=== PATIENT | female | born 1940 | race African-American/Black ===

== ENCOUNTER 2016-08-16 14:57 | Inpatient (IN) | payer MEDICAID, OTHER ==
[2016-08-16] MEDS ORDERED: TUSSIONEX PENNKINETIC SUSP PO PRN (16:54)
[2016-08-16] MEDS: DUONEB 0.5 MG/3 MG NEB SCH ×2 (17:00→20:26)
[2016-08-16] MEDS ORDERED: SALINE 3% 15 ML NEB TX ONE (17:13)
[2016-08-16 17:58] LABS: BASOPHILS # (AUTO) 0.1 X10^3/uL (0.0-0.1); BASOPHILS % (AUTO) 0.9 % (0.2-1.0); EOSINOPHILS # (AUTO) 0.2 x10^3/uL (0.0-0.2); EOSINOPHILS % (AUTO) 1.5 % (0.9-2.9); HEMATOCRIT 36.3 % (36.0-47.0); HEMOGLOBIN 12.1 g/dL (12.0-16.0); LYMPHOCYTES # (AUTO) 1.3 X10^3/uL (1.3-2.9); LYMPHOCYTES % (AUTO) 12.4 % (21.0-51.0); MEAN CORPUSCULAR HEMOGLOBIN 28.4 pg (27.0-34.0); MEAN CORPUSCULAR HGB CONC 33.4 g/dL (33.0-35.0); MEAN PLATELET VOLUME 9.2 fL (7.4-11.0); MONOCYTES # (AUTO) 0.7 x10^3/uL (0.3-0.8); MONOCYTES % (AUTO) 6.3 % (0.0-13.0); NEUTROPHILS # (AUTO) 8.3 x10^3/uL (2.2-4.8); NEUTROPHILS % (AUTO) 78.9 % (42.0-75.0); PLATELET COUNT 286 X10^3/uL (150.0-450.0); RED BLOOD COUNT 4.27 X10^6/uL (3.5-5.4); RED CELL DISTRIBUTION WIDTH 13.6 % (11.6-16.5); WHITE BLOOD COUNT 10.5 X10^3/uL (3.6-10.0)
[2016-08-16 18:20] LABS: ALANINE AMINOTRANSFERASE 16 Units/L (12-78); ALBUMIN 3.5 g/dL (3.4-5.0); ALKALINE PHOSPHATASE 63 Units/L (46-116); ASPARTATE AMINO TRANSFERASE 17 Units/L (15-37); BLOOD UREA NITROGEN 18 mg/dL (7-18); CHLORIDE 105 mmol/L (98-107); COR NA(FOR HYPERGLY) 146 mmol/L (136-145); CREATININE 1.26 mg/dL (0.55-1.02); GLUCOSE 132 mg/dL (65-99); SODIUM 145 mmol/L (136-145); eGFR BLACK RACES 53 (>60); eGFR NON BLACK RACES 44 (>60)
[2016-08-16] MEDS ORDERED: NS 1/2 1000 ML IV 1,000 ML IV ONE (18:56)
[2016-08-16] MEDS: LEVAQUIN PREMIX IV 750 MG 750 MG/150 ML BAG IV SCH (19:03)
[2016-08-16] MEDS: ROBITUSSIN DM PO SCH ×2 (19:03→20:19)
[2016-08-16] MEDS: NS 1/2 1000 ML IV 1,000 ML IV SCH (19:03)
--- NOTE | 2016-08-16 20:13 | RAD ---
HISTORY: Pneumonia Study: Two views of the chest Comparison: May 21, 2014 Findings: The patient is rotated. The cardiac silhouette is enlarged. The lungs are clear without focal infi ltrate or effusion. The aorta is partially calcified and tortuous. IMPRESSION: 1. Cardiomegaly. Reported By:
[2016-08-16 21:44] VITALS: BMI 30.2
[2016-08-17] MEDS: DUONEB 0.5 MG/3 MG NEB SCH ×6 (00:21→21:17)
[2016-08-17 06:03] LABS: BASOPHILS % (AUTO) 0.6 % (0.2-1.0); EOSINOPHILS # (AUTO) 0.1 x10^3/uL (0.0-0.2); HEMATOCRIT 32.5 % (36.0-47.0); HEMOGLOBIN 11.1 g/dL (12.0-16.0); LYMPHOCYTES # (AUTO) 1.1 X10^3/uL (1.3-2.9); LYMPHOCYTES % (AUTO) 12.8 % (21.0-51.0); MEAN CORPUSCULAR HEMOGLOBIN 28.6 pg (27.0-34.0); MEAN CORPUSCULAR HGB CONC 34.2 g/dL (33.0-35.0); MEAN CORPUSCULAR VOLUME 83.7 fL (80.0-100.0); MEAN PLATELET VOLUME 9.6 fL (7.4-11.0); MONOCYTES # (AUTO) 0.7 x10^3/uL (0.3-0.8); NEUTROPHILS # (AUTO) 6.4 x10^3/uL (2.2-4.8); NEUTROPHILS % (AUTO) 76.6 % (42.0-75.0); PLATELET COUNT 246 X10^3/uL (150.0-450.0); RED BLOOD COUNT 3.88 X10^6/uL (3.5-5.4); RED CELL DISTRIBUTION WIDTH 13.4 % (11.6-16.5); WHITE BLOOD COUNT 8.3 X10^3/uL (3.6-10.0)
[2016-08-17 06:05] LABS: ALBUMIN 2.9 g/dL (3.4-5.0); CALCIUM 8.2 mg/dL (8.5-10.1); CARBON DIOXIDE 27.7 mmol/L (21-32); COR CA(FOR HYPOALB) 9.1 mg/dL (8.5-10.1); CREATININE 1.23 mg/dL (0.55-1.02)
[2016-08-17] MEDS: LOVENOX INJ 30 MG SYR SC SCH ×2 (09:58→20:02)
[2016-08-17] MEDS: ROBITUSSIN DM PO SCH ×4 (09:58→20:02)
[2016-08-17] MEDS ORDERED: TOPROL XL PO SCH (10:00)
[2016-08-17] MEDS ORDERED: NS 1/2 1000 ML IV 1,000 ML IV ONE ×2 (14:06→19:59)
[2016-08-17] MEDS: NS 1/2 1000 ML IV 1,000 ML IV SCH ×2 (14:07→20:03)
[2016-08-17] MEDS ORDERED: NS 100 ML IV 100 ML IV ONE (14:28)
[2016-08-17] MEDS ORDERED: CARDIZEM INJ 125 MG VIAL ONE (14:28)
[2016-08-17] MEDS: CARDIZEM INJ 125 MG VIAL 125 MG in NS 100 ML IV 100 ML IV PRN ×2 (14:42→22:39)
[2016-08-17] MEDS: LEVAQUIN PREMIX IV 750 MG 750 MG/150 ML BAG IV SCH (17:12)
[2016-08-17] MEDS ORDERED: HumuLIN R SC PRN (18:58)
[2016-08-17] MEDS ORDERED: MILK OF MAGNESIA PO PRN (20:06)
[2016-08-17] MEDS ORDERED: COLACE CAP 100 MG PO PRN (20:06)
--- NOTE | 2016-08-17 20:14 | DR.UPDATE ---
H&P Update History and Physical Update: HISTORY AND PHYSICAL UPDATE FOR ADMISSION 08/16/16 MS. MOYA'S H&P WAS COMPLETED IN OUR OFFICE PRIOR TO ADMISSION. SHE HAS BEEN SEEN AND EXAMINED WITH NO CHANGES NOTED.
--- NOTE | 2016-08-17 20:21 | PCM.PROG ---
Progress Note - Progress Note for Day of Date: 08/17/16 - Subjective Subjective: PATIENT SITS UP IN BED THIS MORNING. SHE CONTINUES WITH SHORTNESS OF BREATH AT REST. SHE IS NOTED WITH AN INTERMITTENT, NON-PRODUCTIVE COUGH. ON AUSCULTATION, HEART RATE IS NOTED WITH IRREGULARITY WITH A-FIB, RATE UNCONTROLLED IN THE 120'S; LUNGS NOTED WITH WHEEZING. AN EKG WAS OBTAINED AND REPORTS A-FIB, RATE 112. WE STARTED TOPROL XL AT THAT TIME. SEVERAL HOURS LATER, PATIENT'S HEART RATE WAS NOTED TO BE 160'S TO 180'S ON TELEMETRY. ANOTHER EKG WAS OBTAINED AND REPORTED HEART RATE OF 131, ATRIAL FIBRILLATION. PATIENT REPORTS HER CHEST FEELS "FUNNY" AND STATES SHE FEELS LIKE THAT OCCASIONALLY AT HOME. PATIENT DENIES CHEST PAIN. WE WILL TRANSFER PATIENT TO ICU AND START PATIENT ON A CARDIZEM DRIP. WE WILL CONTINUE SERIAL EKG'S, SUPPLEMENTAL OXYGEN, AND MONITOR ON TELEMETRY. WE WILL ALSO CONTINUE TREATMENT FOR BRONCHOPNEUMONIA. - Past Medical Family Social History Past Med/Fam/Surg Hx: No changes since H&P Allergies: Allergies Morphine Allergy (Mild, Verified 07/21/14 10:35) pt states she broke out in [place] - Review of Systems ROS: No change since H&P - Vital Signs and I&O's Vital Signs: Temperature 97.6 F Pulse Rate [Apical] 88 Pulse Rate [Left Brachial] 134 Pulse Rate [Right Brachial] 129 Pulse Rate 111 Respiratory Rate 27 Blood Pressure [Right Arm] 143/82 Blood Pressure [Left Arm] 115/67 Blood Pressure 115/77 O2 Sat by Pulse Oximetry 95 Intake and Output: Intake & Output 08/15/16 08/16/16 08/17/16 08/18/16 11:59 11:59 11:59 11:59 Intake Total 430 0 Balance 430 0 - Physical Exam Oriented: Normal, Time, Person, Place Eyes: Normal. negative: Blurred Vision, Diplopia, Discharge, Pain, Redness, Photophobia Ear: Normal. negative: Swelling, Ecchymosis, Hemotypanum, Abrasion, Laceration Nose: Normal. negative: Injected, Discharge, Blood Throat: Normal. negative: Tonsillar Hypertrophy, Red, Exudate Respiratory: Generalized, Wheezes Cardiovascular: Irregular (Irreg, irreg). negative: Murmur, Edema : Normal. negative: Dysuria, Hematuria, Frequency, Discharge, Bleeding, Auscultation: Bowel Sounds: Normal. negative: Bruit Palpation: Normal. negative: Spleen Enlarged, Liver Enlarged, Mass Pulsatile Tenderness: Normal. negative: Rebound, Guarding, Rigidity Skin: Decreased Turgur. negative: Diaphoresis, Wound, Bruising, Ecchymosis Musculoskeletal: Normal Psychiatric: Normal Mood Description: Calm, Appropriate Affect: Normal Speech Pattern: Clear, Appropriate - Laboratory and Diagnostics Result Diagrams: 08/17/16 03:40 08/17/16 03:40 Labs: Laboratory WBC 8.3 X10^3/uL (3.6-10.0) 08/17/16 03:40 RBC 3.88 X10^6/uL (3.5-5.4) 08/17/16 03:40 Hgb 11.1 g/dL (12.0-16.0) L 08/17/16 03:40 Hct 32.5 % (36.0-47.0) L 08/17/16 03:40 MCV 83.7 fL (80.0-100.0) 08/17/16 03:40 MCH 28.6 pg (27.0-34.0) 08/17/16 03:40 MCHC 34.2 g/dL (33.0-35.0) 08/17/16 03:40 RDW 13.4 % (11.6-16.5) 08/17/16 03:40 Plt Count 246 X10^3/uL (150.0-450.0) 08/17/16 03:40 MPV 9.6 fL (7.4-11.0) 08/17/16 03:40 Neut % 76.6 % (42.0-75.0) H 08/17/16 03:40 Lymph % 12.8 % (21.0-51.0) L 08/17/16 03:40 [place] % 9.0 % (0.0-13.0) 08/17/16 03:40 Eos % 1.0 % (0.9-2.9) 08/17/16 03:40 Baso % 0.6 % (0.2-1.0) 08/17/16 03:40 Neut # 6.4 x10^3/uL (2.2-4.8) H 08/17/16 03:40 Lymph # 1.1 X10^3/uL (1.3-2.9) L 08/17/16 03:40 [place] # 0.7 x10^3/uL (0.3-0.8) 08/17/16 03:40 Eos # 0.1 x10^3/uL (0.0-0.2) 08/17/16 03:40 Baso # 0.0 X10^3/uL (0.0-0.1) 08/17/16 03:40 Absolute Nucleated RBC 0.1 /100WBC 08/17/16 03:40 Sodium 142 mmol/L (136-145) 08/17/16 03:40 Corrected Sodium 142 mmol/L (136-145) 08/17/16 03:40 Potassium 3.8 mmol/L (3.5-5.1) 08/17/16 03:40 Chloride 105 mmol/L (98-107) 08/17/16 03:40 Carbon Dioxide 27.7 mmol/L (21-32) 08/17/16 03:40 BUN 16 mg/dL (7-18) 08/17/16 03:40 Creatinine 1.23 mg/dL (0.55-1.02) H 08/17/16 03:40 Est GFR (MDRD) Af Amer 55 (>60) L 08/17/16 03:40 Est GFR (MDRD) Non-Af 45 (>60) L 08/17/16 03:40 Glucose 112 mg/dL (65-99) H 08/17/16 03:40 Calcium 8.2 mg/dL (8.5-10.1) L 08/17/16 03:40 Corrected Calcium 9.1 mg/dL (8.5-10.1) 08/17/16 03:40 Total Bilirubin 0.70 mg/dL (0.2-1.0) 08/17/16 03:40 AST 16 Units/L (15-37) 08/17/16 03:40 ALT 13 Units/L (12-78) 08/17/16 03:40 Alkaline Phosphatase 53 Units/L (46-116) 08/17/16 03:40 Total Protein 7.0 g/dL (6.4-8.2) 08/17/16 03:40 Albumin 2.9 g/dL (3.4-5.0) L 08/17/16 03:40 Globulin 4.1 g/dL (2.5-4.5) 08/17/16 03:40 Albumin/Globulin Ratio 0.7 Ratio (1.1-2.1) L 08/17/16 03:40 Influenza A (H1N1) PCR Not detected (NOT DETECT) 08/16/16 19:00 Influenza Type A (PCR) Negative (NEGATIVE) 08/16/16 19:00 Influenza Type B (PCR) Negative (NEGATIVE) 08/16/16 19:00 - Plan (1) Atrial fibrillation Status: Acute Qualifiers: Atrial fibrillation type: chronic Qualified Code(s): I48.2 - Chronic atrial fibrillation Plan: TRANSFER TO ICU, START CARDIZEM DRIP, MONITOR ON TELEMETRY, SUPPLEMENTAL OXYGEN, SERIAL EKG'S. (2) Bronchopneumonia Status: Acute Plan: CONTINUE IV LEVAQUIN, DUONEBS, ROBITUSSIN, TUSSIONEX, MONITOR LABS AND CHEST XRAY. (3) CAD (coronary artery disease) Status: Chronic Qualifiers: Coronary Disease-Associated Artery/Lesion type: [place] artery [place] vs. 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
[2016-08-18] MEDS: DUONEB 0.5 MG/3 MG NEB SCH ×5 (01:11→16:09)
[2016-08-18 04:46] LABS: ALBUMIN 2.8 g/dL (3.4-5.0); CALCIUM 7.7 mg/dL (8.5-10.1); CARBON DIOXIDE 29.5 mmol/L (21-32); COR CA(FOR HYPOALB) 8.7 mg/dL (8.5-10.1); CREATININE 1.35 mg/dL (0.55-1.02); TOTAL PROTEIN 6.7 g/dL (6.4-8.2)
[2016-08-18 05:33] LABS: BASOPHILS # (AUTO) 0.1 X10^3/uL (0.0-0.1); EOSINOPHILS # (AUTO) 0.1 x10^3/uL (0.0-0.2); EOSINOPHILS % (AUTO) 1.4 % (0.9-2.9); HEMATOCRIT 32.4 % (36.0-47.0); HEMOGLOBIN 10.8 g/dL (12.0-16.0); LYMPHOCYTES % (AUTO) 16.5 % (21.0-51.0); MEAN CORPUSCULAR HEMOGLOBIN 28.5 pg (27.0-34.0); MEAN CORPUSCULAR HGB CONC 33.3 g/dL (33.0-35.0); MEAN CORPUSCULAR VOLUME 85.6 fL (80.0-100.0); MEAN PLATELET VOLUME 8.9 fL (7.4-11.0); MONOCYTES # (AUTO) 0.8 x10^3/uL (0.3-0.8); MONOCYTES % (AUTO) 12.1 % (0.0-13.0); NEUTROPHILS # (AUTO) 4.3 x10^3/uL (2.2-4.8); PLATELET COUNT 245 X10^3/uL (150.0-450.0); RED BLOOD COUNT 3.78 X10^6/uL (3.5-5.4); RED CELL DISTRIBUTION WIDTH 13.9 % (11.6-16.5); WHITE BLOOD COUNT 6.3 X10^3/uL (3.6-10.0)
[2016-08-18] MEDS ORDERED: CARDIZEM INJ 125 MG VIAL 125 MG in NS 100 ML IV 100 ML IV PRN (07:00)
[2016-08-18] MEDS ORDERED: CARDIZEM INJ 50 MG VIAL IVP ONE (07:00)
[2016-08-18] MEDS ORDERED: HumuLIN R SC PRN (07:00)
--- NOTE | 2016-08-18 07:12 | RAD ---
HISTORY: Cough Study: Single-view chest Comparison: August 16, 2016 Findings: The trachea is midline. The cardiac silhouette is enlarged with a tortuous thoracic aorta. The nickolas gs are clear without focal infiltrate or effusion. The bony thorax is unremarkable. IMPRESSION: 1. No acute cardiopulmonary disease. Reported By:
[2016-08-18] MEDS: LOVENOX INJ 30 MG SYR SC SCH ×2 (09:25→21:08)
[2016-08-18] MEDS: ROBITUSSIN DM PO SCH ×4 (09:26→21:08)
[2016-08-18] MEDS ORDERED: LEVAQUIN PREMIX IV 750 MG 750 MG/150 ML BAG IV SCH (17:00)
[2016-08-18] MEDS: CARDIZEM TAB 30 MG PLAIN PO SCH ×2 (18:45→21:09)
[2016-08-18] MEDS ORDERED: NS 1/2 1000 ML IV 1,000 ML IV ONE (20:27)
[2016-08-18] MEDS: XOPENEX 1.25 MG/3 ML NEBULE NEB SCH (20:47)
[2016-08-18] MEDS: NS 1/2 1000 ML IV 1,000 ML IV SCH (21:08)
[2016-08-19] MEDS: NS 1/2 1000 ML IV 1,000 ML IV SCH ×3 (02:15→22:09)
[2016-08-19] MEDS: CARDIZEM TAB 30 MG PLAIN PO SCH ×4 (03:57→22:03)
[2016-08-19] MEDS: TUSSIONEX PENNKINETIC SUSP PO PRN ×3 (03:58→22:04)
--- NOTE | 2016-08-19 06:56 | RAD ---
Chest AP portable Indication: Coughing congestion. Comparison: Previous day's radiograph. Findings: Heart size is prominent. There is no pneumothorax, effusion or consolidation seen. Impression: Cardiomegaly without new acute abnormality or change from the prior. Reported By:
[2016-08-19 06:59] LABS: BASOPHILS # (AUTO) 0.1 X10^3/uL (0.0-0.1); BASOPHILS % (AUTO) 0.9 % (0.2-1.0); EOSINOPHILS # (AUTO) 0.2 x10^3/uL (0.0-0.2); EOSINOPHILS % (AUTO) 2.1 % (0.9-2.9); HEMATOCRIT 32.6 % (36.0-47.0); HEMOGLOBIN 10.9 g/dL (12.0-16.0); LYMPHOCYTES % (AUTO) 12.7 % (21.0-51.0); MEAN CORPUSCULAR HEMOGLOBIN 28.4 pg (27.0-34.0); MEAN CORPUSCULAR HGB CONC 33.6 g/dL (33.0-35.0); MEAN CORPUSCULAR VOLUME 84.6 fL (80.0-100.0); MEAN PLATELET VOLUME 8.7 fL (7.4-11.0); MONOCYTES # (AUTO) 0.8 x10^3/uL (0.3-0.8); MONOCYTES % (AUTO) 9.6 % (0.0-13.0); NEUTROPHILS % (AUTO) 74.7 % (42.0-75.0); PLATELET COUNT 251 X10^3/uL (150.0-450.0); RED BLOOD COUNT 3.85 X10^6/uL (3.5-5.4); RED CELL DISTRIBUTION WIDTH 13.9 % (11.6-16.5)
[2016-08-19 07:24] LABS: ALANINE AMINOTRANSFERASE 12 Units/L (12-78); ALBUMIN 2.9 g/dL (3.4-5.0); ALKALINE PHOSPHATASE 51 Units/L (46-116); ASPARTATE AMINO TRANSFERASE 19 Units/L (15-37); BLOOD UREA NITROGEN 12 mg/dL (7-18); CALCIUM 7.8 mg/dL (8.5-10.1); CARBON DIOXIDE 27.8 mmol/L (21-32); CHLORIDE 107 mmol/L (98-107); COR CA(FOR HYPOALB) 8.7 mg/dL (8.5-10.1); COR NA(FOR HYPERGLY) 144 mmol/L (136-145); CREATININE 1.12 mg/dL (0.55-1.02); GLUCOSE 156 mg/dL (65-99); SODIUM 143 mmol/L (136-145); TOTAL PROTEIN 6.9 g/dL (6.4-8.2); eGFR BLACK RACES > 60 (>60); eGFR NON BLACK RACES 51 (>60)
[2016-08-19] MEDS: XOPENEX 1.25 MG/3 ML NEBULE NEB SCH ×4 (09:00→20:45)
[2016-08-19] MEDS: ROBITUSSIN DM PO SCH ×4 (09:54→22:04)
[2016-08-19] MEDS: LEVAQUIN PREMIX IV 750 MG 750 MG/150 ML BAG IV SCH (09:54)
[2016-08-19] MEDS: LOVENOX INJ 30 MG SYR SC SCH ×2 (09:54→22:04)
[2016-08-19] MEDS ORDERED: NS 1/2 1000 ML IV 1,000 ML IV ONE (21:41)
[2016-08-20 05:48] LABS: BASOPHILS # (AUTO) 0.1 X10^3/uL (0.0-0.1); EOSINOPHILS # (AUTO) 0.1 x10^3/uL (0.0-0.2); EOSINOPHILS % (AUTO) 1.2 % (0.9-2.9); HEMATOCRIT 32.7 % (36.0-47.0); HEMOGLOBIN 10.9 g/dL (12.0-16.0); LYMPHOCYTES # (AUTO) 1.6 X10^3/uL (1.3-2.9); LYMPHOCYTES % (AUTO) 20.8 % (21.0-51.0); MEAN CORPUSCULAR HEMOGLOBIN 28.4 pg (27.0-34.0); MEAN CORPUSCULAR HGB CONC 33.4 g/dL (33.0-35.0); MEAN CORPUSCULAR VOLUME 84.9 fL (80.0-100.0); MEAN PLATELET VOLUME 9.1 fL (7.4-11.0); MONOCYTES # (AUTO) 0.8 x10^3/uL (0.3-0.8); MONOCYTES % (AUTO) 10.4 % (0.0-13.0); NEUTROPHILS # (AUTO) 5.1 x10^3/uL (2.2-4.8); NEUTROPHILS % (AUTO) 66.6 % (42.0-75.0); PLATELET COUNT 220 X10^3/uL (150.0-450.0); RED BLOOD COUNT 3.85 X10^6/uL (3.5-5.4); RED CELL DISTRIBUTION WIDTH 13.4 % (11.6-16.5); WHITE BLOOD COUNT 7.7 X10^3/uL (3.6-10.0)
[2016-08-20 05:58] LABS: ALBUMIN 2.8 g/dL (3.4-5.0); CARBON DIOXIDE 28.7 mmol/L (21-32); CREATININE 1.2 mg/dL (0.55-1.02); TOTAL PROTEIN 6.7 g/dL (6.4-8.2)
[2016-08-20] MEDS: CARDIZEM TAB 30 MG PLAIN PO SCH (06:09)
[2016-08-20] MEDS: NS 1/2 1000 ML IV 1,000 ML IV SCH ×2 (06:10→20:45)
--- NOTE | 2016-08-20 07:23 | RAD ---
HISTORY: Follow up shortness of breath Study: Chest one view Comparison: August 19, 2016 Findings: The heart is mildly enlarged. No congestive heart failure is noted. No acute alveolar infiltrates or pleural effusions are identified. The bony thorax is unremarkable. IMPRESSION: Cardiomegaly without congestive heart failure Lungs clear Reported By:
[2016-08-20] MEDS: XOPENEX 1.25 MG/3 ML NEBULE NEB SCH ×4 (08:04→21:23)
[2016-08-20] MEDS: LOVENOX INJ 30 MG SYR SC SCH ×2 (09:17→20:49)
[2016-08-20] MEDS: ROBITUSSIN DM PO SCH ×4 (09:18→20:45)
[2016-08-20] MEDS ORDERED: [UNRECOGNIZED DRUG - OTHER] PO SCH (10:30)
[2016-08-20] MEDS ORDERED: CARDIZEM CD 180 MG PO SCH (11:00)
[2016-08-20] MEDS: JANUVIA PO SCH (11:26)
[2016-08-20] MEDS: TUSSIONEX PENNKINETIC SUSP PO PRN (12:42)
[2016-08-20] MEDS: COMBIGAN EYE DROPS EACHEYE SCH ×2 (13:53→20:48)
--- NOTE | 2016-08-20 17:10 | PCM.PROG ---
Progress Note - Progress Note for Day of Date: 08/20/16 - Subjective Subjective: PATIENT IS SITTING UP IN BED UPON ROUNDS. SHE CONTINUES WITH SHORTNESS OF BREATH ON EXERTION. SHE CONTINUES WITH AN INTERMITTENT, NON- PRODUCTIVE COUGH. HEART RATE CONTINUES WITH IRREGULARITY, RATE IS CONTROLLED IN THE 70'S TO 80'S; HOWEVER, HEART RATE IS INCREASING TO 120'S WITH EXERTION. PATIENT HAD BEEN ON A CARDIZEM DRIP AND WAS THEN CONVERTED TO PO CARDIZEM OF 60MG Q8H. PATIENT DENIES CHEST PAIN. PATIENT CONTINUES WITH A MOIST, NON- PRODUCTIVE COUGH THAT IS PERSISTENT. ON AUSCULTATION, LUNGS ARE NOTED WITH SCATTERED WHEEZING THROUGHOUT. PATIENT AFEBRILE. CBC WNL EXCEPT: H/H 10.9/ 32.7. CMP WNL EXCEPT: CREAT 1.20, GFR 47, GLUCOSE 151, CALCIUM 8.0, ALBUMIN 2.8. CHEST XRAY REPORTS CARDIOMEGALY WITHOUT CHF; LUNGS CLEAR. WE WILL START PATIENT ON CARDIZEM 180MG DAILY, CONTINUE TO MONITOR ON TELEMETRY. WE WILL CONTINUE SUPPLEMENTAL OXYGEN, IV ANTIBIOTICS, ROBITUSSIN, DUONEBS, AND FOLLOW UP IN AM WITH LABS AND CHEST XRAY. - Past Medical Family Social History Past Med/Fam/Surg Hx: No changes since H&P Allergies: Allergies Morphine Allergy (Mild, Verified 07/21/14 10:35) pt states she broke out in [employer] - Review of Systems ROS: No change since H&P - Vital Signs and I&O's Vital Signs: Temperature 97.3 F Pulse Rate [Apical] 70 Pulse Rate [Left Brachial] 134 Pulse Rate [Right Brachial] 129 Pulse Rate 86 Respiratory Rate 26 Blood Pressure [Right Arm] 143/82 Blood Pressure [Left Arm] 87/61 Blood Pressure 115/77 O2 Sat by Pulse Oximetry 100 Intake and Output: Intake & Output 08/18/16 08/19/16 08/20/16 08/21/16 11:59 11:59 11:59 11:59 Intake Total 1970 3008 2428 Balance 1970 3008 2428 - Physical Exam Oriented: Normal, Time, Person, Place Eyes: Normal. negative: Blurred Vision, Diplopia, Discharge, Pain, Redness, Photophobia Ear: Normal. negative: Swelling, Ecchymosis, Hemotypanum, Abrasion, Laceration Nose: Normal. negative: Injected, Discharge, Blood Throat: Normal. negative: Tonsillar Hypertrophy, Red, Exudate Respiratory: Generalized, Wheezes Cardiovascular: Irregular (Irreg, irreg). negative: Murmur, Edema : Normal. negative: Dysuria, Hematuria, Frequency, Discharge, Bleeding, Auscultation: Bowel Sounds: Normal. negative: Bruit Palpation: Normal. negative: Spleen Enlarged, Liver Enlarged, Mass Pulsatile Tenderness: Normal. negative: Rebound, Guarding, Rigidity Skin: Decreased Turgur. negative: Diaphoresis, Wound, Bruising, Ecchymosis Musculoskeletal: Normal Psychiatric: Normal Mood Description: Calm, Appropriate Affect: Normal Speech Pattern: Clear, Appropriate - Laboratory and Diagnostics Result Diagrams: 08/20/16 05:24 08/20/16 05:24 Labs: 08/16/16 17:40 Blood Blood Culture - Preliminary 08/16/16 17:25 Blood Blood Culture - Preliminary Laboratory WBC 7.7 X10^3/uL (3.6-10.0) 08/20/16 05:24 RBC 3.85 X10^6/uL (3.5-5.4) 08/20/16 05:24 Hgb 10.9 g/dL (12.0-16.0) L 08/20/16 05:24 Hct 32.7 % (36.0-47.0) L 08/20/16 05:24 MCV 84.9 fL (80.0-100.0) 08/20/16 05:24 MCH 28.4 pg (27.0-34.0) 08/20/16 05:24 MCHC 33.4 g/dL (33.0-35.0) 08/20/16 05:24 RDW 13.4 % (11.6-16.5) 08/20/16 05:24 Plt Count 220 X10^3/uL (150.0-450.0) 08/20/16 05:24 MPV 9.1 fL (7.4-11.0) 08/20/16 05:24 Neut % 66.6 % (42.0-75.0) 08/20/16 05:24 Lymph % 20.8 % (21.0-51.0) L 08/20/16 05:24 [place] % 10.4 % (0.0-13.0) 08/20/16 05:24 Eos % 1.2 % (0.9-2.9) 08/20/16 05:24 Baso % 1.0 % (0.2-1.0) 08/20/16 05:24 Neut # 5.1 x10^3/uL (2.2-4.8) H 08/20/16 05:24 Lymph # 1.6 X10^3/uL (1.3-2.9) 08/20/16 05:24 [place] # 0.8 x10^3/uL (0.3-0.8) 08/20/16 05:24 Eos # 0.1 x10^3/uL (0.0-0.2) 08/20/16 05:24 Baso # 0.1 X10^3/uL (0.0-0.1) 08/20/16 05:24 Absolute Nucleated RBC 0.1 /100WBC 08/20/16 05:24 Sodium 141 mmol/L (136-145) 08/20/16 05:24 Corrected Sodium 142 mmol/L (136-145) 08/20/16 05:24 Potassium 3.7 mmol/L (3.5-5.1) 08/20/16 05:24 Chloride 105 mmol/L (98-107) 08/20/16 05:24 Carbon Dioxide 28.7 mmol/L (21-32) 08/20/16 05:24 BUN 13 mg/dL (7-18) 08/20/16 05:24 Creatinine 1.20 mg/dL (0.55-1.02) H 08/20/16 05:24 Est GFR (MDRD) Af Amer 56 (>60) L 08/20/16 05:24 Est GFR (MDRD) Non-Af 47 (>60) L 08/20/16 05:24 Glucose 151 mg/dL (65-99) H 08/20/16 05:24 Calcium 8.0 mg/dL (8.5-10.1) L 08/20/16 05:24 Corrected Calcium 9.0 mg/dL (8.5-10.1) 08/20/16 05:24 Total Bilirubin 0.80 mg/dL (0.2-1.0) 08/20/16 05:24 AST 21 Units/L (15-37) 08/20/16 05:24 ALT 14 Units/L (12-78) 08/20/16 05:24 Alkaline Phosphatase 49 Units/L (46-116) 08/20/16 05:24 Total Protein 6.7 g/dL (6.4-8.2) 08/20/16 05:24 Albumin 2.8 g/dL (3.4-5.0) L 08/20/16 05:24 Globulin 3.9 g/dL (2.5-4.5) 08/20/16 05:24 Albumin/Globulin Ratio 0.7 Ratio (1.1-2.1) L 08/20/16 05:24 Influenza A (H1N1) PCR Not detected (NOT DETECT) 08/16/16 19:00 Influenza Type A (PCR) Negative (NEGATIVE) 08/16/16 19:00 Influenza Type B (PCR) Negative (NEGATIVE) 08/16/16 19:00 - Plan (1) Atrial fibrillation Status: Acute Qualifiers: Atrial fibrillation type: chronic Qualified Code(s): I48.2 - Chronic atrial fibrillation Plan: START CARDIZEM 180MG DAILY, MONITOR ON TELEMETRY, SUPPLEMENTAL OXYGEN, DAILY EKG'S. (2) Bronchopneumonia Status: Acute Plan: CONTINUE IV LEVAQUIN, DUONEBS, ROBITUSSIN, TUSSIONEX, MONITOR LABS AND CHEST XRAY. (3) CAD (coronary artery disease) Status: Chronic Qualifiers: Coronary Disease-Associated Artery/Lesion type: [place] artery [place] vs. 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
[2016-08-20] MEDS: SNACK - Diabetic Appropriate PO SCH (20:45)
[2016-08-20] MEDS: LUMIGAN OPHTH EACHEYE SCH (20:49)
[2016-08-21 06:28] LABS: BASOPHILS % (AUTO) 0.5 % (0.2-1.0); EOSINOPHILS # (AUTO) 0.3 x10^3/uL (0.0-0.2); EOSINOPHILS % (AUTO) 3.6 % (0.9-2.9); HEMATOCRIT 32.7 % (36.0-47.0); LYMPHOCYTES # (AUTO) 1.8 X10^3/uL (1.3-2.9); LYMPHOCYTES % (AUTO) 26.4 % (21.0-51.0); MEAN CORPUSCULAR HEMOGLOBIN 28.1 pg (27.0-34.0); MEAN CORPUSCULAR HGB CONC 33.5 g/dL (33.0-35.0); MEAN PLATELET VOLUME 9.1 fL (7.4-11.0); MONOCYTES # (AUTO) 0.7 x10^3/uL (0.3-0.8); MONOCYTES % (AUTO) 10.1 % (0.0-13.0); NEUTROPHILS # (AUTO) 4.1 x10^3/uL (2.2-4.8); NEUTROPHILS % (AUTO) 59.4 % (42.0-75.0); PLATELET COUNT 219 X10^3/uL (150.0-450.0); RED CELL DISTRIBUTION WIDTH 13.4 % (11.6-16.5); WHITE BLOOD COUNT 6.9 X10^3/uL (3.6-10.0)
--- NOTE | 2016-08-21 06:28 | RAD ---
HISTORY: Shortness of breath Study: Chest one view Comparison: August 20, 2016 Findings: The heart is enlarged. No congestive heart failure is noted. No acute alveolar infiltrates are ident ified. No pleural effusions are present. The bony thorax is unremarkable. IMPRESSION: Cardiomegaly without congestive heart failure Lungs clear Reported By:
[2016-08-21 06:45] LABS: ALBUMIN 2.7 g/dL (3.4-5.0); CALCIUM 8.1 mg/dL (8.5-10.1); CARBON DIOXIDE 28.1 mmol/L (21-32); COR CA(FOR HYPOALB) 9.1 mg/dL (8.5-10.1); CREATININE 1.19 mg/dL (0.55-1.02); TOTAL PROTEIN 6.7 g/dL (6.4-8.2)
[2016-08-21] MEDS: XOPENEX 1.25 MG/3 ML NEBULE NEB SCH ×4 (08:23→21:00)
[2016-08-21] MEDS ORDERED: NS 1/2 1000 ML IV 1,000 ML IV ONE (09:45)
[2016-08-21] MEDS: LEVAQUIN PREMIX IV 750 MG 750 MG/150 ML BAG IV SCH (09:47)
[2016-08-21] MEDS: NS 1/2 1000 ML IV 1,000 ML IV SCH (09:47)
[2016-08-21] MEDS: LOVENOX INJ 30 MG SYR SC SCH ×2 (09:48→21:04)
[2016-08-21] MEDS: JANUVIA PO SCH (09:48)
[2016-08-21] MEDS: ROBITUSSIN DM PO SCH ×4 (09:49→21:04)
[2016-08-21] MEDS: CARDIZEM SR 120 MG PO SCH ×2 (09:49→21:04)
[2016-08-21] MEDS: COMBIGAN EYE DROPS EACHEYE SCH ×2 (09:50→21:05)
--- NOTE | 2016-08-21 11:28 | PCM.PROG ---
Progress Note - Progress Note for Day of Date: 08/21/16 - Subjective Subjective: PATIENT IS NOTED WITH BLOOD PRESSURE OF 120/71, PULSE 66. HEART RATE IS IRREGULAR, RATE CONTROLLED. BLOOD PRESSURE WAS NOTED TO DROP A BIT DURING THE NIGHT TO 85/45. PATIENT REPORTS SHE IS FEELING A LITTLE BETTER TODAY. SHE CONTINUES WITH AN INTERMITTENT, NON-PRODUCTIVE COUGH. PATIENT DENIES CHEST PAIN. PATIENT CONTINUES WITH A MOIST, NON-PRODUCTIVE COUGH THAT IS PERSISTENT. ON AUSCULTATION, LUNGS ARE NOTED WITH SCATTERED WHEEZING THROUGHOUT. PATIENT AFEBRILE. CBC WNL EXCEPT: H/H 11.0/32.7. CMP WNL EXCEPT: CREAT 1.19, GFR 47, GLUCOSE 138, CALCIUM 8.1, ALBUMIN 2.7. CHEST XRAY REPORTS CARDIOMEGALY WITHOUT CHF; LUNGS CLEAR. EKG: ATRIAL FIBRILLATION, RATE 55. WE WILL DECREASE CARDIZEM TO 120MG AND CONTINUE TO MONITOR ON TELEMETRY. WE WILL CONTINUE SUPPLEMENTAL OXYGEN, IV ANTIBIOTICS, ROBITUSSIN, DUONEBS, AND FOLLOW UP IN AM WITH LABS AND CHEST XRAY. - Past Medical Family Social History Past Med/Fam/Surg Hx: No changes since H&P Allergies: Allergies Morphine Allergy (Mild, Verified 07/21/14 10:35) pt states she broke out in [employer] - Review of Systems ROS: No change since H&P - Vital Signs and I&O's Vital Signs: Temperature 98.6 F Pulse Rate [Apical] 74 Pulse Rate [Left Brachial] 134 Pulse Rate [Right Brachial] 129 Pulse Rate 65 Respiratory Rate 23 Blood Pressure [Right Arm] 143/82 Blood Pressure [Left Arm] 120/72 Blood Pressure 115/77 O2 Sat by Pulse Oximetry 97 Intake and Output: Intake & Output 08/18/16 08/19/16 08/20/16 08/21/16 11:59 11:59 11:59 11:59 Intake Total 19708 2428 1966 Balance 1970 3007 2427 1966 - Physical Exam Oriented: Normal, Time, Person, Place Eyes: Normal. negative: Blurred Vision, Diplopia, Discharge, Pain, Redness, Photophobia Ear: Normal. negative: Swelling, Ecchymosis, Hemotypanum, Abrasion, Laceration Nose: Normal. negative: Injected, Discharge, Blood Throat: Normal. negative: Tonsillar Hypertrophy, Red, Exudate Respiratory: Generalized, Wheezes Cardiovascular: Irregular (Irreg, irreg). negative: Murmur, Edema : Normal. negative: Dysuria, Hematuria, Frequency, Discharge, Bleeding, Auscultation: Bowel Sounds: Normal. negative: Bruit Palpation: Normal. negative: Spleen Enlarged, Liver Enlarged, Mass Pulsatile Tenderness: Normal. negative: Rebound, Guarding, Rigidity Skin: Decreased Turgur. negative: Diaphoresis, Wound, Bruising, Ecchymosis Musculoskeletal: Normal Psychiatric: Normal Mood Description: Calm, Appropriate Affect: Normal Speech Pattern: Clear, Appropriate - Laboratory and Diagnostics Result Diagrams: 08/21/16 05:47 08/21/16 05:47 Labs: 08/16/16 17:25 Blood Blood Culture - Final 08/16/16 17:40 Blood Blood Culture - Final Laboratory WBC 6.9 X10^3/uL (3.6-10.0) 08/21/16 05:47 RBC 3.90 X10^6/uL (3.5-5.4) 08/21/16 05:47 Hgb 11.0 g/dL (12.0-16.0) L 08/21/16 05:47 Hct 32.7 % (36.0-47.0) L 08/21/16 05:47 MCV 84.0 fL (80.0-100.0) 08/21/16 05:47 MCH 28.1 pg (27.0-34.0) 08/21/16 05:47 MCHC 33.5 g/dL (33.0-35.0) 08/21/16 05:47 RDW 13.4 % (11.6-16.5) 08/21/16 05:47 Plt Count 219 X10^3/uL (150.0-450.0) 08/21/16 05:47 MPV 9.1 fL (7.4-11.0) 08/21/16 05:47 Neut % 59.4 % (42.0-75.0) 08/21/16 05:47 Lymph % 26.4 % (21.0-51.0) 08/21/16 05:47 [place] % 10.1 % (0.0-13.0) 08/21/16 05:47 Eos % 3.6 % (0.9-2.9) H 08/21/16 05:47 Baso % 0.5 % (0.2-1.0) 08/21/16 05:47 Neut # 4.1 x10^3/uL (2.2-4.8) 08/21/16 05:47 Lymph # 1.8 X10^3/uL (1.3-2.9) 08/21/16 05:47 [place] # 0.7 x10^3/uL (0.3-0.8) 08/21/16 05:47 Eos # 0.3 x10^3/uL (0.0-0.2) H 08/21/16 05:47 Baso # 0.0 X10^3/uL (0.0-0.1) 08/21/16 05:47 Absolute Nucleated RBC 0.0 /100WBC 08/21/16 05:47 Sodium 140 mmol/L (136-145) 08/21/16 05:47 Corrected Sodium 141 mmol/L (136-145) 08/21/16 05:47 Potassium 3.9 mmol/L (3.5-5.1) 08/21/16 05:47 Chloride 105 mmol/L (98-107) 08/21/16 05:47 Carbon Dioxide 28.1 mmol/L (21-32) 08/21/16 05:47 BUN 16 mg/dL (7-18) 08/21/16 05:47 Creatinine 1.19 mg/dL (0.55-1.02) H 08/21/16 05:47 Est GFR (MDRD) Af Amer 57 (>60) L 08/21/16 05:47 Est GFR (MDRD) Non-Af 47 (>60) L 08/21/16 05:47 Glucose 138 mg/dL (65-99) H 08/21/16 05:47 Calcium 8.1 mg/dL (8.5-10.1) L 08/21/16 05:47 Corrected Calcium 9.1 mg/dL (8.5-10.1) 08/21/16 05:47 Total Bilirubin 0.50 mg/dL (0.2-1.0) 08/21/16 05:47 AST 27 Units/L (15-37) 08/21/16 05:47 ALT 16 Units/L (12-78) 08/21/16 05:47 Alkaline Phosphatase 50 Units/L (46-116) 08/21/16 05:47 Total Protein 6.7 g/dL (6.4-8.2) 08/21/16 05:47 Albumin 2.7 g/dL (3.4-5.0) L 08/21/16 05:47 Globulin 4.0 g/dL (2.5-4.5) 08/21/16 05:47 Albumin/Globulin Ratio 0.7 Ratio (1.1-2.1) L 08/21/16 05:47 Influenza A (H1N1) PCR Not detected (NOT DETECT) 08/16/16 19:00 Influenza Type A (PCR) Negative (NEGATIVE) 08/16/16 19:00 Influenza Type B (PCR) Negative (NEGATIVE) 08/16/16 19:00 - Plan (1) Atrial fibrillation Status: Acute Qualifiers: Atrial fibrillation type: chronic Qualified Code(s): I48.2 - Chronic atrial fibrillation Plan: DECREASE CARDIZEM TO 120MG, MONITOR ON TELEMETRY, SUPPLEMENTAL OXYGEN, DAILY EKG'S. (2) Bronchopneumonia Status: Acute Plan: CONTINUE IV LEVAQUIN, DUONEBS, ROBITUSSIN, TUSSIONEX, MONITOR LABS AND CHEST XRAY. (3) CAD (coronary artery disease) Status: Chronic Qualifiers: Coronary Disease-Associated Artery/Lesion type: [place] artery [place] vs. 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
[2016-08-21] MEDS: LUMIGAN OPHTH EACHEYE SCH (21:05)
[2016-08-21] MEDS: SNACK - Diabetic Appropriate PO SCH (21:05)
[2016-08-22] MEDS: NS 1/2 1000 ML IV 1,000 ML IV SCH (01:54)
[2016-08-22 05:51] LABS: ALBUMIN 2.7 g/dL (3.4-5.0); CALCIUM 8.3 mg/dL (8.5-10.1); CARBON DIOXIDE 29.5 mmol/L (21-32); COR CA(FOR HYPOALB) 9.3 mg/dL (8.5-10.1); CREATININE 1.14 mg/dL (0.55-1.02); TOTAL PROTEIN 6.5 g/dL (6.4-8.2)
--- NOTE | 2016-08-22 06:36 | RAD ---
AP Chest Indication: Shortness of breath Comparison: 08/21/2016 Findings: The trachea is midline. The cardiac silhouette is borderline enlarged, unchanged. The lungs are cl ear without focal infiltrate or effusion. The bony thorax is unremarkable. IMPRESSION: 1. Borderline cardiomegaly without acute airspace disease or CHF. Stable exam. Reported By:
[2016-08-22 06:40] LABS: BASOPHILS % (AUTO) 0.2 % (0.2-1.0); EOSINOPHILS # (AUTO) 0.1 x10^3/uL (0.0-0.2); EOSINOPHILS % (AUTO) 2.5 % (0.9-2.9); HEMATOCRIT 49.5 % (36.0-47.0); HEMOGLOBIN 16.2 g/dL (12.0-16.0); LYMPHOCYTES # (AUTO) 1.6 X10^3/uL (1.3-2.9); LYMPHOCYTES % (AUTO) 31.5 % (21.0-51.0); MEAN CORPUSCULAR HEMOGLOBIN 27.8 pg (27.0-34.0); MEAN CORPUSCULAR HGB CONC 32.8 g/dL (33.0-35.0); MEAN CORPUSCULAR VOLUME 84.9 fL (80.0-100.0); MEAN PLATELET VOLUME 9.6 fL (7.4-11.0); MONOCYTES # (AUTO) 0.4 x10^3/uL (0.3-0.8); MONOCYTES % (AUTO) 7.7 % (0.0-13.0); NEUTROPHILS % (AUTO) 58.1 % (42.0-75.0); PLATELET COUNT 106 X10^3/uL (150.0-450.0); RED BLOOD COUNT 5.83 X10^6/uL (3.5-5.4); RED CELL DISTRIBUTION WIDTH 13.7 % (11.6-16.5); WHITE BLOOD COUNT 5.2 X10^3/uL (3.6-10.0)
[2016-08-22] MEDS: CARDIZEM SR 120 MG PO SCH (08:33)
[2016-08-22] MEDS: JANUVIA PO SCH (08:33)
[2016-08-22] MEDS: COMBIGAN EYE DROPS EACHEYE SCH (08:34)
[2016-08-22] MEDS: LOVENOX INJ 30 MG SYR SC SCH (08:34)
[2016-08-22] MEDS: ROBITUSSIN DM PO SCH (08:35)
[2016-08-22] MEDS: XOPENEX 1.25 MG/3 ML NEBULE NEB SCH ×2 (09:13→12:02)
[2016-08-22 10:42] VITALS: BP 124/66
== END 2016-08-22 12:35 | disposition home or self-care (01) | DRG 195 ==
LOC: MED/SURG 14:57 → OBSVTOIN 08-17 13:45 → ICU 08-17 14:30
PROVIDERS: ADMIT Internal Medicine; ATTEND Internal Medicine
DX: J18.0 Bronchopneumonia, unspecified organism (principal); I48.2 Chronic atrial fibrillation; R06.00 Dyspnea, unspecified; I51.7 Cardiomegaly; I10 Essential (primary) hypertension; K21.9 Gastro-esophageal reflux disease without esophagitis; R94.31 Abnormal electrocardiogram [ECG] [EKG]; I50.9 Heart failure, unspecified; R94.4 Abnormal results of kidney function studies; E11.65 Type 2 diabetes mellitus with hyperglycemia
CPT/HCPCS: 36415; 71010; 71020; 80053; 85025; 87040; 87502; 87503; 93005; 94640; 94760; A4222; G0378; J1650; J1956; J7620

== ENCOUNTER 2016-08-29 20:52 | Emergency (ER) | payer MEDICAID, OTHER ==
[2016-08-29 21:01] VITALS: BP 115/70; BMI 32.4
[2016-08-29] MEDS ORDERED: ZOFRAN INJ 4 MG VIAL IVP ONE (21:40)
[2016-08-29] MEDS ORDERED: NS 1000 ML 1,000 ML IV ONE (21:41)
[2016-08-29] MEDS ORDERED: ZOFRAN INJ 4 MG VIAL ONE ×2 (21:56→22:55)
[2016-08-29] MEDS ORDERED: TORADOL 30 MG VIAL ONE (21:56)
--- NOTE | 2016-08-29 21:57 | DR.GENAD ---
HPI - PCP Primary Care Physician: SHAREE LEYVA - HPI Comment HPI Comment: PATIENT IS HAVING SEVERE PAIN IN LEFT BACK GOING INTO LEFT GROIN AREA. SHE IS HAVING PROBLEM WALKING. HISTORY KIDNEY STONE PREVIOUSLY. HAVE ARTHRITIS IN HER HIP AND SPINE AND HAVE HAD LEFT HIP PROSTHESIS. NO FEVER. NO HISTORY OF TRAUMA. DISCHARGE FROM HOSPITAL RECENTLY FOR PNEUMONIA. - Complaint/Symptoms Chief Complaint Doctors Comments: LEFT BACK AND GROIN PAIN TIMES SEVERAL HOURS THAT IS GETTING WORSE. Chief Complaint:: HURTING IN LEFT SIDE RADIATING TO LEFT GROIN - Nurses notes reviewed Nurses Notes Review: Yes - Source History Provided: Patient, Family Member - Mode of Arrival Mode of Arrival: Wheelchair - Timing Onset of Chief Complaint: 08/29/16 Came on: Suddenly - Duration Duration: Constant Duration: Hours - Severity Severity: Moderate PMH - PMH Past Medical History: Yes Past Medical History: Arthritis, Diabetes, Hypertension, Kidney Stones Past Surgical History: Yes Surgical History: Hysterectomy, Joint Replacement, Ortho Surgery - Family History History of Family Medical Conditions: Yes Family Medical History: Diabetes Mellitus, Cancer, Hypertension - Social History Does patient currently use any type of tobacco product: No Have you used tobacco products in the last 12 months: No Type of Tobacco Use: None Does any household member use tobacco: No Alcohol Use: None Do you use any recreational Drugs:: No Lives With: Alone Lives Where: Home - infectious screening In the last 2 months have you had wt loss of >10#?: NO Have you had fever, night sweats or hemotysis?: No Have you traveled outside the country in the last 6 months?: No Isolation: Standard ROS - Review of Systems Constitutional: Weakness, Fatigue. negative: Chills, Fever, Loss of Appetite Eyes: No Symptoms Reported. negative: Eye Pain, Discharge ENTM: No Symptoms Reported. negative: Ear Pain, Nose Discharge, Nose Congestion , Throat Pain Respiratoy: Non-Productive Cough. negative: Productive Cough, Short of Breath, Wheezing, Hemoptysis Cardiovascular: negative: Chest Pain, Palpitations Gastrointestinal/Abdominal: Abdominal Pain, Nausea. negative: Constipation, Diarrhea, Vomiting, Food Intolerance Genitourinary: No Symptoms Reported. negative: Dysuria, Frequency, Hematuria Neurological: Weakness. negative: Headache, Dizziness Musculoskeletal: Joint Pain, Muscle Pain Integumentary: No Symptoms Reported Hematologic/Lymphatic: No Symptoms Reported Endocrine: No Symptoms Reported All Other Systems: Reviewed and Negative PE - Vital Signs Vitals: Temperature 98.3 F Pulse Rate 79 Respiratory Rate 28 Blood Pressure [Right Arm] 143/82 Blood Pressure [Left Arm] 124/66 Blood Pressure 115/70 O2 Sat by Pulse Oximetry 10 - General Limitations: No Limitations General Appearance: Alert - Head Head Exam: Normal Inspection - Eyes Eye exam: Normal Appearance - ENT ENT Exam: Normal External Ear Exam External Ear Exam: Normal External Inspection TM/Canal Exam: Bilateral Normal Nose Exam: Normal Nose Exam Mouth Exam: Normal Inspection Throat Exam: Normal Inspection - Neck Neck Exam: Normal Inspection - Chest Chest Inspection: Symmetric Chest Wall Rise - Respiratory Respiratory Exam: Respiratory Distress Respiratory Exam: Bilateral Rhonchi, Lower Rhonchi - Cardiovascular Cardiovascular Exam: Regular Rate, Normal Rhythm, Normal Heart Sounds - Abdominal Exam Abdominal Exam: Normal Bowel Sounds, Soft, Tenderness Abdominal Tenderness: LLQ (LT GROIN/LT BACK) - Extremities Extremities Exam: Tenderness (LT HIP) - Back Back Exam: Tenderness (LT BACK), (L) CVA Tenderness, Paraspinal Tenderness - Neurologic Neurological Exam: Alert, Oriented X3 - Psychiatric Psychiatric Exam: Anxious - Skin Skin Exam: Normal Color MDM - Additional Information Additional Information Obtained From: Family - Differential Diagnosis Differential Diagnosis: LT GROIN PAIN, LT BACK/FLANK PAIN. ABDOMINAL PAIN Course - Treatment Treatment: SEE ORDERS. PATIENT CONTINUE TO HAVE SEVERE PAIN. NO KIDNEY STONE. CHESK PELVIC AND HIPS WITHOUT ACUTE FINDINGS. MEDICATED FOR PAIN AND D/C HOME WITH DAUGHTER TO FOLLOW UP WITH PCP IN AM. - Reevaluation 1st: Improved - Education/Counseling Education/Counseling: Patient, Family, Education Educated On: Treatment, Diagnosis, Needs for Follow Up ROR - Labs Reviewed Laboratory Results Reviewed?: Yes Result Diagrams: 08/29/16 21:49 08/29/16 21:49 Laboratory: WBC 11.6 X10^3/uL (3.6-10.0) H 08/29/16 21:49 RBC 4.35 X10^6/uL (3.5-5.4) 08/29/16 21:49 Hgb 12.3 g/dL (12.0-16.0) 08/29/16 21:49 Hct 35.9 % (36.0-47.0) L 08/29/16 21:49 MCV 82.6 fL (80.0-100.0) 08/29/16 21:49 MCH 28.2 pg (27.0-34.0) 08/29/16 21:49 MCHC 34.1 g/dL (33.0-35.0) 08/29/16 21:49 RDW 14.0 % (11.6-16.5) 08/29/16 21:49 Plt Count 456 X10^3/uL (150.0-450.0) H 08/29/16 21:49 MPV 8.2 fL (7.4-11.0) 08/29/16 21:49 Neut % 69.2 % (42.0-75.0) 08/29/16 21:49 Lymph % 21.7 % (21.0-51.0) 08/29/16 21:49 [place] % 7.1 % (0.0-13.0) 08/29/16 21:49 Eos % 1.2 % (0.9-2.9) 08/29/16 21:49 Baso % 0.8 % (0.2-1.0) 08/29/16 21:49 Neut # 8.0 x10^3/uL (2.2-4.8) H 08/29/16 21:49 Lymph # 2.5 X10^3/uL (1.3-2.9) 08/29/16 21:49 [place] # 0.8 x10^3/uL (0.3-0.8) 08/29/16 21:49 Eos # 0.1 x10^3/uL (0.0-0.2) 08/29/16 21:49 Baso # 0.1 X10^3/uL (0.0-0.1) 08/29/16 21:49 Absolute Nucleated RBC 0.0 /100WBC 08/29/16 21:49 Sodium 145 mmol/L (136-145) 08/29/16 21:49 Corrected Sodium TNP 08/29/16 21:49 Potassium 3.4 mmol/L (3.5-5.1) L 08/29/16 21:49 Chloride 105 mmol/L (98-107) 08/29/16 21:49 Carbon Dioxide 30.9 mmol/L (21-32) 08/29/16 21:49 BUN 24 mg/dL (7-18) H 08/29/16 21:49 Creatinine 1.51 mg/dL (0.55-1.02) H 08/29/16 21:49 Est GFR (MDRD) Af Amer 43 (>60) L 08/29/16 21:49 Est GFR (MDRD) Non-Af 36 (>60) L 08/29/16 21:49 Glucose 108 mg/dL (65-99) H 08/29/16 21:49 Calcium 8.9 mg/dL (8.5-10.1) 08/29/16 21:49 Corrected Calcium TNP 08/29/16 21:49 Total Bilirubin 0.60 mg/dL (0.2-1.0) 08/29/16 21:49 AST 18 Units/L (15-37) 08/29/16 21:49 ALT 21 Units/L (12-78) 08/29/16 21:49 Alkaline Phosphatase 61 Units/L (46-116) 08/29/16 21:49 Total Protein 7.9 g/dL (6.4-8.2) 08/29/16 21:49 Albumin 3.4 g/dL (3.4-5.0) 08/29/16 21:49 Globulin 4.5 g/dL (2.5-4.5) 08/29/16 21:49 Albumin/Globulin Ratio 0.8 Ratio (1.1-2.1) L 08/29/16 21:49 - XRAY XRAY Interpreted by: Radiologist XRAY Findings: REPORT DISCUSS WITH PATIENT. - Diagnosis Discharge Problem: Arthritis Back pain Qualifiers: Back pain location: low back pain Chronicity: acute Back pain laterality: bilateral Sciatica presence: without sciatica Qualified Code(s): M54.5 - Low back pain Groin strain Qualifiers: Encounter type: initial encounter Laterality: left Qualified Code(s): S76.212A - Strain of adductor muscle, fascia and tendon of left thigh, initial encounter - Discharge Plan Disposition: 01 HOME, SELF-CARE Condition: Stable - Follow ups/Referrals Follow ups/Referrals: VIVI LEE [Primary Care Provider] - 08/31/16 - Instructions Instructions: Back Pain, Adult, [id number], Groin Strain, Arthritis, Easy-to- Read Additional Instructions: RETURN TO ED IF WORSE.
[2016-08-29 21:58] LABS: BASOPHILS # (AUTO) 0.1 X10^3/uL (0.0-0.1); BASOPHILS % (AUTO) 0.8 % (0.2-1.0); EOSINOPHILS # (AUTO) 0.1 x10^3/uL (0.0-0.2); EOSINOPHILS % (AUTO) 1.2 % (0.9-2.9); HEMATOCRIT 35.9 % (36.0-47.0); HEMOGLOBIN 12.3 g/dL (12.0-16.0); LYMPHOCYTES # (AUTO) 2.5 X10^3/uL (1.3-2.9); LYMPHOCYTES % (AUTO) 21.7 % (21.0-51.0); MEAN CORPUSCULAR HEMOGLOBIN 28.2 pg (27.0-34.0); MEAN CORPUSCULAR HGB CONC 34.1 g/dL (33.0-35.0); MEAN CORPUSCULAR VOLUME 82.6 fL (80.0-100.0); MEAN PLATELET VOLUME 8.2 fL (7.4-11.0); MONOCYTES # (AUTO) 0.8 x10^3/uL (0.3-0.8); MONOCYTES % (AUTO) 7.1 % (0.0-13.0); NEUTROPHILS % (AUTO) 69.2 % (42.0-75.0); PLATELET COUNT 456 X10^3/uL (150.0-450.0); RED BLOOD COUNT 4.35 X10^6/uL (3.5-5.4); WHITE BLOOD COUNT 11.6 X10^3/uL (3.6-10.0)
[2016-08-29] MEDS: TORADOL 30 MG VIAL IVP ONE ×2 (22:00→23:09)
[2016-08-29 22:10] LABS: ALANINE AMINOTRANSFERASE 21 Units/L (12-78); ALBUMIN 3.4 g/dL (3.4-5.0); ALKALINE PHOSPHATASE 61 Units/L (46-116); ASPARTATE AMINO TRANSFERASE 18 Units/L (15-37); BLOOD UREA NITROGEN 24 mg/dL (7-18); CALCIUM 8.9 mg/dL (8.5-10.1); CARBON DIOXIDE 30.9 mmol/L (21-32); CHLORIDE 105 mmol/L (98-107); CREATININE 1.51 mg/dL (0.55-1.02); GLUCOSE 108 mg/dL (65-99); SODIUM 145 mmol/L (136-145); TOTAL PROTEIN 7.9 g/dL (6.4-8.2); eGFR BLACK RACES 43 (>60); eGFR NON BLACK RACES 36 (>60)
--- NOTE | 2016-08-29 22:47 | CT ---
HISTORY: Abdominal pain, left lower quadrant, left groin Study: CT abdomen and without contrast Comparison: 10/25/2013 Technique: Multiple axial images of the abdomen and pelvis were obtained without IV contrast. Dose reduction techniques including Automated Exposure Control (AEC) and adjustment of mA and kV were utilized. Findings: Please note evaluation is limited without use of IV contrast. There is a 2 mm noncalcified pulmonary nodule seen at the right lung base. No effusion or pneumothor ax identified. Mild cardiomegaly. The liver, spleen, pancreas, kidneys, and adrenal glands are unre markable in their unenhanced CT appearance. The gallbladder is normal. No renal calculi or obstructi ve uropathy. No free intraperitoneal air. No evidence of intestinal obstruction or inflammation. Normal appendix. No free fluid. Sigmoid diverticulosis is noted. No acute inflammatory changes are seen. There is dextroscoliosis centered at the thoracolumbar junction. There are multilevel degenerative c hanges of the spine. There is a left hip prosthesis in place with streak artifact limiting evaluatio n of surrounding structures. The vascular structures are unremarkable. No pathologically enlarged ly mph nodes are identified. Normal urinary bladder. IMPRESSION: 1. No acute abnormality identified. No renal calculi. 2. Sigmoid diverticulosis. 3. 2 mm pulmonary nodule at the right lung base. Consider followup per Fleischner society guidelines depending on patient risk factors. Reported By:
[2016-08-29] MEDS ORDERED: ZOFRAN INJ 4 MG VIAL IM ONE (22:51)
[2016-08-29] MEDS ORDERED: DEMEROL INJ IM ONE (22:55)
[2016-08-29] MEDS ORDERED: DEMEROL INJ ONE (22:56)
--- NOTE | 2016-08-30 00:54 | RAD ---
EXAM: Bilateral Hip X-Ray INDICATION: Hip pain COMPARISION: No priors TECHNIQUE: Two views of the hips were obtained with hips in neutral and frog-leg position FINDINGS: There is a left hip arthroplasty. The hardware is intact. Heterotopic bone formation seen in the sof t tissues around the hip. Right hip appears unremarkable. No acute fracture or dislocation. IMPRESSION: No acute abnormality Reported By:
[2016-08-30] MEDS ORDERED: TORADOL 60 MG VIAL IM ONE (01:17)
[2016-08-30] MEDS ORDERED: DECADRON INJ IM ONE (01:17)
[2016-08-30] MEDS ORDERED: DECADRON INJ ONE (01:19)
[2016-08-30] MEDS ORDERED: TORADOL 60 MG VIAL ONE (01:20)
== END 2016-08-30 01:51 | disposition home or self-care (01) ==
LOC: ER 21:04
DX: S76.212A Strain of adductor muscle, fascia and tendon of left thigh, initial encounter (principal); M19.90 Unspecified osteoarthritis, unspecified site; M54.5 Low back pain; K57.30 Diverticulosis of large intestine without perforation or abscess without bleeding; Y33.XXXA Other specified events, undetermined intent, initial encounter; Y92.9 Unspecified place or not applicable
CPT/HCPCS: 36415; 73521; 74176; 80053; 85025; 96372; 99283; A4222; J1100; J1885; J2175; J2405

== ENCOUNTER 2018-02-06 11:41 | Inpatient (IN) ==
[2018-02-06] MEDS ORDERED: LEVAQUIN PREMIX IV 500 MG 500 MG/100 ML BAG IV SCH ×2 (13:44→22:20)
[2018-02-06 14:29] LABS: BASOPHILS # (AUTO) 0.2 X10^3/uL (0.0-0.1); BASOPHILS % (AUTO) 1.5 % (0.2-1.0); EOSINOPHILS # (AUTO) 0.1 x10^3/uL (0.0-0.2); EOSINOPHILS % (AUTO) 1.2 % (0.9-2.9); HEMOGLOBIN 13.7 g/dL (12.0-16.0); LYMPHOCYTES # (AUTO) 2.4 X10^3/uL (1.3-2.9); LYMPHOCYTES % (AUTO) 22.1 % (21.0-51.0); MEAN CORPUSCULAR HEMOGLOBIN 29.4 pg (27.0-34.0); MEAN CORPUSCULAR HGB CONC 34.1 g/dL (33.0-35.0); MEAN CORPUSCULAR VOLUME 86.1 fL (80.0-100.0); MEAN PLATELET VOLUME 9.4 fL (7.4-11.0); MONOCYTES # (AUTO) 0.7 x10^3/uL (0.3-0.8); MONOCYTES % (AUTO) 6.4 % (0.0-13.0); NEUTROPHILS # (AUTO) 7.4 x10^3/uL (2.2-4.8); NEUTROPHILS % (AUTO) 68.8 % (42.0-75.0); PLATELET COUNT 331 X10^3/uL (150.0-450.0); RED BLOOD COUNT 4.65 X10^6/uL (3.5-5.4); WHITE BLOOD COUNT 10.8 X10^3/uL (3.6-10.0)
[2018-02-06 14:40] LABS: ALANINE AMINOTRANSFERASE 17 Units/L (12-78); ALBUMIN 3.6 g/dL (3.4-5.0); ALKALINE PHOSPHATASE 78 Units/L (46-116); ASPARTATE AMINO TRANSFERASE 15 Units/L (15-37); BLOOD UREA NITROGEN 20 mg/dL (7-18); CALCIUM 8.7 mg/dL (8.5-10.1); CARBON DIOXIDE 25.2 mmol/L (21-32); CHLORIDE 102 mmol/L (98-107); CKMB % 1.2 % (<4); COR NA(FOR HYPERGLY) 144 mmol/L (136-145); CREATINE KINASE 100 Units/L (26-192); CREATINE KINASE MB 1.2 ng/mL (0-4.0); CREATININE 1.46 mg/dL (0.55-1.02); SODIUM 142 mmol/L (136-145); TOTAL PROTEIN 8.1 g/dL (6.4-8.2); TROPONIN I < 0.02 ng/mL (0-1.5); eGFR NON BLACK RACES 37 (>60)
--- NOTE | 2018-02-06 14:56 | RAD ---
HISTORY: Shortness of breath. Study: AP portable chest Comparison: 08/22/2016 Findings: The lungs are clear. Borderline cardiomegaly is present. No acute bony abnormalities are identified. Moderate tortuosity of the aorta is noted. IMPRESSION: 1. Borderline cardiomegaly without evidence of failure. 2. No radiographic evidence of acute cardiopulmonary disease or significant change is noted when com pared to the prior examination. Reported By:
[2018-02-06] MEDS: TOPROL XL PO SCH (14:57)
[2018-02-06 15:22] VITALS: BMI 30.5
[2018-02-06] MEDS ORDERED: FLUVIRIN IM ONE (15:22)
[2018-02-06] MEDS ORDERED: PREVNAR 13 IM ONE (15:22)
[2018-02-06] MEDS ORDERED: XYLOCAINE 1 % (PLAIN) ONE ×2 (16:52→17:00)
[2018-02-06 18:39] LABS: CKMB % 1.3 % (<4); CREATINE KINASE 79 Units/L (26-192); TROPONIN I < 0.02 ng/mL (0-1.5)
[2018-02-06] MEDS: NS 1000 ML 1,000 ML IV SCH ×2 (19:42→22:26)
[2018-02-06] MEDS ORDERED: LEVAQUIN TAB 500 MG PO SCH (21:00)
[2018-02-06 21:08] LABS: APPEARANCE,URINE CLEAR (CLEAR); BILIRUBIN,URINE NEGATIVE (NEGATIVE); BLOOD/HEMOGLOBIN,URINE NEGATIVE (NEGATIVE); COLOR,URINE YELLOW (YELLOW); GLUCOSE, URINE NEGATIVE (NEGATIVE); KETONES,URINE NEGATIVE (NEGATIVE); LEUKOCYTE ESTERASE ,URINE 1+ (NEGATIVE); NITRITES,URINE NEGATIVE (NEGATIVE); PROTEIN,URINE NEGATIVE (NEGATIVE); UROBILINOGEN,URINE NORMAL (NORMAL)
[2018-02-06 21:09] LABS: BACTERIA,URINE 1+ /HPF (NEGATIVE); RBC,URINE 0-2 /HPF (NONE SEEN); SQUAMOUS EPITHELIAL CELL,UR FEW /HPF (NEGATIVE)
[2018-02-06 22:07] LABS: CKMB % 1.2 % (<4); CREATINE KINASE 84 Units/L (26-192); CREATINE KINASE MB < 1.0 ng/mL (0-4.0); TROPONIN I < 0.02 ng/mL (0-1.5)
[2018-02-06] MEDS: KLONOPIN TAB 0.5 MG PO SCH (22:24)
[2018-02-06] MEDS: NORCO 5/325 MG TAB PO PRN (22:24)
[2018-02-06] MEDS: MILK OF MAGNESIA PO SCH (22:24)
[2018-02-06] MEDS: COLACE CAP 100 MG PO SCH (22:25)
[2018-02-06] MEDS ORDERED: LEVAQUIN PREMIX IV 500 MG 500 MG/100 ML BAG IV ONE (23:00)
[2018-02-07] MEDS: NS 1000 ML 1,000 ML IV SCH ×2 (02:58→16:50)
[2018-02-07 06:34] LABS: BASOPHILS # (AUTO) 0.1 X10^3/uL (0.0-0.1); BASOPHILS % (AUTO) 0.7 % (0.2-1.0); EOSINOPHILS # (AUTO) 0.1 x10^3/uL (0.0-0.2); EOSINOPHILS % (AUTO) 1.3 % (0.9-2.9); HEMATOCRIT 34.2 % (36.0-47.0); HEMOGLOBIN 11.6 g/dL (12.0-16.0); LYMPHOCYTES # (AUTO) 2.5 X10^3/uL (1.3-2.9); LYMPHOCYTES % (AUTO) 26.1 % (21.0-51.0); MEAN CORPUSCULAR HGB CONC 33.8 g/dL (33.0-35.0); MEAN CORPUSCULAR VOLUME 85.9 fL (80.0-100.0); MEAN PLATELET VOLUME 9.7 fL (7.4-11.0); MONOCYTES # (AUTO) 0.6 x10^3/uL (0.3-0.8); MONOCYTES % (AUTO) 6.7 % (0.0-13.0); NEUTROPHILS # (AUTO) 6.3 x10^3/uL (2.2-4.8); NEUTROPHILS % (AUTO) 65.2 % (42.0-75.0); PLATELET COUNT 309 X10^3/uL (150.0-450.0); RED BLOOD COUNT 3.98 X10^6/uL (3.5-5.4); RED CELL DISTRIBUTION WIDTH 13.9 % (11.6-16.5); WHITE BLOOD COUNT 9.7 X10^3/uL (3.6-10.0)
[2018-02-07 06:38] LABS: ALBUMIN 2.9 g/dL (3.4-5.0); CALCIUM 7.9 mg/dL (8.5-10.1); CARBON DIOXIDE 27.9 mmol/L (21-32); COR CA(FOR HYPOALB) 8.8 mg/dL (8.5-10.1); CREATININE 1.34 mg/dL (0.55-1.02); TOTAL PROTEIN 6.6 g/dL (6.4-8.2)
[2018-02-07] MEDS: MILK OF MAGNESIA PO SCH ×3 (09:08→20:26)
[2018-02-07] MEDS: HYZAAR 50/12.5 MG PO SCH (09:09)
[2018-02-07] MEDS: TOPROL XL PO SCH (09:09)
[2018-02-07] MEDS ORDERED: TYLENOL #3 TAB (W/CODEINE) PO PRN (10:12)
[2018-02-07] MEDS ORDERED: FLEXERIL TAB 10 MG PO PRN (10:12)
[2018-02-07] MEDS ORDERED: GLIMEPIRIDE PO SCH (10:30)
[2018-02-07] MEDS: ASPIRIN EC 81 MG PO SCH (11:35)
--- NOTE | 2018-02-07 17:09 | DR.CONSULT ---
Consult - Consultation for Day of: Date: 02/07/18 - Chief Complaint Chief Complaint: Patient referred for LLQ pain. Patient with no GI Complaints. - History of Present Illness History of Present Illness: Patient is a 77yo female who was referred with LLQ pain. Patient with no GI complaints, sheh states she was having some lower abdominal pain, but it is mainly in her lower back now. She denies dysphagia, dyspepsia, nausea, vomiting, abdominal pain, constipation, diarrhea, melena and hematochezia. Patient last had a clonoscopy 12/12/2015 which showed lefts sided diverticulosis and internal hemorrhoids. She has never had an EGD. Abdomen and pelvis CT without contrast 02/01/2018 which was negative. She is noted to have tenderness to LLQ on palpitation. Hgb 11.6, Hct 34.2, BUN 21, Creatinine 1.34. - Past Medical History Past Medical History: Arthritis, Diabetes, Hypertension, Kidney Stones - Past Surgical History Surgical History: Hysterectomy, Joint Replacement, Ortho Surgery - Family History Family Medical History: Diabetes Mellitus, Cancer - Social History Alcohol Use: None Drug Use: None - Medications Home Medications: morphine Allergy (Verified 02/01/18 22:43) CONTINUE taking the following medications losartan-hydrochlorothiazide 1 tab PO DAILY 02/06/18 [History] - Review of Systems Gastrointestinal: No Symptoms Reported. denies: Nausea, Vomiting, Abdominal Pain, Diarrhea, Constipation, Melena, Hematochezia Musculoskeletal: Back Pain - Physical Exam Vital Signs: Temperature 98.1 F Pulse Rate 67 Respiratory Rate 25 Blood Pressure [Right Arm] 143/82 Blood Pressure [Left Arm] 143/65 Blood Pressure 117/60 O2 Sat by Pulse Oximetry 98 Oriented: Normal Eyes: Normal Ear: Normal Nose: Normal Throat: Normal Respiratory: Clear Throughout Cardiovascular: Normal Auscultation: Bowel Sounds: Normal Palpation: Normal, Other (no distention). negative: Spleen Enlarged, Liver Enlarged, Mass Pulsatile Tenderness: LLQ Skin: Normal Musculoskeletal: Normal Psychiatric: Normal Mood Description: Calm Affect: Normal Speech Pattern: Clear, Appropriate - Plan Plan: Assessment. 1. LLQ pain, improving r/o diverticulitis. Plan. 1. Cont IV antibiotics, May need abdomen and pelvis CT with contrast if pain persist. Plan reviewed with Dr. Chew - Allergies Allergies/Adverse Reactions: Allergies Allergy/AdvReac Type Severity Reaction Status Date / Time morphine Allergy Verified 02/01/18 22:43
[2018-02-07] MEDS: KLONOPIN TAB 0.5 MG PO SCH (20:26)
[2018-02-07] MEDS: COLACE CAP 100 MG PO SCH (20:26)
[2018-02-07] MEDS: AMARYL TAB 4 MG PO SCH (20:26)
[2018-02-07] MEDS: LEVAQUIN PREMIX IV 250 MG 250 MG/50 ML BAG IV SCH (20:27)
[2018-02-08] MEDS: NS 1000 ML 1,000 ML IV SCH ×4 (01:25→20:15)
[2018-02-08 06:34] LABS: BASOPHILS # (AUTO) 0.1 X10^3/uL (0.0-0.1); BASOPHILS % (AUTO) 0.9 % (0.2-1.0); EOSINOPHILS # (AUTO) 0.2 x10^3/uL (0.0-0.2); EOSINOPHILS % (AUTO) 2.6 % (0.9-2.9); HEMATOCRIT 30.7 % (36.0-47.0); HEMOGLOBIN 10.6 g/dL (12.0-16.0); LYMPHOCYTES # (AUTO) 2.1 X10^3/uL (1.3-2.9); LYMPHOCYTES % (AUTO) 27.1 % (21.0-51.0); MEAN CORPUSCULAR HEMOGLOBIN 29.2 pg (27.0-34.0); MEAN CORPUSCULAR HGB CONC 34.4 g/dL (33.0-35.0); MEAN CORPUSCULAR VOLUME 85.1 fL (80.0-100.0); MEAN PLATELET VOLUME 9.5 fL (7.4-11.0); MONOCYTES # (AUTO) 0.5 x10^3/uL (0.3-0.8); MONOCYTES % (AUTO) 6.9 % (0.0-13.0); NEUTROPHILS # (AUTO) 4.9 x10^3/uL (2.2-4.8); NEUTROPHILS % (AUTO) 62.5 % (42.0-75.0); PLATELET COUNT 259 X10^3/uL (150.0-450.0); RED BLOOD COUNT 3.61 X10^6/uL (3.5-5.4); WHITE BLOOD COUNT 7.9 X10^3/uL (3.6-10.0)
[2018-02-08 07:07] LABS: ALANINE AMINOTRANSFERASE 14 Units/L (12-78); ALBUMIN 2.8 g/dL (3.4-5.0); ALKALINE PHOSPHATASE 61 Units/L (46-116); ASPARTATE AMINO TRANSFERASE 14 Units/L (15-37); BLOOD UREA NITROGEN 17 mg/dL (7-18); CALCIUM 7.5 mg/dL (8.5-10.1); CARBON DIOXIDE 25.6 mmol/L (21-32); CHLORIDE 106 mmol/L (98-107); COR CA(FOR HYPOALB) 8.5 mg/dL (8.5-10.1); COR NA(FOR HYPERGLY) 141 mmol/L (136-145); CREATININE 1.11 mg/dL (0.55-1.02); SODIUM 141 mmol/L (136-145); TOTAL PROTEIN 6.4 g/dL (6.4-8.2); eGFR NON BLACK RACES 51 (>60)
[2018-02-08] MEDS: AMARYL TAB 4 MG PO SCH ×2 (09:22→20:14)
[2018-02-08] MEDS: HYZAAR 50/12.5 MG PO SCH (09:23)
[2018-02-08] MEDS: TOPROL XL PO SCH (09:23)
[2018-02-08] MEDS: ASPIRIN EC 81 MG PO SCH (09:24)
[2018-02-08] MEDS: MILK OF MAGNESIA PO SCH ×2 (09:27→20:15)
[2018-02-08] MEDS ORDERED: MICRO K EXTEN CAP 10 MEQ PO PRN (11:05)
[2018-02-08] MEDS ORDERED: POTASSIUM CHL 60 MEQ/NS 0.45% 500 ML IV PRN (11:05)
[2018-02-08] MEDS ORDERED: K-RIDER 10 MEQ/NS 100 ML 10 MEQ/100 ML BAG IV PRN (11:05)
[2018-02-08] MEDS ORDERED: POTASSIUM CHLORIDE LIQ 20 MEQ UDC PO PRN (11:05)
[2018-02-08] MEDS ORDERED: POTASSIUM CHL 40 MEQ/NS 0.45% 500 ML IV PRN (11:05)
[2018-02-08] MEDS ORDERED: KLOR-CON PO PRN (11:05)
[2018-02-08] MEDS: K-DUR TAB 20 MEQ PO PRN ×3 (11:18→15:25)
[2018-02-08] MEDS: LEVAQUIN PREMIX IV 250 MG 250 MG/50 ML BAG IV SCH (20:14)
[2018-02-08] MEDS: ROBITUSSIN DM PO PRN (20:14)
[2018-02-08] MEDS: KLONOPIN TAB 0.5 MG PO SCH (20:15)
[2018-02-08] MEDS: COLACE CAP 100 MG PO SCH (20:20)
[2018-02-09] MEDS: NS 1000 ML 1,000 ML IV SCH ×3 (06:11→23:00)
[2018-02-09 06:27] LABS: BASOPHILS # (AUTO) 0.1 X10^3/uL (0.0-0.1); EOSINOPHILS # (AUTO) 0.2 x10^3/uL (0.0-0.2); EOSINOPHILS % (AUTO) 2.5 % (0.9-2.9); HEMATOCRIT 29.6 % (36.0-47.0); HEMOGLOBIN 10.3 g/dL (12.0-16.0); LYMPHOCYTES # (AUTO) 1.9 X10^3/uL (1.3-2.9); MEAN CORPUSCULAR HEMOGLOBIN 29.9 pg (27.0-34.0); MEAN CORPUSCULAR VOLUME 85.5 fL (80.0-100.0); MEAN PLATELET VOLUME 9.4 fL (7.4-11.0); MONOCYTES # (AUTO) 0.7 x10^3/uL (0.3-0.8); MONOCYTES % (AUTO) 9.2 % (0.0-13.0); NEUTROPHILS # (AUTO) 4.9 x10^3/uL (2.2-4.8); NEUTROPHILS % (AUTO) 63.3 % (42.0-75.0); PLATELET COUNT 245 X10^3/uL (150.0-450.0); RED BLOOD COUNT 3.46 X10^6/uL (3.5-5.4); RED CELL DISTRIBUTION WIDTH 13.9 % (11.6-16.5); WHITE BLOOD COUNT 7.7 X10^3/uL (3.6-10.0)
[2018-02-09 06:48] LABS: ALANINE AMINOTRANSFERASE 13 Units/L (12-78); ALBUMIN 2.7 g/dL (3.4-5.0); ALKALINE PHOSPHATASE 66 Units/L (46-116); ASPARTATE AMINO TRANSFERASE 15 Units/L (15-37); BLOOD UREA NITROGEN 14 mg/dL (7-18); CALCIUM 7.4 mg/dL (8.5-10.1); CARBON DIOXIDE 25.4 mmol/L (21-32); CHLORIDE 107 mmol/L (98-107); COR CA(FOR HYPOALB) 8.4 mg/dL (8.5-10.1); COR NA(FOR HYPERGLY) 144 mmol/L (136-145); CREATININE 1.09 mg/dL (0.55-1.02); MAGNESIUM 1.4 mg/dL (1.7-2.9); SODIUM 143 mmol/L (136-145); TOTAL PROTEIN 6.2 g/dL (6.4-8.2); eGFR NON BLACK RACES 52 (>60)
[2018-02-09] MEDS: AMARYL TAB 4 MG PO SCH ×2 (08:53→20:14)
[2018-02-09] MEDS: HYZAAR 50/12.5 MG PO SCH (08:53)
[2018-02-09] MEDS: TOPROL XL PO SCH (08:54)
[2018-02-09] MEDS: ASPIRIN EC 81 MG PO SCH (08:54)
[2018-02-09] MEDS: K-DUR TAB 20 MEQ PO PRN (08:54)
[2018-02-09] MEDS: MAGNESIUM SULFATE 1 GRAM/100 mL PREMIX 1 GM/100 ML BAG IV PRN ×5 (09:20→13:00)
[2018-02-09] MEDS: MILK OF MAGNESIA PO SCH ×2 (09:26→20:14)
--- NOTE | 2018-02-09 19:27 | DR.UPDATE ---
H&P Update History and Physical Update: WAS SEEN IN THE OFFICE ON 02/06/18. A H&P WAS COMPLETED PRIOR TO ADMISSION. PATIENT HAS BEEN SEEN AND EXAMINED WITH NO CHANGES NOTED TO H&P. Changes noted: NO Yes with the following:
--- NOTE | 2018-02-09 19:46 | PCM.PROG ---
Progress Note - Progress Note for Day of Date of Exam: 02/07/18 - Subjective Subjective: WAS ADMITTED FOR SHORTNESS OF BREATH, WEAKNESS, RECENT UTI, AND ATRIAL FLUTTER. TODAY, SHE IS ALERT AND ORIENTED, LYING IN BED ON MORNING ROUNDS. SHE CONTINUES WITH SHORTNESS OF BREATH AND GENERALIZED WEAKNESS. SHE ALSO REPORTS LOWER BACK PAIN. ON EXAMINATION, SHE IS NOTED TO BE IN ATRIAL FIBRILLATION WITH HR IN THE 70S. BILATERAL LUNGS ARE NOTED WITH DIMINISHED LUNG SOUNDS THROUGHOUT. ABDOMEN IS ROUND, SOFT, AND NOTED WITH MILD, DIFFUSE TENDERNESS. NORMAL BOWEL SOUNDS NOTED IN ALL QUADRANTS. BILATERAL LOWER EXTREMITIES ARE NOTED WITH TRACE EDEMA. HER BUN/CREATININE ARE ELEVATED AT 21/1.34 AND GLUCOSES SLIGHTLY ELEVATED AT 57. OTHERWISE, SHE IS HEMODYNAMICALLY STABLE. CHEST XRAY ON ADMISSION REVEALED: The lungs are clear. Borderline cardiomegaly is present. No acute bony abnormalities are identified. Moderate tortuosity of the aorta is noted. AN ECHOCARDIOGRAM WAS OBTAINED AND REVEALED AN EJECTION FRACTION OF 60%. WE WILL HAVE PHYSICAL THERAPY CONSULT WITH PATIENT. OT HERWISE, WE WILL CONTINUE CURRENT PLAN OF CARE AND RESUME HER HOME MEDICATIONS. WILL CONSULT WITH PATIENT FOR ABDOMINAL PAIN. OTHERWISE, WE WILL FOLLOW UP WITH AM LABS AND CONTINUE TO MONITOR PATIENT. - Past Medical Family Social History Past Med/Fam/Surg Hx: No changes since H&P Allergies: Allergies morphine Allergy (Verified 02/01/18 22:43) - Review of Systems ROS: No change since H&P - Vital Signs and I&O's Vital Signs: Temperature 97.3 F Pulse Rate 72 Respiratory Rate 22 Blood Pressure [Right Arm] 143/82 Blood Pressure [Left Arm] 143/65 Blood Pressure 128/61 O2 Sat by Pulse Oximetry 100 Intake and Output: Intake & Output 02/07/18 02/08/18 02/09/18 02/10/18 11:59 11:59 11:59 11:59 Intake Total 805 / 805 2587 / 2587 2901 / 2901 1467 / 1467 Output Total 525 / 525 700 / 700 1400 / 1400 Balance 280 / 280 1887 / 1887 2901 / 2901 67 / 67 - Physical Exam Oriented: Normal Eyes: Normal Ear: Normal Nose: Normal Throat: Normal Respiratory: Generalized, Diminished Cardiovascular: Normal Auscultation: Bowel Sounds: Normal Palpation: Normal Tenderness: Diffuse, Mild Skin: Normal Musculoskeletal: Normal Psychiatric: Normal Mood Description: Calm Affect: Normal Speech Pattern: Clear, Appropriate - Laboratory and Diagnostics Result Diagrams: 02/09/18 05:30 02/09/18 05:30 Labs: 02/06/18 20:45 Urine,Clean Catch Urine Culture - Final Laboratory WBC 7.7 X10^3/uL (3.6-10.0) 02/09/18 05:30 RBC 3.46 X10^6/uL (3.5-5.4) L 02/09/18 05:30 Hgb 10.3 g/dL (12.0-16.0) L 02/09/18 05:30 Hct 29.6 % (36.0-47.0) L 02/09/18 05:30 MCV 85.5 fL (80.0-100.0) 02/09/18 05:30 MCH 29.9 pg (27.0-34.0) 02/09/18 05:30 MCHC 35.0 g/dL (33.0-35.0) 02/09/18 05:30 RDW 13.9 % (11.6-16.5) 02/09/18 05:30 Plt Count 245 X10^3/uL (150.0-450.0) 02/09/18 05:30 MPV 9.4 fL (7.4-11.0) 02/09/18 05:30 Neut % (Auto) 63.3 % (42.0-75.0) 02/09/18 05:30 Lymph % (Auto) 24.0 % (21.0-51.0) 02/09/18 05:30 [place] % (Auto) 9.2 % (0.0-13.0) 02/09/18 05:30 Eos % (Auto) 2.5 % (0.9-2.9) 02/09/18 05:30 Baso % (Auto) 1.0 % (0.2-1.0) 02/09/18 05:30 Neut # (Auto) 4.9 x10^3/uL (2.2-4.8) H 02/09/18 05:30 Lymph # (Auto) 1.9 X10^3/uL (1.3-2.9) 02/09/18 05:30 [place] # (Auto) 0.7 x10^3/uL (0.3-0.8) 02/09/18 05:30 Eos # (Auto) 0.2 x10^3/uL (0.0-0.2) 02/09/18 05:30 Baso # (Auto) 0.1 X10^3/uL (0.0-0.1) 02/09/18 05:30 Absolute Nucleated RBC 0.0 /100WBC 02/09/18 05:30 Sodium 143 mmol/L (136-145) 02/09/18 05:30 Corrected Sodium 144 mmol/L (136-145) 02/09/18 05:30 Potassium 3.8 mmol/L (3.5-5.1) 02/09/18 05:30 Chloride 107 mmol/L (98-107) 02/09/18 05:30 Carbon Dioxide 25.4 mmol/L (21-32) 02/09/18 05:30 BUN 14 mg/dL (7-18) 02/09/18 05:30 Creatinine 1.09 mg/dL (0.55-1.02) H 02/09/18 05:30 Est GFR (MDRD) Af Amer > 60 (>60) 02/09/18 05:30 Est GFR (MDRD) Non-Af 52 (>60) L 02/09/18 05:30 Glucose 138 mg/dL (65-99) H 02/09/18 05:30 POC Glucose (mg/dL) 176 mg/dL (65-99) H 02/09/18 16:34 Calcium 7.4 mg/dL (8.5-10.1) L 02/09/18 05:30 Corrected Calcium 8.4 mg/dL (8.5-10.1) L 02/09/18 05:30 Magnesium 1.4 mg/dL (1.7-2.9) L 02/09/18 05:30 Total Bilirubin 0.50 mg/dL (0.2-1.0) 02/09/18 05:30 AST 15 Units/L (15-37) 02/09/18 05:30 ALT 13 Units/L (12-78) 02/09/18 05:30 Alkaline Phosphatase 66 Units/L (46-116) 02/09/18 05:30 Creatine Kinase 84 Units/L (26-192) 02/06/18 21:36 CK-MB (CK-2) < 1.0 ng/mL (0-4.0) 02/06/18 21:36 CK/CKMB % Calc 1.2 % (<4) 02/06/18 21:36 Troponin I < 0.02 ng/mL (0-1.5) 02/06/18 21:36 Total Protein 6.2 g/dL (6.4-8.2) L 02/09/18 05:30 Albumin 2.7 g/dL (3.4-5.0) L 02/09/18 05:30 Globulin 3.5 g/dL (2.5-4.5) 02/09/18 05:30 Albumin/Globulin Ratio 0.8 Ratio (1.1-2.1) L 02/09/18 05:30 Specimen Type Clean catch urine 02/06/18 20:45 Urine Color Yellow (YELLOW) 02/06/18 20:45 Urine Appearance Clear (CLEAR) 02/06/18 20:45 Urine pH 5.0 (5.0 - 8.0) 02/06/18 20:45 Ur Specific [place] 1.020 (1.000-1.030) 02/06/18 20:45 Urine Protein Negative (NEGATIVE) 02/06/18 20:45 Urine Glucose (UA) Negative (NEGATIVE) 02/06/18 20:45 Urine Ketones Negative (NEGATIVE) 02/06/18 20:45 Urine Occult Blood Negative (NEGATIVE) 02/06/18 20:45 Urine Nitrite Negative (NEGATIVE) 02/06/18 20:45 Urine Bilirubin Negative (NEGATIVE) 02/06/18 20:45 Urine Urobilinogen Normal (NORMAL) 02/06/18 20:45 Ur Leukocyte Esterase 1+ (NEGATIVE) 02/06/18 20:45 Urine RBC 0-2 /HPF (NONE SEEN) 02/06/18 20:45 Urine WBC 3-5 /HPF (NONE SEEN) 02/06/18 20:45 Ur Squamous Epith Cells Few /HPF (NEGATIVE) 02/06/18 20:45 Urine Bacteria 1+ /HPF (NEGATIVE) 02/06/18 20:45 Ur Culture Indicated? 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: SOCIAL PSYCHOLOGIST, CONTINUE HOME MEDS, CONTINUE TO MONITOR (2) Generalized weakness Status: Acute Plan: PHYSICAL THERAPY, CONTINUE TO MONITOR (3) Low back pain Status: Acute Qualifiers: Chronicity: acute Back pain laterality: bilateral Sciatica presence: unspecified whether sciatica present Qualified Code(s): M54.5 - Low back pain Plan: PHYSICAL THERAPY, PO PAIN CONTROL, CONTINUE TO MONITOR (4) Urinary tract infection Status: Acute Qualifiers: Urinary tract infection type: acute cystitis Hematuria presence: without hematuria Qualified Code(s): N30.00 - Acute cystitis without hematuria Plan: CONTINUE IV LEVAQUIN, CONTINUE TO MONITOR
[2018-02-09] MEDS: ROBITUSSIN DM PO PRN (20:13)
[2018-02-09] MEDS: KLONOPIN TAB 0.5 MG PO SCH (20:13)
[2018-02-09] MEDS: SNACK - Diabetic Appropriate PO SCH (20:14)
[2018-02-09] MEDS: COLACE CAP 100 MG PO SCH (20:14)
[2018-02-09] MEDS: LEVAQUIN PREMIX IV 250 MG 250 MG/50 ML BAG IV SCH (20:16)
--- NOTE | 2018-02-09 21:07 | PCM.PROG ---
Progress Note - Progress Note for Day of Date of Exam: 02/08/18 - Subjective Subjective: WAS ADMITTED FOR SHORTNESS OF BREATH, WEAKNESS, RECENT UTI, AND ATRIAL FLUTTER. TODAY, SHE IS ALERT AND ORIENTED, LYING IN BED ON MORNING ROUNDS. SHE CONTINUES WITH SHORTNESS OF BREATH AND GENERALIZED WEAKNESS, AND LOWER BACK PAIN. ON EXAMINATION, SHE IS NOTED TO BE IN ATRIAL FIBRILLATION WITH HR IN THE 70S. BILATERAL LUNGS ARE NOTED WITH DIMINISHED LUNG SOUNDS THROUGHOUT. ABDOMEN IS ROUND, SOFT, AND NOTED WITH MILD, DIFFUSE TENDERNESS. NORMAL BOWEL SOUNDS NOTED IN ALL QUADRANTS. BILATERAL LOWER EXTREMITIES ARE NOTED WITH TRACE EDEMA. HER POTASSIUM IS DECREASED AT 3.3, BUN 1.11, GLUCOSE 120. OTHERWISE, SHE IS HEMODYNAMICALLY STABLE. CONSULTED WITH PATIENT AND RECOMMENDED CONTINUED TREATMENT FOR UTI. WE WILL CONTINUE WITH IV ANTIBIOTICS, IV FLUIDS, AND CURRENT PLAN OF CARE TODAY. PHYSICAL THERAPY CONTINUES TO WORK WITH PATIENT. OTHERWISE, WE WILL FOLLOW UP WITH AM LABS AND CONTINUE TO MONITOR PATIENT. - Past Medical Family Social History Past Med/Fam/Surg Hx: No changes since H&P Allergies: Allergies morphine Allergy (Verified 02/01/18 22:43) - Review of Systems ROS: No change since H&P - Vital Signs and I&O's Vital Signs: Temperature 97.3 F Pulse Rate 72 Respiratory Rate 22 Blood Pressure [Right Arm] 143/82 Blood Pressure [Left Arm] 143/65 Blood Pressure 128/61 O2 Sat by Pulse Oximetry 100 Intake and Output: Intake & Output 02/07/18 02/08/18 02/09/18 02/10/18 11:59 11:59 11:59 11:59 Intake Total 805 / 805 2587 / 2587 2901 / 2901 1467 / 1467 Output Total 525 / 525 700 / 700 1400 / 1400 Balance 280 / 280 1887 / 1887 2901 / 2901 67 / 67 - Physical Exam Oriented: Normal Eyes: Normal Ear: Normal Nose: Normal Throat: Normal Respiratory: Generalized, Diminished Cardiovascular: Normal Auscultation: Bowel Sounds: Normal Palpation: Normal Tenderness: Diffuse, Mild Skin: Normal Musculoskeletal: Normal Psychiatric: Normal Mood Description: Calm Affect: Normal Speech Pattern: Clear, Appropriate - Laboratory and Diagnostics Result Diagrams: 02/09/18 05:30 02/09/18 05:30 Labs: 02/06/18 20:45 Urine,Clean Catch Urine Culture - Final Laboratory WBC 7.7 X10^3/uL (3.6-10.0) 02/09/18 05:30 RBC 3.46 X10^6/uL (3.5-5.4) L 02/09/18 05:30 Hgb 10.3 g/dL (12.0-16.0) L 02/09/18 05:30 Hct 29.6 % (36.0-47.0) L 02/09/18 05:30 MCV 85.5 fL (80.0-100.0) 02/09/18 05:30 MCH 29.9 pg (27.0-34.0) 02/09/18 05:30 MCHC 35.0 g/dL (33.0-35.0) 02/09/18 05:30 RDW 13.9 % (11.6-16.5) 02/09/18 05:30 Plt Count 245 X10^3/uL (150.0-450.0) 02/09/18 05:30 MPV 9.4 fL (7.4-11.0) 02/09/18 05:30 Neut % (Auto) 63.3 % (42.0-75.0) 02/09/18 05:30 Lymph % (Auto) 24.0 % (21.0-51.0) 02/09/18 05:30 [place] % (Auto) 9.2 % (0.0-13.0) 02/09/18 05:30 Eos % (Auto) 2.5 % (0.9-2.9) 02/09/18 05:30 Baso % (Auto) 1.0 % (0.2-1.0) 02/09/18 05:30 Neut # (Auto) 4.9 x10^3/uL (2.2-4.8) H 02/09/18 05:30 Lymph # (Auto) 1.9 X10^3/uL (1.3-2.9) 02/09/18 05:30 [place] # (Auto) 0.7 x10^3/uL (0.3-0.8) 02/09/18 05:30 Eos # (Auto) 0.2 x10^3/uL (0.0-0.2) 02/09/18 05:30 Baso # (Auto) 0.1 X10^3/uL (0.0-0.1) 02/09/18 05:30 Absolute Nucleated RBC 0.0 /100WBC 02/09/18 05:30 Sodium 143 mmol/L (136-145) 02/09/18 05:30 Corrected Sodium 144 mmol/L (136-145) 02/09/18 05:30 Potassium 3.8 mmol/L (3.5-5.1) 02/09/18 05:30 Chloride 107 mmol/L (98-107) 02/09/18 05:30 Carbon Dioxide 25.4 mmol/L (21-32) 02/09/18 05:30 BUN 14 mg/dL (7-18) 02/09/18 05:30 Creatinine 1.09 mg/dL (0.55-1.02) H 02/09/18 05:30 Est GFR (MDRD) Af Amer > 60 (>60) 02/09/18 05:30 Est GFR (MDRD) Non-Af 52 (>60) L 02/09/18 05:30 Glucose 138 mg/dL (65-99) H 02/09/18 05:30 POC Glucose (mg/dL) 181 mg/dL (65-99) H 02/09/18 20:12 Calcium 7.4 mg/dL (8.5-10.1) L 02/09/18 05:30 Corrected Calcium 8.4 mg/dL (8.5-10.1) L 02/09/18 05:30 Magnesium 1.4 mg/dL (1.7-2.9) L 02/09/18 05:30 Total Bilirubin 0.50 mg/dL (0.2-1.0) 02/09/18 05:30 AST 15 Units/L (15-37) 02/09/18 05:30 ALT 13 Units/L (12-78) 02/09/18 05:30 Alkaline Phosphatase 66 Units/L (46-116) 02/09/18 05:30 Creatine Kinase 84 Units/L (26-192) 02/06/18 21:36 CK-MB (CK-2) < 1.0 ng/mL (0-4.0) 02/06/18 21:36 CK/CKMB % Calc 1.2 % (<4) 02/06/18 21:36 Troponin I < 0.02 ng/mL (0-1.5) 02/06/18 21:36 Total Protein 6.2 g/dL (6.4-8.2) L 02/09/18 05:30 Albumin 2.7 g/dL (3.4-5.0) L 02/09/18 05:30 Globulin 3.5 g/dL (2.5-4.5) 02/09/18 05:30 Albumin/Globulin Ratio 0.8 Ratio (1.1-2.1) L 02/09/18 05:30 Specimen Type Clean catch urine 02/06/18 20:45 Urine Color Yellow (YELLOW) 02/06/18 20:45 Urine Appearance Clear (CLEAR) 02/06/18 20:45 Urine pH 5.0 (5.0 - 8.0) 02/06/18 20:45 Ur Specific [place] 1.020 (1.000-1.030) 02/06/18 20:45 Urine Protein Negative (NEGATIVE) 02/06/18 20:45 Urine Glucose (UA) Negative (NEGATIVE) 02/06/18 20:45 Urine Ketones Negative (NEGATIVE) 02/06/18 20:45 Urine Occult Blood Negative (NEGATIVE) 02/06/18 20:45 Urine Nitrite Negative (NEGATIVE) 02/06/18 20:45 Urine Bilirubin Negative (NEGATIVE) 02/06/18 20:45 Urine Urobilinogen Normal (NORMAL) 02/06/18 20:45 Ur Leukocyte Esterase 1+ (NEGATIVE) 02/06/18 20:45 Urine RBC 0-2 /HPF (NONE SEEN) 02/06/18 20:45 Urine WBC 3-5 /HPF (NONE SEEN) 02/06/18 20:45 Ur Squamous Epith Cells Few /HPF (NEGATIVE) 02/06/18 20:45 Urine Bacteria 1+ /HPF (NEGATIVE) 02/06/18 20:45 Ur Culture Indicated? 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, CONTINUE HOME MEDS, CONTINUE TO MONITOR (2) Generalized weakness Status: Acute Plan: PHYSICAL THERAPY, CONTINUE TO MONITOR (3) Low back pain Status: Acute Qualifiers: Chronicity: acute Back pain laterality: bilateral Sciatica presence: unspecified whether sciatica present Qualified Code(s): M54.5 - Low back pain Plan: PHYSICAL THERAPY, PO PAIN CONTROL, CONTINUE TO MONITOR (4) Urinary tract infection Status: Acute Qualifiers: Urinary tract infection type: acute cystitis Hematuria presence: without hematuria Qualified Code(s): N30.00 - Acute cystitis without hematuria Plan: CONTINUE IV LEVAQUIN, CONTINUE TO MONITOR
[2018-02-10 06:14] LABS: BASOPHILS # (AUTO) 0.1 X10^3/uL (0.0-0.1); EOSINOPHILS # (AUTO) 0.2 x10^3/uL (0.0-0.2); HEMATOCRIT 30.6 % (36.0-47.0); HEMOGLOBIN 10.6 g/dL (12.0-16.0); LYMPHOCYTES # (AUTO) 1.4 X10^3/uL (1.3-2.9); LYMPHOCYTES % (AUTO) 16.9 % (21.0-51.0); MEAN CORPUSCULAR HEMOGLOBIN 29.5 pg (27.0-34.0); MEAN CORPUSCULAR HGB CONC 34.7 g/dL (33.0-35.0); MONOCYTES # (AUTO) 0.8 x10^3/uL (0.3-0.8); MONOCYTES % (AUTO) 9.1 % (0.0-13.0); NEUTROPHILS # (AUTO) 5.9 x10^3/uL (2.2-4.8); PLATELET COUNT 251 X10^3/uL (150.0-450.0); RED CELL DISTRIBUTION WIDTH 14.1 % (11.6-16.5); WHITE BLOOD COUNT 8.3 X10^3/uL (3.6-10.0)
[2018-02-10 06:27] LABS: ALBUMIN 2.8 g/dL (3.4-5.0); CALCIUM 7.8 mg/dL (8.5-10.1); CARBON DIOXIDE 25.1 mmol/L (21-32); COR CA(FOR HYPOALB) 8.8 mg/dL (8.5-10.1); CREATININE 1.15 mg/dL (0.55-1.02); MAGNESIUM 2.2 mg/dL (1.7-2.9); TOTAL PROTEIN 6.5 g/dL (6.4-8.2)
[2018-02-10] MEDS: TOPROL XL PO SCH (09:00)
[2018-02-10] MEDS: ASPIRIN EC 81 MG PO SCH (09:00)
[2018-02-10] MEDS: MILK OF MAGNESIA PO SCH ×2 (09:00→20:49)
[2018-02-10] MEDS: AMARYL TAB 4 MG PO SCH ×2 (09:00→20:48)
[2018-02-10] MEDS: HYZAAR 50/12.5 MG PO SCH (09:00)
[2018-02-10] MEDS: NORCO 5/325 MG TAB PO PRN (11:33)
[2018-02-10] MEDS: NS 1000 ML 1,000 ML IV SCH ×2 (12:17→20:49)
[2018-02-10] MEDS: COLACE CAP 100 MG PO SCH (20:48)
[2018-02-10] MEDS: KLONOPIN TAB 0.5 MG PO SCH (20:48)
[2018-02-10] MEDS: TUSSIONEX PENNKINETIC SUSP PO PRN (20:48)
[2018-02-10] MEDS: LEVAQUIN PREMIX IV 250 MG 250 MG/50 ML BAG IV SCH (20:48)
[2018-02-10] MEDS: ROBITUSSIN DM PO PRN (20:48)
[2018-02-10] MEDS: SNACK - Diabetic Appropriate PO SCH (20:49)
--- NOTE | 2018-02-10 21:42 | PCM.PROG ---
Progress Note - Progress Note for Day of Date of Exam: 02/10/18 - Subjective Subjective: WAS ADMITTED FOR SHORTNESS OF BREATH, WEAKNESS, RECENT UTI, AND ATRIAL FLUTTER. TODAY, SHE IS ALERT AND ORIENTED, LYING IN BED ON MORNING ROUNDS. SHE CONTINUES WITH GENERALIZED WEAKNESS AND LOWER BACK PAIN. ON EXAMINATION, SHE IS NOTED TO BE IN ATRIAL FIBRILLATION WITH HR IN THE 70S. BILATERAL LUNGS ARE NOTED WITH DIMINISHED LUNG SOUNDS THROUGHOUT. ABDOMEN IS ROUND, SOFT, AND NON TENDER. NORMAL BOWEL SOUNDS NOTED IN ALL QUADRANTS. BILATERAL LOWER EXTREMITIES ARE NOTED WITH TRACE EDEMA. ABNORMAL LABS INCLUDE THE FOLLOWING: RBC 3.46, HGB 10.3, HCT 29.6, CREATININE 1.09, GLUCOSE 138, CALCIUM 7.4, MAGNESIUM 1.4, TOTAL PROTEIN 6.2, ALBUMIN 2.7. TODAY, WE WILL CONTINUE WITH IV ANTIBIOTICS, IV FLUIDS, AND CURRENT PLAN OF CARE TODAY. WE WILL REPLACE HER MAGNESIUM WITH THE PROTOCOL. PHYSICAL THERAPY CONTINUES TO WORK WITH PATIENT. OTHERWISE, WE WILL FOLLOW UP WITH AM LABS AND CONTINUE TO MONITOR PATIENT. - Past Medical Family Social History Past Med/Fam/Surg Hx: No changes since H&P Allergies: Allergies morphine Allergy (Verified 02/01/18 22:43) - Review of Systems ROS: No change since H&P - Vital Signs and I&O's Vital Signs: Temperature 97.1 F Pulse Rate 79 Respiratory Rate 24 Blood Pressure [Right Arm] 143/82 Blood Pressure [Left Arm] 143/65 Blood Pressure 132/74 O2 Sat by Pulse Oximetry 98 Intake and Output: Intake & Output 02/08/18 02/09/18 02/10/18 02/11/18 11:59 11:59 11:59 11:59 Intake Total 2587 / 2587 2901 / 2901 2499 / 2499 1551 / 1551 Output Total 700 / 700 1800 / 1800 1999 / 1999 Balance 1887 / 1887 2901 / 2901 699 / 699 -449 / -449 - Physical Exam Oriented: Normal Eyes: Normal Ear: Normal Nose: Normal Throat: Normal Respiratory: Generalized, Diminished Cardiovascular: Normal Auscultation: Bowel Sounds: Normal Palpation: Normal Tenderness: Diffuse, Mild Skin: Normal Musculoskeletal: Normal Psychiatric: Normal Mood Description: Calm Affect: Normal Speech Pattern: Clear, Appropriate - Laboratory and Diagnostics Result Diagrams: 02/10/18 05:39 02/10/18 05:39 Labs: 02/06/18 20:45 Urine,Clean Catch Urine Culture - Final Laboratory WBC 8.3 X10^3/uL (3.6-10.0) 02/10/18 05:39 RBC 3.60 X10^6/uL (3.5-5.4) 02/10/18 05:39 Hgb 10.6 g/dL (12.0-16.0) L 02/10/18 05:39 Hct 30.6 % (36.0-47.0) L 02/10/18 05:39 MCV 85.0 fL (80.0-100.0) 02/10/18 05:39 MCH 29.5 pg (27.0-34.0) 02/10/18 05:39 MCHC 34.7 g/dL (33.0-35.0) 02/10/18 05:39 RDW 14.1 % (11.6-16.5) 02/10/18 05:39 Plt Count 251 X10^3/uL (150.0-450.0) 02/10/18 05:39 MPV 9.0 fL (7.4-11.0) 02/10/18 05:39 Neut % (Auto) 71.0 % (42.0-75.0) 02/10/18 05:39 Lymph % (Auto) 16.9 % (21.0-51.0) L 02/10/18 05:39 [place] % (Auto) 9.1 % (0.0-13.0) 02/10/18 05:39 Eos % (Auto) 2.0 % (0.9-2.9) 02/10/18 05:39 Baso % (Auto) 1.0 % (0.2-1.0) 02/10/18 05:39 Neut # (Auto) 5.9 x10^3/uL (2.2-4.8) H 02/10/18 05:39 Lymph # (Auto) 1.4 X10^3/uL (1.3-2.9) 02/10/18 05:39 [place] # (Auto) 0.8 x10^3/uL (0.3-0.8) 02/10/18 05:39 Eos # (Auto) 0.2 x10^3/uL (0.0-0.2) 02/10/18 05:39 Baso # (Auto) 0.1 X10^3/uL (0.0-0.1) 02/10/18 05:39 Absolute Nucleated RBC 0.0 /100WBC 02/10/18 05:39 Sodium 141 mmol/L (136-145) 02/10/18 05:39 Corrected Sodium 142 mmol/L (136-145) 02/10/18 05:39 Potassium 4.0 mmol/L (3.5-5.1) 02/10/18 05:39 Chloride 106 mmol/L (98-107) 02/10/18 05:39 Carbon Dioxide 25.1 mmol/L (21-32) 02/10/18 05:39 BUN 12 mg/dL (7-18) 02/10/18 05:39 Creatinine 1.15 mg/dL (0.55-1.02) H 02/10/18 05:39 Est GFR (MDRD) Af Amer 59 (>60) 02/10/18 05:39 Est GFR (MDRD) Non-Af 49 (>60) L 02/10/18 05:39 Glucose 142 mg/dL (65-99) H 02/10/18 05:39 POC Glucose (mg/dL) 123 mg/dL (65-99) H 02/10/18 19:53 Calcium 7.8 mg/dL (8.5-10.1) L 02/10/18 05:39 Corrected Calcium 8.8 mg/dL (8.5-10.1) 02/10/18 05:39 Magnesium 2.2 mg/dL (1.7-2.9) 02/10/18 05:39 Total Bilirubin 0.60 mg/dL (0.2-1.0) 02/10/18 05:39 AST 13 Units/L (15-37) L 02/10/18 05:39 ALT 14 Units/L (12-78) 02/10/18 05:39 Alkaline Phosphatase 70 Units/L (46-116) 02/10/18 05:39 Creatine Kinase 84 Units/L (26-192) 02/06/18 21:36 CK-MB (CK-2) < 1.0 ng/mL (0-4.0) 02/06/18 21:36 CK/CKMB % Calc 1.2 % (<4) 02/06/18 21:36 Troponin I < 0.02 ng/mL (0-1.5) 02/06/18 21:36 Total Protein 6.5 g/dL (6.4-8.2) 02/10/18 05:39 Albumin 2.8 g/dL (3.4-5.0) L 02/10/18 05:39 Globulin 3.7 g/dL (2.5-4.5) 02/10/18 05:39 Albumin/Globulin Ratio 0.8 Ratio (1.1-2.1) L 02/10/18 05:39 Specimen Type Clean catch urine 02/06/18 20:45 Urine Color Yellow (YELLOW) 02/06/18 20:45 Urine Appearance Clear (CLEAR) 02/06/18 20:45 Urine pH 5.0 (5.0 - 8.0) 02/06/18 20:45 Ur Specific [place] 1.020 (1.000-1.030) 02/06/18 20:45 Urine Protein Negative (NEGATIVE) 02/06/18 20:45 Urine Glucose (UA) Negative (NEGATIVE) 02/06/18 20:45 Urine Ketones Negative (NEGATIVE) 02/06/18 20:45 Urine Occult Blood Negative (NEGATIVE) 02/06/18 20:45 Urine Nitrite Negative (NEGATIVE) 02/06/18 20:45 Urine Bilirubin Negative (NEGATIVE) 02/06/18 20:45 Urine Urobilinogen Normal (NORMAL) 02/06/18 20:45 Ur Leukocyte Esterase 1+ (NEGATIVE) 02/06/18 20:45 Urine RBC 0-2 /HPF (NONE SEEN) 02/06/18 20:45 Urine WBC 3-5 /HPF (NONE SEEN) 02/06/18 20:45 Ur Squamous Epith Cells Few /HPF (NEGATIVE) 02/06/18 20:45 Urine Bacteria 1+ /HPF (NEGATIVE) 02/06/18 20:45 Ur Culture Indicated? 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, CONTINUE TO MONITOR (2) Generalized weakness Status: Acute Plan: PHYSICAL THERAPY, CONTINUE TO MONITOR (3) Low back pain Status: Acute Qualifiers: Chronicity: acute Back pain laterality: bilateral Sciatica presence: uns pecified whether sciatica present Qualified Code(s): M54.5 - Low back pain Plan: PHYSICAL THERAPY, PO PAIN CONTROL, CONTINUE TO MONITOR (4) Urinary tract infection Status: Acute Qualifiers: Urinary tract infection type: acute cystitis Hematuria presence: without hematuria Qualified Code(s): N30.00 - Acute cystitis without hematuria Plan: CONTINUE IV LEVAQUIN, CONTINUE TO MONITOR (5) Hypomagnesemia Status: Acute Plan: REPLACEMENT WITH PROTOCOL, CONTINUE TO MONITOR
[2018-02-11] MEDS: ROBITUSSIN DM PO PRN ×2 (00:29→20:54)
[2018-02-11 06:40] LABS: BASOPHILS # (AUTO) 0.1 X10^3/uL (0.0-0.1); BASOPHILS % (AUTO) 1.1 % (0.2-1.0); EOSINOPHILS # (AUTO) 0.2 x10^3/uL (0.0-0.2); EOSINOPHILS % (AUTO) 2.9 % (0.9-2.9); HEMATOCRIT 31.5 % (36.0-47.0); HEMOGLOBIN 10.9 g/dL (12.0-16.0); LYMPHOCYTES # (AUTO) 1.3 X10^3/uL (1.3-2.9); LYMPHOCYTES % (AUTO) 21.4 % (21.0-51.0); MEAN CORPUSCULAR HEMOGLOBIN 29.5 pg (27.0-34.0); MEAN CORPUSCULAR HGB CONC 34.4 g/dL (33.0-35.0); MEAN CORPUSCULAR VOLUME 85.8 fL (80.0-100.0); MEAN PLATELET VOLUME 9.1 fL (7.4-11.0); MONOCYTES # (AUTO) 0.6 x10^3/uL (0.3-0.8); MONOCYTES % (AUTO) 10.4 % (0.0-13.0); NEUTROPHILS # (AUTO) 3.8 x10^3/uL (2.2-4.8); NEUTROPHILS % (AUTO) 64.2 % (42.0-75.0); PLATELET COUNT 261 X10^3/uL (150.0-450.0); RED BLOOD COUNT 3.67 X10^6/uL (3.5-5.4)
[2018-02-11 06:54] LABS: ALANINE AMINOTRANSFERASE 14 Units/L (12-78); ALBUMIN 2.6 g/dL (3.4-5.0); ALKALINE PHOSPHATASE 69 Units/L (46-116); ASPARTATE AMINO TRANSFERASE 14 Units/L (15-37); BLOOD UREA NITROGEN 11 mg/dL (7-18); CALCIUM 7.5 mg/dL (8.5-10.1); CARBON DIOXIDE 27.8 mmol/L (21-32); CHLORIDE 106 mmol/L (98-107); COR CA(FOR HYPOALB) 8.6 mg/dL (8.5-10.1); COR NA(FOR HYPERGLY) 143 mmol/L (136-145); CREATININE 1.07 mg/dL (0.55-1.02); SODIUM 142 mmol/L (136-145); TOTAL PROTEIN 6.4 g/dL (6.4-8.2); eGFR NON BLACK RACES 53 (>60)
[2018-02-11] MEDS: TOPROL XL PO SCH (08:28)
[2018-02-11] MEDS: ASPIRIN EC 81 MG PO SCH (08:28)
[2018-02-11] MEDS: AMARYL TAB 4 MG PO SCH ×2 (08:28→20:54)
[2018-02-11] MEDS: HYZAAR 50/12.5 MG PO SCH (08:28)
[2018-02-11] MEDS: MILK OF MAGNESIA PO SCH ×2 (08:30→20:54)
[2018-02-11] MEDS: TUSSIONEX PENNKINETIC SUSP PO PRN ×2 (08:33→20:57)
[2018-02-11] MEDS: NS 1000 ML 1,000 ML IV SCH ×2 (10:53→23:28)
[2018-02-11] MEDS ORDERED: LANOXIN INJ IVP NR (13:00)
[2018-02-11] MEDS: HumuLIN R SUBCUT PRN (16:13)
[2018-02-11] MEDS: COLACE CAP 100 MG PO SCH (20:44)
[2018-02-11] MEDS: SNACK - Diabetic Appropriate PO SCH (20:54)
[2018-02-11] MEDS: LEVAQUIN PREMIX IV 250 MG 250 MG/50 ML BAG IV SCH (20:54)
[2018-02-11] MEDS: KLONOPIN TAB 0.5 MG PO SCH (20:54)
--- NOTE | 2018-02-11 21:42 | PCM.PROG ---
Progress Note - Progress Note for Day of Date of Exam: 02/10/18 - Subjective Subjective: WAS ADMITTED FOR SHORTNESS OF BREATH, WEAKNESS, RECENT UTI, AND ATRIAL FLUTTER. TODAY, SHE IS ALERT AND ORIENTED, LYING IN BED ON MORNING ROUNDS. SHE CONTINUES WITH GENERALIZED WEAKNESS, SHORTNESS OF BREATH, AND LOWER BACK PAIN. ON EXAMINATION, SHE IS NOTED TO BE IN ATRIAL FIBRILLATION WITH HR IN THE 70S. STAFF REPORTS THAT HEART RATE HAS INCREASED TO THE 120S-130S AT TIMES. BILATERAL LUNGS ARE NOTED WITH DIMINISHED LUNG SOUNDS THROUGHOUT. ABDOMEN IS ROUND, SOFT, AND NON-TENDER. NORMAL BOWEL SOUNDS NOTED IN ALL QUADRANTS. BILATERAL LOWER EXTREMITIES ARE NOTED WITH TRACE EDEMA. HER VITALS THIS MORNING ARE 97.4-81-27-97%-158/71. ABNORMAL LABS INCLUDE THE FOLLOWING: RBC HGB 10.6, HCT 30.6, CREATININE 1.15, GLUCOSE 142, CALCIUM 7.8, AST 13, ALBUMIN 2.8. TODAY, WE WILL CONTINUE WITH IV ANTIBIOTICS, IV FLUIDS, AND CURRENT PLAN OF CARE TODAY. PHYSICAL THERAPY CONTINUES TO WORK WITH PATIENT. OTHERWISE, WE WILL FOLLOW UP WITH AM LABS AND CONTINUE TO MONITOR PATIENT. - Past Medical Family Social History Past Med/Fam/Surg Hx: No changes since H&P Allergies: Allergies morphine Allergy (Verified 02/01/18 22:43) - Review of Systems ROS: No change since H&P - Vital Signs and I&O's Vital Signs: Temperature 98.0 F Pulse Rate 97 Respiratory Rate 23 Blood Pressure [Right Arm] 143/82 Blood Pressure [Left Arm] 143/65 Blood Pressure 156/97 O2 Sat by Pulse Oximetry 96 Intake and Output: Intake & Output 02/09/18 02/10/18 02/11/18 02/12/18 11:59 11:59 11:59 11:59 Intake Total 2901 / 2901 2499 / 2499 3208 / 3208 525 / 525 Output Total 1800 / 1800 2900 / 2900 1200 / 1200 Balance 2901 / 2901 699 / 699 308 / 308 -675 / -675 - Physical Exam Oriented: Normal Eyes: Normal Ear: Normal Nose: Normal Throat: Normal Respiratory: Generalized, Diminished Cardiovascular: Normal Auscultation: Bowel Sounds: Normal Palpation: Normal Tenderness: Diffuse, Mild Skin: Normal Musculoskeletal: Normal Psychiatric: Normal Mood Description: Calm Affect: Normal Speech Pattern: Clear, Appropriate - Laboratory and Diagnostics Result Diagrams: 02/11/18 05:40 02/11/18 05:40 Labs: 02/06/18 20:45 Urine,Clean Catch Urine Culture - Final Laboratory WBC 6.0 X10^3/uL (3.6-10.0) 02/11/18 05:40 RBC 3.67 X10^6/uL (3.5-5.4) 02/11/18 05:40 Hgb 10.9 g/dL (12.0-16.0) L 02/11/18 05:40 Hct 31.5 % (36.0-47.0) L 02/11/18 05:40 MCV 85.8 fL (80.0-100.0) 02/11/18 05:40 MCH 29.5 pg (27.0-34.0) 02/11/18 05:40 MCHC 34.4 g/dL (33.0-35.0) 02/11/18 05:40 RDW 14.0 % (11.6-16.5) 02/11/18 05:40 Plt Count 261 X10^3/uL (150.0-450.0) 02/11/18 05:40 MPV 9.1 fL (7.4-11.0) 02/11/18 05:40 Neut % (Auto) 64.2 % (42.0-75.0) 02/11/18 05:40 Lymph % (Auto) 21.4 % (21.0-51.0) 02/11/18 05:40 [place] % (Auto) 10.4 % (0.0-13.0) 02/11/18 05:40 Eos % (Auto) 2.9 % (0.9-2.9) 02/11/18 05:40 Baso % (Auto) 1.1 % (0.2-1.0) H 02/11/18 05:40 Neut # (Auto) 3.8 x10^3/uL (2.2-4.8) 02/11/18 05:40 Lymph # (Auto) 1.3 X10^3/uL (1.3-2.9) 02/11/18 05:40 [place] # (Auto) 0.6 x10^3/uL (0.3-0.8) 02/11/18 05:40 Eos # (Auto) 0.2 x10^3/uL (0.0-0.2) 02/11/18 05:40 Baso # (Auto) 0.1 X10^3/uL (0.0-0.1) 02/11/18 05:40 Absolute Nucleated RBC 0.0 /100WBC 02/11/18 05:40 Sodium 142 mmol/L (136-145) 02/11/18 05:40 Corrected Sodium 143 mmol/L (136-145) 02/11/18 05:40 Potassium 3.8 mmol/L (3.5-5.1) 02/11/18 05:40 Chloride 106 mmol/L (98-107) 02/11/18 05:40 Carbon Dioxide 27.8 mmol/L (21-32) 02/11/18 05:40 BUN 11 mg/dL (7-18) 02/11/18 05:40 Creatinine 1.07 mg/dL (0.55-1.02) H 02/11/18 05:40 Est GFR (MDRD) Af Amer > 60 (>60) 02/11/18 05:40 Est GFR (MDRD) Non-Af 53 (>60) L 02/11/18 05:40 Glucose 146 mg/dL (65-99) H 02/11/18 05:40 POC Glucose (mg/dL) 158 mg/dL (65-99) H 02/11/18 20:01 Calcium 7.5 mg/dL (8.5-10.1) L 02/11/18 05:40 Corrected Calcium 8.6 mg/dL (8.5-10.1) 02/11/18 05:40 Magnesium 2.2 mg/dL (1.7-2.9) 02/10/18 05:39 Total Bilirubin 0.50 mg/dL (0.2-1.0) 02/11/18 05:40 AST 14 Units/L (15-37) L 02/11/18 05:40 ALT 14 Units/L (12-78) 02/11/18 05:40 Alkaline Phosphatase 69 Units/L (46-116) 02/11/18 05:40 Creatine Kinase 84 Units/L (26-192) 02/06/18 21:36 CK-MB (CK-2) < 1.0 ng/mL (0-4.0) 02/06/18 21:36 CK/CKMB % Calc 1.2 % (<4) 02/06/18 21:36 Troponin I < 0.02 ng/mL (0-1.5) 02/06/18 21:36 Total Protein 6.4 g/dL (6.4-8.2) 02/11/18 05:40 Albumin 2.6 g/dL (3.4-5.0) L 02/11/18 05:40 Globulin 3.8 g/dL (2.5-4.5) 02/11/18 05:40 Albumin/Globulin Ratio 0.7 Ratio (1.1-2.1) L 02/11/18 05:40 Specimen Type Clean catch urine 02/06/18 20:45 Urine Color Yellow (YELLOW) 02/06/18 20:45 Urine Appearance Clear (CLEAR) 02/06/18 20:45 Urine pH 5.0 (5.0 - 8.0) 02/06/18 20:45 Ur Specific [place] 1.020 (1.000-1.030) 02/06/18 20:45 Urine Protein Negative (NEGATIVE) 02/06/18 20:45 Urine Glucose (UA) Negative (NEGATIVE) 02/06/18 20:45 Urine Ketones Negative (NEGATIVE) 02/06/18 20:45 Urine Occult Blood Negative (NEGATIVE) 02/06/18 20:45 Urine Nitrite Negative (NEGATIVE) 02/06/18 20:45 Urine Bilirubin Negative (NEGATIVE) 02/06/18 20:45 Urine Urobilinogen Normal (NORMAL) 02/06/18 20:45 Ur Leukocyte Esterase 1+ (NEGATIVE) 02/06/18 20:45 Urine RBC 0-2 /HPF (NONE SEEN) 02/06/18 20:45 Urine WBC 3-5 /HPF (NONE SEEN) 02/06/18 20:45 Ur Squamous Epith Cells Few /HPF (NEGATIVE) 02/06/18 20:45 Urine Bacteria 1+ /HPF (NEGATIVE) 02/06/18 20:45 Ur Culture Indicated? 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, CONTINUE TO MONITOR (2) Generalized weakness Status: Acute Plan: PHYSICAL THERAPY, CONTINUE TO MONITOR (3) Low back pain Status: Acute Qualifiers: Chronicity: acute Back pain laterality: bilateral Sciatica presence: unspecified whether sciatica present Qualified Code(s): M54.5 - Low back pain Plan: PHYSICAL THERAPY, PO PAIN CONTROL, CONTINUE TO MONITOR (4) Urinary tract infection Status: Acute Qualifiers: Urinary tract infection type: acute cystitis Hematuria presence: without hematuria Qualified Code(s): N30.00 - Acute cystitis without hematuria Plan: CONTINUE IV LEVAQUIN, CONTINUE TO MONITOR (5) Hypomagnesemia Status: Resolved Plan: CONTINUE TO MONITOR
[2018-02-12 06:15] LABS: BASOPHILS # (AUTO) 0.1 X10^3/uL (0.0-0.1); BASOPHILS % (AUTO) 1.2 % (0.2-1.0); EOSINOPHILS # (AUTO) 0.2 x10^3/uL (0.0-0.2); EOSINOPHILS % (AUTO) 2.3 % (0.9-2.9); HEMATOCRIT 31.2 % (36.0-47.0); HEMOGLOBIN 10.7 g/dL (12.0-16.0); LYMPHOCYTES # (AUTO) 1.7 X10^3/uL (1.3-2.9); LYMPHOCYTES % (AUTO) 23.8 % (21.0-51.0); MEAN CORPUSCULAR HEMOGLOBIN 29.3 pg (27.0-34.0); MEAN CORPUSCULAR HGB CONC 34.4 g/dL (33.0-35.0); MEAN CORPUSCULAR VOLUME 85.3 fL (80.0-100.0); MEAN PLATELET VOLUME 8.7 fL (7.4-11.0); MONOCYTES # (AUTO) 0.9 x10^3/uL (0.3-0.8); MONOCYTES % (AUTO) 11.6 % (0.0-13.0); NEUTROPHILS # (AUTO) 4.5 x10^3/uL (2.2-4.8); NEUTROPHILS % (AUTO) 61.1 % (42.0-75.0); PLATELET COUNT 243 X10^3/uL (150.0-450.0); RED BLOOD COUNT 3.66 X10^6/uL (3.5-5.4); RED CELL DISTRIBUTION WIDTH 13.8 % (11.6-16.5); WHITE BLOOD COUNT 7.3 X10^3/uL (3.6-10.0)
[2018-02-12 06:27] LABS: ALANINE AMINOTRANSFERASE 13 Units/L (12-78); ALBUMIN 2.6 g/dL (3.4-5.0); ALKALINE PHOSPHATASE 60 Units/L (46-116); ASPARTATE AMINO TRANSFERASE 15 Units/L (15-37); BLOOD UREA NITROGEN 14 mg/dL (7-18); CALCIUM 7.6 mg/dL (8.5-10.1); CARBON DIOXIDE 30.2 mmol/L (21-32); CHLORIDE 104 mmol/L (98-107); COR CA(FOR HYPOALB) 8.7 mg/dL (8.5-10.1); CREATININE 1.12 mg/dL (0.55-1.02); SODIUM 142 mmol/L (136-145); TOTAL PROTEIN 6.3 g/dL (6.4-8.2); eGFR NON BLACK RACES 50 (>60)
[2018-02-12] MEDS: TOPROL XL PO SCH (09:36)
[2018-02-12] MEDS: K-DUR TAB 20 MEQ PO PRN (09:37)
[2018-02-12] MEDS: HYZAAR 50/12.5 MG PO SCH (09:37)
[2018-02-12] MEDS: AMARYL TAB 4 MG PO SCH ×2 (09:37→21:18)
[2018-02-12] MEDS: ASPIRIN EC 81 MG PO SCH (09:37)
[2018-02-12] MEDS: MILK OF MAGNESIA PO SCH ×2 (09:37→21:18)
[2018-02-12] MEDS: NS 1000 ML 1,000 ML IV SCH ×2 (09:41→12:46)
[2018-02-12] MEDS: HumuLIN R SUBCUT PRN ×2 (11:16→16:12)
[2018-02-12] MEDS ORDERED: NEXTERONE IV 150 MG PREMIX* 150 MG/100 ML BAG IV ONE ×2 (12:27→12:44)
[2018-02-12] MEDS ORDERED: LANOXIN INJ IVP ONE (12:41)
[2018-02-12] MEDS ORDERED: NEXTERONE IV 360 MG PREMIX* 360 MG/200 ML BAG IV PRN (12:46)
[2018-02-12] MEDS: NEXTERONE IV 360 MG PREMIX* 360 MG/200 ML BAG IV PRN (19:13)
[2018-02-12] MEDS: SNACK - Diabetic Appropriate PO SCH ×2 (19:30→21:19)
[2018-02-12] MEDS: KLONOPIN TAB 0.5 MG PO SCH (21:18)
[2018-02-12] MEDS: ELIQUIS PO SCH (21:18)
[2018-02-12] MEDS: COLACE CAP 100 MG PO SCH (21:18)
[2018-02-12] MEDS: TUSSIONEX PENNKINETIC SUSP PO PRN (21:18)
[2018-02-12] MEDS: ROBITUSSIN DM PO PRN (21:18)
[2018-02-12] MEDS: LEVAQUIN PREMIX IV 250 MG 250 MG/50 ML BAG IV SCH (21:19)
[2018-02-13 06:35] LABS: BASOPHILS # (AUTO) 0.1 X10^3/uL (0.0-0.1); EOSINOPHILS # (AUTO) 0.2 x10^3/uL (0.0-0.2); EOSINOPHILS % (AUTO) 2.4 % (0.9-2.9); HEMATOCRIT 32.5 % (36.0-47.0); HEMOGLOBIN 11.2 g/dL (12.0-16.0); LYMPHOCYTES % (AUTO) 25.4 % (21.0-51.0); MEAN CORPUSCULAR HEMOGLOBIN 29.3 pg (27.0-34.0); MEAN CORPUSCULAR HGB CONC 34.6 g/dL (33.0-35.0); MEAN CORPUSCULAR VOLUME 84.8 fL (80.0-100.0); MEAN PLATELET VOLUME 8.9 fL (7.4-11.0); MONOCYTES # (AUTO) 0.8 x10^3/uL (0.3-0.8); MONOCYTES % (AUTO) 9.9 % (0.0-13.0); NEUTROPHILS # (AUTO) 4.8 x10^3/uL (2.2-4.8); NEUTROPHILS % (AUTO) 61.3 % (42.0-75.0); PLATELET COUNT 239 X10^3/uL (150.0-450.0); RED BLOOD COUNT 3.83 X10^6/uL (3.5-5.4); RED CELL DISTRIBUTION WIDTH 13.6 % (11.6-16.5); WHITE BLOOD COUNT 7.9 X10^3/uL (3.6-10.0)
[2018-02-13] MEDS: NS 1000 ML 1,000 ML IV SCH ×2 (06:37→18:53)
[2018-02-13] MEDS: NEXTERONE IV 360 MG PREMIX* 360 MG/200 ML BAG IV PRN (06:45)
[2018-02-13 07:05] LABS: ALANINE AMINOTRANSFERASE 7 Units/L (12-78); ALBUMIN 2.7 g/dL (3.4-5.0); ALKALINE PHOSPHATASE 59 Units/L (46-116); ASPARTATE AMINO TRANSFERASE 14 Units/L (15-37); BLOOD UREA NITROGEN 13 mg/dL (7-18); CARBON DIOXIDE 28.8 mmol/L (21-32); CHLORIDE 102 mmol/L (98-107); CREATININE 1.07 mg/dL (0.55-1.02); SODIUM 139 mmol/L (136-145); TOTAL PROTEIN 6.6 g/dL (6.4-8.2); eGFR NON BLACK RACES 53 (>60)
--- NOTE | 2018-02-13 10:17 | PCM.PROG ---
Progress Note - Progress Note for Day of Date of Exam: 02/12/18 - Subjective Subjective: WAS ADMITTED FOR SHORTNESS OF BREATH, WEAKNESS, RECENT UTI, AND ATRIAL FLUTTER. RATE HAS BEEN CONTROLLED, HOWEVER, AN INCREASE IN HEART RATE TO THE 140S-150S WAS NOTED YESTERDAY. SHE WAS GIVEN DIGOXIN 0.5MG IV X 1 DOSE. THROUGHOUT THE NIGHT, HR WAS CONTROLLED IN THE 60S AND 70S, HOWEVER, ON MORNING ROUNDS, IT IS BACK UP INTO THE 140s. SHE IS ALERT AND ORIENTED, LYING IN BED UPON ROUNDS. SHE CONTINUES WITH GENERALIZED WEAKNESS, SHORTNESS OF BREATH, AND LOWER BACK PAIN. ON EXAMINATION, BILATERAL LUNGS ARE NOTED WITH DIMINISHED LUNG SOUNDS THROUGHOUT. ABDOMEN IS ROUND, SOFT, AND NON-TENDER. NORMAL BOWEL SOUNDS NOTED IN ALL QUADRANTS. BILATERAL LOWER EXTREMITIES ARE NOTED WITH TRACE EDEMA. HER VITALS THIS MORNING ARE 98.2-132-20-94%-122/58. ABNORMAL LABS INCLUDE THE FOLLOWING: HGB 10.7, HCT 31.2, CREATININE 1.12, GLUCOSE 108, CALCIUM 7.6, TOTAL PROTEIN 6.3, ALBUMIN 2.6. TODAY, WE WILL CONTINUE WITH IV ANTIBIOTICS, IV FLUIDS, AND CURRENT PLAN OF CARE. 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 PHYSICAL THERAPY CONTINUES TO WORK WITH PATIENT. OTHERWISE, WE WILL FOLLOW UP W ITH AM LABS AND CONTINUE TO MONITOR PATIENT. - Past Medical Family Social History Past Med/Fam/Surg Hx: No changes since H&P Allergies: Allergies morphine Allergy (Verified 02/01/18 22:43) - Review of Systems ROS: No change since H&P - Vital Signs and I&O's Vital Signs: Temperature 97.5 F Pulse Rate 95 Respiratory Rate 17 Blood Pressure [Right Arm] 143/82 Blood Pressure [Left Arm] 143/65 Blood Pressure 94/55 O2 Sat by Pulse Oximetry 100 Intake and Output: Intake & Output 02/10/18 02/11/18 02/12/18 02/13/18 11:59 11:59 11:59 11:59 Intake Total 2499 / 2499 3208 / 3208 1573 / 1573 1361 / 1361 Output Total 1800 / 1800 2900 / 2900 2450 / 2450 1450 / 1450 Balance 699 / 699 308 / 308 -877 / -877 -89 / -89 - Physical Exam Oriented: Normal Eyes: Normal Ear: Normal Nose: Normal Throat: Normal Respiratory: Generalized, Diminished Cardiovascular: Tachycardia, Irregular : Normal Auscultation: Bowel Sounds: Normal Palpation: Normal Tenderness: Normal Skin: Normal Musculoskeletal: Normal Psychiatric: Normal Mood Description: Calm Affect: Normal Speech Pattern: Clear, Appropriate - Laboratory and Diagnostics Result Diagrams: 02/13/18 05:57 02/13/18 05:57 Labs: 02/06/18 20:45 Urine,Clean Catch Urine Culture - Final Laboratory WBC 7.9 X10^3/uL (3.6-10.0) 02/13/18 05:57 RBC 3.83 X10^6/uL (3.5-5.4) 02/13/18 05:57 Hgb 11.2 g/dL (12.0-16.0) L 02/13/18 05:57 Hct 32.5 % (36.0-47.0) L 02/13/18 05:57 MCV 84.8 fL (80.0-100.0) 02/13/18 05:57 MCH 29.3 pg (27.0-34.0) 02/13/18 05:57 MCHC 34.6 g/dL (33.0-35.0) 02/13/18 05:57 RDW 13.6 % (11.6-16.5) 02/13/18 05:57 Plt Count 239 X10^3/uL (150.0-450.0) 02/13/18 05:57 MPV 8.9 fL (7.4-11.0) 02/13/18 05:57 Neut % (Auto) 61.3 % (42.0-75.0) 02/13/18 05:57 Lymph % (Auto) 25.4 % (21.0-51.0) 02/13/18 05:57 [place] % (Auto) 9.9 % (0.0-13.0) 02/13/18 05:57 Eos % (Auto) 2.4 % (0.9-2.9) 02/13/18 05:57 Baso % (Auto) 1.0 % (0.2-1.0) 02/13/18 05:57 Neut # (Auto) 4.8 x10^3/uL (2.2-4.8) 02/13/18 05:57 Lymph # (Auto) 2.0 X10^3/uL (1.3-2.9) 02/13/18 05:57 [place] # (Auto) 0.8 x10^3/uL (0.3-0.8) 02/13/18 05:57 Eos # (Auto) 0.2 x10^3/uL (0.0-0.2) 02/13/18 05:57 Baso # (Auto) 0.1 X10^3/uL (0.0-0.1) 02/13/18 05:57 Absolute Nucleated RBC 0.0 /100WBC 02/13/18 05:57 Sodium 139 mmol/L (136-145) 02/13/18 05:57 Corrected Sodium TNP 02/13/18 05:57 Potassium 3.7 mmol/L (3.5-5.1) 02/13/18 05:57 Chloride 102 mmol/L (98-107) 02/13/18 05:57 Carbon Dioxide 28.8 mmol/L (21-32) 02/13/18 05:57 BUN 13 mg/dL (7-18) 02/13/18 05:57 Creatinine 1.07 mg/dL (0.55-1.02) H 02/13/18 05:57 Est GFR (MDRD) Af Amer > 60 (>60) 02/13/18 05:57 Est GFR (MDRD) Non-Af 53 (>60) L 02/13/18 05:57 Glucose 103 mg/dL (65-99) H 02/13/18 05:57 POC Glucose (mg/dL) 112 mg/dL (65-99) H 02/13/18 05:43 Calcium 8.0 mg/dL (8.5-10.1) L 02/13/18 05:57 Corrected Calcium 9.0 mg/dL (8.5-10.1) 02/13/18 05:57 Magnesium 2.2 mg/dL (1.7-2.9) 02/10/18 05:39 Total Bilirubin 0.50 mg/dL (0.2-1.0) 02/13/18 05:57 AST 14 Units/L (15-37) L 02/13/18 05:57 ALT 7 Units/L (12-78) L 02/13/18 05:57 Alkaline Phosphatase 59 Units/L (46-116) 02/13/18 05:57 Creatine Kinase 84 Units/L (26-192) 02/06/18 21:36 CK-MB (CK-2) < 1.0 ng/mL (0-4.0) 02/06/18 21:36 CK/CKMB % Calc 1.2 % (<4) 02/06/18 21:36 Troponin I < 0.02 ng/mL (0-1.5) 02/06/18 21:36 Total Protein 6.6 g/dL (6.4-8.2) 02/13/18 05:57 Albumin 2.7 g/dL (3.4-5.0) L 02/13/18 05:57 Globulin 3.9 g/dL (2.5-4.5) 02/13/18 05:57 Albumin/Globulin Ratio 0.7 Ratio (1.1-2.1) L 02/13/18 05:57 Specimen Type Clean catch urine 02/06/18 20:45 Urine Color Yellow (YELLOW) 02/06/18 20:45 Urine Appearance Clear (CLEAR) 02/06/18 20:45 Urine pH 5.0 (5.0 - 8.0) 02/06/18 20:45 Ur Specific [place] 1.020 (1.000-1.030) 02/06/18 20:45 Urine Protein Negative (NEGATIVE) 02/06/18 20:45 Urine Glucose (UA) Negative (NEGATIVE) 02/06/18 20:45 Urine Ketones Negative (NEGATIVE) 02/06/18 20:45 Urine Occult Blood Negative (NEGATIVE) 02/06/18 20:45 Urine Nitrite Negative (NEGATIVE) 02/06/18 20:45 Urine Bilirubin Negative (NEGATIVE) 02/06/18 20:45 Urine Urobilinogen Normal (NORMAL) 02/06/18 20:45 Ur Leukocyte Esterase 1+ (NEGATIVE) 02/06/18 20:45 Urine RBC 0-2 /HPF (NONE SEEN) 02/06/18 20:45 Urine WBC 3-5 /HPF (NONE SEEN) 02/06/18 20:45 Ur Squamous Epith Cells Few /HPF (NEGATIVE) 02/06/18 20:45 Urine Bacteria 1+ /HPF (NEGATIVE) 02/06/18 20:45 Ur Culture Indicated? 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, CONTINUE HOME MEDS, CONTINUE TO MONITOR (2) Generalized weakness Status: Acute Plan: PHYSICAL THERAPY, CONTINUE TO MONITOR (3) Low back pain Status: Acute Qualifiers: Chronicity: acute Back pain laterality: bilateral Sciatica presence: unspecified whether sciatica present Qualified Code(s): M54.5 - Low back pain Plan: PHYSICAL THERAPY, PO PAIN CONTROL, CONTINUE TO MONITOR (4) Urinary tract infection Status: Acute Qualifiers: Urinary tract infection type: acute cystitis Hematuria presence: without hematuria Qualified Code(s): N30.00 - Acute cystitis without hematuria Plan: CONTINUE IV LEVAQUIN, CONTINUE TO MONITOR (5) Hypomagnesemia Status: Resolved Plan: CONTINUE TO MONITOR
[2018-02-13] MEDS: ELIQUIS PO SCH ×2 (10:24→21:54)
[2018-02-13] MEDS: CORDARONE TAB 200 MG PO SCH ×2 (10:25→18:53)
[2018-02-13] MEDS: TOPROL XL PO SCH (10:25)
[2018-02-13] MEDS: HYZAAR 50/12.5 MG PO SCH (10:26)
[2018-02-13] MEDS: AMARYL TAB 4 MG PO SCH ×2 (10:26→21:55)
[2018-02-13] MEDS: MILK OF MAGNESIA PO SCH ×2 (10:26→21:55)
[2018-02-13] MEDS: ASPIRIN EC 81 MG PO SCH (10:26)
[2018-02-13] MEDS: SNACK - Diabetic Appropriate PO SCH (20:30)
[2018-02-13] MEDS: COLACE CAP 100 MG PO SCH (21:54)
[2018-02-13] MEDS: KLONOPIN TAB 0.5 MG PO SCH (21:54)
[2018-02-13] MEDS: LEVAQUIN PREMIX IV 250 MG 250 MG/50 ML BAG IV SCH (21:54)
[2018-02-14] MEDS: NS 1000 ML 1,000 ML IV SCH (05:18)
[2018-02-14 06:15] LABS: BASOPHILS # (AUTO) 0.1 X10^3/uL (0.0-0.1); BASOPHILS % (AUTO) 0.9 % (0.2-1.0); EOSINOPHILS # (AUTO) 0.2 x10^3/uL (0.0-0.2); EOSINOPHILS % (AUTO) 3.2 % (0.9-2.9); HEMATOCRIT 30.8 % (36.0-47.0); HEMOGLOBIN 10.8 g/dL (12.0-16.0); LYMPHOCYTES # (AUTO) 1.9 X10^3/uL (1.3-2.9); LYMPHOCYTES % (AUTO) 26.7 % (21.0-51.0); MEAN CORPUSCULAR HEMOGLOBIN 29.6 pg (27.0-34.0); MEAN CORPUSCULAR HGB CONC 35.1 g/dL (33.0-35.0); MEAN CORPUSCULAR VOLUME 84.3 fL (80.0-100.0); MEAN PLATELET VOLUME 8.7 fL (7.4-11.0); MONOCYTES # (AUTO) 0.7 x10^3/uL (0.3-0.8); MONOCYTES % (AUTO) 10.5 % (0.0-13.0); NEUTROPHILS # (AUTO) 4.1 x10^3/uL (2.2-4.8); NEUTROPHILS % (AUTO) 58.7 % (42.0-75.0); PLATELET COUNT 233 X10^3/uL (150.0-450.0); RED BLOOD COUNT 3.66 X10^6/uL (3.5-5.4); RED CELL DISTRIBUTION WIDTH 13.9 % (11.6-16.5); WHITE BLOOD COUNT 6.9 X10^3/uL (3.6-10.0)
[2018-02-14 06:45] LABS: ALANINE AMINOTRANSFERASE 11 Units/L (12-78); ALBUMIN 2.6 g/dL (3.4-5.0); ALKALINE PHOSPHATASE 61 Units/L (46-116); ASPARTATE AMINO TRANSFERASE 18 Units/L (15-37); BLOOD UREA NITROGEN 12 mg/dL (7-18); CALCIUM 7.9 mg/dL (8.5-10.1); CARBON DIOXIDE 31.2 mmol/L (21-32); CHLORIDE 103 mmol/L (98-107); COR NA(FOR HYPERGLY) 141 mmol/L (136-145); CREATININE 1.08 mg/dL (0.55-1.02); SODIUM 141 mmol/L (136-145); TOTAL PROTEIN 6.5 g/dL (6.4-8.2); eGFR NON BLACK RACES 53 (>60)
[2018-02-14] MEDS: CORDARONE TAB 200 MG PO SCH (06:56)
[2018-02-14] MEDS: TOPROL XL PO SCH (07:59)
[2018-02-14] MEDS: ASPIRIN EC 81 MG PO SCH (07:59)
[2018-02-14] MEDS: AMARYL TAB 4 MG PO SCH (07:59)
[2018-02-14] MEDS: ELIQUIS PO SCH (07:59)
[2018-02-14] MEDS: HYZAAR 50/12.5 MG PO SCH (07:59)
[2018-02-14] MEDS: MILK OF MAGNESIA PO SCH (08:00)
[2018-02-14 12:23] VITALS: BP 152/77
--- NOTE | 2018-03-23 22:19 | PCM.PROG ---
Progress Note - Progress Note for Day of Date of Exam: 02/11/18 - Subjective Subjective: WAS ADMITTED FOR SHORTNESS OF BREATH, WEAKNESS, RECENT UTI, AND ATRIAL FLUTTER. TODAY, SHE IS ALERT AND ORIENTED, LYING IN BED ON MORNING ROUNDS. SHE CONTINUES WITH GENERALIZED WEAKNESS, SHORTNESS OF BREATH, AND LOWER BACK PAIN. ON EXAMINATION, SHE IS NOTED TO BE IN ATRIAL FIBRILLATION WITH HR IN THE 80S. BILATERAL LUNGS ARE NOTED WITH DIMINISHED LUNG SOUNDS THROUGHOUT. ABDOMEN IS ROUND, SOFT, AND NON-TENDER. NORMAL BOWEL SOUNDS NOTED IN ALL QUADRANTS. BILATERAL LOWER EXTREMITIES ARE NOTED WITH TRACE EDEMA. HER VITALS THIS MORNING ARE 97.8-83-20-96%-138/68. ABNORMAL LABS INCLUDE THE FOLLOWING: HGB 10.9, HCT 31.5, CREATININE 1.07, GLUCOSE 146, CALCIUM 7.5, AST 14, ALBUMIN 2.6. TODAY, WE WILL CONTINUE WITH IV ANTIBIOTICS, IV FLUIDS, AND CURRENT PLAN OF CARE TODAY. WE WILL START TESSALON PERLES TID AND START TOPROL 12.5MG PO DAILY. PHYSICAL THERAPY CONTINUES TO WORK WITH PATIENT. OTHERWISE, WE WILL FOLLOW UP WITH AM LABS AND CONTINUE TO MONITOR PATIENT. - Past Medical Family Social History Past Med/Fam/Surg Hx: No changes since H&P Allergies: Allergies morphine Allergy (Verified 02/01/18 22:43) - Review of Systems ROS: No change since H&P - Vital Signs and I&O's Vital Signs: Temperature 97.4 F Pulse Rate 67 Respiratory Rate 24 Blood Pressure [Right Arm] 143/82 Blood Pressure [Left Arm] 143/65 Blood Pressure 152/77 O2 Sat by Pulse Oximetry 98 - Physical Exam Oriented: Normal Eyes: Normal Ear: Normal Nose: Normal Throat: Normal Respiratory: Generalized, Diminished Cardiovascular: Tachycardia, Irregular : Normal Auscultation: Bowel Sounds: Normal Palpation: Normal Tenderness: Normal Skin: Normal Musculoskeletal: Normal Psychiatric: Normal Mood Description: Calm Affect: Normal Speech Pattern: Clear, Appropriate - Laboratory and Diagnostics Result Diagrams: 02/14/18 05:29 02/14/18 05:29 Labs: 02/06/18 20:45 Urine,Clean Catch Urine Culture - Final Laboratory WBC 6.9 X10^3/uL (3.6-10.0) 02/14/18 05:29 RBC 3.66 X10^6/uL (3.5-5.4) 02/14/18 05:29 Hgb 10.8 g/dL (12.0-16.0) L 02/14/18 05:29 Hct 30.8 % (36.0-47.0) L 02/14/18 05:29 MCV 84.3 fL (80.0-100.0) 02/14/18 05:29 MCH 29.6 pg (27.0-34.0) 02/14/18 05:29 MCHC 35.1 g/dL (33.0-35.0) H 02/14/18 05:29 RDW 13.9 % (11.6-16.5) 02/14/18 05:29 Plt Count 233 X10^3/uL (150.0-450.0) 02/14/18 05:29 MPV 8.7 fL (7.4-11.0) 02/14/18 05:29 Neut % (Auto) 58.7 % (42.0-75.0) 02/14/18 05:29 Lymph % (Auto) 26.7 % (21.0-51.0) 02/14/18 05:29 [place] % (Auto) 10.5 % (0.0-13.0) 02/14/18 05:29 Eos % (Auto) 3.2 % (0.9-2.9) H 02/14/18 05:29 Baso % (Auto) 0.9 % (0.2-1.0) 02/14/18 05:29 Neut # (Auto) 4.1 x10^3/uL (2.2-4.8) 02/14/18 05:29 Lymph # (Auto) 1.9 X10^3/uL (1.3-2.9) 02/14/18 05:29 [place] # (Auto) 0.7 x10^3/uL (0.3-0.8) 02/14/18 05:29 Eos # (Auto) 0.2 x10^3/uL (0.0-0.2) 02/14/18 05:29 Baso # (Auto) 0.1 X10^3/uL (0.0-0.1) 02/14/18 05:29 Absolute Nucleated RBC 0.1 /100WBC 02/14/18 05:29 Sodium 141 mmol/L (136-145) 02/14/18 05:29 Corrected Sodium 141 mmol/L (136-145) 02/14/18 05:29 Potassium 3.5 mmol/L (3.5-5.1) 02/14/18 05:29 Chloride 103 mmol/L (98-107) 02/14/18 05:29 Carbon Dioxide 31.2 mmol/L (21-32) 02/14/18 05:29 BUN 12 mg/dL (7-18) 02/14/18 05:29 Creatinine 1.08 mg/dL (0.55-1.02) H 02/14/18 05:29 Est GFR (MDRD) Af Amer > 60 (>60) 02/14/18 05:29 Est GFR (MDRD) Non-Af 53 (>60) L 02/14/18 05:29 Glucose 118 mg/dL (65-99) H 02/14/18 05:29 POC Glucose (mg/dL) 180 mg/dL (65-99) H 02/14/18 10:37 Calcium 7.9 mg/dL (8.5-10.1) L 02/14/18 05:29 Corrected Calcium 9.0 mg/dL (8.5-10.1) 02/14/18 05:29 Magnesium 2.2 mg/dL (1.7-2.9) 02/10/18 05:39 Total Bilirubin 0.60 mg/dL (0.2-1.0) 02/14/18 05:29 AST 18 Units/L (15-37) 02/14/18 05:29 ALT 11 Units/L (12-78) L 02/14/18 05:29 Alkaline Phosphatase 61 Units/L (46-116) 02/14/18 05:29 Creatine Kinase 84 Units/L (26-192) 02/06/18 21:36 CK-MB (CK-2) < 1.0 ng/mL (0-4.0) 02/06/18 21:36 CK/CKMB % Calc 1.2 % (<4) 02/06/18 21:36 Troponin I < 0.02 ng/mL (0-1.5) 02/06/18 21:36 Total Protein 6.5 g/dL (6.4-8.2) 02/14/18 05:29 Albumin 2.6 g/dL (3.4-5.0) L 02/14/18 05:29 Globulin 3.9 g/dL (2.5-4.5) 02/14/18 05:29 Albumin/Globulin Ratio 0.7 Ratio (1.1-2.1) L 02/14/18 05:29 Specimen Type Clean catch urine 02/06/18 20:45 Urine Color Yellow (YELLOW) 02/06/18 20:45 Urine Appearance Clear (CLEAR) 02/06/18 20:45 Urine pH 5.0 (5.0 - 8.0) 02/06/18 20:45 Ur Specific [place] 1.020 (1.000-1.030) 02/06/18 20:45 Urine Protein Negative (NEGATIVE) 02/06/18 20:45 Urine Glucose (UA) Negative (NEGATIVE) 02/06/18 20:45 Urine Ketones Negative (NEGATIVE) 02/06/18 20:45 Urine Occult Blood Negative (NEGATIVE) 02/06/18 20:45 Urine Nitrite Negative (NEGATIVE) 02/06/18 20:45 Urine Bilirubin Negative (NEGATIVE) 02/06/18 20:45 Urine Urobilinogen Normal (NORMAL) 02/06/18 20:45 Ur Leukocyte Esterase 1+ (NEGATIVE) 02/06/18 20:45 Urine RBC 0-2 /HPF (NONE SEEN) 02/06/18 20:45 Urine WBC 3-5 /HPF (NONE SEEN) 02/06/18 20:45 Ur Squamous Epith Cells Few /HPF (NEGATIVE) 02/06/18 20:45 Urine Bacteria 1+ /HPF (NEGATIVE) 02/06/18 20:45 Ur Culture Indicated? 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, CONTINUE TO MONITOR (2) Generalized weakness Status: Acute Plan: PHYSICAL THERAPY, CONTINUE TO MONITOR (3) Low back pain Status: Acute Qualifiers: Chronicity: acute Back pain laterality: bilateral Sciatica presence: unspecified whether sciatica present Qualified Code(s): M54.5 - Low back pain Plan: PHYSICAL THERAPY, PO PAIN CONTROL, CONTINUE TO MONITOR (4) Urinary tract infection Status: Acute Qualifiers: Urinary tract infection type: acute cystitis Hematuria presence: without hematuria Qualified Code(s): N30.00 - Acute cystitis without hematuria Plan: CONTINUE IV LEVAQUIN, CONTINUE TO MONITOR (5) Hypomagnesemia Status: Resolved Plan: CONTINUE TO MONITOR
--- NOTE | 2018-03-23 22:23 | PCM.PROG ---
Progress Note - Progress Note for Day of Date of Exam: 02/13/18 - Subjective Subjective: WAS ADMITTED FOR SHORTNESS OF BREATH, WEAKNESS, RECENT UTI, AND ATRIAL FLUTTER. HEART RATE CONTINUES TO BE ELEVATED. SHE IS ALERT AND ORIENTED, LYING IN BED UPON ROUNDS. SHE CONTINUES WITH GENERALIZED WEAKNESS, SHORTNESS OF BREATH, AND LOWER BACK PAIN. ON EXAMINATION, BILATERAL LUNGS ARE NOTED WITH DIMINISHED LUNG SOUNDS THROUGHOUT. ABDOMEN IS ROUND, SOFT, AND NON- TENDER. NORMAL BOWEL SOUNDS NOTED IN ALL QUADRANTS. BILATERAL LOWER EXTREMITIES ARE NOTED WITH TRACE EDEMA. HER VITALS THIS MORNING ARE 97.1-94-44-93-158/104. ABNORMAL LABS INCLUDE THE FOLLOWING: HGB 10.7, HCT 31.2, CREATININE 1.12, GLUCOSE 108, CALCIUM 7.6, TOTAL PROTEIN 6.3, ALBUMIN 2.6. TODAY, WE WILL CONTINUE WITH IV ANTIBIOTICS, IV FLUIDS, AND CURRENT PLAN OF CARE. PHYSICAL THERAPY CONTINUES TO WORK WITH PATIENT. OTHERWISE, WE WILL FOLLOW UP WITH AM LABS AND CONTINUE TO MONITOR PATIENT. - Past Medical Family Social History Past Med/Fam/Surg Hx: No changes since H&P Allergies: Allergies morphine Allergy (Verified 02/01/18 22:43) - Review of Systems ROS: No change since H&P - Vital Signs and I&O's Vital Signs: Temperature 97.4 F Pulse Rate 67 Respiratory Rate 24 Blood Pressure [Right Arm] 143/82 Blood Pressure [Left Arm] 143/65 Blood Pressure 152/77 O2 Sat by Pulse Oximetry 98 - Physical Exam Oriented: Normal Eyes: Normal Ear: Normal Nose: Normal Throat: Normal Respiratory: Generalized, Diminished Cardiovascular: Tachycardia, Irregular : Normal Auscultation: Bowel Sounds: Normal Tenderness: Normal Skin: Normal Musculoskeletal: Normal Psychiatric: Normal Mood Description: Calm Affect: Normal Speech Pattern: Clear, Appropriate - Laboratory and Diagnostics Result Diagrams: 02/14/18 05:29 02/14/18 05:29 Labs: 02/06/18 20:45 Urine,Clean Catch Urine Culture - Final Laboratory WBC 6.9 X10^3/uL (3.6-10.0) 02/14/18 05:29 RBC 3.66 X10^6/uL (3.5-5.4) 02/14/18 05:29 Hgb 10.8 g/dL (12.0-16.0) L 02/14/18 05:29 Hct 30.8 % (36.0-47.0) L 02/14/18 05:29 MCV 84.3 fL (80.0-100.0) 02/14/18 05:29 MCH 29.6 pg (27.0-34.0) 02/14/18 05:29 MCHC 35.1 g/dL (33.0-35.0) H 02/14/18 05:29 RDW 13.9 % (11.6-16.5) 02/14/18 05:29 Plt Count 233 X10^3/uL (150.0-450.0) 02/14/18 05:29 MPV 8.7 fL (7.4-11.0) 02/14/18 05:29 Neut % (Auto) 58.7 % (42.0-75.0) 02/14/18 05:29 Lymph % (Auto) 26.7 % (21.0-51.0) 02/14/18 05:29 [place] % (Auto) 10.5 % (0.0-13.0) 02/14/18 05:29 Eos % (Auto) 3.2 % (0.9-2.9) H 02/14/18 05:29 Baso % (Auto) 0.9 % (0.2-1.0) 02/14/18 05:29 Neut # (Auto) 4.1 x10^3/uL (2.2-4.8) 02/14/18 05:29 Lymph # (Auto) 1.9 X10^3/uL (1.3-2.9) 02/14/18 05:29 [place] # (Auto) 0.7 x10^3/uL (0.3-0.8) 02/14/18 05:29 Eos # (Auto) 0.2 x10^3/uL (0.0-0.2) 02/14/18 05:29 Baso # (Auto) 0.1 X10^3/uL (0.0-0.1) 02/14/18 05:29 Absolute Nucleated RBC 0.1 /100WBC 02/14/18 05:29 Sodium 141 mmol/L (136-145) 02/14/18 05:29 Corrected Sodium 141 mmol/L (136-145) 02/14/18 05:29 Potassium 3.5 mmol/L (3.5-5.1) 02/14/18 05:29 Chloride 103 mmol/L (98-107) 02/14/18 05:29 Carbon Dioxide 31.2 mmol/L (21-32) 02/14/18 05:29 BUN 12 mg/dL (7-18) 02/14/18 05:29 Creatinine 1.08 mg/dL (0.55-1.02) H 02/14/18 05:29 Est GFR (MDRD) Af Amer > 60 (>60) 02/14/18 05:29 Est GFR (MDRD) Non-Af 53 (>60) L 02/14/18 05:29 Glucose 118 mg/dL (65-99) H 02/14/18 05:29 POC Glucose (mg/dL) 180 mg/dL (65-99) H 02/14/18 10:37 Calcium 7.9 mg/dL (8.5-10.1) L 02/14/18 05:29 Corrected Calcium 9.0 mg/dL (8.5-10.1) 02/14/18 05:29 Magnesium 2.2 mg/dL (1.7-2.9) 02/10/18 05:39 Total Bilirubin 0.60 mg/dL (0.2-1.0) 02/14/18 05:29 AST 18 Units/L (15-37) 02/14/18 05:29 ALT 11 Units/L (12-78) L 02/14/18 05:29 Alkaline Phosphatase 61 Units/L (46-116) 02/14/18 05:29 Creatine Kinase 84 Units/L (26-192) 02/06/18 21:36 CK-MB (CK-2) < 1.0 ng/mL (0-4.0) 02/06/18 21:36 CK/CKMB % Calc 1.2 % (<4) 02/06/18 21:36 Troponin I < 0.02 ng/mL (0-1.5) 02/06/18 21:36 Total Protein 6.5 g/dL (6.4-8.2) 02/14/18 05:29 Albumin 2.6 g/dL (3.4-5.0) L 02/14/18 05:29 Globulin 3.9 g/dL (2.5-4.5) 02/14/18 05:29 Albumin/Globulin Ratio 0.7 Ratio (1.1-2.1) L 02/14/18 05:29 Specimen Type Clean catch urine 02/06/18 20:45 Urine Color Yellow (YELLOW) 02/06/18 20:45 Urine Appearance Clear (CLEAR) 02/06/18 20:45 Urine pH 5.0 (5.0 - 8.0) 02/06/18 20:45 Ur Specific [place] 1.020 (1.000-1.030) 02/06/18 20:45 Urine Protein Negative (NEGATIVE) 02/06/18 20:45 Urine Glucose (UA) Negative (NEGATIVE) 02/06/18 20:45 Urine Ketones Negative (NEGATIVE) 02/06/18 20:45 Urine Occult Blood Negative (NEGATIVE) 02/06/18 20:45 Urine Nitrite Negative (NEGATIVE) 02/06/18 20:45 Urine Bilirubin Negative (NEGATIVE) 02/06/18 20:45 Urine Urobilinogen Normal (NORMAL) 02/06/18 20:45 Ur Leukocyte Esterase 1+ (NEGATIVE) 02/06/18 20:45 Urine RBC 0-2 /HPF (NONE SEEN) 02/06/18 20:45 Urine WBC 3-5 /HPF (NONE SEEN) 02/06/18 20:45 Ur Squamous Epith Cells Few /HPF (NEGATIVE) 02/06/18 20:45 Urine Bacteria 1+ /HPF (NEGATIVE) 02/06/18 20:45 Ur Culture Indicated? 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, CONTINUE TO MONITOR (2) Generalized weakness Status: Acute Plan: PHYSICAL THERAPY, CONTINUE TO MONITOR (3) Low back pain Status: Acute Qualifiers: Chronicity: acute Back pain laterality: bilateral Sciatica presence: unspecified whether sciatica present Qualified Code(s): M54.5 - Low back pain Plan: PHYSICAL THERAPY, PO PAIN CONTROL, CONTINUE TO MONITOR (4) Urinary tract infection Status: Acute Qualifiers: Urinary tract infection type: acute cystitis Hematuria presence: without hematuria Qualified Code(s): N30.00 - Acute cystitis without hematuria Plan: CONTINUE IV LEVAQUIN, CONTINUE TO MONITOR
--- NOTE | 2018-03-27 23:56 | DR.CARTERD ---
- Discharge Summary for: Discharge Summary for Date of:: 02/14/18 - Admission Date Date of Admission: 02/06/18 - Admission Diagnoses Admission Diagnosis: (1) Atrial fibrillation (2) Urinary tract infection (3) Generalized weakness (4) Low back pain - Discharge Date Discharge Date: 02/14/18 - Discharge Diagnoses Discharge Diagnosis: (1) Atrial fibrillation (2) Urinary tract infection (3) Generalized weakness (4) Low back pain - Hospital Course Hospital Course: DAY ONE, WAS ADMITTED FOR SHORTNESS OF BREATH, WEAKNESS, RECENT UTI, AND ATRIAL FLUTTER. WE CONTINUED TO EVALUATE AND TREAT PATIENT. WE CONTINUED TO MONITOR. DAY TWO, SHE WAS ALERT AND ORIENTED, LYING IN BED ON MORNING ROUNDS. SHE CONTINUED WITH SHORTNESS OF BREATH AND GENERALIZED WEAKNESS. SHE ALSO REPORTED LOWER BACK PAIN. ON EXAMINATION, SHE WAS NOTED TO BE IN ATRIAL FIBRILLATION WITH HR IN THE 70S. BILATERAL LUNGS WERE NOTED WITH DIMINISHED LUNG SOUNDS THROUGHOUT. ABDOMEN WAS ROUND, SOFT, AND NOTED WITH MILD, DIFFUSE TENDERNESS. NORMAL BOWEL SOUNDS NOTED IN ALL QUADRANTS. BILATERAL LOWER EXTREMITIES WERE NOTED WITH TRACE EDEMA. HER BUN/CREATININE WERE ELEVATED AT 21/1.34 AND GLUCOSES SLIGHTLY ELEVATED AT 57. OTHERWISE, SHE WAS HEMODYNAMICALLY STABLE. CHEST XRAY ON ADMISSION REVEALED: The lungs are clear. Borderline cardiomegaly is present. No acute bony abnormalities are identified. Moderate tortuosity of the aorta is noted. AN ECHOCARDIOGRAM WAS OBTAINED AND REVEALED AN EJECTION FRACTION OF 60%. PHYSICAL THERAPY CONSULTED WITH PATIENT. WILL CONTINUED CURRENT PLAN OF CARE AND RESUMED HER HOME MEDICATIONS. WAS NOTIFIED FOR CONSULT WITH PATIENT FOR ABDOMINAL PAIN. WE FOLLOWED UP WITH AM LABS AND CONTINUED TO MONITOR PATIENT. DAY FOUR, SHE WAS ALERT AND ORIENTED, LYING IN BED ON MORNING ROUNDS. SHE CONTINUED WITH GENERALIZED WEAKNESS AND LOWER BACK PAIN. ON EXAMINATION, SHE WAS NOTED TO BE IN ATRIAL FIBRILLATION WITH HR IN THE 70S. BILATERAL LUNGS WERE NOTED WITH DIMINISHED LUNG SOUNDS THROUGHOUT. ABDOMEN IS ROUND, SOFT, AND NON TENDER. NORMAL BOWEL SOUNDS NOTED IN ALL QUADRANTS. BILATERAL LOWER EXTREMITIES WERE NOTED WITH TRACE EDEMA. ABNORMAL LABS INCLUDED THE FOLLOWING: RBC 3.46, HGB 10.3, HCT 29.6, CREATININE 1.09, GLUCOSE 138, CALCIUM 7.4, MAGNESIUM 1.4, TOTAL PROTEIN 6.2, ALBUMIN 2.7. WE CONTINUED WITH IV ANTIBIOTICS, IV FLUIDS, AND CURRENT PLAN OF CARE TODAY. WE REPLACED HER MAGNESIUM WITH THE PROTOCOL. PHYSICAL THERAPY CONTINUED TO WORK WITH PATIENT. WE FOLLOWED UP WITH AM LABS AND CONTINUED TO MONITOR PATIENT. DAY SIX, RATE HAD BEEN CONTROLLED, HOWEVER, AN INCREASE IN HEART RATE TO THE 140S- 150S WAS NOTED YESTERDAY. SHE WAS GIVEN DIGOXIN 0.5MG IV X 1 DOSE. THROUGHOUT THE NIGHT, HR WAS CONTROLLED IN THE 60S AND 70S, HOWEVER, ON MORNING ROUNDS, IT WAS BACK UP INTO THE 140s. SHE WAS ALERT AND ORIENTED, LYING IN BED UPON ROUNDS. SHE CONTINUED WITH GENERALIZED WEAKNESS, SHORTNESS OF BREATH, AND LOWER BACK PAIN. ON EXAMINATION, BILATERAL LUNGS WERE NOTED WITH DIMINISHED LUNG SOUNDS THROUGHOUT. ABDOMEN WAS ROUND, SOFT, AND NON-TENDER. NORMAL BOWEL SOUNDS NOTED IN ALL QUADRANTS. BILATERAL LOWER EXTREMITIES WERE NOTED WITH TRACE EDEMA. HER VITALS THIS MORNING WERE 98.2-132-20-94%-122/58. ABNORMAL LABS INCLUDED THE FOLLOWING: HGB 10.7, HCT 31.2, CREATININE 1.12, GLUCOSE 108, CALCIUM 7.6, TOTAL PROTEIN 6.3, ALBUMIN 2.6. WE CONTINUED WITH IV ANTIBIOTICS, IV FLUIDS, AND CURRENT PLAN OF CARE. 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 PHYSICAL THERAPY CONTINUED TO WORK WITH PATIENT. WE FOLLOWED UP WITH AM LABS AND CONTINUED TO MONITOR PATIENT. DAY EIGHT, HEART RATE CONTINUES TO BE ELEVATED. SHE IS ALERT AND ORIENTED, LYING IN BED UPON ROUNDS. SHE CONTINUES WITH GENERALIZED WEAKNESS, SHORTNESS OF BREATH, AND LOWER BACK PAIN. ON EXAMINATION, BILATERAL LUNGS ARE NOTED WITH DIMINISHED LUNG SOUNDS THROUGHOUT. ABDOMEN IS ROUND, SOFT, AND NON- TENDER. NORMAL BOWEL SOUNDS NOTED IN ALL QUADRANTS. BILATERAL LOWER EXTREMITIES ARE NOTED WITH TRACE EDEMA. HER VITALS THIS MORNING ARE 97.2-42-73-93-158/104. ABNORMAL LABS INCLUDE THE FOLLOWING: HGB 10.7, HCT 31.2, CREATININE 1.12, GLUCOSE 108, CALCIUM 7.6, TOTAL PROTEIN 6.3, ALBUMIN 2.6. TODAY, WE WILL CONTINUE WITH IV ANTIBIOTICS, IV FLUIDS, AND CURRENT PLAN OF CARE. PHYSICAL THERAPY CONTINUES TO WORK WITH PATIENT. OTHERWISE, WE WILL FOLLOW UP WITH AM LABS AND CONTINUE TO MONITOR PATIENT. DAY NINE, SHE WAS ALERT AND ORIENTED, LYING IN BED UPON ROUNDS. PATIENT REPORTS SYMPTOMS ARE MUCH BETTER. VITALS ARE STABLE. HEART RATE IS NOTED AT 67. LABS ARE WITHIN NORMAL LIMITS. ZERO COMPLAINTS OF SHORTNESS OF BREATH OR LOWER BACK PAIN NOTED. WEAKNESS IMPROVED. WE DISCUSSED PLAN FOR HOME HEALTH AND PATIENT WAS IN AGREEMENT. WE PLANNED FOR DISCHARGE WITH HOME HEALTH FOR CONTINUATION OF THERAPY. INSTRUCTIONS FOR MEDICATIONS AND FOLLOW UP DISCUSSED WITH PATIENT AND FAMILY, BOTH VOICED UNDERSTANDING. PATIENT DISCHARGED HOME IN STABLE CONDITION WITH FAMILY. - Discharge Medications Discharge Medications: Home Medication List losartan-hydrochlorothiazide 1 tab PO DAILY 02/06/18 [History] benzonatate [Tessalon Perles] 200 mg PO TID PRN #30 cap 02/11/18 [Rx] metoprolol succinate [Toprol XL] 12.5 mg PO QDAY #30 tab 02/11/18 [Rx] amiodarone 200 mg PO BIDWM #60 tab 02/14/18 [Rx] apixaban [Eliquis] 5 mg PO BID #60 tab 02/14/18 [Rx] Prescriptions: amiodarone Shiva Jarrell apixaban [Eliquis] Shiva Jarrell benzonatate [Tessalon Perles] Shiva Jarrell metoprolol succinate [Toprol XL] Shiva Jarrell Ambulatory Orders Glimepiride 1 tab PO BID 08/16/16 aspirin [Aspir-Low] 81 mg PO DAILY #90 tab 08/22/16 acetaminophen-codeine [Tylenol-Codeine #3] 1 tab PO Q6H PRN #14 tab 02/02/18 cyclobenzaprine 10 mg PO TID PRN #18 tab 02/02/18 l - Discharge Disposition Discharge Disposition: PATIENT TO FOLLOW UP IN OUR OFFICE IN ONE WEEK. HOME HEALTH TO FOLLOW UP WITH PATIENT AT NEXT AVAILABLE APPOINTMENT TIME.
--- NOTE | 2018-04-09 13:30 | DR.TELECAR ---
TELECARDIOLOGY Consultation for Day of: Date: 02/12/18 Chief Complaint Chief Complaint: new atrial flutter Allergies Allergies Allergy/AdvReac Type Severity Reaction Status Date / Time morphine Allergy Verified 02/01/18 22:43 History of Present Illness History of Present Illness: patient has new onset atrial flutter/fib. She denies any history of either or any cardiac issues from the past at all. She states she has not has any cardiac workup in the past. She has had fluttering in her chest before and she does feel her heart go fast when she goes into aflutter/fib. Past Medical History Past Medical History: Arthritis, Diabetes, Hypertension and Kidney Stones Past Surgical History Surgical History: Hysterectomy, Joint Replacement and Ortho Surgery Family History Family Medical History: Diabetes Mellitus and Cancer Social History Does patient currently use any type of tobacco product: No Alcohol Use: None Drug Use: None Medications Home Medications: morphine Allergy (Verified 02/01/18 22:43) CONTINUE taking the following medications losartan-hydrochlorothiazide 1 tab PO DAILY 02/06/18 [History] New Prescriptions benzonatate [Tessalon Perles] 200 mg PO TID PRN #30 cap 02/11/18 [Rx] metoprolol succinate [Toprol XL] 12.5 mg PO QDAY #30 tab 02/11/18 [Rx] Review of Systems Constitutional: No Symptoms Reported Eyes: No Symptoms Reported ENT: No Symptoms Reported Respiratory: No Symptoms Reported Cardiovascular: Palpitations Gastrointestinal: No Symptoms Reported Genitourinary: No Symptoms Reported Musculoskeletal: No Symptoms Reported Skin: No Symptoms Reported Neurological: No Symptoms Reported Physical Exam Vital Signs: Temperature 99.7 F Pulse Rate 74 Respiratory Rate 19 Blood Pressure [Right Arm] 143/82 Blood Pressure [Left Arm] 143/65 Blood Pressure 146/73 O2 Sat by Pulse Oximetry 95 Oriented: Normal Eyes: Normal Ear: Normal Nose: Normal Throat: Normal Respiratory: Clear Throughout Cardiovascular: Normal and Irregular : Normal Auscultation: Bowel Sounds: Normal Palpation: Normal Tenderness: Normal Skin: Normal Musculoskeletal: Normal Psychiatric: Normal Mood Description: Calm Affect: Normal Speech Pattern: Clear Medical Decision Making Reason for Consult: Cardiac Dysrhythmia (aflutter/fib) Results Reviewed: H&Scott EKG Results: Atrial Fibrillation (HR 140's) Plan Plan: 1. New onset afib/flutter a. give amiodarone bolus 150mg IV over 20 minutes and start drip per protocol b. start Eliquis 5mg BID c. If patient converts to SR will rec rate control antiocoagulation, if stays in Afib/flutter will rec transfer to facility for RENE/CVR 2. HTN 3. IDDM
== END 2018-02-14 12:45 | disposition home health service (06) | DRG 309 ==
LOC: ICU
PROVIDERS: ADMIT Internal Medicine; ATTEND Internal Medicine
DX: R60.0 Localized edema; I48.91 Unspecified atrial fibrillation; N39.0 Urinary tract infection, site not specified; Z87.440 Personal history of urinary (tract) infections; R07.89 Other chest pain; E83.42 Hypomagnesemia; E11.65 Type 2 diabetes mellitus with hyperglycemia; R26.89 Other abnormalities of gait and mobility; M54.5 Low back pain; R06.09 Other forms of dyspnea; R53.1 Weakness; R06.02 Shortness of breath
CPT/HCPCS: 36415; 36556; 71010; 71045; 80053; 81001; 82550; 82553; 83735; 84132; 84484; 85025; 87086; 93005; 93306; 97110; 97116; 97163; 97530; A4216; A4222; G0378; J0282; J1160; J1815; J1956; J3475; J7030

== ENCOUNTER 2018-06-18 09:46 | Observation (INO) ==
[2018-06-18] MEDS ORDERED: NS 500 ML IV 250 ML IV ONE (10:59)
[2018-06-18] MEDS ORDERED: NS 1000 ML 1,000 ML IV SCH (11:00)
--- NOTE | 2018-06-18 11:22 | RAD ---
HISTORY: Renal failure and atrial fib Study: Two-view chest Comparison: AP chest 02/06/2018. Technique: PA and lateral chest Findings: Soft tissues and bony thorax are normal. The heart size configuration airway vascularity are normal. The lungs are clear there is no hilar or mediastinal adenopathy. IMPRESSION: 1. No acute cardiopulmonary abnormalities and no significant interval change from the prior film 02/06/2018. Reported By:
[2018-06-18 12:13] LABS: BASOPHILS % (AUTO) 0.6 % (0.2-1.0); EOSINOPHILS % (AUTO) 0.3 % (0.9-2.9); HEMATOCRIT 38.2 % (36.0-47.0); HEMOGLOBIN 12.7 g/dL (12.0-16.0); LYMPHOCYTES # (AUTO) 1.8 X10^3/uL (1.3-2.9); LYMPHOCYTES % (AUTO) 29.3 % (21.0-51.0); MEAN CORPUSCULAR HEMOGLOBIN 28.2 pg (27.0-34.0); MEAN CORPUSCULAR HGB CONC 33.1 g/dL (33.0-35.0); MEAN PLATELET VOLUME 9.9 fL (7.4-11.0); MONOCYTES # (AUTO) 0.5 x10^3/uL (0.3-0.8); NEUTROPHILS # (AUTO) 3.7 x10^3/uL (2.2-4.8); NEUTROPHILS % (AUTO) 61.8 % (42.0-75.0); PLATELET COUNT 232 X10^3/uL (150.0-450.0); RED BLOOD COUNT 4.49 X10^6/uL (3.5-5.4); RED CELL DISTRIBUTION WIDTH 14.1 % (11.6-16.5); WHITE BLOOD COUNT 6.1 X10^3/uL (3.6-10.0)
[2018-06-18] MEDS ORDERED: NS 250 ML IV 250 ML IV ONE (12:17)
[2018-06-18 12:33] LABS: ALANINE AMINOTRANSFERASE 22 Units/L (12-78); ALBUMIN 3.1 g/dL (3.4-5.0); ALKALINE PHOSPHATASE 60 Units/L (46-116); ASPARTATE AMINO TRANSFERASE 26 Units/L (15-37); BLOOD UREA NITROGEN 19 mg/dL (7-18); CALCIUM 8.1 mg/dL (8.5-10.1); CARBON DIOXIDE 30.7 mmol/L (21-32); CHLORIDE 101 mmol/L (98-107); CKMB % 0.5 % (<4); COR CA(FOR HYPOALB) 8.8 mg/dL (8.5-10.1); COR NA(FOR HYPERGLY) 145 mmol/L (136-145); CREATINE KINASE 281 Units/L (26-192); CREATINE KINASE MB 1.5 ng/mL (0-4.0); CREATININE 1.57 mg/dL (0.55-1.02); SODIUM 142 mmol/L (136-145); TOTAL PROTEIN 7.2 g/dL (6.4-8.2); TROPONIN I < 0.02 ng/mL (0-1.5); eGFR NON BLACK RACES 34 (>60)
[2018-06-18] MEDS: NS + KCL 20 MEQ/L 1,000 ML IV SCH (14:15)
[2018-06-18] MEDS ORDERED: DUONEB 0.5 MG/3 MG NEB SCH (14:20)
[2018-06-18] MEDS ORDERED: SALINE 3% 15 ML NEB TX NEB ONE (14:20)
[2018-06-18] MEDS ORDERED: PHARMACY CONSULT - DOSE _____ XX SCH (15:00)
[2018-06-18 15:35] LABS: CKMB % 0.6 % (<4); CREATINE KINASE 269 Units/L (26-192); CREATINE KINASE MB 1.5 ng/mL (0-4.0); TROPONIN I < 0.02 ng/mL (0-1.5)
[2018-06-18] MEDS: XOPENEX 1.25 MG/3 ML NEBULE NEB SCH (16:05)
[2018-06-18] MEDS: FORTAZ or TAZICEF VIAL INJ 1 G in NS 100 ML IV + SPIKE MINIBAG* 100 ML IV SCH (16:07)
[2018-06-18] MEDS: ROBITUSSIN DM PO SCH ×2 (16:07→20:36)
[2018-06-18] MEDS: TUSSIONEX PENNKINETIC SUSP PO SCH (16:07)
[2018-06-18 17:42] LABS: BILIRUBIN,URINE NEGATIVE (NEGATIVE); BLOOD/HEMOGLOBIN,URINE 1+ (NEGATIVE); GLUCOSE, URINE NEGATIVE (NEGATIVE); KETONES,URINE NEGATIVE (NEGATIVE); LEUKOCYTE ESTERASE ,URINE NEGATIVE (NEGATIVE); NITRITES,URINE NEGATIVE (NEGATIVE); PROTEIN,URINE 2+ (NEGATIVE); UROBILINOGEN,URINE NORMAL (NORMAL)
[2018-06-18 17:49] LABS: APPEARANCE,URINE CLEAR (CLEAR); BACTERIA,URINE NEGATIVE /HPF (NEGATIVE); COLOR,URINE YELLOW (YELLOW); RBC,URINE 0-2 /HPF (NONE SEEN); SQUAMOUS EPITHELIAL CELL,UR FEW /HPF (NEGATIVE)
[2018-06-18] MEDS: ASPIRIN EC 81 MG PO SCH (18:30)
[2018-06-18] MEDS: CORDARONE TAB 200 MG PO SCH (18:30)
[2018-06-18] MEDS: AMARYL TAB 4 MG PO SCH (18:30)
[2018-06-18 19:19] LABS: CKMB % 0.6 % (<4); CREATINE KINASE 246 Units/L (26-192); CREATINE KINASE MB 1.4 ng/mL (0-4.0); TROPONIN I < 0.02 ng/mL (0-1.5)
[2018-06-18] MEDS ORDERED: MAGNESIUM SULFATE 1 GRAM/100 mL PREMIX 1 G/100 ML BAG IV ONE (19:53)
[2018-06-18] MEDS: COLACE CAP 100 MG PO SCH ×2 (20:31→20:32)
[2018-06-18] MEDS: SNACK - Diabetic Appropriate PO SCH (20:31)
[2018-06-18] MEDS: MILK OF MAGNESIA PO SCH (20:32)
[2018-06-18] MEDS: ELIQUIS PO SCH (20:32)
[2018-06-18] MEDS: COMBIGAN EYE DROPS EACHEYE SCH (21:44)
[2018-06-18] MEDS: LUMIGAN OPHTH EACHEYE SCH (21:44)
[2018-06-18 23:35] LABS: CKMB % 0.6 % (<4); CREATINE KINASE 208 Units/L (26-192); CREATINE KINASE MB 1.2 ng/mL (0-4.0); TROPONIN I < 0.02 ng/mL (0-1.5)
[2018-06-19] MEDS: XOPENEX 1.25 MG/3 ML NEBULE NEB SCH ×4 (00:44→17:03)
[2018-06-19] MEDS: TUSSIONEX PENNKINETIC SUSP PO SCH ×2 (02:21→15:52)
[2018-06-19] MEDS: NS + KCL 20 MEQ/L 1,000 ML IV SCH ×2 (02:21→16:49)
[2018-06-19] MEDS: AMARYL TAB 4 MG PO SCH ×2 (06:09→16:49)
[2018-06-19 06:10] LABS: BASOPHILS % (AUTO) 0.4 % (0.2-1.0); EOSINOPHILS % (AUTO) 0.7 % (0.9-2.9); HEMATOCRIT 32.6 % (36.0-47.0); HEMOGLOBIN 10.9 g/dL (12.0-16.0); LYMPHOCYTES # (AUTO) 2.7 X10^3/uL (1.3-2.9); LYMPHOCYTES % (AUTO) 38.7 % (21.0-51.0); MEAN CORPUSCULAR HEMOGLOBIN 28.1 pg (27.0-34.0); MEAN CORPUSCULAR HGB CONC 33.3 g/dL (33.0-35.0); MEAN CORPUSCULAR VOLUME 84.5 fL (80.0-100.0); MEAN PLATELET VOLUME 9.5 fL (7.4-11.0); MONOCYTES # (AUTO) 0.5 x10^3/uL (0.3-0.8); MONOCYTES % (AUTO) 7.8 % (0.0-13.0); NEUTROPHILS # (AUTO) 3.6 x10^3/uL (2.2-4.8); NEUTROPHILS % (AUTO) 52.4 % (42.0-75.0); PLATELET COUNT 224 X10^3/uL (150.0-450.0); RED BLOOD COUNT 3.86 X10^6/uL (3.5-5.4); RED CELL DISTRIBUTION WIDTH 14.3 % (11.6-16.5); WHITE BLOOD COUNT 6.9 X10^3/uL (3.6-10.0)
--- NOTE | 2018-06-19 06:46 | RAD ---
HISTORY: Renal failure, atrial fibrillation Study: Chest AP portable Comparison: 06/18/2018 Findings: The heart is mildly enlarged. No congestive heart failure is noted. No acute alveolar infiltrates or pleural effusions are identified. The bony thorax is unremarkable. IMPRESSION: Mild cardiomegaly without congestive heart failure No infiltrates Reported By:
[2018-06-19 06:47] LABS: ALBUMIN 2.6 g/dL (3.4-5.0); CALCIUM 7.5 mg/dL (8.5-10.1); CARBON DIOXIDE 30.2 mmol/L (21-32); COR CA(FOR HYPOALB) 8.6 mg/dL (8.5-10.1); CREATININE 1.27 mg/dL (0.55-1.02); MAGNESIUM 2.1 mg/dL (1.7-2.9); TOTAL PROTEIN 6.1 g/dL (6.4-8.2)
[2018-06-19] MEDS: FORTAZ or TAZICEF VIAL INJ 1 G in NS 100 ML IV + SPIKE MINIBAG* 100 ML IV SCH ×2 (09:15→20:44)
[2018-06-19] MEDS: ELIQUIS PO SCH ×2 (09:15→20:45)
[2018-06-19] MEDS: HYDROCHLOROTHIAZIDE 25 MG TAB PO SCH (09:15)
[2018-06-19] MEDS: ROBITUSSIN DM PO SCH ×4 (09:15→20:45)
[2018-06-19] MEDS: ASPIRIN EC 81 MG PO SCH (09:15)
[2018-06-19] MEDS: MILK OF MAGNESIA PO SCH ×2 (09:16→20:58)
[2018-06-19] MEDS: TOPROL XL PO SCH (09:16)
[2018-06-19] MEDS: COZAAR PO SCH (09:17)
[2018-06-19 09:50] VITALS: BMI 28.6
[2018-06-19] MEDS: CORDARONE TAB 200 MG PO SCH (10:06)
[2018-06-19] MEDS: PROTONIX TAB 40 MG PO SCH (12:23)
[2018-06-19] MEDS: TESSALON PERLES PO SCH ×3 (12:23→21:00)
[2018-06-19] MEDS: SOLU-Medrol 40 MG VIAL IVP SCH ×3 (12:23→21:00)
[2018-06-19] MEDS: COMBIGAN EYE DROPS EACHEYE SCH ×2 (12:23→20:58)
[2018-06-19] MEDS: VSL#3 PO SCH (14:32)
[2018-06-19] MEDS: HumuLIN R SC PRN ×2 (16:50→20:59)
[2018-06-19] MEDS: LUMIGAN OPHTH EACHEYE SCH (20:44)
[2018-06-19] MEDS: COLACE CAP 100 MG PO SCH (20:45)
[2018-06-19] MEDS: SNACK - Diabetic Appropriate PO SCH (20:58)
[2018-06-20] MEDS: XOPENEX 1.25 MG/3 ML NEBULE NEB SCH ×3 (00:36→12:01)
[2018-06-20] MEDS: TUSSIONEX PENNKINETIC SUSP PO SCH (03:11)
[2018-06-20] MEDS: NS + KCL 20 MEQ/L 1,000 ML IV SCH (05:12)
[2018-06-20 05:25] LABS: BASOPHILS % (AUTO) 0.2 % (0.2-1.0); HEMATOCRIT 32.5 % (36.0-47.0); HEMOGLOBIN 10.7 g/dL (12.0-16.0); LYMPHOCYTES # (AUTO) 0.6 X10^3/uL (1.3-2.9); LYMPHOCYTES % (AUTO) 6.9 % (21.0-51.0); MEAN CORPUSCULAR HEMOGLOBIN 28.1 pg (27.0-34.0); MEAN CORPUSCULAR VOLUME 85.1 fL (80.0-100.0); MONOCYTES # (AUTO) 0.1 x10^3/uL (0.3-0.8); MONOCYTES % (AUTO) 1.7 % (0.0-13.0); NEUTROPHILS # (AUTO) 7.6 x10^3/uL (2.2-4.8); NEUTROPHILS % (AUTO) 91.2 % (42.0-75.0); PLATELET COUNT 214 X10^3/uL (150.0-450.0); RED BLOOD COUNT 3.82 X10^6/uL (3.5-5.4); RED CELL DISTRIBUTION WIDTH 14.4 % (11.6-16.5); WHITE BLOOD COUNT 8.3 X10^3/uL (3.6-10.0)
[2018-06-20 05:41] LABS: ALBUMIN 2.8 g/dL (3.4-5.0); CALCIUM 7.6 mg/dL (8.5-10.1); CARBON DIOXIDE 26.6 mmol/L (21-32); COR CA(FOR HYPOALB) 8.6 mg/dL (8.5-10.1); CREATININE 1.3 mg/dL (0.55-1.02); TOTAL PROTEIN 6.6 g/dL (6.4-8.2)
[2018-06-20] MEDS: TESSALON PERLES PO SCH (05:43)
[2018-06-20] MEDS: SOLU-Medrol 40 MG VIAL IVP SCH (05:43)
[2018-06-20] MEDS: HumuLIN R SC PRN ×2 (05:44→11:37)
[2018-06-20 05:45] LABS: PLATELET MORPHOLOGY COMMENT NORMAL (NORMAL)
[2018-06-20] MEDS: AMARYL TAB 4 MG PO SCH (06:08)
--- NOTE | 2018-06-20 07:06 | RAD ---
HISTORY: Renal failure, atrial fibrillation Study: Chest AP portable Comparison: 06/19/2018 Findings: The heart remains enlarged. No congestive heart failure is noted. No acute alveolar infiltrates or pleural effusions are identified. The bony thorax is unremarkable. IMPRESSION: Mild cardiomegaly without congestive heart failure No infiltrates Reported By:
[2018-06-20] MEDS ORDERED: NS 1000 ML 1,000 ML ONE (07:28)
[2018-06-20] MEDS: NS 1000 ML 1,000 ML IV SCH ×2 (07:48→08:05)
[2018-06-20] MEDS: VSL#3 PO SCH (09:37)
[2018-06-20] MEDS: PROTONIX TAB 40 MG PO SCH (09:37)
[2018-06-20] MEDS: COZAAR PO SCH (09:37)
[2018-06-20] MEDS: FORTAZ or TAZICEF VIAL INJ 1 G in NS 100 ML IV + SPIKE MINIBAG* 100 ML IV SCH (09:37)
[2018-06-20] MEDS: HYDROCHLOROTHIAZIDE 25 MG TAB PO SCH (09:37)
[2018-06-20] MEDS: CORDARONE TAB 200 MG PO SCH (09:38)
[2018-06-20] MEDS: ROBITUSSIN DM PO SCH (09:38)
[2018-06-20] MEDS: MILK OF MAGNESIA PO SCH (09:38)
[2018-06-20] MEDS: ELIQUIS PO SCH (09:38)
[2018-06-20] MEDS: TOPROL XL PO SCH (09:38)
[2018-06-20] MEDS: ASPIRIN EC 81 MG PO SCH (09:39)
[2018-06-20] MEDS: COMBIGAN EYE DROPS EACHEYE SCH (09:39)
[2018-06-20 12:38] VITALS: BP 151/71
--- NOTE | 2018-06-21 15:49 | DR.UPDATE ---
H&P Update History and Physical Update: History and Physical reviewed and patient examined. Changes noted: Yes with the following: WAS SEEN IN THE OFFICE TODAY. SHE REPORTED FATIGUE, GENERALIZED WEAKNESS, ACHING ALL OVER, DIZZINESS, AND HEADACHE. SHE ALSO REPORTED A NON-PRODUCTIVE COUGH AND SHORTNESS OF BREATH. SHE WAS ADMITTED FOR FURTHER EVALUATION AND TREATMENT. SHE WAS STARTED ON IV FLUIDS, IV ANTIBIOTICS, RESPIRATORY TREATMENTS, AND SUPPLEMENTAL OXYGEN. ON ADMISSION, WE PLAN TO OBTAIN CBC, CMP, CARDIAC ENZYMES, EKG, UA, AND CHEST XRAY. OTHERWISE, WE WILL FOLLOW UP WITH AM LABS AND CONTINUE TO MONITOR.
--- NOTE | 2018-07-02 20:58 | PCM.PROG ---
Progress Note - Progress Note for Day of Date of Exam: 06/19/18 - Subjective Subjective: WAS ADMITTED FOR ACUT BRONCHITIS, FATIGUE, GENERALIZED WEAKNESS, ACHING ALL OVER, DIZZINESS, AND HEADACHE. TODAY, SHE IS ALERT AND ORIENTED, LYING IN BED ON MORNING ROUNDS. SHE CONTINUES WITH WEAKNESS, SHORTNESS OF BREATH, AND A NON-PRODUCTIVE COUGH. ON EXAMINATION, SHE IS NOTED WITH DIMINISHED LUNG SOUNDS THROUGHOUT. HER VITALS THIS MORNING ARE 98.1-57-18-97%-114/63. LABS WERE OBTAINED. ABNORMAL LAB VALUES INCLUDE THE FOLLOWING: HGB 10.9, HCT 32.6, POTASSIUM 3.3, CREATININE 1.27, GLUCOSE 133, CALCIUM 7.5, TOTAL PROTEIN 6.1, ALBUMIN 2.6. A CHEST XRAY WAS OBTAINED TODAY AND REVEALED: Mild cardiomegaly without congestive heart failure. No infiltrates. TODAY, WE WILL START TESSALON PERLES, TUSSIONEX, AND SOLU-MEDROL 20MG IV Q8H. WE WILL ALSO START PROBIOTICS. OTHERWISE, WE WILL FOLLOW UP WITH AM LABS AND CHEST XRAY AND CONTINUE TO MONITOR. - Past Medical Family Social History Past Med/Fam/Surg Hx: No changes since H&P Allergies: Allergies morphine Allergy (Verified 06/13/18 16:14) - Review of Systems ROS: No change since H&P - Vital Signs and I&O's Vital Signs: Temperature 98.2 F Pulse Rate [Right Brachial] 62 Pulse Rate 56 Respiratory Rate 20 Blood Pressure [Right Arm] 116/59 Blood Pressure [Left Arm] 151/71 Blood Pressure 127/64 O2 Sat by Pulse Oximetry 98 - Physical Exam Oriented: Normal Eyes: Normal Ear: Normal Nose: Normal Throat: Normal Respiratory: Generalized, Diminished Cardiovascular: Normal. negative: S3, S4, Murmur : Normal Auscultation: Bowel Sounds: Normal Palpation: Normal Tenderness: Normal Skin: Normal Musculoskeletal: Normal Psychiatric: Normal Mood Description: Calm Speech Pattern: Clear, Appropriate - Laboratory and Diagnostics Result Diagrams: 06/20/18 04:22 06/20/18 04:22 Labs: 06/18/18 18:43 Blood Blood Culture - Final 06/18/18 18:35 Blood Blood Culture - Final 06/18/18 17:35 Urine,Clean Catch Urine Culture - Final Laboratory WBC 8.3 X10^3/uL (3.6-10.0) 06/20/18 04:22 RBC 3.82 X10^6/uL (3.5-5.4) 06/20/18 04:22 Hgb 10.7 g/dL (12.0-16.0) L 06/20/18 04:22 Hct 32.5 % (36.0-47.0) L 06/20/18 04:22 MCV 85.1 fL (80.0-100.0) 06/20/18 04:22 MCH 28.1 pg (27.0-34.0) 06/20/18 04:22 MCHC 33.0 g/dL (33.0-35.0) 06/20/18 04:22 RDW 14.4 % (11.6-16.5) 06/20/18 04:22 Plt Count 214 X10^3/uL (150.0-450.0) 06/20/18 04:22 Plt Count Comment Adequate (ADEQUATE) 06/20/18 04:22 MPV 10.0 fL (7.4-11.0) 06/20/18 04:22 Neut % (Auto) 91.2 % (42.0-75.0) H 06/20/18 04:22 Lymph % (Auto) 6.9 % (21.0-51.0) L 06/20/18 04:22 [place] % (Auto) 1.7 % (0.0-13.0) 06/20/18 04:22 Eos % (Auto) 0.0 % (0.9-2.9) L 06/20/18 04:22 Baso % (Auto) 0.2 % (0.2-1.0) 06/20/18 04:22 Neut # (Auto) 7.6 x10^3/uL (2.2-4.8) H 06/20/18 04:22 Lymph # (Auto) 0.6 X10^3/uL (1.3-2.9) L 06/20/18 04:22 [place] # (Auto) 0.1 x10^3/uL (0.3-0.8) L 06/20/18 04:22 Eos # (Auto) 0.0 x10^3/uL (0.0-0.2) 06/20/18 04:22 Baso # (Auto) 0.0 X10^3/uL (0.0-0.1) 06/20/18 04:22 Absolute Nucleated RBC 0.0 /100WBC 06/20/18 04:22 Total Counted 100 06/20/18 04:22 Neutrophils % (Manual) 92 % (39-76) H 06/20/18 04:22 Lymphocytes % (Manual) 6 % (13-43) L 06/20/18 04:22 Monocytes % (Manual) 2 % (4-9) L 06/20/18 04:22 Plt Morphology Comment Normal (NORMAL) 06/20/18 04:22 RBC Morphology Normal (NORMAL) 06/20/18 04:22 Sodium 139 mmol/L (136-145) 06/20/18 04:22 Corrected Sodium 143 mmol/L (136-145) 06/20/18 04:22 Potassium 4.7 mmol/L (3.5-5.1) 06/20/18 04:22 Chloride 105 mmol/L (98-107) 06/20/18 04:22 Carbon Dioxide 26.6 mmol/L (21-32) 06/20/18 04:22 BUN 18 mg/dL (7-18) 06/20/18 04:22 Creatinine 1.30 mg/dL (0.55-1.02) H 06/20/18 04:22 Est GFR (MDRD) Af Amer 51 (>60) L 06/20/18 04:22 Est GFR (MDRD) Non-Af 42 (>60) L 06/20/18 04:22 Glucose 256 mg/dL (65-99) H 06/20/18 04:22 POC Glucose (mg/dL) 260 mg/dL (65-99) H 06/20/18 11:19 Lactic Acid 1.8 mmol/L (0.4-2.0) 06/19/18 07:55 Calcium 7.6 mg/dL (8.5-10.1) L 06/20/18 04:22 Corrected Calcium 8.6 mg/dL (8.5-10.1) 06/20/18 04:22 Magnesium 2.1 mg/dL (1.7-2.9) 06/19/18 05:15 Total Bilirubin 0.40 mg/dL (0.2-1.0) 06/20/18 04:22 AST 22 Units/L (15-37) 06/20/18 04:22 ALT 18 Units/L (12-78) 06/20/18 04:22 Alkaline Phosphatase 54 Units/L (46-116) 06/20/18 04:22 Creatine Kinase 208 Units/L (26-192) H 06/18/18 23:05 CK-MB (CK-2) 1.2 ng/mL (0-4.0) 06/18/18 23:05 CK/CKMB % Calc 0.6 % (<4) 06/18/18 23:05 Troponin I < 0.02 ng/mL (0-1.5) 06/18/18 23:05 Total Protein 6.6 g/dL (6.4-8.2) 06/20/18 04:22 Albumin 2.8 g/dL (3.4-5.0) L 06/20/18 04:22 Globulin 3.8 g/dL (2.5-4.5) 06/20/18 04:22 Albumin/Globulin Ratio 0.7 Ratio (1.1-2.1) L 06/20/18 04:22 Specimen Type Clean catch urine 06/18/18 17:35 Urine Color Yellow (YELLOW) 06/18/18 17:35 Urine Appearance Clear (CLEAR) 06/18/18 17:35 Urine pH 5.0 (5.0 - 8.0) 06/18/18 17:35 Ur Specific [place] 1.010 (1.000-1.030) 06/18/18 17:35 Urine Protein 2+ (NEGATIVE) 06/18/18 17:35 Urine Glucose (UA) Negative (NEGATIVE) 06/18/18 17:35 Urine Ketones Negative (NEGATIVE) 06/18/18 17:35 Urine Occult Blood 1+ (NEGATIVE) 06/18/18 17:35 Urine Nitrite Negative (NEGATIVE) 06/18/18 17:35 Urine Bilirubin Negative (NEGATIVE) 06/18/18 17:35 Urine Urobilinogen Normal (NORMAL) 06/18/18 17:35 Ur Leukocyte Esterase Negative (NEGATIVE) 06/18/18 17:35 Urine RBC 0-2 /HPF (NONE SEEN) 06/18/18 17:35 Urine WBC 0-2 /HPF (NONE SEEN) 06/18/18 17:35 Ur Squamous Epith Cells Few /HPF (NEGATIVE) 06/18/18 17:35 Urine Bacteria Negative /HPF (NEGATIVE) 06/18/18 17:35 Ur Culture Indicated? Yes/culture set up 06/18/18 17:35 - Plan (1) Acute bronchitis Status: Acute Qualifiers: Bronchitis organism: unspecified organism Qualified Code(s): J20.9 - Acute bronchitis, unspecified Plan: IV ANTIBIOTICS, RESPIRATORY TX, SOLU-MEDROL IV, TESSALON, TUSSIONEX, CONTINUE TO MONITOR. (2) Generalized weakness Status: Acute
== END 2018-06-20 13:05 | disposition home or self-care (01) ==
LOC: MED/SURG
PROVIDERS: ADMIT Internal Medicine; ATTEND Internal Medicine
DX: R94.4 Abnormal results of kidney function studies; R26.89 Other abnormalities of gait and mobility; R53.83 Other fatigue; J20.8 Acute bronchitis due to other specified organisms; R55 Syncope and collapse; R00.1 Bradycardia, unspecified; R73.09 Other abnormal glucose; R06.02 Shortness of breath; R94.31 Abnormal electrocardiogram [ECG] [EKG]; R42 Dizziness and giddiness; R53.1 Weakness; N17.8 Other acute kidney failure; I11.9 Hypertensive heart disease without heart failure; I48.91 Unspecified atrial fibrillation; R51 Headache; Z79.899 Other long term (current) drug therapy
CPT/HCPCS: 36415; 71010; 71020; 71045; 71046; 80053; 81001; 82550; 82553; 83605; 83735; 84484; 85025; 87040; 87086; 93005; 94640; 94669; 94760; 96367; 96372; 96374; 97162; A4222; G0378; J0713; J1815; J2920; J3475; J7030; J7050; J7620

== ENCOUNTER 2020-12-01 12:52 | Inpatient (IN) ==
[2020-12-01 13:38] VITALS: BMI 31.0
--- NOTE | 2020-12-01 13:43 | RAD ---
HISTORYCOVID INFUSION.brSOB, FEVERSTUDYCHEST, 1 VIEWCOMPARISONNoneTECHNIQUEAP view of the chestFINDINGSThe cardiac and mediastinal contours are within normal limits. The lungs appear clear without focal consolidation or segmental collapse. No pleural effusion or pneumothorax. Soft tissue attenuation limits evaluation.IMPRESSIONNo acute pulmonary process. CT may show subtle signs of COVID 19.Electronically signed by: Aron Collins (Dec 01, 2020 13:41:33)
[2020-12-01] MEDS ORDERED: NS 500 ML IV 500 ML IV ONE ×2 (14:28→14:32)
[2020-12-01 14:35] LABS: BASOPHILS # (AUTO) 0.1 X10^3/uL (0.0-0.1); BASOPHILS % (AUTO) 0.7 % (0.2-1.0); HEMATOCRIT 37.3 % (36.0-47.0); HEMOGLOBIN 12.5 g/dL (12.0-16.0); LYMPHOCYTES # (AUTO) 0.9 X10^3/uL (1.3-2.9); LYMPHOCYTES % (AUTO) 6.9 % (21.0-51.0); MEAN CORPUSCULAR HEMOGLOBIN 29.4 pg (27.0-34.0); MEAN CORPUSCULAR HGB CONC 33.5 g/dL (33.0-35.0); MEAN CORPUSCULAR VOLUME 87.7 fL (80.0-100.0); MEAN PLATELET VOLUME 10.3 fL (7.4-11.0); MONOCYTES # (AUTO) 0.6 x10^3/uL (0.3-0.8); MONOCYTES % (AUTO) 4.4 % (0.0-13.0); NEUTROPHILS # (AUTO) 11.1 x10^3/uL (2.2-4.8); PLATELET COUNT 294 X10^3/uL (150.0-450.0); RED BLOOD COUNT 4.25 X10^6/uL (3.5-5.4); RED CELL DISTRIBUTION WIDTH 14.1 % (11.6-16.5); WHITE BLOOD COUNT 12.6 X10^3/uL (3.6-10.0)
[2020-12-01 14:41] LABS: ABG BASE EXCESS 0.3 mmol/L (-2.0-2.0); ABG HCO3 22.9 mmol/L (22-26)
[2020-12-01 14:42] LABS: ABG ALLEN TEST POS
[2020-12-01 14:49] LABS: ALBUMIN 3.3 g/dL (3.4-5.0); CALCIUM 7.4 mg/dL (8.5-10.1); CARBON DIOXIDE 25.7 mmol/L (21-32); CREATININE 2.63 mg/dL (0.55-1.02)
[2020-12-01] MEDS ORDERED: TYLENOL 325 MG TAB PO ONE (15:17)
[2020-12-01] MEDS ORDERED: REMDESIVIR 200 MG in NS 100 ML IV 140 ML IV ONE (15:17)
[2020-12-01] MEDS ORDERED: HumuLIN R SUBCUT ONE (15:20)
[2020-12-01] MEDS ORDERED: NS 250 ML IV 250 ML IV ONE (15:39)
[2020-12-01] MEDS ORDERED: HumuLIN R ONE (15:43)
[2020-12-01] MEDS ORDERED: POTASSIUM CHL 40 MEQ/NS 0.45% 500 ML IV PRN (16:42)
[2020-12-01] MEDS ORDERED: K-RIDER 10 MEQ/NS 100 ML 10 MEQ/100 ML BAG IV PRN (16:42)
[2020-12-01] MEDS ORDERED: POTASSIUM CHL 60 MEQ/NS 0.45% 500 ML IV PRN (16:42)
[2020-12-01] MEDS ORDERED: POTASSIUM CHLORIDE LIQ 20 MEQ UDC PO PRN (16:42)
[2020-12-01] MEDS ORDERED: KLOR-CON PO PRN (16:42)
[2020-12-01] MEDS ORDERED: MICRO K EXTEN CAP 10 MEQ PO PRN (16:42)
[2020-12-01] MEDS ORDERED: ROBITUSSIN DM PO PRN (17:43)
[2020-12-01] MEDS ORDERED: PHARMACY CONSULT - IVERMECTIN XX SCH (18:00)
[2020-12-01] MEDS ORDERED: NS 1000 ML 1,000 ML IV ONE (18:10)
[2020-12-01] MEDS: K-DUR TAB 20 MEQ PO PRN (18:57)
[2020-12-01 19:12] LABS: CKMB % 0.5 % (<4); CREATINE KINASE 214 Units/L (26-192); CREATINE KINASE MB < 1.0 ng/mL (0-4.0); TROPONIN I < 0.02 ng/mL (0-1.5)
[2020-12-01] MEDS: DOPAMINE IV PREMIX 400 MG/250 ML 400 MG/250 ML BAG IV PRN (19:13)
[2020-12-01] MEDS: HumuLIN R SUBCUT PRN (19:22)
[2020-12-01] MEDS ORDERED: LEVAQUIN PREMIX IV 750 MG 750 MG/150 ML BAG IV SCH (20:00)
[2020-12-01] MEDS ORDERED: NS 1/2 1000 ML IV 1,000 ML IV ONE (20:06)
[2020-12-01] MEDS: NS 1/2 1000 ML IV 1,000 ML IV SCH (20:20)
[2020-12-01] MEDS ORDERED: TESSALON PERLES PO ONE (20:51)
[2020-12-01] MEDS ORDERED: SOLU-Medrol 40 MG VIAL ONE (20:54)
[2020-12-01] MEDS ORDERED: PEPCID TAB 20 MG PO SCH (21:00)
[2020-12-01] MEDS ORDERED: LOVENOX INJ 100 MG SYR SC SCH (21:00)
[2020-12-01] MEDS: BROVANA IN SCH (21:26)
[2020-12-01] MEDS: ACCUNEB 1.25 MG NEBULE NEB PRN (21:26)
[2020-12-01] MEDS: PULMICORT NEB TX 0.5 MG NEB SCH (21:26)
[2020-12-01] MEDS: IVERMECTIN PO SCH (23:27)
[2020-12-01] MEDS: THIAMINE HCL INJ IVP SCH ×2 (23:28→23:30)
[2020-12-01] MEDS: SNACK - Diabetic Appropriate PO SCH (23:29)
[2020-12-01] MEDS: ASCORBIC ACID INJ MULTI-DOSE VIAL 1,500 MG in NS 50 ML IV 50 ML IV SCH (23:29)
[2020-12-01] MEDS: LIPITOR TAB 80 MG PO SCH (23:30)
[2020-12-01] MEDS: TESSALON PERLES PO SCH (23:30)
[2020-12-01] MEDS: SOLU-Medrol 40 MG VIAL IVP SCH (23:30)
[2020-12-01] MEDS: SINGULAIR TAB 10 MG PO SCH (23:31)
[2020-12-01] MEDS: PROTONIX TAB 40 MG PO SCH (23:31)
[2020-12-01] MEDS: MAGIC MOUTHWASH MT SCH (23:31)
[2020-12-01] MEDS: MELATONIN PO SCH (23:31)
[2020-12-01] MEDS: MAGNESIUM SULFATE 1 GRAM/100 mL PREMIX 1 GM/100 ML BAG IV PRN (23:33)
[2020-12-02] MEDS: HumuLIN R SUBCUT PRN ×5 (00:34→22:40)
[2020-12-02] MEDS: ASCORBIC ACID INJ MULTI-DOSE VIAL 1,500 MG in NS 50 ML IV 50 ML IV SCH ×4 (04:06→22:18)
[2020-12-02] MEDS: MAGNESIUM SULFATE 1 GRAM/100 mL PREMIX 1 GM/100 ML BAG IV PRN ×6 (04:40→12:45)
[2020-12-02] MEDS: SOLU-Medrol 40 MG VIAL IVP SCH ×3 (05:27→22:20)
[2020-12-02] MEDS: TESSALON PERLES PO SCH ×3 (05:27→22:20)
--- NOTE | 2020-12-02 05:37 | RAD ---
PROCEDURE: Chest X-ray 1 View .HISTORY: Dyspnea.TECHNIQUE: AP view .COMPARISON: 12/01/2020.TECHNICAL QUALITY: Satisfactory .FINDINGS:Heart size upper limits of normal and unchanged.Normal central vascularity.No pulmonary consolidation, masses, pleural fluid, or pneumothorax. Emphysematous changes with hyperlucency upper lung trinh.IMPRESSION:1. COPD.2. Unchanged heart size upper limits of normal.3. No other evidence of active disease.Electronically signed by: Kavin Kruse (Dec 02, 2020 05:35:43)
[2020-12-02 05:43] LABS: ABG ALLEN TEST POS; ABG BASE EXCESS -1.3 mmol/L (-2.0-2.0); ABG HCO3 22.7 mmol/L (22-26)
[2020-12-02 06:18] LABS: BASOPHILS % (AUTO) 0.2 % (0.2-1.0); HEMATOCRIT 33.1 % (36.0-47.0); HEMOGLOBIN 11.2 g/dL (12.0-16.0); LYMPHOCYTES # (AUTO) 0.6 X10^3/uL (1.3-2.9); LYMPHOCYTES % (AUTO) 6.2 % (21.0-51.0); MEAN CORPUSCULAR HEMOGLOBIN 29.2 pg (27.0-34.0); MEAN CORPUSCULAR HGB CONC 33.8 g/dL (33.0-35.0); MEAN CORPUSCULAR VOLUME 86.6 fL (80.0-100.0); MEAN PLATELET VOLUME 9.8 fL (7.4-11.0); MONOCYTES # (AUTO) 0.5 x10^3/uL (0.3-0.8); NEUTROPHILS # (AUTO) 9.1 x10^3/uL (2.2-4.8); NEUTROPHILS % (AUTO) 88.6 % (42.0-75.0); PLATELET COUNT 258 X10^3/uL (150.0-450.0); RED BLOOD COUNT 3.83 X10^6/uL (3.5-5.4); RED CELL DISTRIBUTION WIDTH 14.2 % (11.6-16.5); WHITE BLOOD COUNT 10.3 X10^3/uL (3.6-10.0)
[2020-12-02 06:47] LABS: ALBUMIN 2.8 g/dL (3.4-5.0); CALCIUM 7.1 mg/dL (8.5-10.1); CARBON DIOXIDE 23.6 mmol/L (21-32); COR CA(FOR HYPOALB) 8.1 mg/dL (8.5-10.1); CREATININE 2.8 mg/dL (0.55-1.02); TOTAL PROTEIN 7.1 g/dL (6.4-8.2)
[2020-12-02] MEDS: NS 1/2 1000 ML IV 1,000 ML IV SCH ×2 (07:47→20:41)
[2020-12-02] MEDS: MAGIC MOUTHWASH MT SCH ×4 (08:39→20:42)
[2020-12-02] MEDS: VITAMIN D3 125 mcg (5,000 UNITS) PO SCH (08:40)
[2020-12-02] MEDS: THIAMINE HCL INJ IVP SCH ×2 (08:40→20:27)
[2020-12-02] MEDS: PROTONIX TAB 40 MG PO SCH ×2 (08:40→20:24)
[2020-12-02] MEDS: ZINC SULFATE PO SCH (08:40)
[2020-12-02] MEDS: K-DUR TAB 20 MEQ PO PRN (08:41)
[2020-12-02] MEDS: ZyrTEC TAB 10 MG PO SCH (08:41)
[2020-12-02] MEDS ORDERED: REMDESIVIR 100 MG in NS 250 ML IV 250 ML IV SCH (09:00)
[2020-12-02] MEDS ORDERED: DIFLUCAN PO SCH (09:00)
[2020-12-02] MEDS ORDERED: LEVAQUIN PREMIX IV 500 MG 500 MG/100 ML BAG IV SCH (09:00)
[2020-12-02] MEDS: PULMICORT NEB TX 0.5 MG NEB SCH ×2 (09:30→20:57)
[2020-12-02] MEDS: BROVANA IN SCH ×2 (09:30→20:57)
--- NOTE | 2020-12-02 13:43 | DR.H&P ---
H&P - History & Physical for Day of: H&P Date: 12/01/20 - Chief Complaint Chief Complaint: COVID 19 - History of Present Illness History of Present Illness: PT IS 80 BF ADMITTED WITH COVID 19 ACUTE DEHYDRATION WITH HYPOTENSION. PT HAS PMH OF AFIB, RENAL INSUFFICIENCY, HTN, OA. PT STATES SHE WAS HERE FOR [facility] INFUSION. ADMITTED DUE TO ABNORMAL LABS RESULTS: CRP ELEVATED, ACUTE ON CHRONIC KIDNEY FAILURE. PT ADMITTED FOR TREATMENT OF ACUTE ILLNESS. - Past Medical History Past Medical History: Hypertension, Diabetes, Arthritis, Kidney Stones - Past Surgical History Surgical History: Hysterectomy, Ortho Surgery - Family History Family Medical History: Diabetes Mellitus, Coronary Artery Disease, Heart Failure - Social History Does patient currently use any type of tobacco product: No Have you used tobacco products in the last 12 months: No Type of Tobacco Use: None Does any household member use tobacco: No Alcohol Use: None Drug Use: None - Medications Home Medications: morphine Allergy (Verified 12/01/20 13:35) CONTINUE taking the following medications bimatoprost [Lumigan] 1 drp OPHTHALMIC (EYE) HS 12/02/20 [History] brimonidine-timolol [Combigan] 1 drp OPHTHALMIC (EYE) BID 12/02/20 [History] ciclopirox 1 applic TOPICAL BID 12/02/20 [History] dorzolamide-timolol [Cosopt] 1 drp OPHTHALMIC (EYE) BID 12/02/20 [History] glimepiride [Amaryl] 4 mg PO BID 12/02/20 [History] hydrochlorothiazide 25 mg PO DAILY 12/02/20 [History] loratadine [Claritin] 10 mg PO DAILY 12/02/20 [History] losartan [Cozaar] 100 mg PO DAILY 12/02/20 [History] - Review of Systems Constitutional: Weakness Eyes: No Symptoms Reported ENT: No Symptoms Reported Respiratory: SOB with Excertion Cardiovascular: Palpitations. denies: Edema Gastrointestinal: Nausea Genitourinary: No Symptoms Reported Musculoskeletal: No Symptoms Reported Skin: No Symptoms Reported Neurological: Weakness - Physical Exam Vital Signs: Temperature 97.8 F Pulse Rate [Left Radial] 65 Pulse Rate 66 Respiratory Rate 22 Blood Pressure [Right Arm] 109/55 Blood Pressure [Left Arm] 91/54 Blood Pressure 151/71 O2 Sat by Pulse Oximetry 99 Oriented: Normal Eyes: Normal Ear: Normal Nose: Normal Throat: Normal Respiratory: RLL Diminished, LLL Diminished : Normal Auscultation: Bowel Sounds: Normal Palpation: Normal Tenderness: Normal Skin: Decreased [place] Musculoskeletal: Normal Psychiatric: Normal Mood Description: Calm Speech Pattern: Clear, Appropriate - Assessment/Plan (1) COVID-19 Status: Acute Plan: ADMIT, ICU, COVID ISOLATION. BP CONTROL. GENTLE IV HYDRATION, STRICT I&OS, CARDIAC MONITORING. VERIFY HOME MEDICATION, HOLD ANTIHYPERTENSIVE MEDICATION. IV SOLU MEDROL, REMDESIVIR, IV ATBX, SUPPLEMENTAL O2 PRN. PT/RT (2) Hypokalemia Status: Acute (3) Diabetes mellitus Status: Acute (4) Chronic kidney disease (CKD) Status: Acute (5) CHF (congestive heart failure) Status: Chronic (6) CAD (coronary artery disease) Qualifiers: Status: Chronic (7) Diabetes mellitus, type 2 Qualifiers: Status: Chronic (8) Essential hypertension Status: Chronic - Allergies Allergies/Adverse Reactions: Allergies Allergy/AdvReac Type Severity Reaction Status Date / Time morphine Allergy Verified 12/01/20 13:35
--- NOTE | 2020-12-02 13:47 | PCM.PROG ---
Progress Note - Progress Note for Day of Date of Exam: 12/02/20 - Subjective Subjective: PT IS 80 BF ADMITTED WITH COVID 19 VIRUS WITH HYPOTENSION RO SEPSIS, ACUTE ON CHRONIC RENAL FAILURE AND DEHYDRATION. PT IS CURRENTLY ON IV REMDESIVIR, SOLU MEDROL, IV ANTIBIOTICS, RESP THERAPY. PT DENIES CHEST PAIN THIS AM. CO MILD SANCHEZ WITH HISTORY OF "IRREGULAR HEART BEAT". PT BUN33 AND CREAT 2.8 THIS AM PLAN TO CONTINUE TO ENCOURAGE ORAL HYDRATION, STRICT I&OS. BP MAINTAINED ON DOPAMINE AT THIS TIME, PLAN TO DC WITH STABLE BP >90/50. PT IS CURRENTLY ASYMPTOMATIC WITH HYPOTENSION. - Past Medical Family Social History Past Med/Fam/Surg Hx: No changes since H&P Allergies: Allergies morphine Allergy (Verified 12/01/20 13:35) - Review of Systems ROS: No change since H&P - Vital Signs and I&O's Vital Signs: Temperature 97.8 F Pulse Rate [Left Radial] 65 Pulse Rate 66 Respiratory Rate 22 Blood Pressure [Right Arm] 109/55 Blood Pressure [Left Arm] 91/54 Blood Pressure 151/71 O2 Sat by Pulse Oximetry 99 Intake and Output: Intake & Output 11/30/20 12/01/20 12/02/20 12/03/20 11:59 11:59 11:59 11:59 Intake Total 760 / 760 Balance 760 / 760 - Physical Exam Oriented: Normal Eyes: Normal Ear: Normal Nose: Normal Throat: Normal Respiratory: Diminished Cardiovascular: Normal : Normal Auscultation: Bowel Sounds: Normal Tenderness: Normal Skin: Decreased [place]urgur Musculoskeletal: Normal Psychiatric: Normal Mood Description: Calm Speech Pattern: Clear, Appropriate - Laboratory and Diagnostics Result Diagrams: 12/02/20 05:46 12/02/20 05:46 Labs: Laboratory WBC 10.3 X10^3/uL (3.6-10.0) H 12/02/20 05:46 RBC 3.83 X10^6/uL (3.5-5.4) 12/02/20 05:46 Hgb 11.2 g/dL (12.0-16.0) L 12/02/20 05:46 Hct 33.1 % (36.0-47.0) L 12/02/20 05:46 MCV 86.6 fL (80.0-100.0) 12/02/20 05:46 MCH 29.2 pg (27.0-34.0) 12/02/20 05:46 MCHC 33.8 g/dL (33.0-35.0) 12/02/20 05:46 RDW 14.2 % (11.6-16.5) 12/02/20 05:46 Plt Count 258 X10^3/uL (150.0-450.0) 12/02/20 05:46 MPV 9.8 fL (7.4-11.0) 12/02/20 05:46 Neut % (Auto) 88.6 % (42.0-75.0) H 12/02/20 05:46 Lymph % (Auto) 6.2 % (21.0-51.0) L 12/02/20 05:46 [place] % (Auto) 5.0 % (0.0-13.0) 12/02/20 05:46 Eos % (Auto) 0.0 % (0.9-2.9) L 12/02/20 05:46 Baso % (Auto) 0.2 % (0.2-1.0) 12/02/20 05:46 Neut # (Auto) 9.1 x10^3/uL (2.2-4.8) H 12/02/20 05:46 Lymph # (Auto) 0.6 X10^3/uL (1.3-2.9) L 12/02/20 05:46 [place] # (Auto) 0.5 x10^3/uL (0.3-0.8) 12/02/20 05:46 Eos # (Auto) 0.0 x10^3/uL (0.0-0.2) 12/02/20 05:46 Baso # (Auto) 0.0 X10^3/uL (0.0-0.1) 12/02/20 05:46 Absolute Nucleated RBC 0.1 /100WBC 12/02/20 05:46 D-Dimer 0.31 ug/ml (0.0-0.57) 12/02/20 05:46 Sample Site Rrad 12/02/20 05:42 ABG pH 7.420 (7.35-7.45) 12/02/20 05:42 ABG pCO2 35.0 mmHg (35.0-45.0) 12/02/20 05:42 ABG pO2 85.0 mmHg (80.0-100.0) 12/02/20 05:42 ABG HCO3 22.7 mmol/L (22-26) 12/02/20 05:42 ABG O2 Saturation 97.0 % (90-100) 12/02/20 05:42 ABG Base Excess -1.3 mmol/L (-2.0-2.0) 12/02/20 05:42 Romero Test Pos 12/02/20 05:42 A-a Gradient 21.0 mmHg 12/02/20 05:42 FiO2 21.0 12/02/20 05:42 Blood Gas Comments Claus well mts 12/02/20 05:42 Sodium 138 mmol/L (136-145) 12/02/20 05:46 Corrected Sodium 142 mmol/L (136-145) 12/02/20 05:46 Potassium 3.0 mmol/L (3.5-5.1) L* 12/02/20 05:46 Chloride 102 mmol/L (98-107) 12/02/20 05:46 Carbon Dioxide 23.6 mmol/L (21-32) 12/02/20 05:46 BUN 33 mg/dL (7-18) H 12/02/20 05:46 Creatinine 2.80 mg/dL (0.55-1.02) H 12/02/20 05:46 Est GFR (MDRD) Af Amer 21 (>60) L 12/02/20 05:46 Est GFR (MDRD) Non-Af 17 (>60) L 12/02/20 05:46 Glucose 278 mg/dL (65-99) H 12/02/20 05:46 POC Glucose (mg/dL) 335 mg/dL (65-99) H 12/02/20 11:24 Calcium 7.1 mg/dL (8.5-10.1) L 12/02/20 05:46 Corrected Calcium 8.1 mg/dL (8.5-10.1) L 12/02/20 05:46 Magnesium Cancelled 12/02/20 05:46 Ferritin 460 ng/mL (8-252) H 12/02/20 05:46 Total Bilirubin 0.40 mg/dL (0.2-1.0) 12/02/20 05:46 AST 20 Units/L (15-37) 12/02/20 05:46 ALT 12 Units/L (12-78) 12/02/20 05:46 Alkaline Phosphatase 56 Units/L (46-116) 12/02/20 05:46 Creatine Kinase 214 Units/L (26-192) H 12/01/20 18:30 CK-MB (CK-2) < 1.0 ng/mL (0-4.0) 12/01/20 18:30 CK/CKMB % Calc 0.5 % (<4) 12/01/20 18:30 Troponin I < 0.02 ng/mL (0-1.5) 12/01/20 18:30 C-Reactive Protein 166.70 mg/L (0-3.0) H 12/02/20 05:46 B-Natriuretic Peptide 294 pg/mL (0-79) H 12/02/20 05:46 Total Protein 7.1 g/dL (6.4-8.2) 12/02/20 05:46 Albumin 2.8 g/dL (3.4-5.0) L 12/02/20 05:46 Globulin 4.3 g/dL (2.5-4.5) 12/02/20 05:46 Albumin/Globulin Ratio 0.7 Ratio (1.1-2.1) L 12/02/20 05:46 - Plan (1) COVID-19 Status: Acute Plan: ICU, COVID ISOLATION. BP CONTROL. GENTLE IV HYDRATION, STRICT I&OS, CARDIAC MONITORING. VERIFY HOME MEDICATION, HOLD ANTIHYPERTENSIVE MEDICATION. IV SOLU MEDROL, REMDESIVIR, IV ATBX, SUPPLEMENTAL O2 PRN. PT/RT (2) Hypokalemia Status: Acute (3) Diabetes mellitus Status: Acute (4) Chronic kidney disease (CKD) Status: Acute (5) CHF (congestive heart failure) Status: Chronic (6) CAD (coronary artery disease) Status: Chronic Qualifiers: (7) Diabetes mellitus, type 2 Status: Chronic Qualifiers: (8) Essential hypertension Status: Chronic
[2020-12-02] MEDS: PEPCID TAB 20 MG PO SCH (20:24)
[2020-12-02] MEDS: SNACK - Diabetic Appropriate PO SCH (20:24)
[2020-12-02] MEDS: LIPITOR TAB 80 MG PO SCH (20:25)
[2020-12-02] MEDS: LOVENOX INJ 30 MG SYR SC SCH (20:25)
[2020-12-02] MEDS: LOVENOX INJ 60 MG SYR SC SCH (20:25)
[2020-12-02] MEDS: MELATONIN PO SCH (20:26)
[2020-12-02] MEDS: SINGULAIR TAB 10 MG PO SCH (20:27)
[2020-12-02] MEDS: ACCUNEB 1.25 MG NEBULE NEB PRN (20:57)
[2020-12-02] MEDS ORDERED: COMBIGAN EYE DROPS EACHEYE SCH (21:00)
[2020-12-02] MEDS: LUMIGAN OPHTH EACHEYE SCH (22:19)
[2020-12-02] MEDS: COSOPT OPTH EACHEYE SCH (22:20)
[2020-12-03] MEDS: ASCORBIC ACID INJ MULTI-DOSE VIAL 1,500 MG in NS 50 ML IV 50 ML IV SCH ×4 (03:02→21:09)
[2020-12-03] MEDS: TESSALON PERLES PO SCH ×3 (05:42→22:04)
[2020-12-03] MEDS: SOLU-Medrol 40 MG VIAL IVP SCH (05:43)
[2020-12-03 06:12] LABS: BASOPHILS % (AUTO) 0 % (0.2-1.0); HEMATOCRIT 32.4 % (36.0-47.0); HEMOGLOBIN 10.9 g/dL (12.0-16.0); LYMPHOCYTES # (AUTO) 0.6 X10^3/uL (1.3-2.9); MEAN CORPUSCULAR HEMOGLOBIN 28.9 pg (27.0-34.0); MEAN CORPUSCULAR HGB CONC 33.7 g/dL (33.0-35.0); MEAN CORPUSCULAR VOLUME 85.8 fL (80.0-100.0); MEAN PLATELET VOLUME 9.9 fL (7.4-11.0); MONOCYTES # (AUTO) 0.9 x10^3/uL (0.3-0.8); MONOCYTES % (AUTO) 4.3 % (0.0-13.0); NEUTROPHILS # (AUTO) 19.1 x10^3/uL (2.2-4.8); NEUTROPHILS % (AUTO) 92.7 % (42.0-75.0); PLATELET COUNT 272 X10^3/uL (150.0-450.0); RED BLOOD COUNT 3.77 X10^6/uL (3.5-5.4); RED CELL DISTRIBUTION WIDTH 14.2 % (11.6-16.5); WHITE BLOOD COUNT 20.7 X10^3/uL (3.6-10.0)
[2020-12-03] MEDS: HumuLIN R SUBCUT PRN ×2 (07:02→12:35)
[2020-12-03 07:07] LABS: ALBUMIN 2.7 g/dL (3.4-5.0); CARBON DIOXIDE 20.5 mmol/L (21-32); CREATININE 2.65 mg/dL (0.55-1.02); TOTAL PROTEIN 6.9 g/dL (6.4-8.2)
[2020-12-03] MEDS ORDERED: NS 1000 ML 1,000 ML IV ONE (08:24)
[2020-12-03 08:29] LABS: BAND NEUTROPHILS % 2 % (0-10); PLATELET MORPHOLOGY COMMENT NORMAL (NORMAL)
[2020-12-03] MEDS ORDERED: REGEN-COV VIAL 10 ML, DRUG FILTER EXTENSION SET * 1 EA in NS 100 ML IV 100 ML IV ONE ×2 (08:29)
[2020-12-03] MEDS ORDERED: LOVENOX INJ 60 MG SYR SC SCH (09:00)
[2020-12-03] MEDS: PULMICORT NEB TX 0.5 MG NEB SCH ×2 (09:13→21:23)
[2020-12-03] MEDS: BROVANA IN SCH ×2 (09:13→21:23)
[2020-12-03] MEDS: MAGIC MOUTHWASH MT SCH ×4 (09:59→20:53)
[2020-12-03] MEDS: THIAMINE HCL INJ IVP SCH ×2 (10:00→20:51)
[2020-12-03] MEDS: ZINC SULFATE PO SCH (10:00)
[2020-12-03] MEDS: ZyrTEC TAB 10 MG PO SCH (10:00)
[2020-12-03] MEDS: VITAMIN D3 125 mcg (5,000 UNITS) PO SCH (10:00)
[2020-12-03] MEDS: PROTONIX TAB 40 MG PO SCH ×2 (10:04→20:53)
[2020-12-03] MEDS: REMDESIVIR 100 MG in NS 100 ML IV + SPIKE MINIBAG* 120 ML IV SCH (10:49)
--- NOTE | 2020-12-03 12:02 | RAD ---
HISTORYSOB DM, HTN, HYSTERECTOMYSTUDYCHEST, 1 [id number]/2021FINDINGSCardiac silhouette size is stable. The lungs are grossly clear. No significant pleural effusion or pneumothorax.IMPRESSIONNo acute chest process or significant change from prior.Electronically signed by: TREE REED (Dec 03, 2020 12:00:17)
[2020-12-03] MEDS: DOPAMINE IV PREMIX 400 MG/250 ML 400 MG/250 ML BAG IV PRN (13:15)
[2020-12-03] MEDS: COSOPT OPTH EACHEYE SCH ×2 (13:19→20:49)
[2020-12-03] MEDS: ALPHAGAN 0.2% OPHTH SOLN EACHEYE SCH ×2 (13:19→21:06)
[2020-12-03] MEDS: NS 1/2 1000 ML IV 1,000 ML IV SCH (13:20)
[2020-12-03] MEDS: SNACK - Diabetic Appropriate PO SCH (20:25)
[2020-12-03] MEDS: SINGULAIR TAB 10 MG PO SCH (20:50)
[2020-12-03] MEDS: MELATONIN PO SCH (20:52)
[2020-12-03] MEDS: PEPCID TAB 20 MG PO SCH (20:52)
[2020-12-03] MEDS: LUMIGAN OPHTH EACHEYE SCH (20:53)
[2020-12-03] MEDS: LEVAQUIN PREMIX IV 500 MG 500 MG/100 ML BAG IV SCH (20:54)
[2020-12-03] MEDS: LIPITOR TAB 80 MG PO SCH (20:54)
[2020-12-03] MEDS: LOVENOX INJ 30 MG SYR SC SCH (21:06)
[2020-12-03] MEDS: LOVENOX INJ 60 MG SYR SC SCH (21:08)
[2020-12-04] MEDS: NS 1/2 1000 ML IV 1,000 ML IV SCH ×2 (00:06→23:07)
[2020-12-04] MEDS: ASCORBIC ACID INJ MULTI-DOSE VIAL 1,500 MG in NS 50 ML IV 50 ML IV SCH ×4 (03:02→20:51)
[2020-12-04] MEDS: TESSALON PERLES PO SCH ×3 (05:56→21:42)
[2020-12-04] MEDS: HumuLIN R SUBCUT PRN ×2 (05:59→22:19)
[2020-12-04 06:32] LABS: BASOPHILS % (AUTO) 0.1 % (0.2-1.0); HEMATOCRIT 31.4 % (36.0-47.0); HEMOGLOBIN 10.5 g/dL (12.0-16.0); LYMPHOCYTES # (AUTO) 0.8 X10^3/uL (1.3-2.9); LYMPHOCYTES % (AUTO) 3.7 % (21.0-51.0); MEAN CORPUSCULAR HEMOGLOBIN 28.9 pg (27.0-34.0); MEAN CORPUSCULAR HGB CONC 33.6 g/dL (33.0-35.0); MEAN CORPUSCULAR VOLUME 86.2 fL (80.0-100.0); MONOCYTES # (AUTO) 0.8 x10^3/uL (0.3-0.8); MONOCYTES % (AUTO) 3.6 % (0.0-13.0); NEUTROPHILS # (AUTO) 19.6 x10^3/uL (2.2-4.8); NEUTROPHILS % (AUTO) 92.6 % (42.0-75.0); PLATELET COUNT 272 X10^3/uL (150.0-450.0); RED BLOOD COUNT 3.64 X10^6/uL (3.5-5.4); RED CELL DISTRIBUTION WIDTH 14.5 % (11.6-16.5); WHITE BLOOD COUNT 21.1 X10^3/uL (3.6-10.0)
[2020-12-04 06:45] LABS: ALBUMIN 2.5 g/dL (3.4-5.0); CALCIUM 6.9 mg/dL (8.5-10.1); CARBON DIOXIDE 23.7 mmol/L (21-32); COR CA(FOR HYPOALB) 8.1 mg/dL (8.5-10.1); CREATININE 2.09 mg/dL (0.55-1.02); TOTAL PROTEIN 6.2 g/dL (6.4-8.2)
--- NOTE | 2020-12-04 07:55 | RAD ---
HISTORYSHORTNESS OF BREATH Relevant Clinical InformationSTUDYCHEST, 1 [id number]/14/2021FINDINGSCardiac silhouette is stable. The lungs are grossly clear without focal consolidation, pleural effusion, or pneumothorax.IMPRESSIONNo significant change from prior.Electronically signed by: TERE REED (Dec 04, 2020 07:53:20)
[2020-12-04 08:14] LABS: BAND NEUTROPHILS % 3 % (0-10); PLATELET MORPHOLOGY COMMENT NORMAL (NORMAL)
[2020-12-04] MEDS ORDERED: REGEN-COV VIAL 10 ML, DRUG FILTER EXTENSION SET * 1 EA in NS 100 ML IV 100 ML IV ONE ×2 (08:27)
[2020-12-04] MEDS ORDERED: REGEN-COV VIAL 10 ML, DRUG FILTER EXTENSION SET * 1 EA in NS 100 ML IV 100 ML IV NR ×2 (08:30)
[2020-12-04] MEDS ORDERED: NS 1000 ML 1,000 ML IV ONE (08:34)
[2020-12-04] MEDS: PULMICORT NEB TX 0.5 MG NEB SCH ×2 (08:54→21:00)
[2020-12-04] MEDS: BROVANA IN SCH ×2 (08:54→21:00)
[2020-12-04] MEDS: ZINC SULFATE PO SCH (09:39)
[2020-12-04] MEDS: ALPHAGAN 0.2% OPHTH SOLN EACHEYE SCH ×2 (09:39→20:52)
[2020-12-04] MEDS: ACTOS PO SCH (09:39)
[2020-12-04] MEDS: VITAMIN D3 125 mcg (5,000 UNITS) PO SCH (09:40)
[2020-12-04] MEDS: PROTONIX TAB 40 MG PO SCH ×2 (09:40→20:51)
[2020-12-04] MEDS: THIAMINE HCL INJ IVP SCH ×2 (09:40→20:51)
[2020-12-04] MEDS: COSOPT OPTH EACHEYE SCH ×2 (09:40→20:47)
[2020-12-04] MEDS: ZyrTEC TAB 10 MG PO SCH (09:40)
[2020-12-04] MEDS: MAGIC MOUTHWASH MT SCH ×4 (09:41→20:51)
[2020-12-04] MEDS: DOPAMINE IV PREMIX 400 MG/250 ML 400 MG/250 ML BAG IV PRN (19:25)
[2020-12-04] MEDS: IVERMECTIN PO SCH (20:45)
[2020-12-04] MEDS: LUMIGAN OPHTH EACHEYE SCH (20:48)
[2020-12-04] MEDS: SINGULAIR TAB 10 MG PO SCH (20:49)
[2020-12-04] MEDS: MELATONIN PO SCH (20:49)
[2020-12-04] MEDS: PEPCID TAB 20 MG PO SCH (20:49)
[2020-12-04] MEDS: LIPITOR TAB 80 MG PO SCH (20:50)
[2020-12-04] MEDS: LOVENOX INJ 60 MG SYR SC SCH (21:41)
[2020-12-04] MEDS: LOVENOX INJ 30 MG SYR SC SCH (21:41)
[2020-12-04] MEDS ORDERED: NS 1/2 1000 ML IV 1,000 ML IV ONE (23:07)
[2020-12-05] MEDS: NS 1/2 1000 ML IV 1,000 ML IV SCH ×2 (02:08→10:40)
[2020-12-05] MEDS: ASCORBIC ACID INJ MULTI-DOSE VIAL 1,500 MG in NS 50 ML IV 50 ML IV SCH ×4 (02:33→21:51)
[2020-12-05] MEDS: TESSALON PERLES PO SCH ×3 (05:03→21:54)
[2020-12-05] MEDS: HumuLIN R SUBCUT PRN ×2 (05:45→12:21)
[2020-12-05 06:27] LABS: BASOPHILS % (AUTO) 0.1 % (0.2-1.0); HEMATOCRIT 29.5 % (36.0-47.0); HEMOGLOBIN 10.1 g/dL (12.0-16.0); LYMPHOCYTES # (AUTO) 0.7 X10^3/uL (1.3-2.9); LYMPHOCYTES % (AUTO) 4.7 % (21.0-51.0); MEAN CORPUSCULAR HEMOGLOBIN 29.3 pg (27.0-34.0); MEAN CORPUSCULAR HGB CONC 34.1 g/dL (33.0-35.0); MEAN PLATELET VOLUME 9.9 fL (7.4-11.0); MONOCYTES # (AUTO) 0.5 x10^3/uL (0.3-0.8); MONOCYTES % (AUTO) 3.2 % (0.0-13.0); NEUTROPHILS # (AUTO) 13.2 x10^3/uL (2.2-4.8); PLATELET COUNT 256 X10^3/uL (150.0-450.0); RED BLOOD COUNT 3.43 X10^6/uL (3.5-5.4); RED CELL DISTRIBUTION WIDTH 14.7 % (11.6-16.5); WHITE BLOOD COUNT 14.4 X10^3/uL (3.6-10.0)
--- NOTE | 2020-12-05 06:30 | RAD ---
HISTORYSOBSTUDYCHEST, 1 VIEWCOMPARISONOne day prior.TECHNIQUEAP view of the chestFINDINGSCardiac and mediastinal contours are within normal limits. No consolidation or segmental lung collapse. No definite pleural effusion or pneumothorax. Soft tissue attenuation limits evaluation.IMPRESSIONNo acute pulmonary process radiographically. CT may show subtle signs of COVID 19.Electronically signed by: Aron Collins (Dec 05, 2020 06:28:10)
[2020-12-05 06:36] LABS: CALCIUM 6.7 mg/dL (8.5-10.1); CARBON DIOXIDE 25.8 mmol/L (21-32); CREATININE 1.9 mg/dL (0.55-1.02)
[2020-12-05 07:30] LABS: BAND NEUTROPHILS % 1 % (0-10); PLATELET MORPHOLOGY COMMENT NORMAL (NORMAL)
[2020-12-05] MEDS: PULMICORT NEB TX 0.5 MG NEB SCH ×2 (09:18→21:50)
[2020-12-05] MEDS: BROVANA IN SCH ×2 (09:18→21:50)
[2020-12-05] MEDS: ZINC SULFATE PO SCH (09:30)
[2020-12-05] MEDS: PROTONIX TAB 40 MG PO SCH ×2 (09:30→21:54)
[2020-12-05] MEDS: VITAMIN D3 125 mcg (5,000 UNITS) PO SCH (09:30)
[2020-12-05] MEDS: ALPHAGAN 0.2% OPHTH SOLN EACHEYE SCH ×2 (09:30→21:51)
[2020-12-05] MEDS: THIAMINE HCL INJ IVP SCH ×2 (09:30→21:54)
[2020-12-05] MEDS: ACTOS PO SCH (09:30)
[2020-12-05] MEDS: MAGIC MOUTHWASH MT SCH ×4 (09:30→21:53)
[2020-12-05] MEDS: COSOPT OPTH EACHEYE SCH ×2 (09:30→21:51)
[2020-12-05] MEDS: ZyrTEC TAB 10 MG PO SCH (09:30)
[2020-12-05] MEDS ORDERED: NS 1/2 1000 ML IV 1,000 ML IV ONE ×2 (10:36→22:25)
--- NOTE | 2020-12-05 13:05 | PCM.PROG ---
Progress Note - Progress Note for Day of Date of Exam: 12/05/20 - Subjective Subjective: WAS ADMITTED FOR TREATMENT OF COVID-19, ACUTE DEHYDRATION, HYPOTENSION, AND HYPERGLYCEMIA. SHE HAS A PMH OF A-FIB, CHF, CAD, DM, RENAL INSUFFICIENCY, HTN, OA. SHE HAS BEEN ON ROOM AIR SINCE ADMISSION WITH OXYGEN SATURATIONS REMAINING ABOVE 90%. SHE IS CURRENTLY ON A DOPAMINE DRIP DUE TO HYPOTENSION. TODAY, SHE IS ALERT AND ORIENTED, SITTING UP IN BED ON MORNING ROUNDS. SHE IS CURRENTLY RECEIVING A NEBULIZER TREATMENT. SHE REPORTS SHORTNESS OF BREATH AT TIMES AND GENERALIZED WEAKNESS, BUT REPORTS IMPROVEMENT IN SYMPTOMS SINCE ADMISSION. SHE RECEIVED A DOSE OF REGEN-COV YESTERDAY. ON EXAMINATION, HEART IS REGULAR IN RATE AND RHYTHM. BILATERAL LUNGS ARE NOTED WITH DIMINISHED L TOYIN SOUNDS THROUGHOUT. ABDOMEN IS ROUND, SOFT, AND NON-TENDER WITH NORMAL BOWEL SOUNDS NOTED IN ALL QUADRANTS. HER VITALS THIS MORNING ARE: 98.3-50-20-92%-102/56. LABS WERE OBTAINED. ABNORMAL LAB VALUES INCLUDE THE FOLLOWING: WBC 14.4, RBC 3.43, HGB 10.1, HCT 29.5, BUN 38, CREATININE 1.90, GLUCOSE 377, CALCIUM 6.7, FERRITIN 410, BNP 286. BLOOD CULTURES ARE PENDING. CHEST XRAY REVEALED: No acute pulmonary process radiographically. CT may show subtle signs of COVID 19. WE WILL CONTINUE WITH THE REMDESIVIR, LEVAQUIN, NORMAL SALINE, NEB TX, RESPIRATORY THERAPY, DOPAMINE, AND CURRENT PLAN OF CARE TODAY. WE WILL WEAN THE DOPAMINE TOLERATED. OTHERWISE, WE WILL FOLLOW UP WITH AM LABS AND CONTINUE TO MONITOR. TIME SPENT ON CLINICAL ASSESSMENT, REVIEWING LABS AND IMAGING, DECISION MAKING, AND DOCUMENTATION GREATER THAN 45 MINUTES. - Past Medical Family Social History Past Med/Fam/Surg Hx: No changes since H&P Allergies: Allergies morphine Allergy (Verified 12/01/20 13:35) - Review of Systems ROS: No change since H&P - Vital Signs and I&O's Vital Signs: Temperature 98.3 F Pulse Rate [Left Radial] 64 Pulse Rate 56 Respiratory Rate 20 Blood Pressure [Right Arm] 109/55 Blood Pressure [Left Arm] 120/58 Blood Pressure 151/71 O2 Sat by Pulse Oximetry 96 Intake and Output: Intake & Output 12/03/20 12/04/20 12/05/20 12/06/20 11:59 11:59 11:59 11:59 Intake Total 4686 / 4686 3379 / 3379 4444 / 4444 Output Total 760 / 760 Balance 3926 / 3926 3379 / 3379 4444 / 4444 - Physical Exam Oriented: Normal Eyes: Normal Ear: Normal Nose: Normal Throat: Normal Respiratory: Diminished Cardiovascular: Normal : Normal Auscultation: Bowel Sounds: Normal Palpation: Normal Tenderness: Normal Skin: Decreased [place] Musculoskeletal: Normal Psychiatric: Normal Mood Description: Calm Speech Pattern: Clear, Appropriate - Laboratory and Diagnostics Result Diagrams: 12/05/20 05:45 12/05/20 05:45 Labs: 12/01/20 18:30 Blood Blood Culture - Preliminary 12/01/20 18:20 Blood Blood Culture - Preliminary Laboratory WBC 14.4 X10^3/uL (3.6-10.0) H 12/05/20 05:45 RBC 3.43 X10^6/uL (3.5-5.4) L 12/05/20 05:45 Hgb 10.1 g/dL (12.0-16.0) L 12/05/20 05:45 Hct 29.5 % (36.0-47.0) L 12/05/20 05:45 MCV 86.0 fL (80.0-100.0) 12/05/20 05:45 MCH 29.3 pg (27.0-34.0) 12/05/20 05:45 MCHC 34.1 g/dL (33.0-35.0) 12/05/20 05:45 RDW 14.7 % (11.6-16.5) 12/05/20 05:45 Plt Count 256 X10^3/uL (150.0-450.0) 12/05/20 05:45 Plt Count Comment Adequate (ADEQUATE) 12/05/20 05:45 MPV 9.9 fL (7.4-11.0) 12/05/20 05:45 Neut % (Auto) 92.0 % (42.0-75.0) H 12/05/20 05:45 Lymph % (Auto) 4.7 % (21.0-51.0) L 12/05/20 05:45 Moffat % (Auto) 3.2 % (0.0-13.0) 12/05/20 05:45 Eos % (Auto) 0.0 % (0.9-2.9) L 12/05/20 05:45 Baso % (Auto) 0.1 % (0.2-1.0) L 12/05/20 05:45 Neut # (Auto) 13.2 x10^3/uL (2.2-4.8) H 12/05/20 05:45 Lymph # (Auto) 0.7 X10^3/uL (1.3-2.9) L 12/05/20 05:45 Moffat # (Auto) 0.5 x10^3/uL (0.3-0.8) 12/05/20 05:45 Eos # (Auto) 0.0 x10^3/uL (0.0-0.2) 12/05/20 05:45 Baso # (Auto) 0.0 X10^3/uL (0.0-0.1) 12/05/20 05:45 Absolute Nucleated RBC 0.1 /100WBC 12/05/20 05:45 Total Counted 100 12/05/20 05:45 Neutrophils % (Manual) 90 % (39-76) H 12/05/20 05:45 Band Neutrophils % 1 % (0-10) 12/05/20 05:45 Lymphocytes % (Manual) 8 % (13-43) L 12/05/20 05:45 Monocytes % (Manual) 1 % (4-9) L 12/05/20 05:45 Plt Morphology Comment Normal (NORMAL) 12/05/20 05:45 RBC Morphology Normal (NORMAL) 12/05/20 05:45 D-Dimer 0.30 ug/ml (0.0-0.57) 12/05/20 05:45 Sample Site Rrad 12/02/20 05:42 ABG pH 7.420 (7.35-7.45) 12/02/20 05:42 ABG pCO2 35.0 mmHg (35.0-45.0) 12/02/20 05:42 ABG pO2 85.0 mmHg (80.0-100.0) 12/02/20 05:42 ABG HCO3 22.7 mmol/L (22-26) 12/02/20 05:42 ABG O2 Saturation 97.0 % (90-100) 12/02/20 05:42 ABG Base Excess -1.3 mmol/L (-2.0-2.0) 12/02/20 05:42 Romero Test Pos 12/02/20 05:42 A-a Gradient 21.0 mmHg 12/02/20 05:42 FiO2 21.0 12/02/20 05:42 Blood Gas Comments Claus well mts 12/02/20 05:42 Sodium 141 mmol/L (136-145) 12/05/20 05:45 Corrected Sodium 148 mmol/L (136-145) H 12/05/20 05:45 Potassium 4.0 mmol/L (3.5-5.1) 12/05/20 05:45 Chloride 106 mmol/L (98-107) 12/05/20 05:45 Carbon Dioxide 25.8 mmol/L (21-32) 12/05/20 05:45 BUN 38 mg/dL (7-18) H 12/05/20 05:45 Creatinine 1.90 mg/dL (0.55-1.02) H 12/05/20 05:45 Est GFR (MDRD) Af Amer 33 (>60) L 12/05/20 05:45 Est GFR (MDRD) Non-Af 27 (>60) L 12/05/20 05:45 Glucose 377 mg/dL (65-99) H 12/05/20 05:45 POC Glucose (mg/dL) 249 mg/dL (65-99) H 12/05/20 12:14 Calcium 6.7 mg/dL (8.5-10.1) L 12/05/20 05:45 Corrected Calcium 8.1 mg/dL (8.5-10.1) L 12/04/20 06:01 Magnesium 3.1 mg/dL (1.7-2.9) H 12/02/20 14:56 Ferritin 410 ng/mL (8-252) H 12/05/20 05:45 Total Bilirubin 0.30 mg/dL (0.2-1.0) 12/04/20 06:01 AST 21 Units/L (15-37) 12/04/20 06:01 ALT 12 Units/L (12-78) 12/04/20 06:01 Alkaline Phosphatase 87 Units/L (46-116) 12/04/20 06:01 Creatine Kinase 214 Units/L (26-192) H 12/01/20 18:30 CK-MB (CK-2) < 1.0 ng/mL (0-4.0) 12/01/20 18:30 CK/CKMB % Calc 0.5 % (<4) 12/01/20 18:30 Troponin I < 0.02 ng/mL (0-1.5) 12/01/20 18:30 C-Reactive Protein 67.20 mg/L (0-3.0) H 12/04/20 06:01 B-Natriuretic Peptide 286 pg/mL (0-79) H 12/05/20 05:45 Total Protein 6.2 g/dL (6.4-8.2) L 12/04/20 06:01 Albumin 2.5 g/dL (3.4-5.0) L 12/04/20 06:01 Globulin 3.7 g/dL (2.5-4.5) 12/04/20 06:01 Albumin/Globulin Ratio 0.7 Ratio (1.1-2.1) L 12/04/20 06:01 - Plan (1) COVID-19 Status: Acute Plan: ICU, COVID ISOLATION. BP CONTROL. GENTLE IV HYDRATION, STRICT I&OS, CARDIAC MONITORING. VERIFY HOME MEDICATION, HOLD ANTIHYPERTENSIVE MEDICATION. IV SOLU MEDROL, REMDESIVIR, IV ATBX, SUPPLEMENTAL O2 PRN. 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 transplanted heart: [place] heart Associated angina: unspecified whether angina present Qualified Code(s): I25.10 - Atherosclerotic heart disease of [place] coronary artery without angina pectoris (7) Essential hypertension Status: Chronic
[2020-12-05] MEDS ORDERED: NS 50 ML IV 50 ML IV ONE (21:39)
[2020-12-05] MEDS: LEVAQUIN PREMIX IV 500 MG 500 MG/100 ML BAG IV SCH (21:52)
[2020-12-05] MEDS: LOVENOX INJ 60 MG SYR SC SCH (21:52)
[2020-12-05] MEDS: LIPITOR TAB 80 MG PO SCH (21:52)
[2020-12-05] MEDS: LOVENOX INJ 30 MG SYR SC SCH (21:52)
[2020-12-05] MEDS: PEPCID TAB 20 MG PO SCH (21:53)
[2020-12-05] MEDS: MELATONIN PO SCH (21:53)
[2020-12-05] MEDS: LUMIGAN OPHTH EACHEYE SCH (21:53)
[2020-12-05] MEDS: SINGULAIR TAB 10 MG PO SCH (21:54)
[2020-12-06] MEDS: ASCORBIC ACID INJ MULTI-DOSE VIAL 1,500 MG in NS 50 ML IV 50 ML IV SCH ×2 (02:23→10:24)
[2020-12-06] MEDS: NS 1/2 1000 ML IV 1,000 ML IV SCH (02:23)
[2020-12-06] MEDS: TESSALON PERLES PO SCH (06:03)
[2020-12-06 06:15] LABS: BASOPHILS # (AUTO) 0.1 X10^3/uL (0.0-0.1); BASOPHILS % (AUTO) 0.4 % (0.2-1.0); EOSINOPHILS # (AUTO) 0.1 x10^3/uL (0.0-0.2); EOSINOPHILS % (AUTO) 0.9 % (0.9-2.9); HEMOGLOBIN 9.6 g/dL (12.0-16.0); LYMPHOCYTES # (AUTO) 2.7 X10^3/uL (1.3-2.9); LYMPHOCYTES % (AUTO) 21.1 % (21.0-51.0); MEAN CORPUSCULAR HEMOGLOBIN 29.4 pg (27.0-34.0); MEAN CORPUSCULAR HGB CONC 34.1 g/dL (33.0-35.0); MEAN CORPUSCULAR VOLUME 86.2 fL (80.0-100.0); MEAN PLATELET VOLUME 9.9 fL (7.4-11.0); MONOCYTES % (AUTO) 7.9 % (0.0-13.0); NEUTROPHILS # (AUTO) 8.9 x10^3/uL (2.2-4.8); NEUTROPHILS % (AUTO) 69.7 % (42.0-75.0); PLATELET COUNT 222 X10^3/uL (150.0-450.0); RED BLOOD COUNT 3.25 X10^6/uL (3.5-5.4); RED CELL DISTRIBUTION WIDTH 14.8 % (11.6-16.5); WHITE BLOOD COUNT 12.8 X10^3/uL (3.6-10.0)
--- NOTE | 2020-12-06 06:41 | RAD ---
HISTORYSOBSTUDYCHEST, 1 [id number]/16/2021.TECHNIQUEAP view of the chestFINDINGS[The cardiac and mediastinal contours are within normal limits. The lungs are clear without focal consolidation or segmental collapse. No pleural effusion or pneumothorax.]IMPRESSIONNo acute pulmonary process.Electronically signed by: Aron Collins (Dec 06, 2020 06:39:57)
[2020-12-06 06:44] LABS: CALCIUM 6.8 mg/dL (8.5-10.1); CARBON DIOXIDE 26.4 mmol/L (21-32); CREATININE 1.84 mg/dL (0.55-1.02)
[2020-12-06] MEDS: PULMICORT NEB TX 0.5 MG NEB SCH (08:50)
[2020-12-06] MEDS: BROVANA IN SCH (08:50)
[2020-12-06] MEDS: PROTONIX TAB 40 MG PO SCH (10:00)
[2020-12-06] MEDS: ALPHAGAN 0.2% OPHTH SOLN EACHEYE SCH (10:00)
[2020-12-06] MEDS: THIAMINE HCL INJ IVP SCH ×2 (10:00→10:24)
[2020-12-06] MEDS: MAGIC MOUTHWASH MT SCH ×2 (10:00→12:10)
[2020-12-06] MEDS: ZINC SULFATE PO SCH (10:00)
[2020-12-06] MEDS: ZyrTEC TAB 10 MG PO SCH (10:00)
[2020-12-06] MEDS: VITAMIN D3 125 mcg (5,000 UNITS) PO SCH (10:00)
[2020-12-06] MEDS: COSOPT OPTH EACHEYE SCH (10:00)
[2020-12-06] MEDS: ACTOS PO SCH (10:00)
[2020-12-06] MEDS: REMDESIVIR 100 MG in NS 100 ML IV + SPIKE MINIBAG* 120 ML IV SCH (10:24)
[2020-12-06] MEDS ORDERED: LASIX PO ONE (10:35)
[2020-12-06 15:11] VITALS: BP 172/88
[2020-12-06 20:51] LABS: ALBUMIN 2.5 g/dL (3.4-5.0); TOTAL PROTEIN 5.6 g/dL (6.4-8.2)
[2020-12-07 00:31] LABS: ALBUMIN 2.7 g/dL (3.4-5.0); COR CA(FOR HYPOALB) 7.7 mg/dL (8.5-10.1)
== END 2020-12-06 15:00 | disposition home or self-care (01) | DRG 178 ==
LOC: OUTPT REF 12:52 → MED/SURG 12:52 → OBSVTOIN 18:36
PROVIDERS: ADMIT Internal Medicine; ATTEND Internal Medicine
DX: R26.89 Other abnormalities of gait and mobility; E86.0 Dehydration; I13.0 Hypertensive heart and chronic kidney disease with heart failure and stage 1 through stage 4 chronic kidney disease, or unspecified chronic kidney disease; R79.89 Other specified abnormal findings of blood chemistry; U07.1 COVID-19; I50.9 Heart failure, unspecified; N18.9 Chronic kidney disease, unspecified; I48.91 Unspecified atrial fibrillation; N17.8 Other acute kidney failure; I95.89 Other hypotension; E11.65 Type 2 diabetes mellitus with hyperglycemia; R94.31 Abnormal electrocardiogram [ECG] [EKG]; I25.10 Atherosclerotic heart disease of native coronary artery without angina pectoris; E87.6 Hypokalemia; E11.22 Type 2 diabetes mellitus with diabetic chronic kidney disease; R79.82 Elevated C-reactive protein (CRP)

== ENCOUNTER 2022-01-01 13:41 | Observation (INO) ==
[2022-01-01] MEDS ORDERED: DUONEB 0.5 MG/3 MG (3 mL) NEB ONE (15:15)
[2022-01-01 15:25] LABS: ABG BASE EXCESS 9.5 mmol/L (-2.0-2.0)
[2022-01-01 15:26] LABS: ABG ALLEN TEST POS; ABG HCO3 33.5 mmol/L (22-26)
[2022-01-01] MEDS: DUONEB 0.5 MG/3 MG (3 mL) NEB SCH ×3 (15:30→21:00)
[2022-01-01] MEDS ORDERED: NS 1/2 1,000 ML IV 1,000 ML IV ONE (15:38)
[2022-01-01] MEDS: TUSSIONEX PENNKINETIC SUSP PO PRN (15:58)
[2022-01-01] MEDS: NS 1/2 1,000 ML IV 1,000 ML IV SCH (15:58)
[2022-01-01] MEDS ORDERED: LEVAQUIN PREMIX IV 750 MG 750 MG/150 ML BAG IV SCH (16:00)
[2022-01-01] MEDS ORDERED: NS 1/2 1,000 ML IV 1,000 ML IV SCH (16:00)
[2022-01-01] MEDS: ROBITUSSIN DM PO SCH ×2 (16:34→20:30)
[2022-01-01] MEDS ORDERED: SALINE 3% 15 ML NEB TX ONE (16:42)
[2022-01-01 16:53] LABS: BASOPHILS # (AUTO) 0.1 X10^3/uL (0.0-0.1); EOSINOPHILS # (AUTO) 0.2 x10^3/uL (0.0-0.2); EOSINOPHILS % (AUTO) 1.5 % (0.9-2.9); HEMATOCRIT 35.8 % (36.0-47.0); HEMOGLOBIN 12.2 g/dL (12.0-16.0); LYMPHOCYTES # (AUTO) 0.9 X10^3/uL (1.3-2.9); LYMPHOCYTES % (AUTO) 8.2 % (21.0-51.0); MEAN CORPUSCULAR HEMOGLOBIN 29.2 pg (27.0-34.0); MEAN CORPUSCULAR HGB CONC 34.1 g/dL (33.0-35.0); MEAN CORPUSCULAR VOLUME 85.6 fL (80.0-100.0); MEAN PLATELET VOLUME 9.2 fL (7.4-11.0); MONOCYTES # (AUTO) 0.7 x10^3/uL (0.3-0.8); MONOCYTES % (AUTO) 6.6 % (0.0-13.0); NEUTROPHILS # (AUTO) 8.6 x10^3/uL (2.2-4.8); NEUTROPHILS % (AUTO) 82.7 % (42.0-75.0); RED BLOOD COUNT 4.18 X10^6/uL (3.5-5.4); RED CELL DISTRIBUTION WIDTH 13.9 % (11.6-16.5); WHITE BLOOD COUNT 10.4 X10^3/uL (3.6-10.0)
[2022-01-01 17:03] LABS: ALANINE AMINOTRANSFERASE 14 Units/L (12-78); ALBUMIN 3.5 g/dL (3.4-5.0); ALKALINE PHOSPHATASE 75 Units/L (46-116); ASPARTATE AMINO TRANSFERASE 16 Units/L (15-37); BLOOD UREA NITROGEN 20 mg/dL (7-18); CARBON DIOXIDE 33.9 mmol/L (21-32); CHLORIDE 101 mmol/L (98-107); COR NA(FOR HYPERGLY) 143 mmol/L (136-145); CREATINE KINASE 148 Units/L (26-192); CREATININE 1.42 mg/dL (0.55-1.02); SODIUM 142 mmol/L (136-145); TOTAL PROTEIN 7.5 g/dL (6.4-8.2); eGFR NON BLACK RACES 38 (>60)
[2022-01-01] MEDS ORDERED: K-RIDER 10 MEQ/NS 100 ML 10 MEQ/100 ML BAG IV PRN (19:31)
[2022-01-01] MEDS ORDERED: POTASSIUM CHL 40 MEQ/NS 0.45% 500 ML IV PRN (19:31)
[2022-01-01] MEDS ORDERED: POTASSIUM CHL 60 MEQ/NS 0.45% 500 ML IV PRN (19:31)
[2022-01-01] MEDS ORDERED: MICRO K EXTEN CAP 10 MEQ PO PRN (19:31)
[2022-01-01] MEDS ORDERED: POTASSIUM CHLORIDE LIQ 20 MEQ UDC PO PRN (19:31)
[2022-01-01] MEDS ORDERED: KLOR-CON PO PRN (19:31)
[2022-01-01] MEDS ORDERED: PULMICORT NEB TX 0.5 MG NEB ONE (19:44)
[2022-01-01] MEDS: SNACK - Diabetic Appropriate PO SCH (20:30)
[2022-01-01] MEDS: ELIQUIS PO SCH (20:59)
[2022-01-01] MEDS: PULMICORT NEB TX 0.5 MG NEB SCH (21:00)
[2022-01-01] MEDS: K-DUR TAB 20 MEQ PO PRN (21:00)
--- NOTE | 2022-01-01 22:49 | RAD ---
PROCEDURE: Chest X-ray 2 Views .HISTORY: pneumonia, hypoxia .TECHNIQUE: PA and Lateral Views .COMPARISON: 01/01/2022 chest x-ray done at 4:06 a.m..TECHNICAL QUALITY: Satisfactory .FINDINGS:Normal size heart .Mediastinum and hilar regions show no masses or lymphadenopathy. Tortuous aorta.Normal central vascularity .Increased density projected over the lower lobes on the lateral view not well appreciated on the PA view and could be related to consolidation or atelectasis. No pleural fluid or masses.No acute bony abnormality .IMPRESSION:Questionable lower lobe disease on the lateral view could be related to pneumonia or atelectasis that is not well visualized on the PA view and CT may be helpful for further evaluation.Electronically signed by: Kavin Kruse (Jan 01, 2022 22:48:14)
[2022-01-02] MEDS ORDERED: NS 1/2 1,000 ML IV 1,000 ML IV ONE (04:50)
[2022-01-02] MEDS: TUSSIONEX PENNKINETIC SUSP PO PRN (05:25)
[2022-01-02] MEDS: NS 1/2 1,000 ML IV 1,000 ML IV SCH ×2 (05:25→19:48)
[2022-01-02 06:21] LABS: BASOPHILS # (AUTO) 0.1 X10^3/uL (0.0-0.1); BASOPHILS % (AUTO) 0.9 % (0.2-1.0); EOSINOPHILS # (AUTO) 0.2 x10^3/uL (0.0-0.2); EOSINOPHILS % (AUTO) 1.9 % (0.9-2.9); HEMATOCRIT 29.5 % (36.0-47.0); HEMOGLOBIN 10.4 g/dL (12.0-16.0); LYMPHOCYTES # (AUTO) 1.2 X10^3/uL (1.3-2.9); LYMPHOCYTES % (AUTO) 14.6 % (21.0-51.0); MEAN CORPUSCULAR HEMOGLOBIN 29.9 pg (27.0-34.0); MEAN CORPUSCULAR HGB CONC 35.2 g/dL (33.0-35.0); MEAN CORPUSCULAR VOLUME 84.8 fL (80.0-100.0); MEAN PLATELET VOLUME 8.7 fL (7.4-11.0); MONOCYTES # (AUTO) 0.8 x10^3/uL (0.3-0.8); MONOCYTES % (AUTO) 10.5 % (0.0-13.0); NEUTROPHILS # (AUTO) 5.7 x10^3/uL (2.2-4.8); NEUTROPHILS % (AUTO) 72.1 % (42.0-75.0); RED BLOOD COUNT 3.48 X10^6/uL (3.5-5.4); RED CELL DISTRIBUTION WIDTH 13.8 % (11.6-16.5); WHITE BLOOD COUNT 7.9 X10^3/uL (3.6-10.0)
[2022-01-02 06:43] LABS: ALBUMIN 2.7 g/dL (3.4-5.0); CALCIUM 7.2 mg/dL (8.5-10.1); CARBON DIOXIDE 29.8 mmol/L (21-32); COR CA(FOR HYPOALB) 8.2 mg/dL (8.5-10.1); CREATININE 1.39 mg/dL (0.55-1.02); MAGNESIUM 1.3 mg/dL (1.7-2.9); TOTAL PROTEIN 6.1 g/dL (6.4-8.2)
[2022-01-02] MEDS: PULMICORT NEB TX 0.5 MG NEB SCH ×2 (08:15→21:00)
[2022-01-02] MEDS: DUONEB 0.5 MG/3 MG (3 mL) NEB SCH ×4 (08:15→21:00)
[2022-01-02] MEDS: MAGNESIUM SULFATE 1 GRAM/100 mL PREMIX 1 G/100 ML BAG IV PRN ×4 (09:28→17:09)
[2022-01-02] MEDS: ELIQUIS PO SCH ×2 (09:30→20:15)
[2022-01-02] MEDS: K-DUR TAB 20 MEQ PO PRN ×2 (09:30→20:15)
[2022-01-02] MEDS: ROBITUSSIN DM PO SCH ×4 (09:31→20:15)
[2022-01-02] MEDS: NovoLIN R (or HumuLIN R) SUBCUT PRN ×2 (12:07→17:09)
[2022-01-02] MEDS: SNACK - Diabetic Appropriate PO SCH (20:15)
[2022-01-03] MEDS ORDERED: NS 1/2 1,000 ML IV 1,000 ML IV ONE ×2 (04:32→16:54)
[2022-01-03] MEDS: NS 1/2 1,000 ML IV 1,000 ML IV SCH ×4 (04:40→20:07)
[2022-01-03 06:34] LABS: BASOPHILS # (AUTO) 0.1 X10^3/uL (0.0-0.1); BASOPHILS % (AUTO) 0.7 % (0.2-1.0); EOSINOPHILS # (AUTO) 0.1 x10^3/uL (0.0-0.2); EOSINOPHILS % (AUTO) 1.6 % (0.9-2.9); HEMATOCRIT 31.2 % (36.0-47.0); HEMOGLOBIN 10.7 g/dL (12.0-16.0); LYMPHOCYTES # (AUTO) 2.2 X10^3/uL (1.3-2.9); LYMPHOCYTES % (AUTO) 27.1 % (21.0-51.0); MEAN CORPUSCULAR HEMOGLOBIN 29.7 pg (27.0-34.0); MEAN CORPUSCULAR HGB CONC 34.4 g/dL (33.0-35.0); MEAN CORPUSCULAR VOLUME 86.3 fL (80.0-100.0); MEAN PLATELET VOLUME 9.3 fL (7.4-11.0); MONOCYTES % (AUTO) 11.9 % (0.0-13.0); NEUTROPHILS # (AUTO) 4.8 x10^3/uL (2.2-4.8); NEUTROPHILS % (AUTO) 58.7 % (42.0-75.0); RED BLOOD COUNT 3.61 X10^6/uL (3.5-5.4); WHITE BLOOD COUNT 8.1 X10^3/uL (3.6-10.0)
--- NOTE | 2022-01-03 06:36 | RAD ---
HISTORYFollow-up pneumonia, shortness of breathSTUDYChest AP [id number]/12/2022FINDINGSHear t is enlarged. No congestive heart failure is noted. Karime are normal. Aorta is mildly ectatic and calcified. Lung trinh are clear. No pleural effusions are identified. Bony thorax is unremarkable.IMPRESSIONMild cardiomegaly without congestive heart failureNo definite infiltratesElectronically signed by: BRI MONREAL (Jan 03, 2022 06:34:53)
[2022-01-03 06:58] LABS: ALBUMIN 2.9 g/dL (3.4-5.0); CALCIUM 7.3 mg/dL (8.5-10.1); CARBON DIOXIDE 30.2 mmol/L (21-32); COR CA(FOR HYPOALB) 8.2 mg/dL (8.5-10.1); CREATININE 1.34 mg/dL (0.55-1.02); MAGNESIUM 2.1 mg/dL (1.7-2.9); TOTAL PROTEIN 6.3 g/dL (6.4-8.2)
[2022-01-03] MEDS: PULMICORT NEB TX 0.5 MG NEB SCH ×2 (08:21→21:00)
[2022-01-03] MEDS: DUONEB 0.5 MG/3 MG (3 mL) NEB SCH ×4 (08:21→21:00)
[2022-01-03] MEDS: ELIQUIS PO SCH ×2 (09:40→21:34)
[2022-01-03] MEDS: ROBITUSSIN DM PO SCH ×4 (09:40→21:33)
--- NOTE | 2022-01-03 11:48 | DR.UPDATE ---
H&P Update History and Physical Update: History and Physical reviewed and patient examined. Changes noted: Yes with the following: WAS A DIRECT ADMISSION TO THE HOSPITAL FOR TREATMENT OF PNEUMONIA, SHORTNESS OF BREATH, AND GENERALIZED WEAKNESS. ON ADMISSION TO THE HOSPITAL, VITALS WERE: 98.9-77-22-99%-149/74. LABS WERE OBTAINED. WBC 10.4, RBC 4.18, HGB 12.2, HCT 35.8, SODIUM 142, POTASSIUM 3.5, CHLORIDE 101, CARBON DIOXIDE 33.9, BUN 20, CREATININE 1.42, GLUCOSE 143, CALCIUM 8.0, AST 16, ALT 14, ALK PHOS 75, CREATININE 148, TROPONIN 13.2, TOTAL PROTEIN 7.5, ALBUMIN 3.5. ABG OBTAINED AND REVEALED: PH 7.510, PC02 42, P02 75, HC03 33.5, 02 SAT 96, BASE EXCESS 9.5, A-A GRADIENT 22, FI02 21.0. COVID, RSV, INFLUENZA NEGATIVE. A RESPIRATORY VIRAL PANEL WAS SENT OUT. BLOOD CULTURES WERE SET UP. A CHEST XRAY WAS OBTAINED AND REVEALED: Questionable lower lobe disease on the lateral view could be related to pneumonia or atelectasis that is not well visualized on the PA view and CT may be helpful for further evaluation. EKG REVEALED: NORMAL SINUS RHYTHM WITH HR 75. SHE WAS STARTED ON NORMAL SALINE AT 75 ML/HR, THE POTASSIUM AND MAGNESIUM PROTOCOLS, LEVAQUIN 750MG IV Q48H, DUONEBS QID, PULMICORT NEBS BID, ELIQUIS 5MG PO BID, ROBITUSSIN DM 10ML PO QID, NOVOLIN R SLIDING SCALE, OTBS ACSH, TUSSIONEX 5ML PO Q12H PRN, AND HER HOME MEDICATIONS WERE RESUMED. OTHERWISE, WE PLAN TO FOLLOW-UP WITH AM LABS AND CONTINUE TO MONITOR. TIME SPENT ON CLINICAL ASSESSMENT, REVIWING LABS AND IMAGING, DECISION MAKING, AND DOCUMENTATION GREATER THAN 45 MINUTES. H&P Reviewed: Yes Patient was examined?: Yes
[2022-01-03] MEDS: COZAAR PO SCH (13:44)
[2022-01-03] MEDS: CLARITIN PO SCH (13:44)
[2022-01-03] MEDS: PriLOSEC PO SCH ×2 (13:54→21:34)
[2022-01-03] MEDS ORDERED: COLACE CAP 100 MG PO PRN (15:20)
[2022-01-03] MEDS ORDERED: MILK OF MAGNESIA PO PRN (15:20)
[2022-01-03] MEDS: COMBIGAN EYE DROPS OP SCH ×2 (16:11→21:38)
[2022-01-03] MEDS: LEVAQUIN PREMIX IV 750 MG 750 MG/150 ML BAG IV SCH (16:12)
[2022-01-03] MEDS: SNACK - Diabetic Appropriate PO SCH ×2 (21:00)
[2022-01-03] MEDS: AMARYL TAB 4 MG PO SCH (21:34)
[2022-01-03] MEDS: LUMIGAN OPHTH EACHEYE SCH (23:16)
[2022-01-04] MEDS ORDERED: NS 1/2 1,000 ML IV 1,000 ML IV ONE ×2 (05:45→09:15)
[2022-01-04] MEDS: NS 1/2 1,000 ML IV 1,000 ML IV SCH ×2 (06:07→10:56)
--- NOTE | 2022-01-04 06:30 | RAD ---
HISTORYHypoxia, shortness of breathSTUDYChest AP pogyfreeCMIHSOSRYL72/14/2022FINDINGSHear t remains enlarged. No congestive heart failure is noted. Lungs are free of acute infiltrates. No pleural effusions are identified. Bony thorax is unremarkable.IMPRESSIONCardiomegaly without congestive heart failure, unchangedNo definite infiltratesElectronically signed by: BRI MONREAL (Jan 04, 2022 06:28:49)
[2022-01-04 06:32] LABS: BASOPHILS % (AUTO) 0.7 % (0.2-1.0); EOSINOPHILS # (AUTO) 0.2 x10^3/uL (0.0-0.2); EOSINOPHILS % (AUTO) 2.9 % (0.9-2.9); HEMATOCRIT 29.8 % (36.0-47.0); LYMPHOCYTES # (AUTO) 1.7 X10^3/uL (1.3-2.9); LYMPHOCYTES % (AUTO) 26.2 % (21.0-51.0); MEAN CORPUSCULAR HEMOGLOBIN 29.1 pg (27.0-34.0); MEAN CORPUSCULAR HGB CONC 33.5 g/dL (33.0-35.0); MEAN PLATELET VOLUME 9.4 fL (7.4-11.0); MONOCYTES # (AUTO) 0.6 x10^3/uL (0.3-0.8); MONOCYTES % (AUTO) 10.2 % (0.0-13.0); NEUTROPHILS # (AUTO) 3.8 x10^3/uL (2.2-4.8); RED BLOOD COUNT 3.42 X10^6/uL (3.5-5.4); WHITE BLOOD COUNT 6.3 X10^3/uL (3.6-10.0)
[2022-01-04 06:34] LABS: ALBUMIN 2.5 g/dL (3.4-5.0); CALCIUM 6.9 mg/dL (8.5-10.1); COR CA(FOR HYPOALB) 8.1 mg/dL (8.5-10.1); CREATININE 1.3 mg/dL (0.55-1.02); TOTAL PROTEIN 5.8 g/dL (6.4-8.2)
[2022-01-04] MEDS: PULMICORT NEB TX 0.5 MG NEB SCH ×2 (09:00→20:20)
[2022-01-04] MEDS: DUONEB 0.5 MG/3 MG (3 mL) NEB SCH ×4 (09:00→20:20)
[2022-01-04] MEDS: TOPROL XL PO SCH (09:19)
[2022-01-04] MEDS: PriLOSEC PO SCH ×2 (09:21→21:24)
[2022-01-04] MEDS: ELIQUIS PO SCH ×2 (09:21→21:24)
[2022-01-04] MEDS: ROBITUSSIN DM PO SCH ×4 (09:21→21:24)
[2022-01-04] MEDS: CLARITIN PO SCH (09:21)
[2022-01-04] MEDS: AMARYL TAB 4 MG PO SCH ×2 (09:22→21:24)
[2022-01-04] MEDS: COZAAR PO SCH (09:22)
[2022-01-04] MEDS: COMBIGAN EYE DROPS OP SCH ×2 (10:00→21:26)
--- NOTE | 2022-01-04 11:50 | PCM.PROG ---
Progress Note - Progress Note for Day of Date of Exam: 01/03/22 - Subjective Subjective: WAS ADMITTED FOR TREATMENT OF PNEUMONIA. TODAY, SHE IS ALERT AND ORIENTED, LYING IN BED ON MORNING ROUNDS. SHE CONTINUES WITH COMPLAINTS OF SHORTNESS OF BREATH AND COUGH. HER BREATHING APPEARS TO BE MORE LABORED THIS MORNING. SHE ALSO COMPLAINS OF NASAL CONGESTION WITH DRAINAGE AT TIMES. ON EXAMINATION, HEART IS REGULAR IN RATE AND RHYTHM. BILATERAL LUNGS ARE NOTED WITH SCATTERED WHEEZING AND RHONCHI THROUGHOUT. ABDOMEN IS ROUND, SOFT, AND NON-TENDER WITH NORMAL BOWEL SOUNDS NOTED IN ALL QUADRANTS. NO UPPER OR LOWER EXTREMITY EDEMA IS NOTED. HER VITALS THIS MORNING ARE: 98.0- 64-20-97%-116/58. LABS WERE OBTAINED. WBC 8.1, RBC 3.61, HGB 10.7, HCT 31.2, PLT COUNT 236, SODIUM 142, POTASSIUM 4.3, CHLORIDE 106, BUN 15, CREATININE 1.34, GLUCOSE 164, CALCIUM 8.2, AST 16, ALT 12, ALK PHOS 65, TOTAL PROTEIN 6.3, ALBUMIN 2.9. RESPIRATORY VIRAL PANEL IS PENDING. BLOOD CULTURES ARE ALSO PENDING. SHE IS CURRENTLY RECEIVING NORMAL SALINE AT 75 ML/HR, THE POTASSIUM AND MAGNESIUM PROTOCOLS, LEVAQUIN 750MG IV Q48H, DUONEBS QID, PULMICORT NEBS BID, ELIQUIS 5MG PO BID, ROBITUSSIN DM 10ML PO QID, NOVOLIN R SLIDING SCALE, OTBS ACSH, TUSSIONEX 5ML PO Q12H PRN, AND HER HOME MEDICATIONS WERE RESUMED. WE WILL CONTINUE WITH CURRENT PLAN OF CARE TODAY. OTHERWISE, WE WILL FOLLOW-UP WITH AM LABS AND CONTINUE TO MONITOR. TIME SPENT ON CLINICAL ASSESSMENT, REVIWING LABS AND IMAGING, DECISION MAKING, AND DOCUMENTATION GREATER THAN 45 MINUTES. - Past Medical Family Social History Past Med/Fam/Surg Hx: No changes since H&P Allergies: Allergies morphine Allergy (Verified 01/01/22 15:26) - Review of Systems ROS: No change since H&P - Vital Signs and I&O's Vital Signs: Temperature 97.7 F Pulse Rate [Right Brachial] 52 Pulse Rate 98 Respiratory Rate 20 Blood Pressure [Right Arm] 165/76 Blood Pressure [Left Arm] 115/56 Blood Pressure 160/80 O2 Sat by Pulse Oximetry 99 Intake and Output: Intake & Output 01/01/22 01/02/22 01/03/22 01/04/22 11:59 11:59 11:59 11:59 Intake Total 2107 2880 / 2880 3905 / 3905 Balance 2107 2880 / 2880 3905 / 3905 - Physical Exam Oriented: Normal Eyes: Normal Ear: Normal Nose: Discharge (CLEAR ) Throat: Normal Respiratory: Generalized, Wheezes, Rhonchi Cardiovascular: Normal : Normal Auscultation: Bowel Sounds: Normal Palpation: Normal Tenderness: Normal Skin: Normal Musculoskeletal: Normal Psychiatric: Normal Mood Description: Calm Affect: Normal Speech Pattern: Clear, Appropriate - Laboratory and Diagnostics Result Diagrams: 01/04/22 05:38 01/04/22 05:38 Labs: 01/01/22 16:10 Blood Blood Culture - Final 01/01/22 16:20 Blood Blood Culture - Preliminary Laboratory WBC 6.3 X10^3/uL (3.6-10.0) 01/04/22 05:38 RBC 3.42 X10^6/uL (3.5-5.4) L 01/04/22 05:38 Hgb 10.0 g/dL (12.0-16.0) L 01/04/22 05:38 Hct 29.8 % (36.0-47.0) L 01/04/22 05:38 MCV 87.0 fL (80.0-100.0) 01/04/22 05:38 MCH 29.1 pg (27.0-34.0) 01/04/22 05:38 MCHC 33.5 g/dL (33.0-35.0) 01/04/22 05:38 RDW 14.0 % (11.6-16.5) 01/04/22 05:38 Plt Count 191 X10^3/uL (150.0-450.0) 01/04/22 05:38 MPV 9.4 fL (7.4-11.0) 01/04/22 05:38 Neut % (Auto) 60.0 % (42.0-75.0) 01/04/22 05:38 Lymph % (Auto) 26.2 % (21.0-51.0) 01/04/22 05:38 Yell % (Auto) 10.2 % (0.0-13.0) 01/04/22 05:38 Eos % (Auto) 2.9 % (0.9-2.9) 01/04/22 05:38 Baso % (Auto) 0.7 % (0.2-1.0) 01/04/22 05:38 Neut # (Auto) 3.8 x10^3/uL (2.2-4.8) 01/04/22 05:38 Lymph # (Auto) 1.7 X10^3/uL (1.3-2.9) 01/04/22 05:38 Yell # (Auto) 0.6 x10^3/uL (0.3-0.8) 01/04/22 05:38 Eos # (Auto) 0.2 x10^3/uL (0.0-0.2) 01/04/22 05:38 Baso # (Auto) 0.0 X10^3/uL (0.0-0.1) 01/04/22 05:38 Absolute Nucleated RBC 0.0 /100WBC 01/04/22 05:38 Sample Site Rr 01/01/22 15:03 ABG pH 7.510 (7.35-7.45) H 01/01/22 15:03 ABG pCO2 42.0 mmHg (35.0-45.0) 01/01/22 15:03 ABG pO2 75.0 mmHg (80.0-100.0) L 01/01/22 15:03 ABG HCO3 33.5 mmol/L (22-26) H* 01/01/22 15:03 ABG O2 Saturation 96.0 % (90-100) 01/01/22 15:03 ABG Base Excess 9.5 mmol/L (-2.0-2.0) H 01/01/22 15:03 Romero Test Pos 01/01/22 15:03 A-a Gradient 22.0 mmHg 01/01/22 15:03 FiO2 21.0 01/01/22 15:03 Blood Gas Comments Pt radha well 01/01/22 15:03 Sodium 143 mmol/L (136-145) 01/04/22 05:38 Corrected Sodium 144 mmol/L (136-145) 01/04/22 05:38 Potassium 4.7 mmol/L (3.5-5.1) 01/04/22 05:38 Chloride 107 mmol/L (98-107) 01/04/22 05:38 Carbon Dioxide 29.0 mmol/L (21-32) 01/04/22 05:38 BUN 14 mg/dL (7-18) 01/04/22 05:38 Creatinine 1.30 mg/dL (0.55-1.02) H 01/04/22 05:38 Est GFR (MDRD) Af Amer 51 (>60) L 01/04/22 05:38 Est GFR (MDRD) Non-Af 42 (>60) L 01/04/22 05:38 Glucose 156 mg/dL (65-99) H 01/04/22 05:38 POC Glucose (mg/dL) 146 mg/dL (65-99) H 01/04/22 06:18 Calcium 6.9 mg/dL (8.5-10.1) L 01/04/22 05:38 Corrected Calcium 8.1 mg/dL (8.5-10.1) L 01/04/22 05:38 Magnesium 2.1 mg/dL (1.7-2.9) 01/03/22 05:49 Total Bilirubin 0.40 mg/dL (0.2-1.0) 01/04/22 05:38 AST 18 Units/L (15-37) 01/04/22 05:38 ALT 10 Units/L (12-78) L 01/04/22 05:38 Alkaline Phosphatase 57 Units/L (46-116) 01/04/22 05:38 Creatine Kinase 142 Units/L (26-192) 01/01/22 23:17 Troponin I High Sens 12.0 ng/L (4.0-60.0) 01/01/22 23:17 Total Protein 5.8 g/dL (6.4-8.2) L 01/04/22 05:38 Albumin 2.5 g/dL (3.4-5.0) L 01/04/22 05:38 Globulin 3.3 g/dL (2.5-4.5) 01/04/22 05:38 Albumin/Globulin Ratio 0.8 Ratio (1.1-2.1) L 01/04/22 05:38 SARS-CoV-2 (PCR) Negative (NEGATIVE) 01/01/22 15:14 Influenza Type A (PCR) Negative (NEGATIVE) 01/01/22 15:14 Influenza Type B (PCR) Negative (NEGATIVE) 01/01/22 15:14 RSV (PCR) Negative (NEGATIVE) 01/01/22 15:14 Resp Viral Panel (PCR) See scanned report 01/01/22 18:00 - Plan (1) Pneumonia Status: Acute Qualifiers: Pneumonia type: due to unspecified organism Laterality: bilateral Lung location: lower lobe of lung Qualified Code(s): J18.9 - Pneumonia, unspecified organism Plan: SUPPLEMENTAL OXYGEN, NORMAL SALINE AT 75 ML/HR, THE POTASSIUM AND MAGN ESIUM PROTOCOLS, LEVAQUIN 750MG IV Q48H, DUONEBS QID, PULMICORT NEBS BID, ELIQUIS 5MG PO BID, ROBITUSSIN DM 10ML PO QID, NOVOLIN R SLIDING SCALE, OTBS ACSH, TUSSIONEX 5ML PO Q12H PRN, AND HER HOME MEDICATIONS WERE RESUMED. 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 transplanted heart: [place] heart Associated angina: unspecified whether angina present Qualified Code(s): I25.10 - Atherosclerotic heart disease of [place] coronary artery without angina pectoris
[2022-01-04] MEDS: SOLU-Medrol 40 MG VIAL IVP SCH ×3 (12:15→21:24)
--- NOTE | 2022-01-04 12:31 | PCM.PROG ---
Progress Note - Progress Note for Day of Date of Exam: 01/04/22 - Subjective Subjective: WAS ADMITTED FOR TREATMENT OF PNEUMONIA. TODAY, SHE IS ALERT AND ORIENTED, LYING IN BED ON MORNING ROUNDS. SHE CONTINUES WITH COMPLAINTS OF SHORTNESS OF BREATH AND COUGH. SHE ALSO COMPLAINS OF NASAL CONGESTION WITH DRAINAGE AT TIMES. SHE REPORTS THAT SHORTNESS OF BREATH IS WORSE TODAY. ON EXAMINATION, HEART IS REGULAR IN RATE AND RHYTHM. BILATERAL LUNGS ARE NOTED WITH SCATTERED WHEEZING AND RHONCHI THROUGHOUT. ABDOMEN IS ROUND, SOFT, AND NON-TENDER WITH NORMAL BOWEL SOUNDS NOTED IN ALL QUADRANTS. NO UPPER OR LOWER EXTREMITY EDEMA IS NOTED. HER VITALS THIS MORNING ARE: 97.7-60 -20-99%-115/56. SHE IS CURRENTLY USING OXYGEN VIA NASAL CANNULA AT 2 LPM. LABS WERE OBTAINED. WBC 6.3, RBC 3.42, HGB 10.0, HCT 29.8, PLT COUNT 191, SODIUM 143, POTASSIUM 4.7, CHLORIDE 107, BUN 14, CREATININE 1.30, GLUCOSE 156, CALCIUM 6.9, ALBUMIN 8.1, AST 18, ALT 10, ALK PHOS 57, TOTAL PROTEIN 5.8, ALBUMIN 2.5. RESPIRATORY VIRAL PANEL WAS POSITIVE FOR RHINOVIRUS. BLOOD CULTURES ARE ALSO PENDING. PRELIMINARY BLOOD CULTURE REPORTED COAGULASE NEGATIVE STAFF. CHEST XRAY REVEALED: Cardiomegaly without congestive heart failure, unchanged. SHE IS CURRENTLY RECEIVING NORMAL SALINE AT 75 ML/HR, THE POTASSIUM AND MAGNESIUM PROTOCOLS, LEVAQUIN 750MG IV Q48H, DUONEBS QID, PULMICORT NEBS BID, ELIQUIS 5MG PO BID, ROBITUSSIN DM 10ML PO QID, NOVOLIN R SLIDING SCALE, OTBS ACSH, TUSSIONEX 5ML PO Q12H PRN, AND HER HOME MEDICATIONS WERE RESUMED. WE WILL CONTINUE WITH CURRENT PLAN OF CARE TODAY AND ADD SOLU-MEDROL 80MG IV Q8H. OTHERWISE, WE WILL FOLLOW-UP WITH AM LABS AND CONTINUE TO MONITOR. TIME SPENT ON CLINICAL ASSESSMENT, REVIWING LABS AND IMAGING, DECISION MAKING, AND DOCUMENTATION GREATER THAN 45 MINUTES. - Past Medical Family Social History Past Med/Fam/Surg Hx: No changes since H&P Allergies: Allergies morphine Allergy (Verified 01/01/22 15:26) - Review of Systems ROS: No change since H&P - Vital Signs and I&O's Vital Signs: Temperature 97.7 F Pulse Rate [Right Brachial] 52 Pulse Rate 98 Respiratory Rate 20 Blood Pressure [Right Arm] 165/76 Blood Pressure [Left Arm] 115/56 Blood Pressure 160/80 O2 Sat by Pulse Oximetry 99 Intake and Output: Intake & Output 01/02/22 01/03/22 01/04/22 01/05/22 11:59 11:59 11:59 11:59 Intake Total 2107 2880 / 2880 3905 / 3905 Balance 2107 2880 / 2880 3905 / 3905 - Physical Exam Oriented: Normal Eyes: Normal Ear: Normal Nose: Discharge (CLEAR ) Throat: Normal Respiratory: Generalized, Wheezes, Rhonchi Cardiovascular: Normal : Normal Auscultation: Bowel Sounds: Normal Palpation: Normal Tenderness: Normal Skin: Normal Musculoskeletal: Normal Psychiatric: Normal Mood Description: Calm Affect: Normal Speech Pattern: Clear, Appropriate - Laboratory and Diagnostics Result Diagrams: 01/04/22 05:38 01/04/22 05:38 Labs: 01/01/22 16:10 Blood Blood Culture - Final 01/01/22 16:20 Blood Blood Culture - Preliminary Laboratory WBC 6.3 X10^3/uL (3.6-10.0) 01/04/22 05:38 RBC 3.42 X10^6/uL (3.5-5.4) L 01/04/22 05:38 Hgb 10.0 g/dL (12.0-16.0) L 01/04/22 05:38 Hct 29.8 % (36.0-47.0) L 01/04/22 05:38 MCV 87.0 fL (80.0-100.0) 01/04/22 05:38 MCH 29.1 pg (27.0-34.0) 01/04/22 05:38 MCHC 33.5 g/dL (33.0-35.0) 01/04/22 05:38 RDW 14.0 % (11.6-16.5) 01/04/22 05:38 Plt Count 191 X10^3/uL (150.0-450.0) 01/04/22 05:38 MPV 9.4 fL (7.4-11.0) 01/04/22 05:38 Neut % (Auto) 60.0 % (42.0-75.0) 01/04/22 05:38 Lymph % (Auto) 26.2 % (21.0-51.0) 01/04/22 05:38 [place] % (Auto) 10.2 % (0.0-13.0) 01/04/22 05:38 Eos % (Auto) 2.9 % (0.9-2.9) 01/04/22 05:38 Baso % (Auto) 0.7 % (0.2-1.0) 01/04/22 05:38 Neut # (Auto) 3.8 x10^3/uL (2.2-4.8) 01/04/22 05:38 Lymph # (Auto) 1.7 X10^3/uL (1.3-2.9) 01/04/22 05:38 [place] # (Auto) 0.6 x10^3/uL (0.3-0.8) 01/04/22 05:38 Eos # (Auto) 0.2 x10^3/uL (0.0-0.2) 01/04/22 05:38 Baso # (Auto) 0.0 X10^3/uL (0.0-0.1) 01/04/22 05:38 Absolute Nucleated RBC 0.0 /100WBC 01/04/22 05:38 Sample Site Rr 01/01/22 15:03 ABG pH 7.510 (7.35-7.45) H 01/01/22 15:03 ABG pCO2 42.0 mmHg (35.0-45.0) 01/01/22 15:03 ABG pO2 75.0 mmHg (80.0-100.0) L 01/01/22 15:03 ABG HCO3 33.5 mmol/L (22-26) H* 01/01/22 15:03 ABG O2 Saturation 96.0 % (90-100) 01/01/22 15:03 ABG Base Excess 9.5 mmol/L (-2.0-2.0) H 01/01/22 15:03 Romero Test Pos 01/01/22 15:03 A-a Gradient 22.0 mmHg 01/01/22 15:03 FiO2 21.0 01/01/22 15:03 Blood Gas Comments Pt radha well 01/01/22 15:03 Sodium 143 mmol/L (136-145) 01/04/22 05:38 Corrected Sodium 144 mmol/L (136-145) 01/04/22 05:38 Potassium 4.7 mmol/L (3.5-5.1) 01/04/22 05:38 Chloride 107 mmol/L (98-107) 01/04/22 05:38 Carbon Dioxide 29.0 mmol/L (21-32) 01/04/22 05:38 BUN 14 mg/dL (7-18) 01/04/22 05:38 Creatinine 1.30 mg/dL (0.55-1.02) H 01/04/22 05:38 Est GFR (MDRD) Af Amer 51 (>60) L 01/04/22 05:38 Est GFR (MDRD) Non-Af 42 (>60) L 01/04/22 05:38 Glucose 156 mg/dL (65-99) H 01/04/22 05:38 POC Glucose (mg/dL) 188 mg/dL (65-99) H 01/04/22 12:19 Calcium 6.9 mg/dL (8.5-10.1) L 01/04/22 05:38 Corrected Calcium 8.1 mg/dL (8.5-10.1) L 01/04/22 05:38 Magnesium 2.1 mg/dL (1.7-2.9) 01/03/22 05:49 Total Bilirubin 0.40 mg/dL (0.2-1.0) 01/04/22 05:38 AST 18 Units/L (15-37) 01/04/22 05:38 ALT 10 Units/L (12-78) L 01/04/22 05:38 Alkaline Phosphatase 57 Units/L (46-116) 01/04/22 05:38 Creatine Kinase 142 Units/L (26-192) 01/01/22 23:17 Troponin I High Sens 12.0 ng/L (4.0-60.0) 01/01/22 23:17 Total Protein 5.8 g/dL (6.4-8.2) L 01/04/22 05:38 Albumin 2.5 g/dL (3.4-5.0) L 01/04/22 05:38 Globulin 3.3 g/dL (2.5-4.5) 01/04/22 05:38 Albumin/Globulin Ratio 0.8 Ratio (1.1-2.1) L 01/04/22 05:38 SARS-CoV-2 (PCR) Negative (NEGATIVE) 01/01/22 15:14 Influenza Type A (PCR) Negative (NEGATIVE) 01/01/22 15:14 Influenza Type B (PCR) Negative (NEGATIVE) 01/01/22 15:14 RSV (PCR) Negative (NEGATIVE) 01/01/22 15:14 Resp Viral Panel (PCR) See scanned report 01/01/22 18:00 - Plan (1) Pneumonia Status: Acute Qualifiers: Pneumonia type: due to unspecified organism Laterality: bilateral Lung location: lower lobe of lung Qualified Code(s): J18.9 - Pneumonia, unspecified organism Plan: SUPPLEMENTAL OXYGEN, NORMAL SALINE AT 75 ML/HR, THE POTASSIUM AND MAGNESIUM PROTOCOLS, LEVAQUIN 750MG IV Q48H, DUONEBS QID, PULMICORT NEBS BID, SOLU-MEDROL 80MG IV Q8H, ELIQUIS 5MG PO BID, ROBITUSSIN DM 10ML PO QID, NOVOLIN R SLIDING SCALE, OTBS ACSH, TUSSIONEX 5ML PO Q12H PRN, AND HER HOME MEDICATIONS WERE RESUMED. (2) Acute hypokalemia Status: Acute (3) Diabetes mellitus Status: Chronic Qualifiers: Diabetes mellitus type: type 2 Diabetes mellitus long-term insulin use: with termite exterminator use Diabetes mellitus complication status: with hyperglycemia Qualified Code(s): E11.65 - Type 2 diabetes mellitus with hyperglycemia; Z79.4 - senior living (current) use of insulin (4) Chronic kidney disease (CKD) Status: Chronic Qualifiers: Chronic kidney disease stage: unspecified stage (5) Generalized weakness Status: Acute (6) CHF (congestive heart failure) Status: Chronic Qualifiers: Heart failure type: unspecified Heart failure chronicity: chronic Qualified Code(s): I50.9 - Heart failure, unspecified (7) CAD (coronary artery disease) Status: Chronic Qualifiers: Coronary Disease-Associated Artery/Lesion type: [place] artery [place] vs. transplanted heart: [place] heart Associated angina: unspecified whether angina present Qualified Code(s): I25.10 - Atherosclerotic heart disease of [place] coronary artery without angina pectoris
[2022-01-04] MEDS: NovoLIN R (or HumuLIN R) SUBCUT PRN ×2 (18:10→21:25)
[2022-01-04] MEDS: SNACK - Diabetic Appropriate PO SCH ×2 (21:24→22:04)
[2022-01-04] MEDS: LUMIGAN OPHTH EACHEYE SCH (21:26)
[2022-01-05] MEDS: NS 1/2 1,000 ML IV 1,000 ML IV SCH ×3 (00:07→16:13)
--- NOTE | 2022-01-05 05:13 | RAD ---
PROCEDURE: Chest X-ray 1 View .HISTORY: Dyspnea.TECHNIQUE: AP view .COMPARISON: 01/04/2022.TECHNICAL QUALITY: Satisfactory .FINDINGS:Normal size heart .Mediastinum and hilar regions show no masses or lymphadenopathy .Normal central vascularity .No pulmonary consolidation, masses, pleural fluid, or pneumothorax .No acute bony abnormality .IMPRESSION:No active cardiopulmonary disease .Electronically signed by: Kavin Kruse (Jan 05, 2022 05:11:31)
[2022-01-05] MEDS: SOLU-Medrol 40 MG VIAL IVP SCH ×3 (05:33→22:08)
[2022-01-05] MEDS: NovoLIN R (or HumuLIN R) SUBCUT PRN ×3 (06:11→21:00)
[2022-01-05 06:15] LABS: BASOPHILS % (AUTO) 0.2 % (0.2-1.0); HEMATOCRIT 32.2 % (36.0-47.0); LYMPHOCYTES # (AUTO) 0.6 X10^3/uL (1.3-2.9); LYMPHOCYTES % (AUTO) 6.5 % (21.0-51.0); MEAN CORPUSCULAR HEMOGLOBIN 29.2 pg (27.0-34.0); MEAN CORPUSCULAR HGB CONC 34.2 g/dL (33.0-35.0); MEAN CORPUSCULAR VOLUME 85.4 fL (80.0-100.0); MEAN PLATELET VOLUME 9.6 fL (7.4-11.0); MONOCYTES # (AUTO) 0.2 x10^3/uL (0.3-0.8); MONOCYTES % (AUTO) 1.7 % (0.0-13.0); NEUTROPHILS # (AUTO) 8.2 x10^3/uL (2.2-4.8); NEUTROPHILS % (AUTO) 91.6 % (42.0-75.0); RED BLOOD COUNT 3.78 X10^6/uL (3.5-5.4); RED CELL DISTRIBUTION WIDTH 13.7 % (11.6-16.5)
[2022-01-05 06:52] LABS: ALBUMIN 2.8 g/dL (3.4-5.0); CALCIUM 7.4 mg/dL (8.5-10.1); CARBON DIOXIDE 27.5 mmol/L (21-32); COR CA(FOR HYPOALB) 8.4 mg/dL (8.5-10.1); CREATININE 1.31 mg/dL (0.55-1.02); TOTAL PROTEIN 6.6 g/dL (6.4-8.2)
[2022-01-05 07:17] LABS: BAND NEUTROPHILS % 2 % (0-10); PLATELET MORPHOLOGY COMMENT NORMAL (NORMAL)
[2022-01-05] MEDS: PULMICORT NEB TX 0.5 MG NEB SCH ×2 (09:22→20:50)
[2022-01-05] MEDS: DUONEB 0.5 MG/3 MG (3 mL) NEB SCH ×4 (09:22→20:50)
[2022-01-05] MEDS: COZAAR PO SCH (10:30)
[2022-01-05] MEDS: PriLOSEC PO SCH ×2 (11:01→20:59)
[2022-01-05] MEDS: ROBITUSSIN DM PO SCH ×4 (11:01→20:59)
[2022-01-05] MEDS: CLARITIN PO SCH (11:02)
[2022-01-05] MEDS: AMARYL TAB 4 MG PO SCH ×2 (11:02→20:59)
[2022-01-05] MEDS: ELIQUIS PO SCH ×2 (11:02→20:58)
[2022-01-05] MEDS: COMBIGAN EYE DROPS OP SCH ×2 (11:12→20:59)
--- NOTE | 2022-01-05 12:58 | PCM.PROG ---
Progress Note - Progress Note for Day of Date of Exam: 01/05/22 - Subjective Subjective: WAS ADMITTED FOR TREATMENT OF PNEUMONIA. TODAY, SHE IS ALERT AND ORIENTED, LYING IN BED ON MORNING ROUNDS. SHE CONTINUES WITH COMPLAINTS OF SHORTNESS OF BREATH AND COUGH. SHE ALSO COMPLAINS OF NASAL CONGESTION WITH DRAINAGE AT TIMES. SHE REPORTS SLIGHT IMPROVEMENT IN SYMPTOMS SINCE YESTERDAY. ON EXAMINATION, HEART IS REGULAR IN RATE AND RHYTHM. BILATERAL LUNGS ARE NOTED WITH SCATTERED WHEEZING AND RHONCHI THROUGHOUT. ABDOMEN IS ROUND, SOFT, AND NON-TENDER WITH NORMAL BOWEL SOUNDS NOTED IN ALL QUADRANTS. NO UPPER OR LOWER EXTREMITY EDEMA IS NOTED. HER VITALS THIS MORNING ARE: 98.9-54-21-99%-132/56. SHE IS CURRENTLY USING OXYGEN VIA NASAL CANNULA AT 2 LPM. LABS WERE OBTAINED. WBC 9.0, RBC 3.78, HGB 11.0, HCT 32.2, SODIUM 139, POTASSIUM 4.4, BUN 19, CREATININE 1.31, GLUCOSE 285, CALCIUM 7.4, AST 15, ALT 11, ALK PHOS 77, TOTAL PROTEIN 6.6, ALBUMIN 2.8. RESPIRATORY VIRAL PANEL WAS POSITIVE FOR RHINOVIRUS. BLOOD CULTURES ARE PENDING. SHE IS CURRENTLY RECEIVING NORMAL SALI NE AT 75 ML/HR, THE POTASSIUM AND MAGNESIUM PROTOCOLS, LEVAQUIN 750MG IV Q48H, SOLU-MEDROL 80MG IV Q8H, DUONEBS QID, PULMICORT NEBS BID, ELIQUIS 5MG PO BID, ROBITUSSIN DM 10ML PO QID, NOVOLIN R SLIDING SCALE, OTBS ACSH, TUSSIONEX 5ML PO Q12H PRN, AND HER HOME MEDICATIONS WERE RESUMED. WE WILL CONTINUE WITH CURRENT PLAN OF CARE TODAY. OTHERWISE, WE WILL FOLLOW-UP WITH AM LABS AND CONTINUE TO MONITOR. TIME SPENT ON CLINICAL ASSESSMENT, REVIWING LABS AND IMAGING, DECISION MAKING, AND DOCUMENTATION GREATER THAN 45 MINUTES. - Past Medical Family Social History Past Med/Fam/Surg Hx: No changes since H&P Allergies: Allergies morphine Allergy (Verified 01/01/22 15:26) - Review of Systems ROS: No change since H&P - Vital Signs and I&O's Vital Signs: Temperature 98.9 F Pulse Rate [Right Brachial] 54 Pulse Rate 63 Respiratory Rate 21 Blood Pressure [Right Arm] 165/76 Blood Pressure [Left Arm] 132/56 Blood Pressure 160/80 O2 Sat by Pulse Oximetry 97 Intake and Output: Intake & Output 01/03/22 01/04/22 01/05/22 01/06/22 11:59 11:59 11:59 11:59 Intake Total 2880 / 2880 3905 / 3905 2675 / 2675 Balance 2880 / 2880 3905 / 3905 2675 / 2675 - Physical Exam Oriented: Normal Eyes: Normal Ear: Normal Nose: Discharge (CLEAR ) Throat: Normal Respiratory: Generalized, Wheezes, Rhonchi Cardiovascular: Normal : Normal Auscultation: Bowel Sounds: Normal Palpation: Normal Tenderness: Normal Skin: Normal Musculoskeletal: Normal Psychiatric: Normal Mood Description: Calm Affect: Normal Speech Pattern: Clear, Appropriate - Laboratory and Diagnostics Result Diagrams: 01/05/22 05:42 01/05/22 05:42 Labs: 01/01/22 16:10 Blood Blood Culture - Final 01/01/22 16:20 Blood Blood Culture - Preliminary Laboratory WBC 9.0 X10^3/uL (3.6-10.0) 01/05/22 05:42 RBC 3.78 X10^6/uL (3.5-5.4) 01/05/22 05:42 Hgb 11.0 g/dL (12.0-16.0) L 01/05/22 05:42 Hct 32.2 % (36.0-47.0) L 01/05/22 05:42 MCV 85.4 fL (80.0-100.0) 01/05/22 05:42 MCH 29.2 pg (27.0-34.0) 01/05/22 05:42 MCHC 34.2 g/dL (33.0-35.0) 01/05/22 05:42 RDW 13.7 % (11.6-16.5) 01/05/22 05:42 Plt Count 233 X10^3/uL (150.0-450.0) 01/05/22 05:42 Plt Count Comment Adequate (ADEQUATE) 01/05/22 05:42 MPV 9.6 fL (7.4-11.0) 01/05/22 05:42 Neut % (Auto) 91.6 % (42.0-75.0) H 01/05/22 05:42 Lymph % (Auto) 6.5 % (21.0-51.0) L 01/05/22 05:42 [place] % (Auto) 1.7 % (0.0-13.0) 01/05/22 05:42 Eos % (Auto) 0.0 % (0.9-2.9) L 01/05/22 05:42 Baso % (Auto) 0.2 % (0.2-1.0) 01/05/22 05:42 Neut # (Auto) 8.2 x10^3/uL (2.2-4.8) H 01/05/22 05:42 Lymph # (Auto) 0.6 X10^3/uL (1.3-2.9) L 01/05/22 05:42 [place] # (Auto) 0.2 x10^3/uL (0.3-0.8) L 01/05/22 05:42 Eos # (Auto) 0.0 x10^3/uL (0.0-0.2) 01/05/22 05:42 Baso # (Auto) 0.0 X10^3/uL (0.0-0.1) 01/05/22 05:42 Absolute Nucleated RBC 0.0 /100WBC 01/05/22 05:42 Total Counted 100 01/05/22 05:42 Neutrophils % (Manual) 91 % (39-76) H 01/05/22 05:42 Band Neutrophils % 2 % (0-10) 01/05/22 05:42 Lymphocytes % (Manual) 7 % (13-43) L 01/05/22 05:42 Plt Morphology Comment Normal (NORMAL) 01/05/22 05:42 RBC Morphology Normal (NORMAL) 01/05/22 05:42 Sample Site Rr 01/01/22 15:03 ABG pH 7.510 (7.35-7.45) H 01/01/22 15:03 ABG pCO2 42.0 mmHg (35.0-45.0) 01/01/22 15:03 ABG pO2 75.0 mmHg (80.0-100.0) L 01/01/22 15:03 ABG HCO3 33.5 mmol/L (22-26) H* 01/01/22 15:03 ABG O2 Saturation 96.0 % (90-100) 01/01/22 15:03 ABG Base Excess 9.5 mmol/L (-2.0-2.0) H 01/01/22 15:03 Romero Test Pos 01/01/22 15:03 A-a Gradient 22.0 mmHg 01/01/22 15:03 FiO2 21.0 01/01/22 15:03 Blood Gas Comments Pt radha well 01/01/22 15:03 Sodium 139 mmol/L (136-145) 01/05/22 05:42 Corrected Sodium 143 mmol/L (136-145) 01/05/22 05:42 Potassium 4.4 mmol/L (3.5-5.1) 01/05/22 05:42 Chloride 104 mmol/L (98-107) 01/05/22 05:42 Carbon Dioxide 27.5 mmol/L (21-32) 01/05/22 05:42 BUN 19 mg/dL (7-18) H 01/05/22 05:42 Creatinine 1.31 mg/dL (0.55-1.02) H 01/05/22 05:42 Est GFR (MDRD) Af Amer 50 (>60) L 01/05/22 05:42 Est GFR (MDRD) Non-Af 42 (>60) L 01/05/22 05:42 Glucose 285 mg/dL (65-99) H 01/05/22 05:42 POC Glucose (mg/dL) 369 mg/dL (65-99) H 01/05/22 11:34 Calcium 7.4 mg/dL (8.5-10.1) L 01/05/22 05:42 Corrected Calcium 8.4 mg/dL (8.5-10.1) L 01/05/22 05:42 Magnesium 2.1 mg/dL (1.7-2.9) 01/03/22 05:49 Total Bilirubin 0.30 mg/dL (0.2-1.0) 01/05/22 05:42 AST 15 Units/L (15-37) 01/05/22 05:42 ALT 11 Units/L (12-78) L 01/05/22 05:42 Alkaline Phosphatase 77 Units/L (46-116) 01/05/22 05:42 Creatine Kinase 142 Units/L (26-192) 01/01/22 23:17 Troponin I High Sens 12.0 ng/L (4.0-60.0) 01/01/22 23:17 Total Protein 6.6 g/dL (6.4-8.2) 01/05/22 05:42 Albumin 2.8 g/dL (3.4-5.0) L 01/05/22 05:42 Globulin 3.8 g/dL (2.5-4.5) 01/05/22 05:42 Albumin/Globulin Ratio 0.7 Ratio (1.1-2.1) L 01/05/22 05:42 SARS-CoV-2 (PCR) Negative (NEGATIVE) 01/01/22 15:14 Influenza Type A (PCR) Negative (NEGATIVE) 01/01/22 15:14 Influenza Type B (PCR) Negative (NEGATIVE) 01/01/22 15:14 RSV (PCR) Negative (NEGATIVE) 01/01/22 15:14 Resp Viral Panel (PCR) See scanned report 01/01/22 18:00 - Plan (1) Pneumonia Status: Acute Qualifiers: Pneumonia type: due to unspecified organism Laterality: bilateral Lung location: lower lobe of lung Qualified Code(s): J18.9 - Pneumonia, unspecified organism Plan: SUPPLEMENTAL OXYGEN, NORMAL SALINE AT 75 ML/HR, THE POTASSIUM AND MAGNESIUM PROTOCOLS, LEVAQUIN 750MG IV Q48H, DUONEBS QID, PULMICORT NEBS BID, SOLU-MEDROL 80MG IV Q8H, ELIQUIS 5MG PO BID, ROBITUSSIN DM 10ML PO QID, NOVOLIN R SLIDING SCALE, OTBS ACSH, TUSSIONEX 5ML PO Q12H PRN, AND HER HOME MEDICATIONS WERE RESUMED. (2) Acute hypokalemia Status: Acute (3) Diabetes mellitus Status: Chronic Qualifiers: Diabetes mellitus type: type 2 Diabetes mellitus longterm insulin use: with intermodal dispatcher use Diabetes mellitus complication status: with hyperglycemia Qualified Code(s): E11.65 - Type 2 diabetes mellitus with hyperglycemia; Z79.4 - long term care phlebotomist (current) use of insulin (4) Chronic kidney disease (CKD) Status: Chronic Qualifiers: Chronic kidney disease stage: unspecified stage (5) Generalized weakness Status: Acute (6) CHF (congestive heart failure) Status: Chronic Qualifiers: Heart failure type: unspecified Heart failure chronicity: chronic Qualified Code(s): I50.9 - Heart failure, unspecified (7) CAD (coronary artery disease) Status: Chronic Qualifiers: Coronary Disease-Associated Artery/Lesion type: [place] artery [place] vs. transplanted heart: [place] heart Associated angina: unspecified whether angina present Qualified Code(s): I25.10 - Atherosclerotic heart disease of [place] coronary artery without angina pectoris
[2022-01-05] MEDS: TOPROL XL PO SCH (15:58)
[2022-01-05] MEDS ORDERED: NS 1/2 1,000 ML IV 1,000 ML IV ONE (16:02)
[2022-01-05] MEDS: LEVAQUIN PREMIX IV 750 MG 750 MG/150 ML BAG IV SCH (16:12)
[2022-01-05] MEDS: LUMIGAN OPHTH EACHEYE SCH (21:00)
[2022-01-05] MEDS: SNACK - Diabetic Appropriate PO SCH ×2 (21:15)
[2022-01-06] MEDS: NS 1/2 1,000 ML IV 1,000 ML IV SCH ×2 (00:57→13:42)
[2022-01-06] MEDS: SOLU-Medrol 40 MG VIAL IVP SCH ×3 (05:12→13:42)
[2022-01-06] MEDS: NovoLIN R (or HumuLIN R) SUBCUT PRN ×3 (05:40→17:15)
[2022-01-06 05:53] LABS: BASOPHILS % (AUTO) 0.1 % (0.2-1.0); HEMATOCRIT 29.7 % (36.0-47.0); LYMPHOCYTES # (AUTO) 0.5 X10^3/uL (1.3-2.9); LYMPHOCYTES % (AUTO) 2.7 % (21.0-51.0); MEAN CORPUSCULAR HEMOGLOBIN 28.8 pg (27.0-34.0); MEAN CORPUSCULAR HGB CONC 33.7 g/dL (33.0-35.0); MEAN CORPUSCULAR VOLUME 85.5 fL (80.0-100.0); MEAN PLATELET VOLUME 9.7 fL (7.4-11.0); MONOCYTES # (AUTO) 0.4 x10^3/uL (0.3-0.8); MONOCYTES % (AUTO) 2.1 % (0.0-13.0); NEUTROPHILS # (AUTO) 17.8 x10^3/uL (2.2-4.8); NEUTROPHILS % (AUTO) 95.1 % (42.0-75.0); RED BLOOD COUNT 3.47 X10^6/uL (3.5-5.4); RED CELL DISTRIBUTION WIDTH 14.1 % (11.6-16.5)
[2022-01-06 06:04] LABS: ALBUMIN 2.7 g/dL (3.4-5.0); CARBON DIOXIDE 29.7 mmol/L (21-32); CREATININE 1.28 mg/dL (0.55-1.02); TOTAL PROTEIN 6.1 g/dL (6.4-8.2)
[2022-01-06 06:08] LABS: WHITE BLOOD COUNT 18.7 X10^3/uL (3.6-10.0)
[2022-01-06 06:42] LABS: PLATELET MORPHOLOGY COMMENT NORMAL (NORMAL)
--- NOTE | 2022-01-06 07:29 | RAD ---
HISTORYShortness of breathSTUDYCHEST, 1 [id number]/16/2022FINDINGSThe trachea is midline. The cardiac silhouette is enlarged with a tortuous thoracic aorta . The lungs are clear without focal infiltrate or effusion. The bony thorax is unremarkable.IMPRESSIONNo acute cardiopulmonary disease.Electronically signed by: ASAF CHINO (Jan 06, 2022 07:28:05)
[2022-01-06] MEDS: ROBITUSSIN DM PO SCH ×4 (08:15→20:30)
[2022-01-06] MEDS: TOPROL XL PO SCH (08:16)
[2022-01-06] MEDS: ELIQUIS PO SCH ×2 (08:16→20:30)
[2022-01-06] MEDS: PriLOSEC PO SCH ×2 (08:17→20:30)
[2022-01-06] MEDS: CLARITIN PO SCH (08:17)
[2022-01-06] MEDS: COZAAR PO SCH (08:17)
[2022-01-06] MEDS: AMARYL TAB 4 MG PO SCH ×2 (08:17→20:30)
[2022-01-06] MEDS: COMBIGAN EYE DROPS OP SCH ×2 (08:19→20:30)
[2022-01-06] MEDS: PULMICORT NEB TX 0.5 MG NEB SCH ×2 (08:50→21:10)
[2022-01-06] MEDS: DUONEB 0.5 MG/3 MG (3 mL) NEB SCH ×4 (08:50→21:10)
--- NOTE | 2022-01-06 09:34 | PCM.PROG ---
Progress Note - Progress Note for Day of Date of Exam: 01/06/22 - Subjective Subjective: WAS ADMITTED FOR TREATMENT OF PNEUMONIA. TODAY, SHE IS ALERT AND ORIENTED, LYING IN BED ON MORNING ROUNDS. SHE CONTINUES WITH COMPLAINTS OF SHORTNESS OF BREATH AND A NON-PRODUCTIVE COUGH. SHE REPORTS SLIGHT IMPROVEMENT IN SYMPTOMS SINCE YESTERDAY. ON EXAMINATION, HEART IS REGULAR IN RATE AND RHYTHM. BILATERAL LUNGS ARE NOTED WITH SCATTERED WHEEZING AND RHONCHI THROUGHOUT. ABDOMEN IS ROUND, SOFT, AND NON-TENDER WITH NORMAL BOWEL SOUNDS NOTED IN ALL QUADRANTS. NO UPPER OR LOWER EXTREMITY EDEMA IS NOTED. HER VITALS THIS MORNING ARE: 98.2-64-20-96%-164/79. SHE IS CURRENTLY USING OXYGEN VIA NASAL CANNULA AT 2 LPM. LABS WERE OBTAINED. WBC INCREASED TO 18.7, RBC 3.47, HGB 10.0, HCT 29.7, SODIUM 139, POTASSIUM 4.3, CHLORIDE 106, BUN 21, CREATININE 1.28, GLUCOSE 346, CALCIUM 7.0, AST 12, ALT 10, ALK PHOS 80, TOTAL PROTEIN 6.1, ALBUMIN 2.7. RESPIRATORY VIRAL PANEL WAS POSITIVE FOR RHINOVIRUS. BLOOD CULTURES ARE PENDING. SHE IS CURRENTLY RECEIVING NORMAL SALINE AT 75 ML/HR, THE POTASSIUM AND MAGNESIUM PROTOCOLS, LEVAQUIN 750MG IV Q48H, SOLU-MEDROL 80MG IV Q8H, DUONEBS QID, PULMICORT NEBS BID, ELIQUIS 5MG PO BID, ROBITUSSIN DM 10ML PO QID, NOVOLIN R SLIDING SCALE, OTBS ACSH, TUSSIONEX 5ML PO Q12H PRN, AND HER HOME MEDICATIONS WERE RESUMED. WE WILL CONTINUE WITH CURRENT PLAN OF CARE TODAY AND DECREASE THE SOLU-MEDROL TO 40MG IV Q8H. OTHERWISE, WE WILL FOLLOW-UP WITH AM L ABS AND CONTINUE TO MONITOR. TIME SPENT ON CLINICAL ASSESSMENT, REVIWING LABS AND IMAGING, DECISION MAKING, AND DOCUMENTATION GREATER THAN 45 MINUTES. - Past Medical Family Social History Past Med/Fam/Surg Hx: No changes since H&P Allergies: Allergies morphine Allergy (Verified 01/01/22 15:26) - Review of Systems ROS: No change since H&P - Vital Signs and I&O's Vital Signs: Temperature 98.2 F Pulse Rate [Right Brachial] 64 Pulse Rate 64 Respiratory Rate 20 Blood Pressure [Right Arm] 164/79 Blood Pressure [Left Arm] 146/65 Blood Pressure 160/80 O2 Sat by Pulse Oximetry 96 Intake and Output: Intake & Output 01/03/22 01/04/22 01/05/22 01/06/22 11:59 11:59 11:59 11:59 Intake Total 2880 / 2880 3905 / 3905 2675 / 2675 1420 / 1420 Balance 2880 / 2880 3905 / 3905 2675 / 2675 1420 / 1420 - Physical Exam Oriented: Normal Eyes: Normal Ear: Normal Nose: Discharge (CLEAR ) Throat: Normal Respiratory: Generalized, Wheezes, Rhonchi Cardiovascular: Normal : Normal Auscultation: Bowel Sounds: Normal Palpation: Normal Tenderness: Normal Skin: Normal Musculoskeletal: Normal Psychiatric: Normal Mood Description: Calm Affect: Normal Speech Pattern: Clear, Appropriate - Laboratory and Diagnostics Result Diagrams: 01/06/22 04:54 01/06/22 04:54 Labs: 01/01/22 16:10 Blood Blood Culture - Final 01/01/22 16:20 Blood Blood Culture - Preliminary Laboratory WBC 18.7 X10^3/uL (3.6-10.0) H D 01/06/22 04:54 RBC 3.47 X10^6/uL (3.5-5.4) L 01/06/22 04:54 Hgb 10.0 g/dL (12.0-16.0) L 01/06/22 04:54 Hct 29.7 % (36.0-47.0) L 01/06/22 04:54 MCV 85.5 fL (80.0-100.0) 01/06/22 04:54 MCH 28.8 pg (27.0-34.0) 01/06/22 04:54 MCHC 33.7 g/dL (33.0-35.0) 01/06/22 04:54 RDW 14.1 % (11.6-16.5) 01/06/22 04:54 Plt Count 223 X10^3/uL (150.0-450.0) 01/06/22 04:54 Plt Count Comment Adequate (ADEQUATE) 01/06/22 04:54 MPV 9.7 fL (7.4-11.0) 01/06/22 04:54 Neut % (Auto) 95.1 % (42.0-75.0) H 01/06/22 04:54 Lymph % (Auto) 2.7 % (21.0-51.0) L 01/06/22 04:54 [place] % (Auto) 2.1 % (0.0-13.0) 01/06/22 04:54 Eos % (Auto) 0.0 % (0.9-2.9) L 01/06/22 04:54 Baso % (Auto) 0.1 % (0.2-1.0) L 01/06/22 04:54 Neut # (Auto) 17.8 x10^3/uL (2.2-4.8) H 01/06/22 04:54 Lymph # (Auto) 0.5 X10^3/uL (1.3-2.9) L 01/06/22 04:54 [place] # (Auto) 0.4 x10^3/uL (0.3-0.8) 01/06/22 04:54 Eos # (Auto) 0.0 x10^3/uL (0.0-0.2) 01/06/22 04:54 Baso # (Auto) 0.0 X10^3/uL (0.0-0.1) 01/06/22 04:54 Absolute Nucleated RBC 0.0 /100WBC 01/06/22 04:54 Total Counted 100 01/06/22 04:54 Neutrophils % (Manual) 98 % (39-76) H 01/06/22 04:54 Band Neutrophils % 2 % (0-10) 01/05/22 05:42 Lymphocytes % (Manual) 0 % (13-43) L 01/06/22 04:54 Monocytes % (Manual) 2 % (4-9) L 01/06/22 04:54 Plt Morphology Comment Normal (NORMAL) 01/06/22 04:54 RBC Morphology Normal (NORMAL) 01/06/22 04:54 Sample Site Rr 01/01/22 15:03 ABG pH 7.510 (7.35-7.45) H 01/01/22 15:03 ABG pCO2 42.0 mmHg (35.0-45.0) 01/01/22 15:03 ABG pO2 75.0 mmHg (80.0-100.0) L 01/01/22 15:03 ABG HCO3 33.5 mmol/L (22-26) H* 01/01/22 15:03 ABG O2 Saturation 96.0 % (90-100) 01/01/22 15:03 ABG Base Excess 9.5 mmol/L (-2.0-2.0) H 01/01/22 15:03 Romero Test Pos 01/01/22 15:03 A-a Gradient 22.0 mmHg 01/01/22 15:03 FiO2 21.0 01/01/22 15:03 Blood Gas Comments Pt radha well 01/01/22 15:03 Sodium 139 mmol/L (136-145) 01/06/22 04:54 Corrected Sodium 145 mmol/L (136-145) 01/06/22 04:54 Potassium 4.3 mmol/L (3.5-5.1) 01/06/22 04:54 Chloride 106 mmol/L (98-107) 01/06/22 04:54 Carbon Dioxide 29.7 mmol/L (21-32) 01/06/22 04:54 BUN 21 mg/dL (7-18) H 01/06/22 04:54 Creatinine 1.28 mg/dL (0.55-1.02) H 01/06/22 04:54 Est GFR (MDRD) Af Amer 52 (>60) L 01/06/22 04:54 Est GFR (MDRD) Non-Af 43 (>60) L 01/06/22 04:54 Glucose 346 mg/dL (65-99) H 01/06/22 04:54 POC Glucose (mg/dL) 339 mg/dL (65-99) H 01/06/22 05:29 Calcium 7.0 mg/dL (8.5-10.1) L 01/06/22 04:54 Corrected Calcium 8.0 mg/dL (8.5-10.1) L 01/06/22 04:54 Magnesium 2.1 mg/dL (1.7-2.9) 01/03/22 05:49 Total Bilirubin 0.30 mg/dL (0.2-1.0) 01/06/22 04:54 AST 12 Units/L (15-37) L 01/06/22 04:54 ALT 10 Units/L (12-78) L 01/06/22 04:54 Alkaline Phosphatase 80 Units/L (46-116) 01/06/22 04:54 Creatine Kinase 142 Units/L (26-192) 01/01/22 23:17 Troponin I High Sens 12.0 ng/L (4.0-60.0) 01/01/22 23:17 Total Protein 6.1 g/dL (6.4-8.2) L 01/06/22 04:54 Albumin 2.7 g/dL (3.4-5.0) L 01/06/22 04:54 Globulin 3.4 g/dL (2.5-4.5) 01/06/22 04:54 Albumin/Globulin Ratio 0.8 Ratio (1.1-2.1) L 01/06/22 04:54 SARS-CoV-2 (PCR) Negative (NEGATIVE) 01/01/22 15:14 Influenza Type A (PCR) Negative (NEGATIVE) 01/01/22 15:14 Influenza Type B (PCR) Negative (NEGATIVE) 01/01/22 15:14 RSV (PCR) Negative (NEGATIVE) 01/01/22 15:14 Resp Viral Panel (PCR) See scanned report 01/01/22 18:00 - Plan (1) Pneumonia Status: Acute Qualifiers: Pneumonia type: due to unspecified organism Laterality: bilateral Lung location: lower lobe of lung Qualified Code(s): J18.9 - Pneumonia, unspecified organism Plan: SUPPLEMENTAL OXYGEN, NORMAL SALINE AT 75 ML/HR, THE POTASSIUM AND MAGNESIUM PROTOCOLS, LEVAQUIN 750MG IV Q48H, DUONEBS QID, PULMICORT NEBS BID, SOLU-MEDROL 40MG IV Q8H, ELIQUIS 5MG PO BID, ROBITUSSIN DM 10ML PO QID, NOVOLIN R SLIDING SCALE, OTBS ACHS, TUSSIONEX 5ML PO Q12H PRN, AND HER HOME MEDICATIONS WERE RESUMED. 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 transplanted heart: [place] heart Associated angina: unspecified whether angina present Qualified Code(s): I25.10 - Atherosclerotic heart disease of [place] coronary artery without angina pectoris
[2022-01-06] MEDS: LANTUS SC SCH ×2 (17:14→20:30)
[2022-01-06] MEDS ORDERED: SNACK - Diabetic Appropriate PO SCH (20:00)
[2022-01-06] MEDS: SNACK - Diabetic Appropriate PO SCH (20:15)
[2022-01-06] MEDS: LUMIGAN OPHTH EACHEYE SCH (20:30)
[2022-01-06] MEDS ORDERED: NS 1/2 1,000 ML IV 1,000 ML IV ONE (23:28)
[2022-01-07] MEDS: NS 1/2 1,000 ML IV 1,000 ML IV SCH ×4 (00:01→14:11)
[2022-01-07] MEDS: NovoLIN R (or HumuLIN R) SUBCUT PRN ×3 (05:31→16:36)
[2022-01-07 05:35] LABS: BASOPHILS % (AUTO) 0.2 % (0.2-1.0); HEMATOCRIT 28.8 % (36.0-47.0); HEMOGLOBIN 9.7 g/dL (12.0-16.0); LYMPHOCYTES # (AUTO) 0.6 X10^3/uL (1.3-2.9); MEAN CORPUSCULAR HEMOGLOBIN 28.7 pg (27.0-34.0); MEAN CORPUSCULAR HGB CONC 33.6 g/dL (33.0-35.0); MEAN CORPUSCULAR VOLUME 85.5 fL (80.0-100.0); MEAN PLATELET VOLUME 9.9 fL (7.4-11.0); MONOCYTES # (AUTO) 0.5 x10^3/uL (0.3-0.8); MONOCYTES % (AUTO) 2.3 % (0.0-13.0); NEUTROPHILS # (AUTO) 19.1 x10^3/uL (2.2-4.8); NEUTROPHILS % (AUTO) 94.5 % (42.0-75.0); RED BLOOD COUNT 3.37 X10^6/uL (3.5-5.4); RED CELL DISTRIBUTION WIDTH 13.8 % (11.6-16.5); WHITE BLOOD COUNT 20.2 X10^3/uL (3.6-10.0)
[2022-01-07 05:52] LABS: ALBUMIN 2.6 g/dL (3.4-5.0); CALCIUM 6.8 mg/dL (8.5-10.1); CARBON DIOXIDE 29.5 mmol/L (21-32); COR CA(FOR HYPOALB) 7.9 mg/dL (8.5-10.1); CREATININE 1.22 mg/dL (0.55-1.02); TOTAL PROTEIN 5.8 g/dL (6.4-8.2)
[2022-01-07 05:58] LABS: BAND NEUTROPHILS % 2 % (0-10); PLATELET MORPHOLOGY COMMENT NORMAL (NORMAL)
--- NOTE | 2022-01-07 06:44 | RAD ---
HISTORYSOBSTUDYCHEST, 1 [id number]/2022FINDINGSThe cardiomediastinal silhouette is stable given rotation. No acute airspace disease. No pneumothorax or effusion. The bony thorax appears intact.IMPRESSIONNo acute cardiopulmonary disease.Electronically signed by: BRI MONREAL (Jan 07, 2022 06:42:53)
[2022-01-07] MEDS: PULMICORT NEB TX 0.5 MG NEB SCH ×2 (08:55→21:20)
[2022-01-07] MEDS: DUONEB 0.5 MG/3 MG (3 mL) NEB SCH ×4 (08:55→21:20)
[2022-01-07] MEDS: ELIQUIS PO SCH ×2 (08:56→20:17)
[2022-01-07] MEDS: ROBITUSSIN DM PO SCH ×4 (08:56→20:16)
[2022-01-07] MEDS: CLARITIN PO SCH (08:56)
[2022-01-07] MEDS: COZAAR PO SCH (08:56)
[2022-01-07] MEDS: AMARYL TAB 4 MG PO SCH ×2 (08:57→20:17)
[2022-01-07] MEDS: PriLOSEC PO SCH ×2 (08:57→20:17)
[2022-01-07] MEDS: COMBIGAN EYE DROPS OP SCH ×2 (08:58→20:22)
[2022-01-07] MEDS: TOPROL XL PO SCH (08:58)
[2022-01-07] MEDS: TUSSIONEX PENNKINETIC SUSP PO SCH ×2 (09:10→22:05)
[2022-01-07] MEDS: TESSALON PERLES PO SCH ×3 (09:10→21:01)
[2022-01-07] MEDS ORDERED: NS 1/2 1,000 ML IV 1,000 ML IV ONE (11:16)
--- NOTE | 2022-01-07 15:27 | PCM.PROG ---
Progress Note - Progress Note for Day of Date of Exam: 01/07/22 - Subjective Subjective: WAS ADMITTED FOR TREATMENT OF PNEUMONIA. TODAY, SHE IS ALERT AND ORIENTED, LYING IN BED ON MORNING ROUNDS. SHE CONTINUES WITH COMPLAINTS OF SHORTNESS OF BREATH AND A NON-PRODUCTIVE COUGH. SHE REPORTS SLIGHT IMPROVEMENT IN SYMPTOMS SINCE YESTERDAY. ON EXAMINATION, HEART IS REGULAR IN RATE AND RHYTHM. BILATERAL LUNGS ARE NOTED WITH SCATTERED WHEEZING AND RHONCHI THROUGHOUT. ABDOMEN IS ROUND, SOFT, AND NON-TENDER WITH NORMAL BOWEL SOUNDS NOTED IN ALL QUADRANTS. NO UPPER OR LOWER EXTREMITY EDEMA IS NOTED. HER VITALS THIS MORNING ARE: 98.3-66-20-98%-156/78. SHE IS CURRENTLY USING OXYGEN VIA NASAL CANNULA AT 2 LPM. LABS WERE OBTAINED. WBC INCREASED TO 20.2, RBC 3.37, HGB 9.7, HCT 28.8, SODIUM 140, POTASSIUM 4.1, CHLORIDE 107, BUN 25, CREATININE 1.22, GLUCOSE 317, CALCIUM 6.8, AST 14, ALT 14, ALK PHOS 85, TOTAL PROTEIN 5.8, ALBUMIN 2.6. RESPIRATORY VIRAL PANEL WAS POSITIVE FOR RHINOVIRUS. BLOOD CULTURES ARE PENDING. SHE IS CURRENTLY RECEIVING NORMAL SALINE AT 75 ML/HR, THE POTASSIUM AND MAGNESIUM PROTOCOLS, LEVAQUIN 750MG IV Q48H, SOLU-MEDROL 40MG IV Q8H, DUONEBS QID, PULMICORT NEBS BID, ELIQUIS 5MG PO BID, ROBITUSSIN DM 10ML PO QID, NOVOLIN R SLIDING SCALE, OTBS ACSH, TUSSIONEX 5ML PO Q12H, AND HER HOME MEDICATIONS WERE RESUMED. HER WHITE BLOOD CELL COUNT CONTINUES TO INCREASE DESPITE DECREASING SOLU-MEDROL DOSAGE. WE WILL ADD FORTAZ 1G IV Q8H AND TESSALON PERLES 200MG PO TID. OTHERWISE, WE WILL CONTINUE WITH CURRENT PLAN OF CARE TODAY. WE WILL FOLLOW-UP WITH AM LABS AND CONTINUE TO MONITOR. TIME SPENT ON CLINICAL ASSESSMENT, REVIWING LABS AND IMAGING, DECISION MAKING, AND DOCUMENTATION GREATER THAN 45 MINUTES. - Past Medical Family Social History Past Med/Fam/Surg Hx: No changes since H&P Allergies: Allergies morphine Allergy (Verified 01/01/22 15:26) - Review of Systems ROS: No change since H&P - Vital Signs and I&O's Vital Signs: Temperature 97.9 F Pulse Rate [Right Brachial] 58 Pulse Rate 66 Respiratory Rate 20 Blood Pressure [Right Arm] 141/66 Blood Pressure [Left Arm] 119/56 Blood Pressure 160/80 O2 Sat by Pulse Oximetry 100 Intake and Output: Intake & Output 01/05/22 01/06/22 01/07/22 01/08/22 11:59 11:59 11:59 11:59 Intake Total 2675 / 2675 1420 / 1420 2721 / 2721 600 / 600 Balance 2675 / 2675 1420 / 1420 2721 / 2721 600 / 600 - Physical Exam Oriented: Normal Eyes: Normal Ear: Normal Nose: Discharge (CLEAR ) Throat: Normal Respiratory: Generalized, Wheezes, Rhonchi Cardiovascular: Normal : Normal Auscultation: Bowel Sounds: Normal Tenderness: Normal Skin: Normal Musculoskeletal: Normal Psychiatric: Normal Mood Description: Calm Affect: Normal Speech Pattern: Clear, Appropriate - Laboratory and Diagnostics Result Diagrams: 01/07/22 04:56 01/07/22 04:56 Labs: 01/01/22 16:20 Blood Blood Culture - Final 01/04/22 12:44 Blood Blood Culture - Preliminary 01/04/22 12:31 Blood Blood Culture - Preliminary 01/01/22 16:10 Blood Blood Culture - Final Laboratory WBC 20.2 X10^3/uL (3.6-10.0) H 01/07/22 04:56 RBC 3.37 X10^6/uL (3.5-5.4) L 01/07/22 04:56 Hgb 9.7 g/dL (12.0-16.0) L 01/07/22 04:56 Hct 28.8 % (36.0-47.0) L 01/07/22 04:56 MCV 85.5 fL (80.0-100.0) 01/07/22 04:56 MCH 28.7 pg (27.0-34.0) 01/07/22 04:56 MCHC 33.6 g/dL (33.0-35.0) 01/07/22 04:56 RDW 13.8 % (11.6-16.5) 01/07/22 04:56 Plt Count 230 X10^3/uL (150.0-450.0) 01/07/22 04:56 Plt Count Comment Adequate (ADEQUATE) 01/07/22 04:56 MPV 9.9 fL (7.4-11.0) 01/07/22 04:56 Neut % (Auto) 94.5 % (42.0-75.0) H 01/07/22 04:56 Lymph % (Auto) 3.0 % (21.0-51.0) L 01/07/22 04:56 [place] % (Auto) 2.3 % (0.0-13.0) 01/07/22 04:56 Eos % (Auto) 0.0 % (0.9-2.9) L 01/07/22 04:56 Baso % (Auto) 0.2 % (0.2-1.0) 01/07/22 04:56 Neut # (Auto) 19.1 x10^3/uL (2.2-4.8) H 01/07/22 04:56 Lymph # (Auto) 0.6 X10^3/uL (1.3-2.9) L 01/07/22 04:56 [place] # (Auto) 0.5 x10^3/uL (0.3-0.8) 01/07/22 04:56 Eos # (Auto) 0.0 x10^3/uL (0.0-0.2) 01/07/22 04:56 Baso # (Auto) 0.0 X10^3/uL (0.0-0.1) 01/07/22 04:56 Absolute Nucleated RBC 0.0 /100WBC 01/07/22 04:56 Total Counted 100 01/07/22 04:56 Neutrophils % (Manual) 90 % (39-76) H 01/07/22 04:56 Band Neutrophils % 2 % (0-10) 01/07/22 04:56 Lymphocytes % (Manual) 3 % (13-43) L 01/07/22 04:56 Monocytes % (Manual) 5 % (4-9) 01/07/22 04:56 Plt Morphology Comment Normal (NORMAL) 01/07/22 04:56 RBC Morphology Normal (NORMAL) 01/07/22 04:56 Sample Site Rr 01/01/22 15:03 ABG pH 7.510 (7.35-7.45) H 01/01/22 15:03 ABG pCO2 42.0 mmHg (35.0-45.0) 01/01/22 15:03 ABG pO2 75.0 mmHg (80.0-100.0) L 01/01/22 15:03 ABG HCO3 33.5 mmol/L (22-26) H* 01/01/22 15:03 ABG O2 Saturation 96.0 % (90-100) 01/01/22 15:03 ABG Base Excess 9.5 mmol/L (-2.0-2.0) H 01/01/22 15:03 Romero Test Pos 01/01/22 15:03 A-a Gradient 22.0 mmHg 01/01/22 15:03 FiO2 21.0 01/01/22 15:03 Blood Gas Comments Pt radha well 01/01/22 15:03 Sodium 140 mmol/L (136-145) 01/07/22 04:56 Corrected Sodium 145 mmol/L (136-145) 01/07/22 04:56 Potassium 4.1 mmol/L (3.5-5.1) 01/07/22 04:56 Chloride 107 mmol/L (98-107) 01/07/22 04:56 Carbon Dioxide 29.5 mmol/L (21-32) 01/07/22 04:56 BUN 25 mg/dL (7-18) H 01/07/22 04:56 Creatinine 1.22 mg/dL (0.55-1.02) H 01/07/22 04:56 Est GFR (MDRD) Af Amer 55 (>60) L 01/07/22 04:56 Est GFR (MDRD) Non-Af 45 (>60) L 01/07/22 04:56 Glucose 317 mg/dL (65-99) H 01/07/22 04:56 POC Glucose (mg/dL) 206 mg/dL (65-99) H 01/07/22 11:06 Calcium 6.8 mg/dL (8.5-10.1) L 01/07/22 04:56 Corrected Calcium 7.9 mg/dL (8.5-10.1) L 01/07/22 04:56 Magnesium 2.1 mg/dL (1.7-2.9) 01/03/22 05:49 Total Bilirubin 0.20 mg/dL (0.2-1.0) 01/07/22 04:56 AST 14 Units/L (15-37) L 01/07/22 04:56 ALT 14 Units/L (12-78) 01/07/22 04:56 Alkaline Phosphatase 85 Units/L (46-116) 01/07/22 04:56 Creatine Kinase 142 Units/L (26-192) 01/01/22 23:17 Troponin I High Sens 12.0 ng/L (4.0-60.0) 01/01/22 23:17 Total Protein 5.8 g/dL (6.4-8.2) L 01/07/22 04:56 Albumin 2.6 g/dL (3.4-5.0) L 01/07/22 04:56 Globulin 3.2 g/dL (2.5-4.5) 01/07/22 04:56 Albumin/Globulin Ratio 0.8 Ratio (1.1-2.1) L 01/07/22 04:56 SARS-CoV-2 (PCR) Negative (NEGATIVE) 01/01/22 15:14 Influenza Type A (PCR) Negative (NEGATIVE) 01/01/22 15:14 Influenza Type B (PCR) Negative (NEGATIVE) 01/01/22 15:14 RSV (PCR) Negative (NEGATIVE) 01/01/22 15:14 Resp Viral Panel (PCR) See scanned report 01/01/22 18:00 - Plan (1) Pneumonia Status: Acute Qualifiers: Pneumonia type: due to unspecified organism Laterality: bilateral Lung location: lower lobe of lung Qualified Code(s): J18.9 - Pneumonia, unspecified organism Plan: SUPPLEMENTAL OXYGEN, NORMAL SALINE AT 75 ML/HR, THE POTASSIUM AND MAGNESIUM PROTOCOLS, LEVAQUIN 750MG IV Q48H, FORTAZ 1G IV Q8H, DUONEBS QID, PULMICORT NEBS BID, SOLU-MEDROL 40MG IV Q8H, ELIQUIS 5MG PO BID, ROBITUSSIN DM 10ML PO QID, NOVOLIN R SLIDING SCALE, OTBS ACHS, TUSSIONEX 5ML PO Q12H, AND HER HOME MEDICATIONS WERE RESUMED. 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 transplanted heart: [place] heart Associated angina: unspecified whether angina present Qualified Code(s): I25.10 - Atherosclerotic heart disease of [place] coronary artery without angina pectoris
[2022-01-07] MEDS: LEVAQUIN PREMIX IV 750 MG 750 MG/150 ML BAG IV SCH (16:35)
[2022-01-07] MEDS: FORTAZ or TAZICEF VIAL INJ 1 G in NS 100 ML IV + SPIKE MINIBAG* 100 ML IV SCH ×3 (16:35→21:01)
[2022-01-07] MEDS ORDERED: FORTAZ or TAZICEF VIAL INJ ONE ×2 (16:42→20:40)
[2022-01-07] MEDS ORDERED: NS 50 ML IV 0 ML IV ONE (16:46)
[2022-01-07] MEDS ORDERED: NS 100 ML IV 100 ML ONE ×2 (16:47→20:46)
[2022-01-07] MEDS: LUMIGAN OPHTH EACHEYE SCH (20:19)
[2022-01-07] MEDS: LANTUS SC SCH (20:23)
[2022-01-07] MEDS: SNACK - Diabetic Appropriate PO SCH (20:24)
[2022-01-08] MEDS: NS 1/2 1,000 ML IV 1,000 ML IV SCH ×4 (03:44→22:57)
[2022-01-08] MEDS ORDERED: NS 1/2 1,000 ML IV 1,000 ML IV ONE ×2 (03:45→22:55)
[2022-01-08] MEDS ORDERED: NS 100 ML IV 100 ML ONE (04:39)
[2022-01-08] MEDS ORDERED: FORTAZ or TAZICEF VIAL INJ ONE (04:39)
[2022-01-08] MEDS: FORTAZ or TAZICEF VIAL INJ 1 G in NS 100 ML IV + SPIKE MINIBAG* 100 ML IV SCH (05:09)
[2022-01-08] MEDS: TESSALON PERLES PO SCH ×3 (05:09→21:02)
[2022-01-08 05:26] LABS: BASOPHILS # (AUTO) 0.1 X10^3/uL (0.0-0.1); BASOPHILS % (AUTO) 0.5 % (0.2-1.0); EOSINOPHILS % (AUTO) 0.2 % (0.9-2.9); HEMATOCRIT 30.7 % (36.0-47.0); HEMOGLOBIN 10.4 g/dL (12.0-16.0); LYMPHOCYTES # (AUTO) 2.4 X10^3/uL (1.3-2.9); LYMPHOCYTES % (AUTO) 13.7 % (21.0-51.0); MEAN CORPUSCULAR HGB CONC 33.8 g/dL (33.0-35.0); MEAN CORPUSCULAR VOLUME 85.8 fL (80.0-100.0); MEAN PLATELET VOLUME 9.6 fL (7.4-11.0); MONOCYTES % (AUTO) 5.9 % (0.0-13.0); NEUTROPHILS % (AUTO) 79.7 % (42.0-75.0); RED BLOOD COUNT 3.57 X10^6/uL (3.5-5.4); RED CELL DISTRIBUTION WIDTH 14.2 % (11.6-16.5); WHITE BLOOD COUNT 17.6 X10^3/uL (3.6-10.0)
[2022-01-08 05:41] LABS: ALBUMIN 2.5 g/dL (3.4-5.0); CALCIUM 6.9 mg/dL (8.5-10.1); CARBON DIOXIDE 31.8 mmol/L (21-32); COR CA(FOR HYPOALB) 8.1 mg/dL (8.5-10.1); CREATININE 1.3 mg/dL (0.55-1.02); TOTAL PROTEIN 5.7 g/dL (6.4-8.2)
[2022-01-08] MEDS: K-DUR TAB 20 MEQ PO PRN ×3 (06:02→16:24)
--- NOTE | 2022-01-08 06:29 | RAD ---
HISTORYFollow-up pneumonia, shortness of breathSTUDYChest AP [id number]/2022FINDINGSThe heart is enlarged. The carlitos are normal. No congestive heart failure is noted. The lung trinh are clear. No pleural effusions are identified. Bony thorax is unremarkable.IMPRESSIONCardiomegaly without congestive heart failureNo acute infiltratesElectronically signed by: BRI MONREAL (Jan 08, 2022 06:28:03)
[2022-01-08] MEDS: PriLOSEC PO SCH ×2 (08:32→20:41)
[2022-01-08] MEDS: TOPROL XL PO SCH (08:32)
[2022-01-08] MEDS: AMARYL TAB 4 MG PO SCH ×2 (08:32→20:41)
[2022-01-08] MEDS: ROBITUSSIN DM PO SCH ×4 (08:32→20:42)
[2022-01-08] MEDS: COZAAR PO SCH (08:33)
[2022-01-08] MEDS: CLARITIN PO SCH (08:33)
[2022-01-08] MEDS: ELIQUIS PO SCH ×2 (08:34→20:41)
[2022-01-08] MEDS: COMBIGAN EYE DROPS OP SCH ×2 (08:38→20:46)
[2022-01-08] MEDS: DUONEB 0.5 MG/3 MG (3 mL) NEB SCH ×4 (08:40→21:10)
[2022-01-08] MEDS: PULMICORT NEB TX 0.5 MG NEB SCH ×2 (08:40→21:10)
[2022-01-08] MEDS: TUSSIONEX PENNKINETIC SUSP PO SCH ×2 (10:13→21:02)
[2022-01-08 10:36] VITALS: BMI 32.0
[2022-01-08] MEDS: NovoLIN R (or HumuLIN R) SUBCUT PRN (11:23)
--- NOTE | 2022-01-08 12:26 | PCM.PROG ---
Progress Note - Progress Note for Day of Date of Exam: 01/08/22 - Subjective Subjective: WAS ADMITTED FOR TREATMENT OF PNEUMONIA. TODAY, SHE IS ALERT AND ORIENTED, LYING IN BED ON MORNING ROUNDS. SHE CONTINUES WITH COMPLAINTS OF SHORTNESS OF BREATH AND A NON-PRODUCTIVE COUGH. SHE REPORTS SLIGHT IMPROVEMENT IN SYMPTOMS SINCE YESTERDAY. ON EXAMINATION, HEART IS REGULAR IN RATE AND RHYTHM. BILATERAL LUNGS ARE NOTED WITH SCATTERED WHEEZING AND RHONCHI THROUGHOUT. ABDOMEN IS ROUND, SOFT, AND NON-TENDER WITH NORMAL BOWEL SOUNDS NOTED IN ALL QUADRANTS. NO UPPER OR LOWER EXTREMITY EDEMA IS NOTED. HER VITALS THIS MORNING ARE: 98.0-60-20-100%-121/61. SHE IS CURRENTLY USING OXYGEN VIA NASAL CANNULA AT 2 LPM. LABS WERE OBTAINED. WBC 17.6, RBC 3.57, HGB 10.4, HCT 30.7, PLT COUNT 222, SODIUM 143, POTASSIUM 3.7, CHLORIDE 109, BUN 23, CREATININE 1.30, GLUCOSE 185, CALCIUM 6.9, AST 12, ALT 14, ALK PHOS 70, TOTAL PROTEIN 5.7, ALBUMIN 2.5. RESPIRATORY VIRAL PANEL WAS POSITIVE FOR RHINOVIRUS. BLOOD CULTURES ARE PENDING. SHE IS CURRENTLY RECEIVING NORMAL SALINE AT 75 ML/HR, THE POTASSIUM AND MAGNESIUM PROTOCOLS, LEVAQUIN 750MG IV Q48H, FORTAZ 1G IV Q8H, TESSALON PERLES 200MG PO TID, DUONEBS QID, PULMICORT NEBS BID, ELIQUIS 5MG PO BID, ROBITUSSIN DM 10ML PO QID, NOVOLIN R SLIDING SCALE, OTBS ACSH, TUSSIONEX 5ML PO Q12H, AND HER HOME MEDICATIONS WERE RESUMED. WE WILL CONTINUE WITH CURRENT PLAN OF CARE TODAY. OTHERWISE, WE WILL FOLLOW-UP WITH AM LABS AND CONTINUE TO MONITOR. TIME SPENT ON CLINICAL ASSESSMENT, REVIWING LABS AND IMAGING, DECISION MAKING, AND DOCUMENTATION GREATER THAN 45 MINUTES. - Past Medical Family Social History Past Med/Fam/Surg Hx: No changes since H&P Allergies: Allergies morphine Allergy (Verified 01/01/22 15:26) - Review of Systems ROS: No change since H&P - Vital Signs and I&O's Vital Signs: Temperature 98.4 F Pulse Rate [Right Brachial] 65 Pulse Rate 84 Respiratory Rate 18 Blood Pressure [Right Arm] 149/67 Blood Pressure [Left Arm] 150/70 Blood Pressure 160/80 O2 Sat by Pulse Oximetry 96 Intake and Output: Intake & Output 01/06/22 01/07/22 01/08/22 01/09/22 11:59 11:59 11:59 11:59 Intake Total 1420 / 1420 2721 / 2721 2562 / 2562 Balance 1420 / 1420 2721 / 2721 2562 / 2562 - Physical Exam Oriented: Normal Eyes: Normal Ear: Normal Nose: Discharge (CLEAR ) Throat: Normal Respiratory: Generalized, Wheezes, Rhonchi Cardiovascular: Normal : Normal Auscultation: Bowel Sounds: Normal Palpation: Normal Tenderness: Normal Skin: Normal Musculoskeletal: Normal Psychiatric: Normal Mood Description: Calm Affect: Normal Speech Pattern: Clear, Appropriate - Laboratory and Diagnostics Result Diagrams: 01/08/22 04:45 01/08/22 04:45 Labs: 01/01/22 16:20 Blood Blood Culture - Final 01/04/22 12:44 Blood Blood Culture - Preliminary 01/04/22 12:31 Blood Blood Culture - Preliminary 01/01/22 16:10 Blood Blood Culture - Final Laboratory WBC 17.6 X10^3/uL (3.6-10.0) H 01/08/22 04:45 RBC 3.57 X10^6/uL (3.5-5.4) 01/08/22 04:45 Hgb 10.4 g/dL (12.0-16.0) L 01/08/22 04:45 Hct 30.7 % (36.0-47.0) L 01/08/22 04:45 MCV 85.8 fL (80.0-100.0) 01/08/22 04:45 MCH 29.0 pg (27.0-34.0) 01/08/22 04:45 MCHC 33.8 g/dL (33.0-35.0) 01/08/22 04:45 RDW 14.2 % (11.6-16.5) 01/08/22 04:45 Plt Count 227 X10^3/uL (150.0-450.0) 01/08/22 04:45 Plt Count Comment Adequate (ADEQUATE) 01/07/22 04:56 MPV 9.6 fL (7.4-11.0) 01/08/22 04:45 Neut % (Auto) 79.7 % (42.0-75.0) H 01/08/22 04:45 Lymph % (Auto) 13.7 % (21.0-51.0) L 01/08/22 04:45 [place] % (Auto) 5.9 % (0.0-13.0) 01/08/22 04:45 Eos % (Auto) 0.2 % (0.9-2.9) L 01/08/22 04:45 Baso % (Auto) 0.5 % (0.2-1.0) 01/08/22 04:45 Neut # (Auto) 14.0 x10^3/uL (2.2-4.8) H 01/08/22 04:45 Lymph # (Auto) 2.4 X10^3/uL (1.3-2.9) 01/08/22 04:45 [place] # (Auto) 1.0 x10^3/uL (0.3-0.8) H 01/08/22 04:45 Eos # (Auto) 0.0 x10^3/uL (0.0-0.2) 01/08/22 04:45 Baso # (Auto) 0.1 X10^3/uL (0.0-0.1) 01/08/22 04:45 Absolute Nucleated RBC 0.0 /100WBC 01/08/22 04:45 Total Counted 100 01/07/22 04:56 Neutrophils % (Manual) 90 % (39-76) H 01/07/22 04:56 Band Neutrophils % 2 % (0-10) 01/07/22 04:56 Lymphocytes % (Manual) 3 % (13-43) L 01/07/22 04:56 Monocytes % (Manual) 5 % (4-9) 01/07/22 04:56 Plt Morphology Comment Normal (NORMAL) 01/07/22 04:56 RBC Morphology Normal (NORMAL) 01/07/22 04:56 Sample Site Rr 01/01/22 15:03 ABG pH 7.510 (7.35-7.45) H 01/01/22 15:03 ABG pCO2 42.0 mmHg (35.0-45.0) 01/01/22 15:03 ABG pO2 75.0 mmHg (80.0-100.0) L 01/01/22 15:03 ABG HCO3 33.5 mmol/L (22-26) H* 01/01/22 15:03 ABG O2 Saturation 96.0 % (90-100) 01/01/22 15:03 ABG Base Excess 9.5 mmol/L (-2.0-2.0) H 01/01/22 15:03 Romero Test Pos 01/01/22 15:03 A-a Gradient 22.0 mmHg 01/01/22 15:03 FiO2 21.0 01/01/22 15:03 Blood Gas Comments Pt radha well 01/01/22 15:03 Sodium 143 mmol/L (136-145) 01/08/22 04:45 Corrected Sodium 145 mmol/L (136-145) 01/08/22 04:45 Potassium 3.7 mmol/L (3.5-5.1) 01/08/22 04:45 Chloride 109 mmol/L (98-107) H 01/08/22 04:45 Carbon Dioxide 31.8 mmol/L (21-32) 01/08/22 04:45 BUN 23 mg/dL (7-18) H 01/08/22 04:45 Creatinine 1.30 mg/dL (0.55-1.02) H 01/08/22 04:45 Est GFR (MDRD) Af Amer 51 (>60) L 01/08/22 04:45 Est GFR (MDRD) Non-Af 42 (>60) L 01/08/22 04:45 Glucose 185 mg/dL (65-99) H 01/08/22 04:45 POC Glucose (mg/dL) 177 mg/dL (65-99) H 01/08/22 11:14 Calcium 6.9 mg/dL (8.5-10.1) L 01/08/22 04:45 Corrected Calcium 8.1 mg/dL (8.5-10.1) L 01/08/22 04:45 Magnesium 2.1 mg/dL (1.7-2.9) 01/03/22 05:49 Total Bilirubin 0.20 mg/dL (0.2-1.0) 01/08/22 04:45 AST 12 Units/L (15-37) L 01/08/22 04:45 ALT 14 Units/L (12-78) 01/08/22 04:45 Alkaline Phosphatase 70 Units/L (46-116) 01/08/22 04:45 Creatine Kinase 142 Units/L (26-192) 01/01/22 23:17 Troponin I High Sens 12.0 ng/L (4.0-60.0) 01/01/22 23:17 Total Protein 5.7 g/dL (6.4-8.2) L 01/08/22 04:45 Albumin 2.5 g/dL (3.4-5.0) L 01/08/22 04:45 Globulin 3.2 g/dL (2.5-4.5) 01/08/22 04:45 Albumin/Globulin Ratio 0.8 Ratio (1.1-2.1) L 01/08/22 04:45 SARS-CoV-2 (PCR) Negative (NEGATIVE) 01/01/22 15:14 Influenza Type A (PCR) Negative (NEGATIVE) 01/01/22 15:14 Influenza Type B (PCR) Negative (NEGATIVE) 01/01/22 15:14 RSV (PCR) Negative (NEGATIVE) 01/01/22 15:14 Resp Viral Panel (PCR) See scanned report 01/01/22 18:00 - Plan (1) Pneumonia Status: Acute Qualifiers: Pneumonia type: due to unspecified organism Laterality: bilateral Lung location: lower lobe of lung Qualified Code(s): J18.9 - Pneumonia, unspecified organism Plan: SUPPLEMENTAL OXYGEN, NORMAL SALINE AT 75 ML/HR, THE POTASSIUM AND MAGNESIUM PROTOCOLS, LEVAQUIN 750MG IV Q48H, FORTAZ 1G IV Q8H, TESSALON PERLES 200MG PO TID, DUONEBS QID, PULMICORT NEBS BID, ELIQUIS 5MG PO BID, ROBITUSSIN DM 10ML PO QID, NOVOLIN R SLIDING SCALE, OTBS ACSH, TUSSIONEX 5ML PO Q12H, AND HER HOME MEDICATIONS WERE RESUMED. (2) Acute hypokalemia Status: Acute (3) Diabetes mellitus Status: Chronic Qualifiers: Diabetes mellitus type: type 2 Diabetes mellitus meterman insulin use: with meterman use Diabetes mellitus complication status: with hyperglycemia Qualified Code(s): E11.65 - Type 2 diabetes mellitus with hyperglycemia; Z79.4 - jail (current) use of insulin (4) Chronic kidney disease (CKD) Status: Chronic Qualifiers: Chronic kidney disease stage: unspecified stage (5) Generalized weakness Status: Acute (6) CHF (congestive heart failure) Status: Chronic Qualifiers: Heart failure type: unspecified Heart failure chronicity: chronic Qualified Code(s): I50.9 - Heart failure, unspecified (7) CAD (coronary artery disease) Status: Chronic Qualifiers: Coronary Disease-Associated Artery/Lesion type: [place] artery [place] vs. transplanted heart: [place] heart Associated angina: unspecified whether angina present Qualified Code(s): I25.10 - Atherosclerotic heart disease of [place] coronary artery without angina pectoris
[2022-01-08] MEDS: SNACK - Diabetic Appropriate PO SCH ×2 (18:37→20:58)
[2022-01-08] MEDS: LANTUS SC SCH (20:44)
[2022-01-08] MEDS: FORTAZ or TAZICEF VIAL INJ 1 G in NS 100 ML IV 100 ML IV SCH (20:44)
[2022-01-08] MEDS: LUMIGAN OPHTH EACHEYE SCH (20:48)
[2022-01-09] MEDS: TESSALON PERLES PO SCH (05:05)
[2022-01-09] MEDS: NS 1/2 1,000 ML IV 1,000 ML IV SCH (05:05)
[2022-01-09 05:52] LABS: BASOPHILS # (AUTO) 0.1 X10^3/uL (0.0-0.1); EOSINOPHILS # (AUTO) 0.3 x10^3/uL (0.0-0.2); EOSINOPHILS % (AUTO) 2.7 % (0.9-2.9); HEMATOCRIT 30.9 % (36.0-47.0); HEMOGLOBIN 10.5 g/dL (12.0-16.0); LYMPHOCYTES # (AUTO) 2.7 X10^3/uL (1.3-2.9); LYMPHOCYTES % (AUTO) 22.7 % (21.0-51.0); MEAN CORPUSCULAR HEMOGLOBIN 29.1 pg (27.0-34.0); MEAN CORPUSCULAR HGB CONC 34.1 g/dL (33.0-35.0); MEAN CORPUSCULAR VOLUME 85.4 fL (80.0-100.0); MEAN PLATELET VOLUME 9.3 fL (7.4-11.0); MONOCYTES # (AUTO) 0.8 x10^3/uL (0.3-0.8); MONOCYTES % (AUTO) 6.9 % (0.0-13.0); NEUTROPHILS # (AUTO) 7.8 x10^3/uL (2.2-4.8); NEUTROPHILS % (AUTO) 66.7 % (42.0-75.0); RED BLOOD COUNT 3.62 X10^6/uL (3.5-5.4); RED CELL DISTRIBUTION WIDTH 14.1 % (11.6-16.5); WHITE BLOOD COUNT 11.7 X10^3/uL (3.6-10.0)
[2022-01-09 06:03] LABS: ALBUMIN 2.3 g/dL (3.4-5.0); CALCIUM 6.9 mg/dL (8.5-10.1); CARBON DIOXIDE 30.3 mmol/L (21-32); COR CA(FOR HYPOALB) 8.3 mg/dL (8.5-10.1); CREATININE 1.28 mg/dL (0.55-1.02); MAGNESIUM 1.5 mg/dL (1.7-2.9); TOTAL PROTEIN 5.6 g/dL (6.4-8.2)
--- NOTE | 2022-01-09 06:21 | RAD ---
HISTORYF/U PNEUMONIA/ SOB Relevant Clinical InformationSTUDYCHEST, 1 [id number]/2022FINDINGSThe trachea is midline. The cardiac silhouette is mildly enlarged.. The lungs are clear without focal infiltrate or effusion. The bony thorax is unremarkable.IMPRESSIONMild cardiomegaly.No active cardiopulmonary disease.Electronically signed by: Santiago Glynn (Jan 09, 2022 06:19:44)
[2022-01-09 08:09] VITALS: BP 111/61
[2022-01-09] MEDS: PriLOSEC PO SCH (08:29)
[2022-01-09] MEDS: ROBITUSSIN DM PO SCH (08:29)
[2022-01-09] MEDS: FORTAZ or TAZICEF VIAL INJ 1 G in NS 100 ML IV 100 ML IV SCH (08:29)
[2022-01-09] MEDS: TOPROL XL PO SCH (08:29)
[2022-01-09] MEDS: AMARYL TAB 4 MG PO SCH (08:30)
[2022-01-09] MEDS: CLARITIN PO SCH (08:30)
[2022-01-09] MEDS: COZAAR PO SCH (08:30)
[2022-01-09] MEDS: ELIQUIS PO SCH (08:30)
[2022-01-09] MEDS: PULMICORT NEB TX 0.5 MG NEB SCH (08:40)
[2022-01-09] MEDS: DUONEB 0.5 MG/3 MG (3 mL) NEB SCH (08:40)
[2022-01-09] MEDS: COMBIGAN EYE DROPS OP SCH (09:16)
[2022-01-09] MEDS: MAGNESIUM SULFATE 1 GRAM/100 mL PREMIX 1 G/100 ML BAG IV PRN (09:40)
[2022-01-09] MEDS: TUSSIONEX PENNKINETIC SUSP PO SCH (09:44)
== END 2022-01-09 13:40 | disposition home or self-care (01) ==
LOC: MED/SURG → INTOOBSV 14:44 → OBSVTOIN 14:44
PROVIDERS: ADMIT Internal Medicine; ATTEND Internal Medicine

== ENCOUNTER 2024-06-08 14:44 | Observation (INO) ==
--- NOTE | 2024-06-08 15:00 | DR.SOBA ---
HPI Time Seen Time Seen by Provider: 06/08/24 14:58 HPI Comment HPI Comment: History as below. Complaints Chief Complaint Doctors Comments: Patient is 83yr old female in ER with increasing SOB and cough COVID-19 Coronavirus risk:travel/contact w/high risk person: Yes Has patient experienced Coronavirus symptoms: Yes Reviewed Nurses Notes Reviewed: Yes PMH PMH Past Medical History: Arthritis, CHF, Coronary Artery Disease, Diabetes, GERD, Hypertension, Kidney Stones and Renal Disease Past Surgical History: Yes Surgical History: Hysterectomy and Ortho Surgery Family History Family Medical History: Diabetes Mellitus, Coronary Artery Disease and Heart Ashish lure Social History Do you use any recreational Drugs:: No ROS Review of Systems Constitutional: No Symptoms Reported Eyes: No Symptoms Reported ENTM: No Symptoms Reported Respiratoy: No Symptoms Reported Cardiovascular: No Symptoms Reported Gastrointestinal/Abdominal: No Symptoms Reported Genitourinary: No Symptoms Reported Neurological: No Symptoms Reported Musculoskeletal: No Symptoms Reported Integumentary: No Symptoms Reported Hematologic/Lymphatic: No Symptoms Reported Endocrine: No Symptoms Reported Psychiatric: No Symptoms Reported All Other Systems: Reviewed and Negative PE Vital Signs Vitals: Vital Signs Temperature 97.5 F Pulse Rate 87 Pulse Rate 93 Pulse Rate 92 Pulse Rate 83 Respiratory Rate 20 Blood Pressure 138/94 Blood Pressure 138/94 O2 Sat by Pulse Oximetry 99 O2 Sat by Pulse Oximetry 100 O2 Sat by Pulse Oximetry 100 O2 Sat by Pulse Oximetry 99 General Limitations: No Limitations General Appearance: Alert and In Distress Head Head Exam: Normal Inspection and Atraumatic Eyes Eye exam: Normal Appearance and PERRL; negative Scleral Icterus or Conjunctival Injection ENT ENT Exam: Normal Exam, Normal Oropharynx, Normal External Ear Exam and TM's Normal Bilaterally Neck Neck Exam: Normal Inspection and Trachea Midline; negative Tenderness Chest Chest Inspection: Normal Inspection and Symmetric Chest Wall Rise Respiratory Respiratory Exam: Accessory Muscle Use and Respiratory Distress; negative Chest Wall Tenderness Cardiovascular Cardiovascular Exam: Regular Rate and Bradycardia; negative Systolic Murmur or Diastolic Murmur Abdominal Exam Abdominal Exam: Normal Inspection, Normal Bowel Sounds and Soft; negative Tenderness Extremities Extremities Exam: Normal Inspection and Normal Capillary Refill Back Back Exam: Normal Inspection; negative (R) CVA Tenderness or (L) CVA Tenderness Neurologic Neurological Exam: Alert and Oriented X3; negative Motor Sensory Deficit Psychiatric Psychiatric Exam: Normal Affect and Normal Mood Skin Skin Exam: Warm and Intact MDM Differential Diagnosis Differential Diagnosis: Bronchitis, CHF, Hyponatremia and Pneumonia COURSE Treatment Treatment: See orders done while patient was in ER. DUONED and Solumedrol given patient while in ER. Education/Counseling Education/Counseling: Patient and Family ROR Labs Reviewed 06/08/24 15:26 06/08/24 15: Laboratory: WBC 9.8 X10^3/uL (3.6-10.0) 06/08/24 15: RBC 4.39 X10^6/uL (3.5-5.4) 06/08/24 15: Hgb 12.9 g/dL (12.0-16.0) 06/08/24 15: Hct 38.4 % (36.0-47.0) 06/08/24 15: MCV 87.5 fL (80.0-100.0) 06/08/24 15: MCH 29.5 pg (27.0-34.0) 06/08/24 15: MCHC 33.7 g/dL (33.0-35.0) 06/08/24 15: RDW 14.6 % (11.6-16.5) 06/08/24 15: Plt Count 295 X10^3/uL (150.0-450.0) 06/08/24 15: MPV 8.5 fL (7.4-11.0) 06/08/24 15: Neut % (Auto) 72.4 % (42.0-75.0) 06/08/24 15: Lymph % (Auto) 18.3 % (21.0-51.0) L 06/08/24 15: [place] % (Auto) 6.8 % (0.0-13.0) 06/08/24 15: Eos % (Auto) 1.5 % (0.9-2.9) 06/08/24: Baso % (Auto) 1.0 % (0.2-1.0) 06/08/24 15: Neut # (Auto) 7.1 x10^3/uL (2.2-4.8) H 06/08/24 15: Lymph # (Auto) 1.8 X10^3/uL (1.3-2.9) 06/08/24 15:26 [place] # (Auto) 0.7 x10^3/uL (0.3-0.8) 06/08/24 15:26 Eos # (Auto) 0.1 x10^3/uL (0.0-0.2) 06/08/24 15:26 Baso # (Auto) 0.1 X10^3/uL (0.0-0.1) 06/08/24 15:26 Absolute Nucleated RBC 0.1 /100WBC 06/08/24 15:26 Sodium 143 mmol/L (136-145) 06/08/24 15:26 Corrected Sodium 145 mmol/L (136-145) 06/08/24 15:26 Potassium 3.4 mmol/L (3.5-5.1) L 06/08/24 15:26 Chloride 102 mmol/L (98-107) 06/08/24 15:26 Carbon Dioxide 33.4 mmol/L (21-32) H 06/08/24 15:26 BUN 23 mg/dL (7-18) H 06/08/24 15:26 Creatinine 1.43 mg/dL (0.55-1.02) H 06/08/24 15:26 Est GFR (MDRD) Af Amer 45 (>60) L 06/08/24 15:26 Est GFR (MDRD) Non-Af 37 (>60) L 06/08/24 15:26 Glucose 195 mg/dL (65-99) H 06/08/24 15:26 Calcium 8.4 mg/dL (8.5-10.1) L 06/08/24 15:26 Corrected Calcium 9.2 mg/dL (8.5-10.1) 06/08/24 15:26 Total Bilirubin 1.00 mg/dL (0.2-1.0) 06/08/24 15:26 AST 14 Units/L (15-37) L 06/08/24 15:26 ALT 13 Units/L (12-78) 06/08/24 15:26 Alkaline Phosphatase 75 Units/L (46-116) 06/08/24 15:26 Creatine Kinase 86 Units/L (26-192) 06/08/24 15:26 Troponin I High Sens 5.9 ng/L (4.0-60.0) 06/08/24 15:26 B-Natriuretic Peptide 331 pg/mL (0-79) H 06/08/24 15:26 Total Protein 7.0 g/dL (6.4-8.2) 06/08/24 15:26 Albumin 3.0 g/dL (3.4-5.0) L 06/08/24 15:26 Globulin 4.0 g/dL (2.5-4.5) 06/08/24 15: Albumin/Globulin Ratio 0.8 Ratio (1.1-2.1) L 06/08/24 15:26 Specimen Type Clean catch urine 06/08/24 14:51 Urine Color Yellow (YELLOW) 06/08/24 14:51 Urine Appearance Slightly hazy (CLEAR) 06/08/24 14:51 Urine pH 6.5 (5.0 - 8.0) 06/08/24 14:51 Ur Specific [place] 1.015 (1.000-1.030) 06/08/24 14:51 Urine Protein 1+ (NEGATIVE) 06/08/24 14:51 Urine Glucose (UA) 4+ (NEGATIVE) 06/08/24 14:51 Urine Ketones Negative (NEGATIVE) 06/08/24 14:51 Urine Blood 1+ (NEGATIVE) 06/08/24 14:51 Urine Nitrite Negative (NEGATIVE) 06/08/24 14:51 Urine Bilirubin Negative (NEGATIVE) 06/08/24 14:51 Urine Urobilinogen Normal (NORMAL) 06/08/24 14:51 Ur Leukocyte Esterase Negative (NEGATIVE) 06/08/24 14:51 Urine RBC 0-2 /HPF (0-3) 06/08/24 14:51 Urine WBC 0-2 /HPF (0-5) 06/08/24 14:51 Ur Squamous Epith Cells Rare /HPF (NEGATIVE) 06/08/24 14:51 Urine Bacteria Negative /HPF (NEGATIVE) 06/08/24 14:51 Ur Culture Indicated? No/not indicated 06/08/24 14:51 SARS-CoV-2 (PCR) Negative (NEGATIVE) 06/08/24 14:51 Influenza Type A (PCR) Negative (NEGATIVE) 06/08/24 14:51 Influenza Type B (PCR) Negative (NEGATIVE) 06/08/24 14:51 RSV (PCR) Negative (NEGATIVE) 06/08/24 14:51 S. pyogenes (TEM-PCR) Not detected (NOT DETECT) 06/08/24 15:01 Opioid Opioid Risk Tool Age (Darius box if 16-45): No History of Preadolescent Sexual Abuse: No Total: 0 Total Score Risk Category: Low Risk Copyright: Elkin WELCH predicting aberrant behaviors Discharge Plan Diagnosis Discharge Problem: Acute respiratory distress, CHF (congestive heart failure), Hypokalemia, Bronchitis, Atrial fibrillation Discharge Plan Patient Disposition: 09 ADMITTED INPATIENT Condition: Stable Orders to Discharge Patient Discharge Orders: Transfer (Routine); Ordered 06/08/24 Ordered By: MAY DAVIDSON
[2024-06-08 15:19] LABS: BILIRUBIN,URINE NEGATIVE (NEGATIVE); BLOOD/HEMOGLOBIN,URINE 1+ (NEGATIVE); GLUCOSE, URINE 4+ (NEGATIVE); KETONES,URINE NEGATIVE (NEGATIVE); LEUKOCYTE ESTERASE ,URINE NEGATIVE (NEGATIVE); NITRITES,URINE NEGATIVE (NEGATIVE); PH,URINE 6.5 (5.0 - 8.0); PROTEIN,URINE 1+ (NEGATIVE); UROBILINOGEN,URINE NORMAL (NORMAL)
[2024-06-08 15:27] LABS: APPEARANCE,URINE SLIGHTLY HAZY (CLEAR); BACTERIA,URINE NEGATIVE /HPF (NEGATIVE); COLOR,URINE YELLOW (YELLOW); RBC,URINE 0-2 /HPF (0-3); SQUAMOUS EPITHELIAL CELL,UR RARE /HPF (NEGATIVE)
[2024-06-08] MEDS ORDERED: DUONEB 0.5 MG/3 MG (3 mL) NEB ONE (15:27)
[2024-06-08] MEDS: SOLU-Medrol 125 MG VIAL IVP ONE (15:32)
[2024-06-08] MEDS: DUONEB 0.5 MG/3 MG (3 mL) NEB ONE (15:32)
[2024-06-08 15:37] LABS: BASOPHILS # (AUTO) 0.1 X10^3/uL (0.0-0.1); EOSINOPHILS # (AUTO) 0.1 x10^3/uL (0.0-0.2); EOSINOPHILS % (AUTO) 1.5 % (0.9-2.9); HEMATOCRIT 38.4 % (36.0-47.0); HEMOGLOBIN 12.9 g/dL (12.0-16.0); LYMPHOCYTES # (AUTO) 1.8 X10^3/uL (1.3-2.9); LYMPHOCYTES % (AUTO) 18.3 % (21.0-51.0); MEAN CORPUSCULAR HEMOGLOBIN 29.5 pg (27.0-34.0); MEAN CORPUSCULAR HGB CONC 33.7 g/dL (33.0-35.0); MEAN CORPUSCULAR VOLUME 87.5 fL (80.0-100.0); MEAN PLATELET VOLUME 8.5 fL (7.4-11.0); MONOCYTES # (AUTO) 0.7 x10^3/uL (0.3-0.8); MONOCYTES % (AUTO) 6.8 % (0.0-13.0); NEUTROPHILS # (AUTO) 7.1 x10^3/uL (2.2-4.8); NEUTROPHILS % (AUTO) 72.4 % (42.0-75.0); PLATELET COUNT 295 X10^3/uL (150.0-450.0); RED BLOOD COUNT 4.39 X10^6/uL (3.5-5.4); RED CELL DISTRIBUTION WIDTH 14.6 % (11.6-16.5); WHITE BLOOD COUNT 9.8 X10^3/uL (3.6-10.0)
--- NOTE | 2024-06-08 15:49 | EKG ---
Test Reason : chest pain Blood Pressure : */* mmHG Vent. Rate : 84 BPM Atrial Rate : * BPM P-R Int : * ms QRS Dur : 76 ms QT Int : 244 ms P-R-T Axes : * 3 263 degrees QTc Int : 288 ms Atrial fibrillation Low voltage QRS Cannot rule out Anterior infarct , age undetermined Abnormal ECG No previous ECGs available Confirmed by Garrett Aguila MD ([id number]) on 06/09/2024 7:33:41 AM Referred By: Confirmed By: Garrett Aguila MD
[2024-06-08 15:54] LABS: CALCIUM 8.4 mg/dL (8.5-10.1); CARBON DIOXIDE 33.4 mmol/L (21-32); COR CA(FOR HYPOALB) 9.2 mg/dL (8.5-10.1); CREATININE 1.43 mg/dL (0.55-1.02); POTASSIUM 3.4 mmol/L (3.5-5.1)
[2024-06-08] MEDS: K-DUR TAB 20 MEQ PO ONE (16:42)
[2024-06-08] MEDS: ROCEPHIN VIAL 1 GRAM IVP ONE (16:43)
[2024-06-08] MEDS ORDERED: CONSULT PHARMACY - POTASSIUM & MAGNESIUM XX SCH (18:00)
[2024-06-08 18:18] VITALS: BMI 29.3
[2024-06-08] MEDS: MAG-OX TAB PO SCH (18:53)
[2024-06-08] MEDS ORDERED: SNACK - Diabetic Appropriate PO SCH (20:00)
[2024-06-08] MEDS: PriLOSEC PO SCH (20:39)
[2024-06-08] MEDS: NovoLIN R (or HumuLIN R) SUBCUT PRN (20:40)
[2024-06-08] MEDS: SNACK - Diabetic Appropriate PO SCH (20:41)
[2024-06-08] MEDS: LUMIGAN OPHTH EACHEYE SCH (20:44)
[2024-06-08] MEDS: COMBIGAN EYE DROPS OP SCH (20:44)
[2024-06-08] MEDS: SOLU-Medrol 125 MG VIAL ONE (20:51)
--- NOTE | 2024-06-09 02:10 | RAD ---
PROCEDURE: Chest X-ray 1 View.HISTORY: SOB; AFIB, HTN, COPD, GERD, DM, ANEMIA SX: HYSTERECTOMY .TECHNIQUE: AP portable view.COMPARISON: 08/24/2022.TECHNICAL QUALITY: Satisfactory.FINDINGS:Normal size heart.Mediastinum and hilar regions show no masses or lymphadenopathy.Normal central vascularity.No pulmonary consolidation, masses, pleural fluid, or pneumothorax.No acute bony abnormality.IMPRESSION:No evidence of active cardiopulmonary disease.THIS IS AN ELECTRONICALLY VERIFIED FINAL REPORT06/09/2024 2:07 AM - Electronically signed by Kavin Kruse MD
[2024-06-09] MEDS: AMARYL TAB 4 MG PO SCH (05:33)
[2024-06-09 06:23] LABS: BASOPHILS % (AUTO) 0.2 % (0.2-1.0); HEMATOCRIT 37.7 % (36.0-47.0); LYMPHOCYTES # (AUTO) 0.6 X10^3/uL (1.3-2.9); LYMPHOCYTES % (AUTO) 5.1 % (21.0-51.0); MEAN CORPUSCULAR HEMOGLOBIN 30.1 pg (27.0-34.0); MEAN CORPUSCULAR HGB CONC 34.4 g/dL (33.0-35.0); MEAN CORPUSCULAR VOLUME 87.3 fL (80.0-100.0); MEAN PLATELET VOLUME 9.1 fL (7.4-11.0); MONOCYTES # (AUTO) 0.1 x10^3/uL (0.3-0.8); MONOCYTES % (AUTO) 1.1 % (0.0-13.0); NEUTROPHILS # (AUTO) 11.1 x10^3/uL (2.2-4.8); NEUTROPHILS % (AUTO) 93.6 % (42.0-75.0); PLATELET COUNT 294 X10^3/uL (150.0-450.0); RED BLOOD COUNT 4.31 X10^6/uL (3.5-5.4); RED CELL DISTRIBUTION WIDTH 14.3 % (11.6-16.5); WHITE BLOOD COUNT 11.9 X10^3/uL (3.6-10.0)
[2024-06-09 06:40] LABS: BAND NEUTROPHILS % 2 % (0-10)
[2024-06-09 06:41] LABS: PLATELET MORPHOLOGY COMMENT NORMAL (NORMAL)
[2024-06-09 07:05] LABS: CALCIUM 8.4 mg/dL (8.5-10.1); CARBON DIOXIDE 31.5 mmol/L (21-32); CREATININE 1.69 mg/dL (0.55-1.02); MAGNESIUM 1.6 mg/dL (2.0-2.9); TOTAL PROTEIN 7.1 g/dL (6.4-8.2)
[2024-06-09 07:44] LABS: ALBUMIN 2.9 g/dL (3.4-5.0); COR CA(FOR HYPOALB) 9.3 mg/dL (8.5-10.1)
[2024-06-09] MEDS ORDERED: PATIENT'S HOME MEDICATION (Losartan-Hydrochlorothiazide 100-25 mg tablet) PO SCH (09:00)
[2024-06-09] MEDS: DUONEB 0.5 MG/3 MG (3 mL) NEB SCH (09:55)
[2024-06-09] MEDS: PULMICORT NEB TX 0.5 MG NEB SCH (09:55)
[2024-06-09] MEDS: ELIQUIS PO SCH (09:57)
[2024-06-09] MEDS: CLARITIN PO SCH (09:57)
[2024-06-09] MEDS: CORDARONE TAB 200 MG PO SCH (09:57)
[2024-06-09] MEDS: FARXIGA PO SCH (09:57)
[2024-06-09] MEDS: TOPROL XL PO SCH (09:58)
[2024-06-09] MEDS: NS 1,000 ML IV 1,000 ML with MAGNESIUM SULFATE 50% INJ VIAL 1 G IV SCH (10:02)
[2024-06-09] MEDS: ROCEPHIN VIAL 1 GRAM 1 G in NS 100 ML IV 100 ML IV SCH (10:03)
[2024-06-09] MEDS: HYDROCHLOROTHIAZIDE 25 MG TAB PO SCH (10:25)
[2024-06-09] MEDS: COZAAR PO SCH (10:25)
--- NOTE | 2024-06-09 10:43 | DR.H&P ---
H&P History & Physical for Day of: H&P Date: 06/09/24 Chief Complaint Chief Complaint: SOB, cough History of Present Illness History of Present Illness: Ms Guerrero is a 83y/o female with a PMH of Type 2 DM, HTN, CKD, CAD presented with worsening URI symptoms and dyspnea. She reports having cough and SOB for the past few days. She was seen at PCP office yesterday and her O2 sats was 87% on room air. She does not use O2 at home. She was sent to the ER for further evaluation. ER work-up included CXR which did not show any acute changes, Flu/COVID/RSV/Strep were negative. UA neg, trop neg, BNP 331. She was started on IV antibiotics and hydration. She is currently on 2L NC. Labs/imaging reviewed: -WBC 11.9 Hgb 13 Mag 1.6 K 4.0 BUN/Cr 27/1.64 -UA neg -CXR neg -AIT pending Plan: Wean O2 as tolerated to keep sats >92%. Continue Rocephin. Follow AIT results. Add nebs and pulmicort. Resume home medications. Start NS at 75cc/hr. Replace electrolytes as per protocol. PT/OT as tolerated. Monitor AM labs/imaging. Past Medical History Past Medical History: Arthritis, CHF, Coronary Artery Disease, Diabetes, GERD, Hypertension, Kidney Stones and Renal Disease Past Surgical History Surgical History: Hysterectomy and Ortho Surgery Family History Family Medical History: Diabetes Mellitus, Coronary Artery Disease, Heart Failure and Hypertension Social History Does patient currently use any type of tobacco product: No Have you used tobacco products in the last 12 months: No Type of Tobacco Use: None Does any household member use tobacco: No Alcohol Use: None Drug Use: None Medications Home Medications: Home Medications Medication Instructions Recorded Confirmed Type amiodarone 200 mg tablet 0.5 tab PO QDAY 01/01/22 06/08/24 History bimatoprost 0.01 % eye drops 1 drp ophthalmic (eye) HS 01/01/22 06/08/24 History ([place]) brimonidine 0.2 %-timolol 0.5 % 1 drp ophthalmic (eye) BID 01/01/22 06/08/24 History eye drops ([place]) glimepiride 4 mg tablet 1 tab PO BID 01/01/22 06/08/24 History loratadine 10 mg tablet 10 mg PO DAILY 01/01/22 06/08/24 History metoprolol succinate 25 mg 12.5 mg PO DAILY 01/01/22 06/08/24 History tablet,extended release 24 hr omeprazole 20 mg capsule,delayed 1 cap PO BID 01/01/22 06/08/24 History release apixaban 5 mg tablet (Eliquis) 5 mg PO DAILY 06/08/24 06/08/24 History dapagliflozin propanediol 10 mg 10 mg PO DAILY 06/08/24 06/08/24 History tablet losartan 100 1 tab PO DAILY 06/08/24 06/08/24 History mg-hydrochlorothiazide 25 mg tablet Allergies Allergies Allergy/AdvReac Type Severity Reaction Status Date / Time morphine Allergy Verified 08/24/22 11:40 Labs 06/09/24 05:28 06/09/24 05:28 Labs: Laboratory WBC 11.9 X10^3/uL (3.6-10.0) H 06/09/24 05:28 RBC 4.31 X10^6/uL (3.5-5.4) 06/09/24 05:28 Hgb 13.0 g/dL (12.0-16.0) 06/09/24 05:28 Hct 37.7 % (36.0-47.0) 06/09/24 05:28 MCV 87.3 fL (80.0-100.0) 06/09/24 05:28 MCH 30.1 pg (27.0-34.0) 06/09/24 05:28 MCHC 34.4 g/dL (33.0-35.0) 06/09/24 05:28 RDW 14.3 % (11.6-16.5) 06/09/24 05:28 Plt Count 294 X10^3/uL (150.0-450.0) 06/09/24 05:28 Plt Count Comment Adequate (ADEQUATE) 06/09/24 05:28 MPV 9.1 fL (7.4-11.0) 06/09/24 05:28 Neut % (Auto) 93.6 % (42.0-75.0) H 06/09/24 05:28 Lymph % (Auto) 5.1 % (21.0-51.0) L 06/09/24 05:28 [place] % (Auto) 1.1 % (0.0-13.0) 06/09/24 05:28 Eos % (Auto) 0.0 % (0.9-2.9) L 06/09/24 05:28 Baso % (Auto) 0.2 % (0.2-1.0) 06/09/24 05:28 Neut # (Auto) 11.1 x10^3/uL (2.2-4.8) H 06/09/24 05:28 Lymph # (Auto) 0.6 X10^3/uL (1.3-2.9) L 06/09/24 05:28 [place] # (Auto) 0.1 x10^3/uL (0.3-0.8) L 06/09/24 05:28 Eos # (Auto) 0.0 x10^3/uL (0.0-0.2) 06/09/24 05:28 Baso # (Auto) 0.0 X10^3/uL (0.0-0.1) 06/09/24 05:28 Absolute Nucleated RBC 0.0 /100WBC 06/09/24 05:28 Total Counted 100 06/09/24 05:28 Neutrophils % (Manual) 93 % (39-76) H 06/09/24 05:28 Band Neutrophils % 2 % (0-10) 06/09/24 05:28 Lymphocytes % (Manual) 5 % (13-43) L 06/09/24 05:28 Plt Morphology Comment Normal (NORMAL) 06/09/24 05:28 RBC Morphology Normal (NORMAL) 06/09/24 05:28 Sodium 144 mmol/L (136-145) 06/09/24 05:28 Corrected Sodium 148 mmol/L (136-145) H 06/09/24 05:28 Potassium 4.0 mmol/L (3.5-5.1) 06/09/24 05:28 Chloride 104 mmol/L (98-107) 06/09/24 05:28 Carbon Dioxide 31.5 mmol/L (21-32) 06/09/24 05:28 BUN 27 mg/dL (7-18) H 06/09/24 05:28 Creatinine 1.69 mg/dL (0.55-1.02) H 06/09/24 05:28 Est GFR (MDRD) Af Amer 37 (>60) L 06/09/24 05:28 Est GFR (MDRD) Non-Af 31 (>60) L 06/09/24 05:28 Glucose 287 mg/dL (65-99) H 06/09/24 05:28 POC Glucose (mg/dL) 272 mg/dL (65-99) H 06/09/24 05:07 Hemoglobin A1c 7.3 % 06/09/24 05:28 Calcium 8.4 mg/dL (8.5-10.1) L 06/09/24 05:28 Corrected Calcium 9.3 mg/dL (8.5-10.1) 06/09/24 05:28 Magnesium 1.6 mg/dL (2.0-2.9) L 06/09/24 05:28 Total Bilirubin 0.70 mg/dL (0.2-1.0) 06/09/24 05:28 AST 15 Units/L (15-37) 06/09/24 05:28 ALT 13 Units/L (12-78) 06/09/24 05:28 Alkaline Phosphatase 74 Units/L (46-116) 06/09/24 05:28 Creatine Kinase 86 Units/L (26-192) 06/08/24 15:26 Troponin I High Sens 5.9 ng/L (4.0-60.0) 06/08/24 15:26 B-Natriuretic Peptide 331 pg/mL (0-79) H 06/08/24 15:26 Total Protein 7.1 g/dL (6.4-8.2) 06/09/24 05:28 Albumin 2.9 g/dL (3.4-5.0) L 06/09/24 05:28 Globulin 4.2 g/dL (2.5-4.5) 06/09/24 05:28 Albumin/Globulin Ratio 0.7 Ratio (1.1-2.1) L 06/09/24 05:28 Specimen Type Clean catch urine 06/08/24 14:51 Urine Color Yellow (YELLOW) 06/08/24 14:51 Urine Appearance Slightly hazy (CLEAR) 06/08/24 14:51 Urine pH 6.5 (5.0 - 8.0) 06/08/24 14:51 Ur Specific [place] 1.015 (1.000-1.030) 06/08/24 14:51 Urine Protein 1+ (NEGATIVE) 06/08/24 14:51 Urine Glucose (UA) 4+ (NEGATIVE) 06/08/24 14:51 Urine Ketones Negative (NEGATIVE) 06/08/24 14:51 Urine Blood 1+ (NEGATIVE) 06/08/24 14:51 Urine Nitrite Negative (NEGATIVE) 06/08/24 14:51 Urine Bilirubin Negative (NEGATIVE) 06/08/24 14:51 Urine Urobilinogen Normal (NORMAL) 06/08/24 14:51 Ur Leukocyte Esterase Negative (NEGATIVE) 06/08/24 14:51 Urine RBC 0-2 /HPF (0-3) 06/08/24 14:51 Urine WBC 0-2 /HPF (0-5) 06/08/24 14:51 Ur Squamous Epith Cells Rare /HPF (NEGATIVE) 06/08/24 14:51 Urine Bacteria Negative /HPF (NEGATIVE) 06/08/24 14:51 Ur Culture Indicated? No/not indicated 06/08/24 14:51 SARS-CoV-2 (PCR) Negative (NEGATIVE) 06/08/24 14:51 Influenza Type A (PCR) Negative (NEGATIVE) 06/08/24 14:51 Influenza Type B (PCR) Negative (NEGATIVE) 06/08/24 14:51 RSV (PCR) Negative (NEGATIVE) 06/08/24 14:51 S. pyogenes (TEM-PCR) Not detected (NOT DETECT) 06/08/24 15:01 Review of Systems Constitutional: Weakness Eyes: No Symptoms Reported ENT: No Symptoms Reported Respiratory: Cough and SOB with Excertion Cardiovascular: No Symptoms Reported Gastrointestinal: No Symptoms Reported Genitourinary: No Symptoms Reported Musculoskeletal: No Symptoms Reported Skin: No Symptoms Reported Neurological: No Symptoms Reported Physical Exam Vital Signs: Vital Signs Temperature 97.8 F Temperature 98.0 F Pulse Rate [Radial] 106 Pulse Rate [Radial] 84 Respiratory Rate 18 Respiratory Rate 16 Blood Pressure [Left Arm] 113/65 Blood Pressure [Left Arm] 106/66 O2 Sat by Pulse Oximetry 98 O2 Sat by Pulse Oximetry 99 Oriented: Normal Eyes: Normal Nose: Normal Throat: Normal Respiratory: Diminished Throughout Cardiovascular: Normal Auscultation: Bowel Sounds: Normal Palpation: Normal Tenderness: Normal Skin: Normal Musculoskeletal: Normal Psychiatric: Normal Mood Description: Calm Affect: Normal Speech Pattern: Clear and Appropriate Assessment/Plan (1) Acute respiratory distress: Status: Acute (2) Bronchitis: Status: Acute (3) Generalized weakness: Status: Acute (4) Hypomagnesemia: Status: Acute (5) Chronic kidney disease (CKD): Qualifiers: Chronic kidney disease stage: unspecified stage Qualified Code(s): N18.9 - Chronic kidney disease, unspecified Status: Chronic (6) Atrial fibrillation: Qualifiers: Atrial fibrillation type: unspecified Qualified Code(s): I48.91 - Unspecified atrial fibrillation Status: Chronic (7) CAD (coronary artery disease): Qualifiers: Coronary Disease-Associated Artery/Lesion type: [place] artery [place] vs. transplanted heart: [place] heart Associated angina: unspecified whether angina present Qualified Code(s): I25.10 - Atherosclerotic heart disease of [place] coronary artery without angina pectoris Status: Chronic (8) CHF (congestive heart failure): Qualifiers: Heart failure type: unspecified Heart failure chronicity: unspecified Qualified Code(s): I50.9 - Heart failure, unspecified Status: Chronic Review H&P Reviewed: Yes Patient was examined?: Yes
[2024-06-09] MEDS: CONSULT PHARMACY - POTASSIUM & MAGNESIUM XX SCH (14:47)
--- NOTE | 2024-06-10 05:17 | RAD ---
PROCEDURE: Chest X-ray 1 View.HISTORY: SOB ; CAD, HTN, DM, RENAL DISEASE, GERD, KIDNEY STONES, CHF SX: HYST, ORTHO, RIGHT AND LEFT KNEE .TECHNIQUE: AP portable view.COMPARISON: 06/08/2024.TECHNICAL QUALITY: Satisfactory.FINDINGS:Normal size heart.Mediastinum and hilar regions show no masses or lymphadenopathy.Normal central vascularity.No pulmonary consolidation, masses, pleural fluid, or pneumothorax.No acute bony abnormality.IMPRESSION:No evidence of active cardiopulmonary disease.THIS IS AN ELECTRONICALLY VERIFIED FINAL REPORT06/10/2024 5:13 AM - Electronically signed by Kavin Kruse MD
[2024-06-10 05:43] LABS: BASOPHILS % (AUTO) 0.2 % (0.2-1.0); EOSINOPHILS % (AUTO) 0.2 % (0.9-2.9); HEMATOCRIT 35.1 % (36.0-47.0); HEMOGLOBIN 11.6 g/dL (12.0-16.0); LYMPHOCYTES # (AUTO) 1.5 X10^3/uL (1.3-2.9); LYMPHOCYTES % (AUTO) 8.5 % (21.0-51.0); MEAN CORPUSCULAR HEMOGLOBIN 29.1 pg (27.0-34.0); MONOCYTES # (AUTO) 0.8 x10^3/uL (0.3-0.8); MONOCYTES % (AUTO) 4.4 % (0.0-13.0); NEUTROPHILS # (AUTO) 15.6 x10^3/uL (2.2-4.8); NEUTROPHILS % (AUTO) 86.7 % (42.0-75.0); PLATELET COUNT 267 X10^3/uL (150.0-450.0); RED BLOOD COUNT 3.99 X10^6/uL (3.5-5.4); RED CELL DISTRIBUTION WIDTH 14.4 % (11.6-16.5)
[2024-06-10 05:54] LABS: ALANINE AMINOTRANSFERASE 13 Units/L (12-78); ALBUMIN 2.7 g/dL (3.4-5.0); ALKALINE PHOSPHATASE 67 Units/L (46-116); ASPARTATE AMINO TRANSFERASE 16 Units/L (15-37); BLOOD UREA NITROGEN 26 mg/dL (7-18); CALCIUM 7.8 mg/dL (8.5-10.1); CARBON DIOXIDE 32.1 mmol/L (21-32); CHLORIDE 108 mmol/L (98-107); COR CA(FOR HYPOALB) 8.8 mg/dL (8.5-10.1); CREATININE 1.52 mg/dL (0.55-1.02); GLUCOSE 103 mg/dL (65-99); MAGNESIUM 2.4 mg/dL (2.0-2.9); POTASSIUM 3.9 mmol/L (3.5-5.1); SODIUM 145 mmol/L (136-145); TOTAL PROTEIN 6.3 g/dL (6.4-8.2); eGFR NON BLACK RACES 35 (>60)
--- NOTE | 2024-06-10 10:24 | PCM.PROG ---
Progress Note Progress Note for Day of Date of Exam: 06/10/24 Subjective Subjective: Patient seen at bedside, no acute events overnight. She reports feeling better, still has a lot of dry cough. She is on 2L NC. She does not use O2 at home. CXR today was normal. She is currently admitted for acute respiratory failure and bronchitis. Labs/imaging reviewed: -WBC 18 Hgb 11.6 Plt 267 K 3.9 BUN/Cr 26/1.52 -CXR: no acute changes Plan: Wean O2 as tolerated. Continue nebs, pulmicort and IS. Add cough medicine. Continue Rocephin. Continue home medications. Replace electrolytes prn. Continue PT/OT. Monitor AM labs/imaging. Past Medical Family Social History Allergies: Allergies morphine Allergy (Verified 08/24/22 11:40) Vital Signs and I&O's Vital Signs: Vital Signs Temperature 97.8 F Temperature 97.1 F Pulse Rate [Radial] 79 Pulse Rate [Radial] 72 Pulse Rate 95 Respiratory Rate 19 Respiratory Rate 20 Blood Pressure [Left Arm] 117/55 Blood Pressure [Left Arm] 95/60 O2 Sat by Pulse Oximetry 99 O2 Sat by Pulse Oximetry 100 O2 Sat by Pulse Oximetry 97 Intake and Output: Intake & Output 06/07/24 06/08/24 06/09/24 06/10/24 23:59 23:59 23:59 23:59 Intake Total 230 / 230 2333 / 2333 240 / 240 Balance 230 / 230 2333 / 2333 240 / 240 Physical Exam Oriented: Normal Eyes: Normal Nose: Normal Throat: Normal Respiratory: Generalized and Diminished Cardiovascular: Normal Auscultation: Bowel Sounds: Normal Palpation: Normal Tenderness: Normal Skin: Normal Musculoskeletal: Normal Psychiatric: Normal Mood Description: Calm Affect: Normal Speech Pattern: Clear and Appropriate Laboratory and Diagnostics 06/10/24 05:13 06/10/24 05:13 Labs: Laboratory WBC 18.0 X10^3/uL (3.6-10.0) H 06/10/24 05:13 RBC 3.99 X10^6/uL (3.5-5.4) 06/10/24 05:13 Hgb 11.6 g/dL (12.0-16.0) L 06/10/24 05:13 Hct 35.1 % (36.0-47.0) L 06/10/24 05:13 MCV 88.0 fL (80.0-100.0) 06/10/24 05:13 MCH 29.1 pg (27.0-34.0) 06/10/24 05:13 MCHC 33.0 g/dL (33.0-35.0) 06/10/24 05:13 RDW 14.4 % (11.6-16.5) 06/10/24 05:13 Plt Count 267 X10^3/uL (150.0-450.0) 06/10/24 05:13 Plt Count Comment Adequate (ADEQUATE) 06/09/24 05:28 MPV 9.0 fL (7.4-11.0) 06/10/24 05:13 Neut % (Auto) 86.7 % (42.0-75.0) H 06/10/24 05:13 Lymph % (Auto) 8.5 % (21.0-51.0) L 06/10/24 05:13 [place] % (Auto) 4.4 % (0.0-13.0) 06/10/24 05:13 Eos % (Auto) 0.2 % (0.9-2.9) L 06/10/24 05:13 Baso % (Auto) 0.2 % (0.2-1.0) 06/10/24 05:13 Neut # (Auto) 15.6 x10^3/uL (2.2-4.8) H 06/10/24 05:13 Lymph # (Auto) 1.5 X10^3/uL (1.3-2.9) 06/10/24 05:13 [place] # (Auto) 0.8 x10^3/uL (0.3-0.8) 06/10/24 05:13 Eos # (Auto) 0.0 x10^3/uL (0.0-0.2) 06/10/24 05:13 Baso # (Auto) 0.0 X10^3/uL (0.0-0.1) 06/10/24 05:13 Absolute Nucleated RBC 0.0 /100WBC 06/10/24 05:13 Total Counted 100 06/09/24 05:28 Neutrophils % (Manual) 93 % (39-76) H 06/09/24 05:28 Band Neutrophils % 2 % (0-10) 06/09/24 05:28 Lymphocytes % (Manual) 5 % (13-43) L 06/09/24 05:28 Plt Morphology Comment Normal (NORMAL) 06/09/24 05:28 RBC Morphology Normal (NORMAL) 06/09/24 05:28 Sodium 145 mmol/L (136-145) 06/10/24 05:13 Corrected Sodium TNP 06/10/24 05:13 Potassium 3.9 mmol/L (3.5-5.1) 06/10/24 05:13 Chloride 108 mmol/L (98-107) H 06/10/24 05:13 Carbon Dioxide 32.1 mmol/L (21-32) H 06/10/24 05:13 BUN 26 mg/dL (7-18) H 06/10/24 05:13 Creatinine 1.52 mg/dL (0.55-1.02) H 06/10/24 05:13 Est GFR (MDRD) Af Amer 42 (>60) L 06/10/24 05:13 Est GFR (MDRD) Non-Af 35 (>60) L 06/10/24 05:13 Glucose 103 mg/dL (65-99) H 06/10/24 05:13 POC Glucose (mg/dL) 102 mg/dL (65-99) H 06/10/24 05:30 Hemoglobin A1c 7.3 % 06/09/24 05:28 Calcium 7.8 mg/dL (8.5-10.1) L 06/10/24 05:13 Corrected Calcium 8.8 mg/dL (8.5-10.1) 06/10/24 05:13 Magnesium 2.4 mg/dL (2.0-2.9) 06/10/24 05:13 Total Bilirubin 0.40 mg/dL (0.2-1.0) 06/10/24 05:13 AST 16 Units/L (15-37) 06/10/24 05:13 ALT 13 Units/L (12-78) 06/10/24 05:13 Alkaline Phosphatase 67 Units/L (46-116) 06/10/24 05:13 Creatine Kinase 86 Units/L (26-192) 06/08/24 15:26 Troponin I High Sens 5.9 ng/L (4.0-60.0) 06/08/24 15:26 B-Natriuretic Peptide 331 pg/mL (0-79) H 06/08/24 15:26 Total Protein 6.3 g/dL (6.4-8.2) L 06/10/24 05:13 Albumin 2.7 g/dL (3.4-5.0) L 06/10/24 05:13 Globulin 3.6 g/dL (2.5-4.5) 06/10/24 05:13 Albumin/Globulin Ratio 0.8 Ratio (1.1-2.1) L 06/10/24 05:13 Specimen Type Clean catch urine 06/08/24 14:51 Urine Color Yellow (YELLOW) 06/08/24 14:51 Urine Appearance Slightly hazy (CLEAR) 06/08/24 14:51 Urine pH 6.5 (5.0 - 8.0) 06/08/24 14:51 Ur Specific [place] 1.015 (1.000-1.030) 06/08/24 14:51 Urine Protein 1+ (NEGATIVE) 06/08/24 14:51 Urine Glucose (UA) 4+ (NEGATIVE) 06/08/24 14:51 Urine Ketones Negative (NEGATIVE) 06/08/24 14:51 Urine Blood 1+ (NEGATIVE) 06/08/24 14:51 Urine Nitrite Negative (NEGATIVE) 06/08/24 14:51 Urine Bilirubin Negative (NEGATIVE) 06/08/24 14:51 Urine Urobilinogen Normal (NORMAL) 06/08/24 14:51 Ur Leukocyte Esterase Negative (NEGATIVE) 06/08/24 14:51 Urine RBC 0-2 /HPF (0-3) 06/08/24 14:51 Urine WBC 0-2 /HPF (0-5) 06/08/24 14:51 Ur Squamous Epith Cells Rare /HPF (NEGATIVE) 06/08/24 14:51 Urine Bacteria Negative /HPF (NEGATIVE) 06/08/24 14:51 Ur Culture Indicated? No/not indicated 06/08/24 14:51 SARS-CoV-2 (PCR) Negative (NEGATIVE) 06/08/24 14:51 Influenza Type A (PCR) Negative (NEGATIVE) 06/08/24 14:51 Influenza Type B (PCR) Negative (NEGATIVE) 06/08/24 14:51 RSV (PCR) Negative (NEGATIVE) 06/08/24 14:51 Resp Viral Panel (PCR) See scanned report 06/09/24 09:45 S. pyogenes (TEM-PCR) Not detected (NOT DETECT) 06/08/24 15:01 Plan (1) Acute respiratory distress: Status: Acute (2) Bronchitis: Status: Acute (3) Generalized weakness: Status: Acute (4) Hypomagnesemia: Status: Acute (5) Chronic kidney disease (CKD): Status: Chronic Qualifiers: Chronic kidney disease stage: unspecified stage Qualified Code(s): N18.9 - Chronic kidney disease, unspecified (6) Atrial fibrillation: Status: Chronic Qualifiers: Atrial fibrillation type: unspecified Qualified Code(s): I48.91 - Unspecified atrial fibrillation (7) CAD (coronary artery disease): Status: Chronic Qualifiers: Associated angina: unspecified whether angina present Coronary Disease- Associated Artery/Lesion type: [place] artery [place] vs. transplanted heart: [place] heart Qualified Code(s): I25.10 - Atherosclerotic heart disease of [place] coronary artery without angina pectoris (8) CHF (congestive heart failure): Status: Chronic Qualifiers: Heart failure chronicity: unspecified Heart failure type: unspecified Qualified Code(s): I50.9 - Heart failure, unspecified
[2024-06-10] MEDS: NS 1,000 ML IV 1,000 ML IV SCH (15:27)
[2024-06-11 06:03] LABS: BASOPHILS # (AUTO) 0.1 X10^3/uL (0.0-0.1); BASOPHILS % (AUTO) 0.8 % (0.2-1.0); EOSINOPHILS # (AUTO) 0.4 x10^3/uL (0.0-0.2); EOSINOPHILS % (AUTO) 3.5 % (0.9-2.9); HEMATOCRIT 34.2 % (36.0-47.0); HEMOGLOBIN 11.3 g/dL (12.0-16.0); LYMPHOCYTES # (AUTO) 2.5 X10^3/uL (1.3-2.9); LYMPHOCYTES % (AUTO) 22.9 % (21.0-51.0); MEAN CORPUSCULAR HEMOGLOBIN 29.5 pg (27.0-34.0); MEAN CORPUSCULAR HGB CONC 33.2 g/dL (33.0-35.0); MONOCYTES # (AUTO) 0.7 x10^3/uL (0.3-0.8); MONOCYTES % (AUTO) 6.6 % (0.0-13.0); NEUTROPHILS # (AUTO) 7.2 x10^3/uL (2.2-4.8); NEUTROPHILS % (AUTO) 66.2 % (42.0-75.0); PLATELET COUNT 260 X10^3/uL (150.0-450.0); RED BLOOD COUNT 3.84 X10^6/uL (3.5-5.4); RED CELL DISTRIBUTION WIDTH 14.6 % (11.6-16.5); WHITE BLOOD COUNT 10.9 X10^3/uL (3.6-10.0)
[2024-06-11 06:13] LABS: ALBUMIN 2.5 g/dL (3.4-5.0); CALCIUM 7.5 mg/dL (8.5-10.1); CARBON DIOXIDE 32.1 mmol/L (21-32); COR CA(FOR HYPOALB) 8.7 mg/dL (8.5-10.1); CREATININE 1.39 mg/dL (0.55-1.02); POTASSIUM 3.6 mmol/L (3.5-5.1); TOTAL PROTEIN 5.9 g/dL (6.4-8.2)
[2024-06-11] MEDS: ROBITUSSIN DM PO PRN (09:04)
--- NOTE | 2024-06-11 11:19 | PCM.PROG ---
Progress Note Progress Note for Day of Date of Exam: 06/11/24 Subjective Subjective: Patient is a 83 year old female admitted for acute respiratory failure and bronchitis. This morning she reports feeling better and continues to improve. She does still have cough. She is not going to require any home oxygen. No acute events overnight. Labs/imaging reviewed: -WBC 10.9, hemoglobin 11.3, platelets 260, sodium 147, potassium 3.6, creatinine 1.39, glucose 123 -AIT negative -CXR: no acute changes Plan: Wean O2 as tolerated. Continue nebs, pulmicort and IS. Add tussionex. Continue Rocephin. Will add IV Solu-Medrol 40 mg daily. Continue home medications. Replace electrolytes prn. Continue PT/OT. Monitor AM labs/imaging. Past Medical Family Social History Allergies: Allergies morphine Allergy (Verified 08/24/22 11:40) Review of Systems ROS changes noted: see HPI Vital Signs and I&O's Vital Signs: Vital Signs Temperature 98 F Pulse Rate [Radial] 65 Pulse Rate 76 Respiratory Rate 18 Blood Pressure [Left Arm] 110/67 O2 Sat by Pulse Oximetry 100 O2 Sat by Pulse Oximetry 98 Intake and Output: Intake & Output 06/08/24 06/09/24 06/10/24 06/11/24 23:59 23:59 23:59 23:59 Intake Total 230 / 230 2333 / 2333 1903 / 1903 970 / 970 Balance 230 / 230 2333 / 2333 1903 / 1903 970 / 970 Physical Exam Oriented: Normal Eyes: Normal Nose: Normal Throat: Normal Respiratory: Generalized and Diminished Cardiovascular: Normal Auscultation: Bowel Sounds: Normal Tenderness: Normal Skin: Normal Musculoskeletal: Normal Psychiatric: Normal Mood Description: Calm Affect: Normal Speech Pattern: Clear and Appropriate Laboratory and Diagnostics 06/11/24 05:14 06/11/24 05:14 Labs: Laboratory WBC 10.9 X10^3/uL (3.6-10.0) H 06/11/24 05:14 RBC 3.84 X10^6/uL (3.5-5.4) 06/11/24 05:14 Hgb 11.3 g/dL (12.0-16.0) L 06/11/24 05:14 Hct 34.2 % (36.0-47.0) L 06/11/24 05:14 MCV 89.0 fL (80.0-100.0) 06/11/24 05:14 MCH 29.5 pg (27.0-34.0) 06/11/24 05:14 MCHC 33.2 g/dL (33.0-35.0) 06/11/24 05:14 RDW 14.6 % (11.6-16.5) 06/11/24 05:14 Plt Count 260 X10^3/uL (150.0-450.0) 06/11/24 05:14 Plt Count Comment Adequate (ADEQUATE) 06/09/24 05:28 MPV 9.0 fL (7.4-11.0) 06/11/24 05:14 Neut % (Auto) 66.2 % (42.0-75.0) 06/11/24 05:14 Lymph % (Auto) 22.9 % (21.0-51.0) 06/11/24 05:14 [place] % (Auto) 6.6 % (0.0-13.0) 06/11/24 05:14 Eos % (Auto) 3.5 % (0.9-2.9) H 06/11/24 05:14 Baso % (Auto) 0.8 % (0.2-1.0) 06/11/24 05:14 Neut # (Auto) 7.2 x10^3/uL (2.2-4.8) H 06/11/24 05:14 Lymph # (Auto) 2.5 X10^3/uL (1.3-2.9) 06/11/24 05:14 [place] # (Auto) 0.7 x10^3/uL (0.3-0.8) 06/11/24 05:14 Eos # (Auto) 0.4 x10^3/uL (0.0-0.2) H 06/11/24 05:14 Baso # (Auto) 0.1 X10^3/uL (0.0-0.1) 06/11/24 05:14 Absolute Nucleated RBC 0.1 /100WBC 06/11/24 05:14 Total Counted 100 06/09/24 05:28 Neutrophils % (Manual) 93 % (39-76) H 06/09/24 05:28 Band Neutrophils % 2 % (0-10) 06/09/24 05:28 Lymphocytes % (Manual) 5 % (13-43) L 06/09/24 05:28 Plt Morphology Comment Normal (NORMAL) 06/09/24 05:28 RBC Morphology Normal (NORMAL) 06/09/24 05:28 Sodium 146 mmol/L (136-145) H 06/11/24 05:14 Corrected Sodium 147 mmol/L (136-145) H 06/11/24 05:14 Potassium 3.6 mmol/L (3.5-5.1) 06/11/24 05:14 Chloride 110 mmol/L (98-107) H 06/11/24 05:14 Carbon Dioxide 32.1 mmol/L (21-32) H 06/11/24 05:14 BUN 22 mg/dL (7-18) H 06/11/24 05:14 Creatinine 1.39 mg/dL (0.55-1.02) H 06/11/24 05:14 Est GFR (MDRD) Af Amer 47 (>60) L 06/11/24 05:14 Est GFR (MDRD) Non-Af 39 (>60) L 06/11/24 05:14 Glucose 123 mg/dL (65-99) H 06/11/24 05:14 POC Glucose (mg/dL) 117 mg/dL (65-99) H 06/11/24 11:07 Hemoglobin A1c 7.3 % 06/09/24 05:28 Calcium 7.5 mg/dL (8.5-10.1) L 06/11/24 05:14 Corrected Calcium 8.7 mg/dL (8.5-10.1) 06/11/24 05:14 Magnesium 2.4 mg/dL (2.0-2.9) 06/10/24 05:13 Total Bilirubin 0.30 mg/dL (0.2-1.0) 06/11/24 05:14 AST 17 Units/L (15-37) 06/11/24 05:14 ALT 15 Units/L (12-78) 06/11/24 05:14 Alkaline Phosphatase 74 Units/L (46-116) 06/11/24 05:14 Creatine Kinase 86 Units/L (26-192) 06/08/24 15:26 Troponin I High Sens 5.9 ng/L (4.0-60.0) 06/08/24 15:26 B-Natriuretic Peptide 331 pg/mL (0-79) H 06/08/24 15:26 Total Protein 5.9 g/dL (6.4-8.2) L 06/11/24 05:14 Albumin 2.5 g/dL (3.4-5.0) L 06/11/24 05:14 Globulin 3.4 g/dL (2.5-4.5) 06/11/24 05:14 Albumin/Globulin Ratio 0.7 Ratio (1.1-2.1) L 06/11/24 05:14 Specimen Type Clean catch urine 06/08/24 14:51 Urine Color Yellow (YELLOW) 06/08/24 14:51 Urine Appearance Slightly hazy (CLEAR) 06/08/24 14:51 Urine pH 6.5 (5.0 - 8.0) 06/08/24 14:51 Ur Specific [place] 1.015 (1.000-1.030) 06/08/24 14:51 Urine Protein 1+ (NEGATIVE) 06/08/24 14:51 Urine Glucose (UA) 4+ (NEGATIVE) 06/08/24 14:51 Urine Ketones Negative (NEGATIVE) 06/08/24 14:51 Urine Blood 1+ (NEGATIVE) 06/08/24 14:51 Urine Nitrite Negative (NEGATIVE) 06/08/24 14:51 Urine Bilirubin Negative (NEGATIVE) 06/08/24 14:51 Urine Urobilinogen Normal (NORMAL) 06/08/24 14:51 Ur Leukocyte Esterase Negative (NEGATIVE) 06/08/24 14:51 Urine RBC 0-2 /HPF (0-3) 06/08/24 14:51 Urine WBC 0-2 /HPF (0-5) 06/08/24 14:51 Ur Squamous Epith Cells Rare /HPF (NEGATIVE) 06/08/24 14:51 Urine Bacteria Negative /HPF (NEGATIVE) 06/08/24 14:51 Ur Culture Indicated? No/not indicated 06/08/24 14:51 SARS-CoV-2 (PCR) Negative (NEGATIVE) 06/08/24 14:51 Influenza Type A (PCR) Negative (NEGATIVE) 06/08/24 14:51 Influenza Type B (PCR) Negative (NEGATIVE) 06/08/24 14:51 RSV (PCR) Negative (NEGATIVE) 06/08/24 14:51 Resp Viral Panel (PCR) See scanned report 06/09/24 09:45 S. pyogenes (TEM-PCR) Not detected (NOT DETECT) 06/08/24 15:01 Plan (1) Acute respiratory distress: Status: Acute (2) Bronchitis: Status: Acute (3) Generalized weakness: Status: Acute (4) Hypomagnesemia: Status: Acute (5) Chronic kidney disease (CKD): Status: Chronic Qualifiers: Chronic kidney disease stage: unspecified stage Qualified Code(s): N18.9 - Chronic kidney disease, unspecified (6) Atrial fibrillation: Status: Chronic Qualifiers: Atrial fibrillation type: unspecified Qualified Code(s): I48.91 - Unspecified atrial fibrillation (7) CAD (coronary artery disease): Status: Chronic Qualifiers: Coronary Disease-Associated Artery/Lesion type: [place] artery [place] vs. transplanted heart: [place] heart Associated angina: unspecified whether angina present Qualified Code(s): I25.10 - Atherosclerotic heart disease of [place] coronary artery without angina pectoris (8) CHF (congestive heart failure): Status: Chronic Qualifiers: Heart failure type: unspecified Heart failure chronicity: unspecified Qualified Code(s): I50.9 - Heart failure, unspecified
[2024-06-11] MEDS: SOLU-Medrol 40 MG VIAL IVP SCH (11:53)
[2024-06-12 06:04] LABS: BASOPHILS # (AUTO) 0.1 X10^3/uL (0.0-0.1); BASOPHILS % (AUTO) 0.5 % (0.2-1.0); HEMATOCRIT 36.4 % (36.0-47.0); HEMOGLOBIN 12.1 g/dL (12.0-16.0); LYMPHOCYTES # (AUTO) 0.6 X10^3/uL (1.3-2.9); LYMPHOCYTES % (AUTO) 4.1 % (21.0-51.0); MEAN CORPUSCULAR HEMOGLOBIN 29.3 pg (27.0-34.0); MEAN CORPUSCULAR HGB CONC 33.2 g/dL (33.0-35.0); MEAN CORPUSCULAR VOLUME 88.2 fL (80.0-100.0); MEAN PLATELET VOLUME 9.2 fL (7.4-11.0); MONOCYTES # (AUTO) 0.4 x10^3/uL (0.3-0.8); MONOCYTES % (AUTO) 2.7 % (0.0-13.0); NEUTROPHILS # (AUTO) 13.9 x10^3/uL (2.2-4.8); NEUTROPHILS % (AUTO) 92.7 % (42.0-75.0); PLATELET COUNT 287 X10^3/uL (150.0-450.0); RED BLOOD COUNT 4.12 X10^6/uL (3.5-5.4); RED CELL DISTRIBUTION WIDTH 14.8 % (11.6-16.5); WHITE BLOOD COUNT 14.9 X10^3/uL (3.6-10.0)
[2024-06-12 06:44] LABS: ALBUMIN 2.9 g/dL (3.4-5.0); CALCIUM 7.9 mg/dL (8.5-10.1); CARBON DIOXIDE 28.7 mmol/L (21-32); COR CA(FOR HYPOALB) 8.8 mg/dL (8.5-10.1); CREATININE 1.31 mg/dL (0.55-1.02); POTASSIUM 4.2 mmol/L (3.5-5.1); TOTAL PROTEIN 6.8 g/dL (6.4-8.2)
[2024-06-12 07:09] LABS: PLATELET MORPHOLOGY COMMENT NORMAL (NORMAL)
[2024-06-13 03:43] VITALS: O2SAT 99
[2024-06-13 08:19] LABS: BASOPHILS # (AUTO) 0.1 X10^3/uL (0.0-0.1); BASOPHILS % (AUTO) 0.3 % (0.2-1.0); HEMATOCRIT 37.9 % (36.0-47.0); HEMOGLOBIN 12.5 g/dL (12.0-16.0); LYMPHOCYTES % (AUTO) 5.6 % (21.0-51.0); MEAN CORPUSCULAR HEMOGLOBIN 29.3 pg (27.0-34.0); MEAN CORPUSCULAR VOLUME 88.6 fL (80.0-100.0); MEAN PLATELET VOLUME 9.3 fL (7.4-11.0); MONOCYTES # (AUTO) 0.7 x10^3/uL (0.3-0.8); MONOCYTES % (AUTO) 4.2 % (0.0-13.0); NEUTROPHILS # (AUTO) 15.9 x10^3/uL (2.2-4.8); NEUTROPHILS % (AUTO) 89.9 % (42.0-75.0); PLATELET COUNT 276 X10^3/uL (150.0-450.0); RED BLOOD COUNT 4.28 X10^6/uL (3.5-5.4); RED CELL DISTRIBUTION WIDTH 14.5 % (11.6-16.5); WHITE BLOOD COUNT 17.7 X10^3/uL (3.6-10.0)
[2024-06-13 08:32] LABS: ALBUMIN 2.9 g/dL (3.4-5.0); CALCIUM 8.1 mg/dL (8.5-10.1); CARBON DIOXIDE 29.3 mmol/L (21-32); CREATININE 1.43 mg/dL (0.55-1.02); POTASSIUM 3.8 mmol/L (3.5-5.1); TOTAL PROTEIN 6.6 g/dL (6.4-8.2)
--- NOTE | 2024-06-13 09:10 | PCM.PROG ---
Progress Note Progress Note for Day of Date of Exam: 06/12/24 Subjective Subjective: Patient is a 83 year old female admitted for acute respiratory failure and bronchitis. This morning her breathing has improved. She does still have cough. She is not going to require any home oxygen. No acute events overnight. Labs/imaging reviewed: -WBC 14.9, hemoglobin 12.1, platelets 287, sodium 143, potassium 4.2, creatinine 1.31, glucose 206 -AIT negative -CXR: no acute changes Plan: Wean O2 as tolerated. Continue nebs, pulmicort and IS. Added tussionex. Continue Rocephin and IV Solu-Medrol 40 mg daily. Continue home medications. Replace electrolytes prn. Continue PT/OT. Monitor AM labs/imaging. Past Medical Family Social History Allergies: Allergies morphine Allergy (Verified 08/24/22 11:40) Review of Systems ROS changes noted: see HPI Vital Signs and I&O's Vital Signs: Vital Signs Temperature 98.2 F Pulse Rate [Radial] 80 Respiratory Rate 17 Blood Pressure [Left Arm] 141/77 O2 Sat by Pulse Oximetry 98 Intake and Output: Intake & Output 06/09/24 06/10/24 06/11/24 06/12/24 23:59 23:59 23:59 23:59 Intake Total 2333 / 2333 1903 / 1903 2577 / 2577 1518 / 1518 Balance 2333 / 2333 1903 / 1903 2577 / 2577 1518 / 1518 Physical Exam Oriented: Normal Eyes: Normal Nose: Normal Throat: Normal Respiratory: Normal Cardiovascular: Normal Auscultation: Bowel Sounds: Normal Tenderness: Normal Skin: Normal Musculoskeletal: Normal Psychiatric: Normal Mood Description: Calm Affect: Normal Speech Pattern: Clear and Appropriate Laboratory and Diagnostics 06/13/24 07:26 06/13/24 07:26 Labs: Laboratory WBC 14.9 X10^3/uL (3.6-10.0) H 06/12/24 05:13 RBC 4.12 X10^6/uL (3.5-5.4) 06/12/24 05:13 Hgb 12.1 g/dL (12.0-16.0) 06/12/24 05:13 Hct 36.4 % (36.0-47.0) 06/12/24 05:13 MCV 88.2 fL (80.0-100.0) 06/12/24 05:13 MCH 29.3 pg (27.0-34.0) 06/12/24 05:13 MCHC 33.2 g/dL (33.0-35.0) 06/12/24 05:13 RDW 14.8 % (11.6-16.5) 06/12/24 05:13 Plt Count 287 X10^3/uL (150.0-450.0) 06/12/24 05:13 Plt Count Comment Adequate (ADEQUATE) 06/12/24 05:13 MPV 9.2 fL (7.4-11.0) 06/12/24 05:13 Neut % (Auto) 92.7 % (42.0-75.0) H 06/12/24 05:13 Lymph % (Auto) 4.1 % (21.0-51.0) L 06/12/24 05:13 [place] % (Auto) 2.7 % (0.0-13.0) 06/12/24 05:13 Eos % (Auto) 0.0 % (0.9-2.9) L 06/12/24 05:13 Baso % (Auto) 0.5 % (0.2-1.0) 06/12/24 05:13 Neut # (Auto) 13.9 x10^3/uL (2.2-4.8) H 06/12/24 05:13 Lymph # (Auto) 0.6 X10^3/uL (1.3-2.9) L 06/12/24 05:13 [place] # (Auto) 0.4 x10^3/uL (0.3-0.8) 06/12/24 05:13 Eos # (Auto) 0.0 x10^3/uL (0.0-0.2) 06/12/24 05:13 Baso # (Auto) 0.1 X10^3/uL (0.0-0.1) 06/12/24 05:13 Absolute Nucleated RBC 0.0 /100WBC 06/12/24 05:13 Total Counted 100 06/12/24 05:13 Neutrophils % (Manual) 94 % (39-76) H 06/12/24 05:13 Band Neutrophils % 2 % (0-10) 06/09/24 05:28 Lymphocytes % (Manual) 6 % (13-43) L 06/12/24 05:13 Plt Morphology Comment Normal (NORMAL) 06/12/24 05:13 RBC Morphology Normal (NORMAL) 06/12/24 05:13 Sodium 143 mmol/L (136-145) 06/12/24 05:13 Corrected Sodium 146 mmol/L (136-145) H 06/12/24 05:13 Potassium 4.2 mmol/L (3.5-5.1) 06/12/24 05:13 Chloride 107 mmol/L (98-107) 06/12/24 05:13 Carbon Dioxide 28.7 mmol/L (21-32) 06/12/24 05:13 BUN 22 mg/dL (7-18) H 06/12/24 05:13 Creatinine 1.31 mg/dL (0.55-1.02) H 06/12/24 05:13 Est GFR (MDRD) Af Amer 50 (>60) L 06/12/24 05:13 Est GFR (MDRD) Non-Af 41 (>60) L 06/12/24 05:13 Glucose 206 mg/dL (65-99) H 06/12/24 05:13 POC Glucose (mg/dL) 198 mg/dL (65-99) H 06/12/24 05:42 Hemoglobin A1c 7.3 % 06/09/24 05:28 Calcium 7.9 mg/dL (8.5-10.1) L 06/12/24 05:13 Corrected Calcium 8.8 mg/dL (8.5-10.1) 06/12/24 05:13 Magnesium 2.4 mg/dL (2.0-2.9) 06/10/24 05:13 Total Bilirubin 0.40 mg/dL (0.2-1.0) 06/12/24 05:13 AST 20 Units/L (15-37) 06/12/24 05:13 ALT 16 Units/L (12-78) 06/12/24 05:13 Alkaline Phosphatase 85 Units/L (46-116) 06/12/24 05:13 Creatine Kinase 86 Units/L (26-192) 06/08/24 15:26 Troponin I High Sens 5.9 ng/L (4.0-60.0) 06/08/24 15:26 B-Natriuretic Peptide 331 pg/mL (0-79) H 06/08/24 15:26 Total Protein 6.8 g/dL (6.4-8.2) 06/12/24 05:13 Albumin 2.9 g/dL (3.4-5.0) L 06/12/24 05:13 Globulin 3.9 g/dL (2.5-4.5) 06/12/24 05:13 Albumin/Globulin Ratio 0.7 Ratio (1.1-2.1) L 06/12/24 05:13 Specimen Type Clean catch urine 06/08/24 14:51 Urine Color Yellow (YELLOW) 06/08/24 14:51 Urine Appearance Slightly hazy (CLEAR) 06/08/24 14:51 Urine pH 6.5 (5.0 - 8.0) 06/08/24 14:51 Ur Specific [place] 1.015 (1.000-1.030) 06/08/24 14:51 Urine Protein 1+ (NEGATIVE) 06/08/24 14:51 Urine Glucose (UA) 4+ (NEGATIVE) 06/08/24 14:51 Urine Ketones Negative (NEGATIVE) 06/08/24 14:51 Urine Blood 1+ (NEGATIVE) 06/08/24 14:51 Urine Nitrite Negative (NEGATIVE) 06/08/24 14:51 Urine Bilirubin Negative (NEGATIVE) 06/08/24 14:51 Urine Urobilinogen Normal (NORMAL) 06/08/24 14:51 Ur Leukocyte Esterase Negative (NEGATIVE) 06/08/24 14:51 Urine RBC 0-2 /HPF (0-3) 06/08/24 14:51 Urine WBC 0-2 /HPF (0-5) 06/08/24 14:51 Ur Squamous Epith Cells Rare /HPF (NEGATIVE) 06/08/24 14:51 Urine Bacteria Negative /HPF (NEGATIVE) 06/08/24 14:51 Ur Culture Indicated? No/not indicated 06/08/24 14:51 SARS-CoV-2 (PCR) Negative (NEGATIVE) 06/08/24 14:51 Influenza Type A (PCR) Negative (NEGATIVE) 06/08/24 14:51 Influenza Type B (PCR) Negative (NEGATIVE) 06/08/24 14:51 RSV (PCR) Negative (NEGATIVE) 06/08/24 14:51 Resp Viral Panel (PCR) See scanned report 06/09/24 09:45 S. pyogenes (TEM-PCR) Not detected (NOT DETECT) 06/08/24 15:01 Plan (1) Acute respiratory distress: Status: Acute (2) Bronchitis: Status: Acute (3) Generalized weakness: Status: Acute (4) Hypomagnesemia: Status: Acute (5) Chronic kidney disease (CKD): Status: Chronic Qualifiers: Chronic kidney disease stage: unspecified stage Qualified Code(s): N18.9 - Chronic kidney disease, unspecified (6) Atrial fibrillation: Status: Chronic Qualifiers: Atrial fibrillation type: unspecified Qualified Code(s): I48.91 - Unspecified atrial fibrillation (7) CAD (coronary artery disease): Status: Chronic Qualifiers: Associated angina: unspecified whether angina present Coronary Disease- Associated Artery/Lesion type: [place] artery [place] vs. transplanted heart: [place] heart Qualified Code(s): I25.10 - Atherosclerotic heart disease of [place] coronary artery without angina pectoris (8) CHF (congestive heart failure): Status: Chronic Qualifiers: Heart failure chronicity: unspecified Heart failure type: unspecified Qualified Code(s): I50.9 - Heart failure, unspecified
[2024-06-13] MEDS: TUSSIONEX PENNKINETIC SUSP PO PRN (10:19)
[2024-06-13 10:25] VITALS: BP 136/83; PULSE 79; RESP 19; TEMP 97
== END 2024-06-13 10:55 | disposition home health service (06) ==
LOC: ER 14:44 → MED/SURG 14:44
PROVIDERS: ADMIT Internal Medicine; ATTEND Internal Medicine
DX: Z03.818 Encounter for observation for suspected exposure to other biological agents ruled out; R26.89 Other abnormalities of gait and mobility; R07.89 Other chest pain; I25.10 Atherosclerotic heart disease of native coronary artery without angina pectoris; E83.42 Hypomagnesemia; I48.91 Unspecified atrial fibrillation; E11.65 Type 2 diabetes mellitus with hyperglycemia; R53.1 Weakness; J20.8 Acute bronchitis due to other specified organisms; R94.31 Abnormal electrocardiogram [ECG] [EKG]; N18.9 Chronic kidney disease, unspecified; I50.9 Heart failure, unspecified; K21.9 Gastro-esophageal reflux disease without esophagitis; R06.03 Acute respiratory distress; E87.6 Hypokalemia; I13.0 Hypertensive heart and chronic kidney disease with heart failure and stage 1 through stage 4 chronic kidney disease, or unspecified chronic kidney disease; R06.02 Shortness of breath